=== PATIENT | female | born 1950 | race Caucasian/White ===

== ENCOUNTER → 2016-11-18 | Outpatient (CLI) | payer OTHER, MEDICARE ==
[~2016-11-18] MED LIST: ALBU1AER9 INH; AMLO5TAB2 PO; BISA-16 PO; CETI10TA84 PO; CHOL1000 PO; CITA10TA8 PO; CLB100 PO; CYNI1000 IM; ERYT250T; FURO-85 PO; GLIP-197 PO; HYDR-5688 PO; MONT1TAB3 PO; MULTCAP7 PO; NEOM500T; PRT/20 PO; SENN-61 PO; UMEC1AER INH; [UNRECOGNIZED DRUG - CODE] PO
[2016-11-18 12:07] LABS: BASO % 0.2 %; BASO ABS # 0.01 K/uL (0-0.2); COMPLETE YES; EOS % 2.9 %; HEMATOCRIT 40.2 % (37-47); IG% 0.2 %; LYMPH ABS # 1.87 K/uL (1.2-3.4); MEAN CELL VOLUME 83.8 fL (80-100); MEAN CORPUSCULAR HEMOGLOBIN 29.2 pg (25-34); MEAN CORPUSCULAR HGB CONC 34.8 g/dl (32-36); MEAN PLATELET VOLUME 11.5 fL (7.4-10.4); MONO % 4.9 %; NEUT % 57.8 %; PLATELET COUNT 219 K/uL (130-400)
[2016-11-18 12:21] LABS: ALT/SGPT 21 U/L (12-78); AST/SGOT 15 U/L (15-37); BLOOD UREA NITROGEN 13 mg/dl (7-18); CARBON DIOXIDE 30 mmol/L (21-32); CHLORIDE 104 mmol/L (98-107); CREATININE 0.71 mg/dl (0.60-1.20); GLUCOSE 87 mg/dl (70-99); POTASSIUM 3.8 mmol/L (3.5-5.1); SODIUM 142 mmol/L (136-145)
[2016-11-18 12:42] LABS: ESTIMATED AVERAGE GLUCOSE 114 mg/dl; HA1C FLAG Normal (Normal)
[2016-11-18 12:43] LABS: ALB/GLOB RATIO 1.1 (0.9-2); ALKALINE PHOSPHATASE 77 U/L (45-117); IMMUNOGLOBULN M 86.9 mg/dL (40-230)
== END | disposition home or self-care (01) ==
LOC: C.LAB1850 10:32
PROVIDERS: ATTEND Internal Medicine
DX: E11.9 Type 2 diabetes mellitus without complications (principal); Z98.890 Other specified postprocedural states; K57.20 Diverticulitis of large intestine with perforation and abscess without bleeding; D84.9 Immunodeficiency, unspecified; K22.70 Barrett's esophagus without dysplasia

== ENCOUNTER → 2016-11-25 | Outpatient (CLI) | payer OTHER, MEDICARE ==
[~2016-11-25] MED LIST changes: +OPTIRAY 320 IV PRN
--- NOTE | 2016-11-25 14:21 | DIAGNOSTIC IMAGING REPORT ---
CT SCAN OF THE ABDOMEN AND PELVIS WITH IV CONTRAST CLINICAL HISTORY: Perforated diverticulitis and colostomy. COMPARISON STUDY: Abdominal CT scans dated 09/23/2016 and 08/22/2016. TECHNIQUE: Following the IV administration of 119 cc of Optiray 320, CT scan of the abdomen and pelvis is performed from the lung bases to the proximal femora. Images are reviewed in the axial, sagittal, and coronal planes. IV contrast was administered without complication. Automated dose control exposure was utilized. The examination is degraded by streak artifact from the patient's arms which could not be elevated above the abdomen. CT DOSE: 506.46 mGy.cm FINDINGS: Lung bases: The heart is normal in size and without pericardial effusion. The lung bases are clear noting dependent subsegmental atelectasis. There is a small hiatal hernia. Liver: The contrast-enhanced liver is normal in size and contour. The liver demonstrates diffusely diminished attenuation consistent with hepatic steatosis. More focal fat is seen adjacent to the falciform ligament. There is minimal central intrahepatic biliary ductal dilatation. The hepatic veins and portal veins are patent. Gallbladder: Surgically absent noting clips in the gallbladder fossa. Spleen: Normal in size and attenuation. Pancreas: Atrophic. Adrenal glands: Unremarkable. Kidneys: The contrast enhanced kidneys demonstrate cortical atrophy and are without hydronephrosis. The kidneys enhance symmetrically. Abdominal vasculature: The abdominal aorta is normal in course and caliber noting moderate atherosclerotic calcification. Bowel: There are postoperative changes from sigmoid colon resection with left lower quadrant colostomy. Inflammatory change at the rectal stump has resolved from previous. There is diverticulosis of the remaining sigmoid colon. A parastomal hernia contains nonobstructed loops of small bowel. No bowel obstruction is identified. The appendix is not identified and reported surgically absent. Peritoneum: No intraperitoneal free air or abdominal ascites is seen. A midline surgical scar is noted. No fluid collection is seen. Lymphadenopathy: None. Pelvic viscera: The bladder is decompressed and grossly unremarkable.. The uterus is surgically absent. No adnexal lesion is seen. Skeletal structures: The skeletal structures are osteopenic. There is mild lumbosacral spondylosis. No lytic or blastic lesions are seen. A hemangioma is noted in the body of L2. IMPRESSION: 1. Again seen are postoperative changes from sigmoid colon resection with left lower quadrant colostomy. No residual inflammatory change is identified. No fluid collection is seen. 2. A parastomal hernia contains nonobstructed loops of small bowel. No bowel obstruction is identified. 3. There is diverticulosis of the remaining sigmoid colon. 4. Hepatic steatosis. 5. Additional findings as above. Electronically signed by: Main Segura M.D. 11/25/2016 2:20 PM Dictated Date/Time: 11/25/2016 2:13 PM
== END | disposition home or self-care (01) ==
LOC: C.CTS 13:24
PROVIDERS: ATTEND Surgery
DX: K57.32 Diverticulitis of large intestine without perforation or abscess without bleeding (principal); K43.5 Parastomal hernia without obstruction or gangrene; Z93.3 Colostomy status; K76.0 Fatty (change of) liver, not elsewhere classified

== ENCOUNTER → 2016-11-26 | Day surgery (SDC) | payer OTHER, MEDICARE ==
[2016-11-19 07:34] VITALS: Ht 142.2 cm; Wt 54.5 kg
[~2016-11-26] VITALS: Ht 142.2 cm; Wt 54.5 kg
[~2016-11-26] MED LIST changes: +LIDOCAINE HCL 2% 2 ML VIAL (20MG/ML) ONE; -OPTIRAY 320 IV PRN; +PROPOFOL IV EMULSION 10 MG/ML 20 ML VIAL IV ONE; +SODIUM CHLORIDE 0.9% 500ML 500 ML IV ONE
[2016-11-26 13:15] VITALS: TEMP 36.6
--- NOTE | 2016-11-26 13:29 | Endo History and Physical ---
History & Physical Date of Service: Nov 26, 2016. Chief Complaint: colostomy,diverticulitis of colon Referring Physician: Dr. Abbe Lee History of Present Illness 66 yo CF who presents for colonoscopy via ostomy secondary to history of diverticulitis and possible ostomy reversal. Past Medical History Diabetes, Endocrine Disorder, Arthritis, Asthma, Gastrointestinal Disorder, Anxiety, Reflux, Blood Dyscrasias, High Cholesterol, Hypertension, COPD, Depression Past Surgical History Hx Cardiac Surgery: No Hx Internal Defibrillator: No Hx Pacemaker: No Hx Abdominal Surgery: Yes (CLARE BSO, APPY, LYNDSEY, COLON RESECTION WITH COLOSTOMY ) Hx of Implantable Prosthesis: No Hx Post-Op Nausea and Vomiting: No Hx Cancer Surgery: No Hx Thoracic Surgery: No Hx Orthopedic: Yes (RT BUNIONECTOMY) Hx Urinary Tract Surgery: No Family History Esophogeal CA Social History Smoking Status: Former Smoker Hx Substance Use: No Hx Alcohol Use: No Allergies Coded Allergies: Sumatriptan (Verified Allergy, Severe, ANAPHYLAXIS - "HEART TROUBLES", ) PT TOOK IT AND HER THROAT BEGAN TO CLOSE Lisinopril (Verified Allergy, Mild, RASH, 11/12/16) Levofloxacin (Verified Allergy, Unknown, SICK, 11/12/16) NSAIDs (Verified Allergy, Unknown, UNKNOWN, 11/12/16) Fluticasone (Verified Adverse Reaction, Mild, DE LEON NOSE, 11/12/16) Hydrochlorothiazide (Verified Adverse Reaction, Mild, RASH, 11/12/16) Metformin (Verified Adverse Reaction, Mild, NAUSEA, 11/12/16) Current Medications Reported Home Medications Medications Dose Route/Sig Max Daily Dose Days Date Category Celebrex (Celecoxib) 100 Mg Cap 1 Cap PO BID 30 11/12/16 Reported Anoro Ellipta 62.5-25 Mcg/INH (Umeclidinium-Vilanterol) 1 Aer Aer 1 Puff INH QAM 11/12/16 Reported Senokot (Senna) 8.6 Mg Tab 1 Tab PO DAILY AT NOON 09/14/16 Reported Celexa (Citalopram Hydrobromide) 10 Mg Tab 10 Mg PO QAM 08/07/16 Reported Glipizide Er (Glipizide) 5 Mg Tab 1 Tab PO BID 08/07/16 Reported Zyrtec (Cetirizine HCl) 10 Mg Tab 10 Mg PO QAM 06/22/14 Reported Singulair (Montelukast Sodium) 10 Mg Tab 10 Mg PO HS 06/22/14 Reported Proair Hfa (Albuterol) Aers 2 Puff INH Q4 PRN 06/22/14 Reported Protonix (Pantoprazole Sodium) 20 Mg Tab 20 Mg PO QAM 06/22/14 Reported Norvasc (Amlodipine Besylate) 5 Mg Tab 5 Mg PO QPM 06/22/14 Reported Lasix (Furosemide) 20 Mg Tab 20 Mg PO QPM 06/22/14 Reported Capoten (Captopril) 12.5 Mg Tab 12.5 Mg PO NOON 06/22/14 Reported Vital Signs Weight (Kilograms): 54.55 Height (Feet): 4 Height (Inches): 8 Date Time Temp Pulse Resp B/P Pulse Ox O2 Delivery O2 Flow Rate FiO2 11/26/16 13:15 36.6 60 20 192/87 97 Room Air Physical Exam General Appearance: WD/WN, no apparent distress Respiratory/Chest: Auscultation: breath sounds normal Cardiovascular: Heart Auscultation: RRR Abdomen: Bowel Sounds: normal Inspection & Palpation: soft, non-distended, no tenderness, guarding & rebound Assessment and Plan Assessment: 66 yo CF who presents for colonoscopy via ostomy secondary to history of diverticulitis and possible ostomy reversal. Plan: Proceed with colonoscopy via ostomy.
--- NOTE | 2016-11-26 13:54 | Discharge Instructions ---
Endoscopy Patient Instructions Date / Procedure(s) Performed Nov 26, 2016. Colonoscopy Allergy Information Coded Allergies: Sumatriptan (Verified Allergy, Severe, ANAPHYLAXIS - "HEART TROUBLES", ) PT TOOK IT AND HER THROAT BEGAN TO CLOSE Lisinopril (Verified Allergy, Mild, RASH, 11/12/16) Levofloxacin (Verified Allergy, Unknown, SICK, 11/12/16) NSAIDs (Verified Allergy, Unknown, UNKNOWN, 11/12/16) Fluticasone (Verified Adverse Reaction, Mild, DE LEON NOSE, 11/12/16) Hydrochlorothiazide (Verified Adverse Reaction, Mild, RASH, 11/12/16) Metformin (Verified Adverse Reaction, Mild, NAUSEA, 11/12/16) Discharge Date / Findings Nov 26, 2016. Normal colonoscopy via ostomy and anus. Medication Instructions Stopped Medication(s): stopped all meds on Wednesday except Glipizide OK to resume all medications today as prescribed. Reported Home Medications Medications Dose Route/Sig Max Daily Dose Days Date Category Celebrex (Celecoxib) 100 Mg Cap 1 Cap PO BID 30 11/12/16 Reported Anoro Ellipta 62.5-25 Mcg/INH (Umeclidinium-Vilanterol) 1 Aer Aer 1 Puff INH QAM 11/12/16 Reported Senokot (Senna) 8.6 Mg Tab 1 Tab PO DAILY AT NOON 09/14/16 Reported Celexa (Citalopram Hydrobromide) 10 Mg Tab 10 Mg PO QAM 08/07/16 Reported Glipizide Er (Glipizide) 5 Mg Tab 1 Tab PO BID 08/07/16 Reported Zyrtec (Cetirizine HCl) 10 Mg Tab 10 Mg PO QAM 06/22/14 Reported Singulair (Montelukast Sodium) 10 Mg Tab 10 Mg PO HS 06/22/14 Reported Proair Hfa (Albuterol) Aers 2 Puff INH Q4 PRN 06/22/14 Reported Protonix (Pantoprazole Sodium) 20 Mg Tab 20 Mg PO QAM 06/22/14 Reported Norvasc (Amlodipine Besylate) 5 Mg Tab 5 Mg PO QPM 06/22/14 Reported Lasix (Furosemide) 20 Mg Tab 20 Mg PO QPM 06/22/14 Reported Capoten (Captopril) 12.5 Mg Tab 12.5 Mg PO NOON 06/22/14 Reported Provider Instructions Activity Restrictions - No exercising or heavy lifting for 24 hours. - Do not drink alcohol the day of the procedure. - Do not drive a car or operate machinery until the day after the procedure. - Do not make any important decisions or sign important papers in 24 hours after the procedure. Following Day: - Return to full activity which may include returning to work/school. Diet Start your diet with liquids and light foods (jello, soup, juice, toast). Then eat your usual diet if not nauseated. Treatment For Common After Affects For mild abdominal pain, bloating, or excessive gas: - Rest - Eat lightly - Lie on right side Follow-Up Information Follow-up with Dr. Abbe Lee as scheduled Anesthesia Information What You Should Know You have had a procedure that required some medicine to reduce anxiety and discomfort. This treatment is called moderate sedation. After receiving the treatment, you may be sleepy, but you will be able to breathe on your own. The effects of the treatment may last for several hours. Follow these instructions along with Activity/Diet recommendations noted above: * Do NOT do anything where dizziness or clumsiness would be dangerous. * Rest quietly at home today, then you can be up and about tomorrow. * Have a responsible person stay with you the rest of today. * You may have had an I.V. today. If so, you may take the dressing off later today. Recommendations Call your doctor if: * Trouble breathing * Continuous vomiting for more than 24 hours * Temperature above 101 degrees * Severe abdominal pain or bloating * Pain not relieved by pain medicine ordered * There is increased drainage or redness from any incision * A large amount of rectal bleeding greater than 2-3 tablespoons. (If you had a polyp/s removed or have hemorrhoids, a small amount of blood - from the rectum is to be expected.) * You have any unanswered questions or concerns. IN THE EVENT OF A SERIOUS EMERGENCY, GO TO THE NEAREST EMERGENCY ROOM Your discharge instructions were prepared by provider Luis Alberto Solitario. Patient Instructions Signature Page Jasmyn Tucker Patient (or Guardian) Signature/Date: I have read and understand the instructions given to me by my caregivers. Caregiver/RN/Doctor Signature/Date: The above-named patient and/or guardian has received patient instructions on this date. + Original Patient Signature Page (only) stays with chart. Please make copy for patient.
[2016-11-26 14:15] VITALS: PULSE 61
[2016-11-26 14:30] VITALS: BP 137/61; O2SAT 96
--- NOTE | 2016-11-26 14:51 | Anesthesiology Progress Note ---
Anesthesia Post Op Note Date & Time Nov 26, 2016 at 14:51 Vital Signs Pain Intensity: 0 Vital Signs Past 12 Hours Date Time Temp Pulse Resp B/P Pulse Ox O2 Delivery O2 Flow Rate FiO2 11/26/16 14:30 18 137/61 96 Room Air 11/26/16 14:15 61 18 142/62 96 Room Air 11/26/16 14:06 60 18 127/65 97 Room Air 11/26/16 13:52 56 18 111/51 98 Room Air 11/26/16 13:15 36.6 60 20 192/87 97 Room Air Notes Mental Status: alert / awake / arousable Nausea / Vomiting: adequately controlled Pain: adequately controlled Airway Patency, RR, SpO2: stable & adequate BP & HR: stable & adequate Hydration State: stable & adequate Anesthetic Complications: no major complications apparent
--- NOTE | 2016-11-27 00:46 | GI REPORT ---
Procedure Date: 11/26/2016 1:28 PM Procedure: Colonoscopy Indications: Follow-up of diverticulitis Medicines: Monitored Anesthesia Care Complications: No immediate complications. Estimated Blood Loss: Estimated blood loss: none. Procedure: Pre-Anesthesia Assessment: - Prior to the procedure, a History and Physical was performed, and patient medications and allergies were reviewed. The patient's tolerance of previous anesthesia was also reviewed. The risks and benefits of the procedure and the sedation options and risks were discussed with the patient. All questions were answered, and informed consent was obtained. Prior Anticoagulants: The patient has taken no previous anticoagulant or antiplatelet agents. ASA Grade Assessment: II - A patient with mild systemic disease. After reviewing the risks and benefits, the patient was deemed in satisfactory condition to undergo the procedure. After I obtained informed consent, the scope was passed under direct vision. Throughout the procedure, the patient's blood pressure, pulse, and oxygen saturations were monitored continuously. The scope was introduced through the sigmoid colostomy and advanced to the cecum, identified by appendiceal orifice and ileocecal valve. The scope was withdrawn and then introduced through the anus to the sigmoid colon. The colonoscopy was performed without difficulty. The patient tolerated the procedure well. The quality of the bowel preparation was good. The ileocecal valve and the appendiceal orifice were photographed. Findings: The entire examined colon appeared normal. Impression: - The entire examined colon is normal. - No specimens collected. Recommendation: - Resume previous diet. - Continue present medications. - Repeat colonoscopy in 10 years for surveillance. - OK to proceed with Ostomy reversal. - Return to referring physician as previously scheduled. Luis Alberto Solitario, DO 11/26/2016 1:53:05 PM This report has been signed electronically. Note Initiated On: 11/26/2016 1:28 PM I attest to the content of the Intraoperative Record and orders documented therein, exceptions below
== END | disposition home or self-care (01) ==
LOC: C.GI 12:33
PROVIDERS: ATTEND Internal Medicine
DX: Z09 Encounter for follow-up examination after completed treatment for conditions other than malignant neoplasm (principal); K57.32 Diverticulitis of large intestine without perforation or abscess without bleeding; Z93.3 Colostomy status; Z80.0 Family history of malignant neoplasm of digestive organs; K21.9 Gastro-esophageal reflux disease without esophagitis; E11.9 Type 2 diabetes mellitus without complications; M19.90 Unspecified osteoarthritis, unspecified site; J45.909 Unspecified asthma, uncomplicated; F41.9 Anxiety disorder, unspecified; E78.5 Hyperlipidemia, unspecified; I10 Essential (primary) hypertension; J44.9 Chronic obstructive pulmonary disease, unspecified; F32.9 Major depressive disorder, single episode, unspecified; Z98.890 Other specified postprocedural states; Z87.891 Personal history of nicotine dependence; Z88.5 Allergy status to narcotic agent; Z88.8 Allergy status to other drugs, medicaments and biological substances

== ENCOUNTER 2017-01-06 04:56 | Inpatient (IN) | payer OTHER, MEDICARE ==
[2016-12-28 15:52] VITALS: BMI 29.0
[~2017-01-06] VITALS: Ht 142.2 cm; Wt 59.1 kg
[2017-01-06] VITALS (9 sets, daily range): BP systolic 107–149; BP diastolic 61–77; PULSE 55–91; TEMP 36.3–37.2; O2SAT 91–98; Ht 142.2 cm; Wt 59.1 kg
[~2017-01-06 04:56] MED LIST changes: -BISA-16 PO; -CHOL1000 PO; -CYNI1000 IM; -ERYT250T; -HYDR-5688 PO; -LIDOCAINE HCL 2% 2 ML VIAL (20MG/ML) ONE; -MULTCAP7 PO; -NEOM500T; -PROPOFOL IV EMULSION 10 MG/ML 20 ML VIAL IV ONE; -SODIUM CHLORIDE 0.9% 500ML 500 ML IV ONE
[2017-01-06] MEDS ORDERED: NEOM500T (05:48)
[2017-01-06] MEDS ORDERED: ERYT250T (05:48)
[2017-01-06] MEDS ORDERED: MULTCAP7 PO (05:51)
[2017-01-06] MEDS ORDERED: BISA-16 PO (05:51)
[2017-01-06] MEDS ORDERED: CHOL1000 PO (05:51)
[2017-01-06] MEDS ORDERED: LACTATED RINGER'S 1000ML 1,000 ML IV SCH (06:00)
[2017-01-06] MEDS ORDERED: PROPOFOL IV EMULSION 10 MG/ML 20 ML VIAL IV ONE (06:34)
[2017-01-06] MEDS ORDERED: LIDOCAINE HCL 2% 2 ML VIAL (20MG/ML) ONE (06:34)
[2017-01-06] MEDS ORDERED: NEOSTIGMINE METHYLSULFATE 5 MG/5 ML SYR ONE (06:34)
[2017-01-06] MEDS ORDERED: DEXAMETHASONE SOD INJ 4 MG/ML VIAL ONE (06:34)
[2017-01-06] MEDS ORDERED: MIDAZOLAM HCL 1 MG/ML 2ML VIAL ONE (06:34)
[2017-01-06] MEDS ORDERED: GLYCOPYRROLATE INJ 0.2 MG/ML VIAL ONE ×2 (06:34→09:03)
[2017-01-06] MEDS ORDERED: ONDANSETRON INJ 2 MG/ML 2 ML VIAL ONE ×2 (06:34→07:52)
[2017-01-06] MEDS ORDERED: ROCURONIUM BROMIDE 10 MG/ML 5 ML VIAL ONE ×2 (06:34→07:52)
[2017-01-06] MEDS ORDERED: FENTANYL CITRATE INJ 50 MCG/1 ML 2 ML VIAL ONE ×3 (06:35→11:04)
[2017-01-06] MEDS ORDERED: CEFOXITIN IV 2,000 MG in DEXTROSE 5% 50ML 50 ML IV SCH (06:45)
[2017-01-06] MEDS ORDERED: HYDROmorphone INJ 2 MG/ML SYR/VIAL ONE (06:45)
[2017-01-06] MEDS ORDERED: BUPIVACAINE 0.5 % 5 MG/1 ML MPF 30ML VIAL ONE (06:47)
[2017-01-06] MEDS ORDERED: CEFOXITIN SOD 2 GM VIAL ONE ×2 (06:47→09:17)
--- NOTE | 2017-01-06 07:01 | History & Physical Bridge Note ---
H&P Re-Evaluation Bridge Note: I have examined the patient, reviewed the History & Physical and in the interval since the performance of the History & Physical I have noted the following changes of clinical significance: No changes noted
[2017-01-06] MEDS ORDERED: EpHEDrine SULFATE 50MG/5ML SYR ONE (08:51)
[2017-01-06] MEDS ORDERED: FENTANYL CITRATE INJ 50 MCG/1 ML 2 ML VIAL IV PRN (10:00)
[2017-01-06] MEDS ORDERED: ONDANSETRON INJ 2 MG/ML 2 ML VIAL IV PRN (10:00)
[2017-01-06] MEDS ORDERED: EpHEDrine SULFATE INJ 50 MG/ML AMP IV PRN (10:00)
[2017-01-06] MEDS ORDERED: HYDROmorphone INJ 1 MG/ML SYR IV PRN (10:00)
[2017-01-06] MEDS ORDERED: ATROPINE SULFATE 0.1 MG/ML 5ML SYR IV PRN (10:00)
[2017-01-06] MEDS ORDERED: PROMETHAZINE HCL INJ 6.25 MG in SODIUM CHLORIDE 0.9% 50ML 50 ML IV PRN (10:00)
--- NOTE | 2017-01-06 10:14 | [facility] Post Operative Brief Note ---
Immediate Operative Summary Operative Date Jan 06, 2017. Pre-Operative Diagnosis colostomy, h/o perforated diverticulitis Post-Operative Diagnosis same Procedure(s) Performed Colostomy Closure with Colorectal Anastamosis Surgeon Dr. Case Burnham [employer] Surgeon(s) Ugo Montoya PA-C Estimated Blood Loss 50 cc Findings adhesions, diverticulosis Specimens a.) Sigmoid Colon, Suture Proximal b.) Additional Proximal Colon, Staple Line Proximal Drains #[address] LORENZO to pelvis, 1/4 in vidya to subcu Anesthesia gen Complication(s) None Disposition Recovery Room / PACU
[2017-01-06] MEDS ORDERED: PROMETHAZINE HCL INJ 25 MG in SODIUM CHLORIDE 0.9% 50ML 50 ML IV PRN (10:15)
[2017-01-06] MEDS ORDERED: HYDROmorphone INJ 0.5 MG/0.5 ML SYR IV PRN (10:15)
--- NOTE | 2017-01-06 10:56 | OPERATIVE REPORT ---
DATE OF OPERATION: 01/06/2017 NAME OF OPERATION: Taken of colostomy with colorectal anastomosis. PREOPERATIVE DIAGNOSES: Colostomy with a history of perforated diverticulitis. The patient also had a parastomal hernia. STAFF SURGEON: Dr. Case Burnham. IMAGING ASSISTANT: Ugo Montoya PA-C ANESTHESIA: General. DESCRIPTION OF PROCEDURE: The patient was brought into the operating room and placed on the operating table in the supine position. Pneumatic stockings, Min catheter and orogastric tube were placed. Her abdomen was prepped and draped in the usual fashion. Incision was made in the midline from just above the umbilicus down to the symphysis pubis through the previous scar tissue, carrying dissection down through the fascia, identifying the omentum, which was mobilized. I was able to enter the abdominal cavity superiorly and then mobilized the omentum away from the abdominal wall. She did have significant adhesions. The small bowel was adherent to the pelvis and to the left side of the abdomen. The small bowel was mobilized and then the distal sigmoid colon identified. It was relatively adherent within the pelvis, but I was able to mobilize this area and identified the rectum. She did have some diverticulosis in the distal sigmoid colon. A portion was removed with the suture in the proximal portion. At this point, the stoma was mobilized by incising around the stoma at the skin level and then dissecting away from the subcutaneous tissue, she did have a parastomal hernia, which the sac was opened and then the colon reduced. We did mobilize the left colon somewhat and then transected the distal portion of it with the staple line proximal. At this point, the staple line was oversewn using 3-0 silk suture and then I felt that side-to-end colorectal anastomosis would be best because the rectum was very small less than 2 cm in diameter. I was able to gently stretch the rectum with a Thalia clamp. At this point, a posterior seromuscular layer of 3-0 silk was performed from the colon to the rectum. The colon was then opened and then the silk sutures tied. The mucosal layer was then performed using running suture of 2-0 chromic catgut with a relatively good size matching. The anterior layer of seromuscular silk was then placed and then the pericolonic adipose tissue was brought down over the anastomosis and tacked using 2-0 chromic catgut suture. The abdomen was irrigated with antibiotic solution. A 15 round Parmjit-Martinez drain placed into the pelvis, secured to the skin using 3-0 nylon suture and then, the fascia reapproximated using both running and interrupted #1 PDS suture. Quarter inch [place] drain placed in the subcutaneous space, secured to the skin using 3-0 nylon suture and then the skin loosely reapproximated using subha. The stoma site was then approached. The fascia was mobilized away from the subcutaneous tissue partially excising the hernia sac. Then, it was closed using interrupted #1 PDS suture with 1 central #1 Prolene suture. A small piece of quarter inch [place] drain placed into the subcutaneous space at the stoma site, secured to the skin using 3-0 nylon suture and then the skin loosely reapproximated using 3-0 nylon suture. The patient was transferred to the recovery room in stable condition. I attest to the content of the Intraoperative Record and any orders documented therein. Any exceptio ns are noted below.
--- NOTE | 2017-01-06 11:34 | Anesthesiology Progress Note ---
Anesthesia Post Op Note Date & Time Jan 06, 2017 at 11:34 Vital Signs Pain Intensity: 3 Vital Signs Past 12 Hours Date Time Temp Pulse Resp B/P Pulse Ox O2 Delivery O2 Flow Rate FiO2 01/06/17 11:25 36.8 79 17 156/76 93 Nasal Cannula 2 01/06/17 11:15 81 10 144/73 94 Nasal Cannula 2 01/06/17 11:00 62 15 147/73 92 Nasal Cannula 2 01/06/17 10:50 74 15 169/82 97 Mask 10 01/06/17 10:40 62 11 158/78 98 Mask 10 01/06/17 10:31 36.3 71 10 178/85 99 Mask 10 01/06/17 05:50 36.3 55 18 135/73 98 Room Air Notes Mental Status: alert / awake / arousable, participated in evaluation Pt Amnestic to Procedure: Yes Nausea / Vomiting: adequately controlled Pain: adequately controlled Airway Patency, RR, SpO2: stable & adequate BP & HR: stable & adequate Hydration State: stable & adequate Anesthetic Complications: no major complications apparent
[2017-01-06] MEDS: D5W AND 1/2NSS + 20MEQ KCL 1,000 ML IV SCH ×2 (13:27→21:03)
[2017-01-06] MEDS: HYDROmorphone INJ 1 MG/ML SYR IV PRN ×3 (14:20→23:32)
[2017-01-06] MEDS: CEFOXITIN IV 1,000 MG in DEXTROSE 5% 50ML 50 ML IV SCH (18:13)
[2017-01-07] MEDS: CEFOXITIN IV 1,000 MG in DEXTROSE 5% 50ML 50 ML IV SCH ×3 (01:44→18:44)
[2017-01-07 03:06] VITALS: BP 119/70; PULSE 51; TEMP 36.9; O2SAT 95
[2017-01-07 05:15] LABS: HEMATOCRIT 33.7 % (37-47); MEAN CELL VOLUME 84.7 fL (80-100); MEAN CORPUSCULAR HEMOGLOBIN 29.4 pg (25-34); MEAN CORPUSCULAR HGB CONC 34.7 g/dl (32-36); MEAN PLATELET VOLUME 10.6 fL (7.4-10.4); PLATELET COUNT 222 K/uL (130-400); RED BLOOD COUNT 3.98 M/uL (4.2-5.4); WHITE BLOOD COUNT 13.67 K/uL (4.8-10.8)
[2017-01-07] MEDS: D5W AND 1/2NSS + 20MEQ KCL 1,000 ML IV SCH ×2 (05:41→14:45)
[2017-01-07] MEDS: HYDROmorphone INJ 1 MG/ML SYR IV PRN ×5 (05:47→23:22)
[2017-01-07 05:58] LABS: CALCIUM 8.3 mg/dl (8.5-10.1); CREATININE 0.86 mg/dl (0.60-1.20); POTASSIUM 4.9 mmol/L (3.5-5.1)
--- NOTE | 2017-01-07 06:10 | Surgery Progress Note ---
Surgery Progress Note Date of Service Jan 07, 2017. Subjective No bowel movement, No flatus, No nausea, No vomiting awake, alert, pain controlled fink removed, monitor urine output Objective Vital Signs: Date Time Temp Pulse Resp B/P Pulse Ox O2 Delivery O2 Flow Rate FiO2 01/07/17 03:06 36.9 51 15 119/70 95 Nasal Cannula 2.0 01/06/17 23:45 Room Air 01/06/17 23:20 36.6 63 18 149/75 96 Nasal Cannula 2.0 01/06/17 20:22 37.2 55 16 132/72 92 Nasal Cannula 2.0 01/06/17 19:55 92 Room Air 01/06/17 16:00 Nasal Cannula 2.0 01/06/17 14:56 36.8 65 16 107/61 95 2.0 01/06/17 13:45 36.8 59 16 123/70 93 2.0 01/06/17 12:45 37.0 61 16 132/70 93 2.0 01/06/17 12:16 91 17 128/77 91 Nasal Cannula 2.0 01/06/17 11:45 93 Nasal Cannula 2.0 01/06/17 11:45 Nasal Cannula 2.0 01/06/17 11:25 36.8 79 17 156/76 93 Nasal Cannula 2 01/06/17 11:15 81 10 144/73 94 Nasal Cannula 2 01/06/17 11:00 62 15 147/73 92 Nasal Cannula 2 01/06/17 10:50 74 15 169/82 97 Mask 10 01/06/17 10:40 62 11 158/78 98 Mask 10 01/06/17 10:31 36.3 71 10 178/85 99 Mask 10 General Appearance: no apparent distress Respiratory/Chest: no respiratory distress Cardiovascular: regular rate, rhythm Abdomen: non distended, soft Incision(s): intact, drainage (expected) Laboratory Results: Results Past 24 Hours Test 01/06/17 06:14 01/06/17 10:31 01/07/17 04:45 Range/Units Bedside Glucose 108 155 70-90 mg/dl White Blood Count 13.67 4.8-10.8 K/uL Red Blood Count 3.98 4.2-5.4 M/uL Hemoglobin 11.7 12.0-16.0 g/dL Hematocrit 33.7 37-47 % Mean Corpuscular Volume 84.7 80-100 fL Mean Corpuscular Hemoglobin 29.4 25-34 pg Mean Corpuscular Hemoglobin Concent 34.7 32-36 g/dl RDW Standard Deviation 42.1 36.4-46.3 fL RDW Coefficient of Variation 13.7 11.5-14.5 % Platelet Count 222 130-400 K/uL Mean Platelet Volume 10.6 7.4-10.4 fL Sodium Level 143 136-145 mmol/L Potassium Level 4.9 3.5-5.1 mmol/L Chloride Level 107 98-107 mmol/L Carbon Dioxide Level 34 21-32 mmol/L Anion Gap 2.0 3-11 mmol/L Blood Urea Nitrogen 8 7-18 mg/dl Creatinine 0.86 0.60-1.20 mg/dl Est Creatinine Clear Calc Drug Dose 45.5 ml/min Estimated GFR () 81.0 Estimated GFR (Non- 69.9 BUN/Creatinine Ratio 9.0 10-20 Random Glucose 162 70-99 mg/dl Calcium Level 8.3 8.5-10.1 mg/dl Phosphorus Level 3.0 2.5-4.9 mg/dl Magnesium Level 2.0 1.8-2.4 mg/dl Assessment & Plan 01/07/17- s/p takedown of colostomy and colorectal anastomosis- significant adhesions will advance slowly- ice only, IV fluid/ atbx to cont, ambulate, check labs monitor ur outpt- may need some lasix- hold for now
[2017-01-07 07:13] VITALS: BP 98/58; PULSE 52; TEMP 37.2; O2SAT 90
[2017-01-07] MEDS ORDERED: DiphenhydrAMINE HCL 50 MG/ML VIAL IV PRN (07:45)
[2017-01-07] MEDS ORDERED: NURSING VERBAL MED ORDER ONE ×2 (07:45→21:45)
[2017-01-07] MEDS ORDERED: GLUCOSE 10 TABS/TUBE PO PRN (08:00)
[2017-01-07] MEDS ORDERED: GLUCOSE 40% GEL 15 GM TUBE PO PRN (08:00)
[2017-01-07] MEDS ORDERED: GLUCAGON FOR INJ 1 MG VIAL SQ PRN (08:00)
[2017-01-07] MEDS ORDERED: DEXTROSE 50% 50 ML SYR IV PRN (08:00)
[2017-01-07] MEDS: INSULIN ASPART 100 UNITS/ML 3 ML PEN SC SCH ×3 (08:00→17:15)
--- NOTE | 2017-01-07 08:03 | Medical Consult ---
Consultation Date of Consultation: Jan 07, 2017. Attending Physician: Case Burnham M.D. Reason for Consultation: Medical management History of Present Illness Patient is a 66 y/o female, with PMHx COPD, HTN, T2DM, chronic headaches, immune deficiency, and GERD w/ Gutierrez's esophagus, s/p colostomy closure with colorectal anastomosis by Dr. Burnham on 01/06. Past Medical/Surgical History PAST MEDICAL HISTORY: 1. COPD 2. Hypertension 3. Type 2 diabetes 4. Gutierrez's esophagus 5. Immune deficiency, she takes subQ gamma globulin weekly 6. Chronic cervical headaches- she is narcotic dependent 7. GERD PAST SURGICAL HISTORY: 1. Cholecystectomy Social History Smoking Status: Former Smoker Drug Use: none Allergies Coded Allergies: Sumatriptan (Verified Allergy, Severe, ANAPHYLAXIS - "HEART TROUBLES", 09/12) PT TOOK IT AND HER THROAT BEGAN TO CLOSE Lisinopril (Verified Allergy, Mild, RASH, 01/06/17) Levofloxacin (Verified Allergy, Unknown, SICK, 01/06/17) NSAIDs (Verified Allergy, Unknown, RASH, 01/06/17) Fluticasone (Verified Adverse Reaction, Mild, DE LEON NOSE, 01/06/17) Hydrochlorothiazide (Verified Adverse Reaction, Mild, RASH, 01/06/17) Metformin (Verified Adverse Reaction, Mild, NAUSEA, 01/06/17) Current Inpatient Medications Current Inpatient Medications Medications (Trade) Dose Ordered Sig/Danish Route Start Time Stop Time Status Last Admin Dose Admin Potassium Chloride/Dextrose/ Sod Cl 1,000 ml @ 100 mls/hr Q10H IV 01/06/17 13:00 02/05/17 12:59 01/07/17 05:41 125 MLS/HR Cefoxitin Sodium/ Dextrose (Mefoxin IV/D5 50ml) 60 ml @ 100 mls/hr Q8H IV 01/06/17 18:00 01/16/17 17:59 01/07/17 01:44 100 MLS/HR Hydromorphone HCl (Dilaudid Inj) 0.5 mg Q3H PRN IV 01/06/17 10:15 01/20/17 10:14 Hydromorphone HCl (Dilaudid Inj) 1 mg Q3H PRN IV 01/06/17 10:15 01/20/17 10:14 01/07/17 05:47 1 MG Heparin Sodium (Porcine) 5000 unit 5,000 unit Q12H SQ 01/07/17 08:00 02/06/17 07:59 Promethazine HCl/ Sodium Chloride (Phenergan Inj/ Nss 50ml) 51 ml @ 204 mls/hr Q6H PRN IV 01/06/17 10:15 02/05/17 10:14 Ondansetron HCl (Zofran Inj) 4 mg Q6H PRN IV 01/06/17 10:15 02/05/17 10:14 Physical Exam Date Time Temp Pulse Resp B/P Pulse Ox O2 Delivery O2 Flow Rate FiO2 01/07/17 07:13 37.2 52 16 98/58 90 Room Air 01/07/17 03:06 36.9 51 15 119/70 95 Nasal Cannula 2.0 01/06/17 23:45 Room Air 01/06/17 23:20 36.6 63 18 149/75 96 Nasal Cannula 2.0 01/06/17 20:22 37.2 55 16 132/72 92 Nasal Cannula 2.0 01/06/17 19:55 92 Room Air 01/06/17 16:00 Nasal Cannula 2.0 01/06/17 14:56 36.8 65 16 107/61 95 2.0 01/06/17 13:45 36.8 59 16 123/70 93 2.0 01/06/17 12:45 37.0 61 16 132/70 93 2.0 01/06/17 12:16 91 17 128/77 91 Nasal Cannula 2.0 01/06/17 11:45 93 Nasal Cannula 2.0 01/06/17 11:45 Nasal Cannula 2.0 01/06/17 11:25 36.8 79 17 156/76 93 Nasal Cannula 2 01/06/17 11:15 81 10 144/73 94 Nasal Cannula 2 01/06/17 11:00 62 15 147/73 92 Nasal Cannula 2 01/06/17 10:50 74 15 169/82 97 Mask 10 01/06/17 10:40 62 11 158/78 98 Mask 10 01/06/17 10:31 36.3 71 10 178/85 99 Mask 10 Laboratory Results Last 24 Hours Test 01/06/17 10:31 01/07/17 04:45 Bedside Glucose 155 mg/dl White Blood Count 13.67 K/uL Red Blood Count 3.98 M/uL Hemoglobin 11.7 g/dL Hematocrit 33.7 % Mean Corpuscular Volume 84.7 fL Mean Corpuscular Hemoglobin 29.4 pg Mean Corpuscular Hemoglobin Concent 34.7 g/dl RDW Standard Deviation 42.1 fL RDW Coefficient of Variation 13.7 % Platelet Count 222 K/uL Mean Platelet Volume 10.6 fL Sodium Level 143 mmol/L Potassium Level 4.9 mmol/L Chloride Level 107 mmol/L Carbon Dioxide Level 34 mmol/L Anion Gap 2.0 mmol/L Blood Urea Nitrogen 8 mg/dl Creatinine 0.86 mg/dl Est Creatinine Clear Calc Drug Dose 45.5 ml/min Estimated GFR () 81.0 Estimated GFR (Non- 69.9 BUN/Creatinine Ratio 9.0 Random Glucose 162 mg/dl Calcium Level 8.3 mg/dl Phosphorus Level 3.0 mg/dl Magnesium Level 2.0 mg/dl Assessment & Plan Patient is a 66 y/o female, with PMHx COPD, HTN, T2DM, chronic headaches, immune deficiency, and GERD w/ Gutierrez's esophagus, s/p colostomy closure with colorectal anastomosis by Dr. Burnham on 01/06. - Pain management, DVT prophylaxis, and PT/OT as per primary team - Diet as per primary team- currently NPO - Follow CBC and BMP COPD: - Continue home inhalers - O2 protocol, wean as tolerated- does ... wear O2 supplement at home HTN: - Continue Norvasc 5 mg daily once NPO status removed - Hydralazine 10 mg PRN T2DM: - ha1c on 11/18/16- 5/9 % - Hold Glipizide 5 mg BID - BSG ACHS w/ sliding insulin scale Arthritis: Celebrex 100 mg BID held due to NPO status Anxiety: Celexa 10 mg daily held due to NPO status Immune deficiency: Gammagard injections GERD: Continue Protonix once NPO status removed DVT prophylaxis: As per primary team Code Status: LEVEL I, FULL Dispo: As per primary team Thank you for this consultation. We will continue to follow throughout hospital stay.
[2017-01-07] MEDS: DiphenhydrAMINE HCL 50 MG/ML VIAL IV PRN ×2 (08:10→14:47)
[2017-01-07] MEDS: HEPARIN SOD 5000 UNIT/0.5 ML CARP SQ SCH ×2 (08:14→21:25)
--- NOTE | 2017-01-07 10:46 | Anesthesiology Progress Note ---
Anesthesia Post Op Note Date & Time Jan 07, 2017 at 10:45 Vital Signs Vital Signs Past 12 Hours Date Time Temp Pulse Resp B/P Pulse Ox O2 Delivery O2 Flow Rate FiO2 01/07/17 07:25 Room Air 01/07/17 07:13 37.2 52 16 98/58 90 Room Air 01/07/17 03:06 36.9 51 15 119/70 95 Nasal Cannula 2.0 01/06/17 23:45 Room Air 01/06/17 23:20 36.6 63 18 149/75 96 Nasal Cannula 2.0 Notes Mental Status: alert / awake / arousable, participated in evaluation Pt Amnestic to Procedure: Yes Nausea / Vomiting: adequately controlled Pain: adequately controlled Airway Patency, RR, SpO2: stable & adequate BP & HR: stable & adequate Hydration State: stable & adequate Anesthetic Complications: no major complications apparent
[2017-01-07 11:09] VITALS: BP 119/71; PULSE 55; TEMP 37; O2SAT 91
[2017-01-07 15:19] VITALS: BP 124/72; PULSE 72; TEMP 37.1; O2SAT 91
--- NOTE | 2017-01-07 19:22 | Medical Consult ---
Consultation Date of Consultation: Jan 07, 2017. Attending Physician: Case Burnham M.D. Reason for Consultation: Medical follow up History of Present Illness The patient is a 66 y.o who presented for reversal of a colostomy by Dr. Burnham. The patient has no complaints today. She denies chest pain, shortness of breath or any difficulties. Her post operative pain is well controlled and she denies nausea, or emesis. Past Medical/Surgical History Past Medical History: 1. Diabetes 2. Immune Deficiency 3. COPD 4. Gerd 5. Narcotic dependent Past Surgical History Cholecystectomy Social History Smoking Status: Former Smoker Drug Use: none Allergies Coded Allergies: Sumatriptan (Verified Allergy, Severe, ANAPHYLAXIS - "HEART TROUBLES", 09/12) PT TOOK IT AND HER THROAT BEGAN TO CLOSE Lisinopril (Verified Allergy, Mild, RASH, 01/06/17) Levofloxacin (Verified Allergy, Unknown, SICK, 01/06/17) NSAIDs (Verified Allergy, Unknown, RASH, 01/06/17) Fluticasone (Verified Adverse Reaction, Mild, DE LEON NOSE, 01/06/17) Hydrochlorothiazide (Verified Adverse Reaction, Mild, RASH, 01/06/17) Metformin (Verified Adverse Reaction, Mild, NAUSEA, 01/06/17) Current Inpatient Medications Current Inpatient Medications Medications (Trade) Dose Ordered Sig/Danish Route Start Time Stop Time Status Last Admin Dose Admin Potassium Chloride/Dextrose/ Sod Cl 1,000 ml @ 100 mls/hr Q10H IV 01/06/17 13:00 02/05/17 12:59 01/07/17 14:45 100 MLS/HR Cefoxitin Sodium/ Dextrose (Mefoxin IV/D5 50ml) 60 ml @ 100 mls/hr Q8H IV 01/06/17 18:00 01/16/17 17:59 01/07/17 18:44 100 MLS/HR Hydromorphone HCl (Dilaudid Inj) 0.5 mg Q3H PRN IV 01/06/17 10:15 01/20/17 10:14 Hydromorphone HCl (Dilaudid Inj) 1 mg Q3H PRN IV 01/06/17 10:15 01/20/17 10:14 01/07/17 18:45 1 MG Heparin Sodium (Porcine) 5000 unit 5,000 unit Q12H SQ 01/07/17 08:00 5/13/17 07:59 01/07/17 08:14 5,000 UNIT Promethazine HCl/ Sodium Chloride (Phenergan Inj/ Nss 50ml) 51 ml @ 204 mls/hr Q6H PRN IV 01/06/17 10:15 02/05/17 10:14 Ondansetron HCl (Zofran Inj) 4 mg Q6H PRN IV 01/06/17 10:15 02/05/17 10:14 Insulin Aspart (novoLOG ASPART) SLIDING SCALE G... ACHS SC 01/07/17 08:00 02/06/17 07:59 Hydralazine HCl (HydrALAZINE INJ) 10 mg Q6H PRN IV. 01/07/17 07:45 02/06/17 07:44 Diphenhydramine HCl (Benadryl Inj) 25 mg Q6H PRN IV 01/07/17 08:00 02/06/17 07:59 01/07/17 14:47 25 MG Glucose (Glucose 40% Gel) 15-30 GRAMS 15 GRAMS... UD PRN PO 01/07/17 08:00 02/06/17 07:59 Glucose (Glucose Chew Tab) 4-8 Tablets 4 Tabl... UD PRN PO 01/07/17 08:00 02/06/17 07:59 Dextrose (Dextrose 50% 50ML Syringe) 25-50ML OF 50% DW IV FOR... UD PRN IV 01/07/17 08:00 02/06/17 07:59 Glucagon (Glucagon Inj) 1 mg UD PRN SQ 01/07/17 08:00 02/06/17 07:59 Physical Exam Date Time Temp Pulse Resp B/P Pulse Ox O2 Delivery O2 Flow Rate FiO2 01/07/17 15:19 37.1 72 16 124/72 91 Nasal Cannula 2.0 01/07/17 11:09 37.0 55 14 119/71 91 Room Air 01/07/17 07:25 Room Air 01/07/17 07:13 37.2 52 16 98/58 90 Room Air 01/07/17 03:06 36.9 51 15 119/70 95 Nasal Cannula 2.0 01/06/17 23:45 Room Air 01/06/17 23:20 36.6 63 18 149/75 96 Nasal Cannula 2.0 01/06/17 20:22 37.2 55 16 132/72 92 Nasal Cannula 2.0 01/06/17 19:55 92 Room Air General Appearance: WD/WN, no apparent distress Head: normocephalic Eyes: normal inspection ENT: hearing grossly normal Neck: supple, trachea midline Respiratory/Chest: lungs clear, normal breath sounds Cardiovascular: regular rate, rhythm, no edema Abdomen/GI: + abnormal bowel sounds Extremities/Musculoskelatal: normal inspection Neurologic/Psych: alert Laboratory Results Last 24 Hours Test 01/07/17 04:45 01/07/17 08:02 01/07/17 11:54 01/07/17 18:03 White Blood Count 13.67 K/uL Red Blood Count 3.98 M/uL Hemoglobin 11.7 g/dL Hematocrit 33.7 % Mean Corpuscular Volume 84.7 fL Mean Corpuscular Hemoglobin 29.4 pg Mean Corpuscular Hemoglobin Concent 34.7 g/dl RDW Standard Deviation 42.1 fL RDW Coefficient of Variation 13.7 % Platelet Count 222 K/uL Mean Platelet Volume 10.6 fL Sodium Level 143 mmol/L Potassium Level 4.9 mmol/L Chloride Level 107 mmol/L Carbon Dioxide Level 34 mmol/L Anion Gap 2.0 mmol/L Blood Urea Nitrogen 8 mg/dl Creatinine 0.86 mg/dl Est Creatinine Clear Calc Drug Dose 45.5 ml/min Estimated GFR () 81.0 Estimated GFR (Non- 69.9 BUN/Creatinine Ratio 9.0 Random Glucose 162 mg/dl Calcium Level 8.3 mg/dl Phosphorus Level 3.0 mg/dl Magnesium Level 2.0 mg/dl Bedside Glucose 139 mg/dl 115 mg/dl 103 mg/dl Assessment & Plan (1) Colostomy in place Assessment & Plan: s/p reversal of colostomy by Dr. Burnham will follow Post op care and Dvt prophaxis by Dr. Burnham (2) Diabetes Assessment & Plan: agree with sliding scale coverage (3) Immune deficiency disorder (4) COPD (chronic obstructive pulmonary disease) Assessment & Plan: no present symptoms
[2017-01-07 22:53] VITALS: BP 172/83; PULSE 88; TEMP 37.3; O2SAT 96
[2017-01-08 00:05] VITALS: BP 158/82
[2017-01-08] MEDS: D5W AND 1/2NSS + 20MEQ KCL 1,000 ML IV SCH ×3 (01:53→21:48)
[2017-01-08] MEDS: CEFOXITIN IV 1,000 MG in DEXTROSE 5% 50ML 50 ML IV SCH ×3 (01:53→21:48)
[2017-01-08] MEDS: HYDROmorphone INJ 1 MG/ML SYR IV PRN ×2 (04:11→08:12)
[2017-01-08 05:32] LABS: HEMATOCRIT 35.2 % (37-47); MEAN CELL VOLUME 86.7 fL (80-100); MEAN CORPUSCULAR HEMOGLOBIN 29.1 pg (25-34); MEAN CORPUSCULAR HGB CONC 33.5 g/dl (32-36); MEAN PLATELET VOLUME 10.6 fL (7.4-10.4); PLATELET COUNT 201 K/uL (130-400); RED BLOOD COUNT 4.06 M/uL (4.2-5.4); WHITE BLOOD COUNT 10.77 K/uL (4.8-10.8)
[2017-01-08] MEDS: INSULIN ASPART 100 UNITS/ML 3 ML PEN SC SCH ×4 (06:00→18:00)
--- NOTE | 2017-01-08 06:11 | Surgery Progress Note ---
Surgery Progress Note Date of Service Jan 08, 2017. Subjective + pain controlled, No bowel movement, No flatus, No nausea, No vomiting says she is voiding Objective Vital Signs: Date Time Temp Pulse Resp B/P Pulse Ox O2 Delivery O2 Flow Rate FiO2 01/08/17 00:05 158/82 01/07/17 23:40 Nasal Cannula 2.0 01/07/17 22:53 37.3 88 18 172/83 96 Nasal Cannula 2.0 01/07/17 16:30 Nasal Cannula 2.0 01/07/17 15:19 37.1 72 16 124/72 91 Nasal Cannula 2.0 01/07/17 11:09 37.0 55 14 119/71 91 Room Air 01/07/17 07:25 Room Air 01/07/17 07:13 37.2 52 16 98/58 90 Room Air General Appearance: no apparent distress Respiratory/Chest: normal breath sounds, no respiratory distress Abdomen: + distended (mild distention, decreased bs) Incision(s): intact, drainage (serous) Laboratory Results: Results Past 24 Hours Test 01/07/17 08:02 01/07/17 11:54 01/07/17 18:03 01/08/17 00:02 Range/Units Bedside Glucose 139 115 103 112 70-90 mg/dl Test 01/08/17 04:58 Range/Units White Blood Count 10.77 4.8-10.8 K/uL Red Blood Count 4.06 4.2-5.4 M/uL Hemoglobin 11.8 12.0-16.0 g/dL Hematocrit 35.2 37-47 % Mean Corpuscular Volume 86.7 80-100 fL Mean Corpuscular Hemoglobin 29.1 25-34 pg Mean Corpuscular Hemoglobin Concent 33.5 32-36 g/dl RDW Standard Deviation 43.8 36.4-46.3 fL RDW Coefficient of Variation 13.9 11.5-14.5 % Platelet Count 201 130-400 K/uL Mean Platelet Volume 10.6 7.4-10.4 fL Assessment & Plan 01/08/17- minimal bowel function yet- cont npo, ice, IV fluids/ atbx, doing well ambulating- possible sips tomorrow 01/07/17- s/p takedown of colostomy and colorectal anastomosis- significant adhesions will advance slowly- ice only, IV fluid/ atbx to cont, ambulate, check labs monitor ur outpt- may need some lasix- hold for now 01/07/17- s/p takedown of colostomy and colorectal anastomosis- significant adhesions will advance slowly- ice only, IV fluid/ atbx to cont, ambulate, check labs monitor ur outpt- may need some lasix- hold for now
[2017-01-08 06:21] LABS: BUN/CREATININE RATIO 12.3 (10-20); CALCIUM 7.9 mg/dl (8.5-10.1); CREATININE 0.75 mg/dl (0.60-1.20); POTASSIUM 3.9 mmol/L (3.5-5.1)
[2017-01-08 06:58] VITALS: BP 133/71; PULSE 68; TEMP 37; O2SAT 94
[2017-01-08] MEDS: HEPARIN SOD 5000 UNIT/0.5 ML CARP SQ SCH ×2 (07:53→21:52)
[2017-01-08] MEDS ORDERED: HYDROmorphone INJ 1 MG/ML SYR IV ONE (12:30)
[2017-01-08] MEDS: HYDROmorphone INJ 1 MG/ML SYR IV SCH ×4 (14:00→20:37)
[2017-01-08] MEDS: DiphenhydrAMINE HCL 50 MG/ML VIAL IV PRN (14:27)
[2017-01-08] MEDS ORDERED: POTASSIUM PHOSPHATE INJ 15 MMOL in SODIUM CHLORIDE 0.9% 250ML 250 ML IV SCH (15:00)
[2017-01-08 15:14] VITALS: BP 118/69; PULSE 69; TEMP 37.1; O2SAT 91
--- NOTE | 2017-01-08 17:37 | Hospitalist Progress Note ---
Hospitalist Progress Note Date of Service Jan 08, 2017. Subjective patient complaining of post operative pain medications were reviewed and the need to take medications to alleviate her pain was discussed Medications Medications (Trade) Dose Ordered Sig/Danish Route Start Time Stop Time Status Last Admin Dose Admin Hydromorphone HCl (Dilaudid Inj) 1 mg Q2HWA IV 01/08/17 14:00 01/22/17 13:59 01/08/17 17:29 1 MG Hydromorphone HCl 1 mg 1 mg 1230 ONCE IV 01/08/17 12:30 01/08/17 12:31 DC 01/08/17 13:17 1 MG Potassium Phosphate/Sodium Chloride (Potassium Phosphate Inj/Nss 250ml) 255 ml @ 88 mls/hr 1500 IV 01/08/17 15:00 01/08/17 17:54 01/08/17 16:05 88 MLS/HR Objective Vital Signs Date Time Temp Pulse Resp B/P Pulse Ox O2 Delivery O2 Flow Rate FiO2 01/08/17 15:14 37.1 69 16 118/69 91 Nasal Cannula 2.0 01/08/17 07:45 Room Air 01/08/17 06:58 37.0 68 16 133/71 94 Nasal Cannula 2.0 01/08/17 00:05 158/82 01/07/17 23:40 Nasal Cannula 2.0 01/07/17 22:53 37.3 88 18 172/83 96 Nasal Cannula 2.0 Physical Exam General Appearance: WD/WN, no apparent distress Eyes: normal inspection Neck: supple Respiratory/Chest: chest non-tender Cardiovascular: regular rate, rhythm Laboratory Results Last 24 Hours Test 01/07/17 18:03 01/08/17 00:02 01/08/17 04:58 01/08/17 06:15 Bedside Glucose 103 mg/dl 112 mg/dl 116 mg/dl White Blood Count 10.77 K/uL Red Blood Count 4.06 M/uL Hemoglobin 11.8 g/dL Hematocrit 35.2 % Mean Corpuscular Volume 86.7 fL Mean Corpuscular Hemoglobin 29.1 pg Mean Corpuscular Hemoglobin Concent 33.5 g/dl RDW Standard Deviation 43.8 fL RDW Coefficient of Variation 13.9 % Platelet Count 201 K/uL Mean Platelet Volume 10.6 fL Sodium Level 141 mmol/L Potassium Level 3.9 mmol/L Chloride Level 104 mmol/L Carbon Dioxide Level 33 mmol/L Anion Gap 4.0 mmol/L Blood Urea Nitrogen 9 mg/dl Creatinine 0.75 mg/dl Est Creatinine Clear Calc Drug Dose 52.2 ml/min Estimated GFR () 95.6 Estimated GFR (Non- 82.5 BUN/Creatinine Ratio 12.3 Random Glucose 123 mg/dl Calcium Level 7.9 mg/dl Phosphorus Level 2.0 mg/dl Magnesium Level 2.0 mg/dl Iron Level 27 mcg/dl Total Iron Binding Capacity 270 mcg/dl Test 01/08/17 08:15 01/08/17 12:23 Bedside Glucose 112 mg/dl 118 mg/dl Assessment and Plan (1) Colostomy in place Assessment & Plan: S/p reversal of colostomy with a lot of adhesive disease diet will be advanced slowly by surgery Pain controll discussed and the interval for pain meds were enhanced. (2) Diabetes (3) Immune deficiency disorder (4) COPD (chronic obstructive pulmonary disease) Assessment & Plan: no respiratory complaints
[2017-01-08 22:50] VITALS: BP 151/79; PULSE 71; TEMP 36.4; O2SAT 98
[2017-01-09] MEDS: CEFOXITIN IV 1,000 MG in DEXTROSE 5% 50ML 50 ML IV SCH ×3 (01:56→18:07)
[2017-01-09] MEDS: HYDROmorphone INJ 1 MG/ML SYR IV SCH ×11 (05:10→21:54)
[2017-01-09 05:45] LABS: HEMATOCRIT 32.5 % (37-47); MEAN CORPUSCULAR HEMOGLOBIN 29.6 pg (25-34); MEAN CORPUSCULAR HGB CONC 34.5 g/dl (32-36); MEAN PLATELET VOLUME 10.3 fL (7.4-10.4); PLATELET COUNT 175 K/uL (130-400); RED BLOOD COUNT 3.78 M/uL (4.2-5.4); WHITE BLOOD COUNT 7.35 K/uL (4.8-10.8)
[2017-01-09] MEDS: INSULIN ASPART 100 UNITS/ML 3 ML PEN SC SCH ×4 (06:00→18:00)
--- NOTE | 2017-01-09 06:07 | Surgery Progress Note ---
Surgery Progress Note Date of Service Jan 09, 2017. Subjective + ambulating, No bowel movement, No flatus, No nausea, No vomiting Objective Vital Signs: Date Time Temp Pulse Resp B/P Pulse Ox O2 Delivery O2 Flow Rate FiO2 01/08/17 23:50 Nasal Cannula 2.0 01/08/17 22:50 36.4 71 16 151/79 98 Nasal Cannula 2.0 01/08/17 15:50 Nasal Cannula 2.0 01/08/17 15:14 37.1 69 16 118/69 91 Nasal Cannula 2.0 01/08/17 07:45 Room Air 01/08/17 06:58 37.0 68 16 133/71 94 Nasal Cannula 2.0 Physical Exam: LORENZO drainage (serous) General Appearance: no apparent distress Respiratory/Chest: no respiratory distress Cardiovascular: regular rate, rhythm Abdomen: non distended, soft (some bs) Incision(s): intact Laboratory Results: Results Past 24 Hours Test 01/08/17 06:15 01/08/17 08:15 01/08/17 12:23 01/08/17 18:04 Range/Units Bedside Glucose 116 112 118 98 70-90 mg/dl Test 01/08/17 23:58 01/09/17 05:10 Range/Units Bedside Glucose 124 70-90 mg/dl White Blood Count 7.35 4.8-10.8 K/uL Red Blood Count 3.78 4.2-5.4 M/uL Hemoglobin 11.2 12.0-16.0 g/dL Hematocrit 32.5 37-47 % Mean Corpuscular Volume 86.0 80-100 fL Mean Corpuscular Hemoglobin 29.6 25-34 pg Mean Corpuscular Hemoglobin Concent 34.5 32-36 g/dl RDW Standard Deviation 42.7 36.4-46.3 fL RDW Coefficient of Variation 13.5 11.5-14.5 % Platelet Count 175 130-400 K/uL Mean Platelet Volume 10.3 7.4-10.4 fL Assessment & Plan 01/09/17- slow progress- cont same for now , will likely begin liquids tomorrow cont atbx. 01/08/17- minimal bowel function yet- cont npo, ice, IV fluids/ atbx, doing well ambulating- possible sips tomorrow 01/07/17- s/p takedown of colostomy and colorectal anastomosis- significant adhesions will advance slowly- ice only, IV fluid/ atbx to cont, ambulate, check labs monitor ur outpt- may need some lasix- hold for now 01/08/17- minimal bowel function yet- cont npo, ice, IV fluids/ atbx, doing well ambulating- possible sips tomorrow 01/07/17- s/p takedown of colostomy and colorectal anastomosis- significant adhesions will advance slowly- ice only, IV fluid/ atbx to cont, ambulate, check labs monitor ur outpt- may need some lasix- hold for now
[2017-01-09 06:12] LABS: BUN/CREATININE RATIO 7.5 (10-20); CALCIUM 8.1 mg/dl (8.5-10.1); CREATININE 0.67 mg/dl (0.60-1.20); POTASSIUM 3.7 mmol/L (3.5-5.1)
[2017-01-09 06:13] LABS: PHOSPHORUS 2.4 mg/dl (2.5-4.9)
[2017-01-09] MEDS: D5W AND 1/2NSS + 20MEQ KCL 1,000 ML IV SCH ×2 (06:24→16:22)
[2017-01-09 07:18] VITALS: BP 150/74; PULSE 71; TEMP 36.8; O2SAT 94
[2017-01-09] MEDS: HEPARIN SOD 5000 UNIT/0.5 ML CARP SQ SCH ×2 (08:24→21:58)
--- NOTE | 2017-01-09 08:42 | Hospitalist Progress Note ---
Hospitalist Progress Note Date of Service Jan 09, 2017. Subjective Pt evaluation today including: conversation w/ patient Pain: good control presently PO Intake: npo Voiding: no voiding problems Patient is feeling better no flatus she will get up and walk the halls today All Other Systems: Reviewed and Negative Medications Last Resulted CBC 01/09/17 05:10 Last Resulted BMP 01/09/17 05:10 Objective Vital Signs Date Time Temp Pulse Resp B/P Pulse Ox O2 Delivery O2 Flow Rate FiO2 01/09/17 07:18 36.8 71 18 150/74 94 01/08/17 23:50 Nasal Cannula 2.0 01/08/17 22:50 36.4 71 16 151/79 98 Nasal Cannula 2.0 01/08/17 15:50 Nasal Cannula 2.0 01/08/17 15:14 37.1 69 16 118/69 91 Nasal Cannula 2.0 Physical Exam General Appearance: WD/WN, no apparent distress ENT: normal ENT inspection Respiratory/Chest: lungs clear Cardiovascular: regular rate, rhythm Abdomen: normal bowel sounds Neurologic/Psychiatric: alert Skin: normal color Laboratory Results Last 24 Hours Test 01/08/17 12:23 01/08/17 18:04 01/08/17 23:58 01/09/17 05:10 Bedside Glucose 118 mg/dl 98 mg/dl 124 mg/dl White Blood Count 7.35 K/uL Red Blood Count 3.78 M/uL Hemoglobin 11.2 g/dL Hematocrit 32.5 % Mean Corpuscular Volume 86.0 fL Mean Corpuscular Hemoglobin 29.6 pg Mean Corpuscular Hemoglobin Concent 34.5 g/dl RDW Standard Deviation 42.7 fL RDW Coefficient of Variation 13.5 % Platelet Count 175 K/uL Mean Platelet Volume 10.3 fL Sodium Level 142 mmol/L Potassium Level 3.7 mmol/L Chloride Level 103 mmol/L Carbon Dioxide Level 35 mmol/L Anion Gap 4.0 mmol/L Blood Urea Nitrogen 5 mg/dl Creatinine 0.67 mg/dl Est Creatinine Clear Calc Drug Dose 58.4 ml/min Estimated GFR () 105.4 Estimated GFR (Non- 91.0 BUN/Creatinine Ratio 7.5 Random Glucose 130 mg/dl Calcium Level 8.1 mg/dl Phosphorus Level 2.4 mg/dl Magnesium Level 2.0 mg/dl Test 01/09/17 06:11 Bedside Glucose 125 mg/dl Assessment and Plan (1) Colostomy in place Assessment & Plan: POD #2 s/p colostomy reversal and colorectal anastomosis there was significant adhesive disease present Patient encouraged to walk the halls today. Pain is well controlled. No flatus (2) Diabetes Assessment & Plan: sliding scale coverage while npo (3) Immune deficiency disorder Assessment & Plan: she remains on cefoxitin no signs of infection (4) COPD (chronic obstructive pulmonary disease) Assessment & Plan: no present symptoms
[2017-01-09 15:03] VITALS: BP 155/90; PULSE 76; TEMP 36.7; O2SAT 92
[2017-01-09 23:20] VITALS: BP 174/93; PULSE 75; TEMP 37; O2SAT 92
[2017-01-10] MEDS: HydrALAZINE HCL 20 MG/ML VIAL IV. PRN (00:02)
[2017-01-10] MEDS: HYDROmorphone INJ 1 MG/ML SYR IV SCH ×10 (00:10→21:10)
[2017-01-10 00:40] VITALS: BP 143/81; PULSE 90; O2SAT 93
[2017-01-10 01:15] VITALS: BP 138/64; PULSE 81; TEMP 37; O2SAT 94
[2017-01-10] MEDS: D5W AND 1/2NSS + 20MEQ KCL 1,000 ML IV SCH ×3 (01:54→12:26)
[2017-01-10] MEDS: CEFOXITIN IV 1,000 MG in DEXTROSE 5% 50ML 50 ML IV SCH ×3 (01:54→18:17)
--- NOTE | 2017-01-10 05:49 | Surgery Progress Note ---
Surgery Progress Note Date of Service Jan 10, 2017. Subjective + flatus, No nausea, No vomiting no acute events Objective Vital Signs: Date Time Temp Pulse Resp B/P Pulse Ox O2 Delivery O2 Flow Rate FiO2 01/10/17 01:15 37.0 81 20 138/64 94 Room Air 01/10/17 00:40 90 20 143/81 93 Room Air 01/09/17 23:20 37.0 75 18 174/93 92 Room Air 01/09/17 23:20 Room Air 01/09/17 16:00 Room Air 01/09/17 15:03 36.7 76 18 155/90 92 Room Air 01/09/17 08:00 Room Air 01/09/17 07:18 36.8 71 18 150/74 94 General Appearance: no apparent distress Respiratory/Chest: no respiratory distress Abdomen: soft Laboratory Results: Results Past 24 Hours Test 01/09/17 06:11 01/09/17 11:56 01/09/17 18:01 01/10/17 00:02 Range/Units Bedside Glucose 125 112 127 138 70-90 mg/dl Test 01/10/17 05:19 Range/Units Assessment & Plan 01/10/17- will begin clear liquids, small dose of lasix, cont IV/atbx for now cont to encourage ambulation, check labs 01/09/17- slow progress- cont same for now , will likely begin liquids tomorrow cont atbx. 01/08/17- minimal bowel function yet- cont npo, ice, IV fluids/ atbx, doing well ambulating- possible sips tomorrow 01/07/17- s/p takedown of colostomy and colorectal anastomosis- significant adhesions will advance slowly- ice only, IV fluid/ atbx to cont, ambulate, check labs monitor ur outpt- may need some lasix- hold for now 01/09/17- slow progress- cont same for now , will likely begin liquids tomorrow cont atbx. 01/08/17- minimal bowel function yet- cont npo, ice, IV fluids/ atbx, doing well ambulating- possible sips tomorrow 01/07/17- s/p takedown of colostomy and colorectal anastomosis- significant adhesions will advance slowly- ice only, IV fluid/ atbx to cont, ambulate, check labs monitor ur outpt- may need some lasix- hold for now
[2017-01-10] MEDS: INSULIN ASPART 100 UNITS/ML 3 ML PEN SC SCH ×4 (06:00→18:00)
[2017-01-10] MEDS ORDERED: HYDROCODONE/ACETAMOPHEN 5/325MG TAB PO PRN (06:00)
[2017-01-10] MEDS ORDERED: FUROSEMIDE INJ 10 MG in SYRINGE 0 ML IV SCH (06:15)
[2017-01-10 06:18] LABS: MEAN CELL VOLUME 84.4 fL (80-100); MEAN CORPUSCULAR HEMOGLOBIN 29.7 pg (25-34); MEAN CORPUSCULAR HGB CONC 35.2 g/dl (32-36); PLATELET COUNT 196 K/uL (130-400); RED BLOOD COUNT 3.91 M/uL (4.2-5.4); WHITE BLOOD COUNT 6.41 K/uL (4.8-10.8)
[2017-01-10 06:48] LABS: BUN/CREATININE RATIO 6.4 (10-20); CALCIUM 8.4 mg/dl (8.5-10.1); CREATININE 0.55 mg/dl (0.60-1.20); MAGNESIUM 2.1 mg/dl (1.8-2.4); PHOSPHORUS 2.5 mg/dl (2.5-4.9); POTASSIUM 3.6 mmol/L (3.5-5.1)
[2017-01-10] MEDS: ONDANSETRON INJ 2 MG/ML 2 ML VIAL IV PRN ×2 (07:40→15:38)
[2017-01-10] MEDS: HEPARIN SOD 5000 UNIT/0.5 ML CARP SQ SCH ×2 (07:43→21:10)
[2017-01-10 07:44] VITALS: BP 129/81; PULSE 88; TEMP 36.8; O2SAT 94
[2017-01-10 14:53] VITALS: BP 158/88; PULSE 88; TEMP 36.9; O2SAT 94
--- NOTE | 2017-01-10 16:11 | Progress Note ---
Subjective Date of Service: Jan 10, 2017. Subjective Pt evaluation today including: conversation w/ patient, conversation w/ family , physical exam, chart review, lab review, review of studies, review of inpatient medication list Reportedly was feeling lumpy in the middle of the night, is feeling hopefully was numbed, Blood pressure and blood glucose was good in the episodes, the episodes lasting about couple minutes and then was totally, Now has no complaint Has passing gas, tolerate clear liquid diet, no bowel movement yet Review of Systems Constitutional: + problem reported (smiling conversational), No chills, No fatigue, No fever, No sweats, No weakness, No weight loss Eyes: No diplopia, No discharge, No eye pain, No redness, No worsening of vision ENT: No dental problems, No hearing loss, No nasal symptoms, No sore throat, No tinnitus, No trouble swallowing, No unusual epistaxis Respiratory: No cough, No dyspnea at rest, No dyspnea on exertion, No hemoptysis, No shortness of breath, No sputum, No wheezing Cardiac: No PND, No chest pain, No claudication, No edema, No orthopnea, No palpitations Abdomen: No constipation, No diarrhea, No nausea, No pain, No vomiting Musculoskeletal: No calf pain, No joint pain, No muscle pain, No swelling Female : No abnormal vaginal bleeding, No dysuria, No hematuria, No incontinence, No urinary frequency, No vaginal discharge Neurologic: No balance problems, No memory loss, No numbness/tingling, No paralysis, No vertigo, No weakness Psychiatric: No anhedonism, No anxiety, No depression symptoms, No insomnia, No substance abuse Heme: No abnormal bleeding/bruising, No clotting problems, No night sweats, No swollen lymph nodes Endo: No excessive thirst, No excessive urination, No fatigue Skin: No bleeding, No color change, No itch, No new/changing skin lesions, No rash Objective Vital Signs Date Time Temp Pulse Resp B/P Pulse Ox O2 Delivery O2 Flow Rate FiO2 01/10/17 14:53 36.9 88 16 158/88 94 Room Air 01/10/17 10:02 Room Air 01/10/17 07:44 36.8 88 16 129/81 94 Room Air 01/10/17 01:15 37.0 81 20 138/64 94 Room Air 01/10/17 00:40 90 20 143/81 93 Room Air 01/09/17 23:20 37.0 75 18 174/93 92 Room Air 01/09/17 23:20 Room Air Physical Exam General Appearance: WD/WN, no apparent distress Eyes: normal inspection, PERRL, EOMI, sclerae normal ENT: normal ENT inspection, hearing grossly normal, pharynx normal Neck: supple, no adenopathy, thyroid normal, no JVD, no carotid bruits, trachea midline Respiratory/Chest: chest non-tender, lungs clear, normal breath sounds, no respiratory distress, no accessory muscle use Cardiovascular: regular rate, rhythm, no edema, no gallop, no JVD, no murmur Abdomen: non tender, soft, no organomegaly, no pulsatile mass, + abnormal bowel sounds ( decreased bowel sound) Extremities: normal range of motion, non-tender, normal inspection, no pedal edema, no calf tenderness, normal capillary refill, pelvis stable Neurologic/Psychiatric: warp drawer II-XII nml as tested, no motor/sensory deficits, alert, normal mood/affect, oriented x 3 Skin: normal color, warm/dry, no rash Lymphatic: no adenopathy Laboratory Results Last 24 Hours Test 01/09/17 18:01 01/10/17 00:02 01/10/17 06:01 01/10/17 06:10 Bedside Glucose 127 mg/dl 138 mg/dl 137 mg/dl White Blood Count 6.41 K/uL Red Blood Count 3.91 M/uL Hemoglobin 11.6 g/dL Hematocrit 33.0 % Mean Corpuscular Volume 84.4 fL Mean Corpuscular Hemoglobin 29.7 pg Mean Corpuscular Hemoglobin Concent 35.2 g/dl RDW Standard Deviation 40.1 fL RDW Coefficient of Variation 13.3 % Platelet Count 196 K/uL Mean Platelet Volume 10.0 fL Sodium Level 141 mmol/L Potassium Level 3.6 mmol/L Chloride Level 103 mmol/L Carbon Dioxide Level 32 mmol/L Anion Gap 6.0 mmol/L Blood Urea Nitrogen 4 mg/dl Creatinine 0.55 mg/dl Est Creatinine Clear Calc Drug Dose 71.2 ml/min Estimated GFR () 112.5 Estimated GFR (Non- 97.1 BUN/Creatinine Ratio 6.4 Random Glucose 141 mg/dl Calcium Level 8.4 mg/dl Phosphorus Level 2.5 mg/dl Magnesium Level 2.1 mg/dl Test 01/10/17 12:18 Bedside Glucose 123 mg/dl Assessment and Plan (1) Colostomy in place (2) Diabetes (3) Immune deficiency disorder (4) COPD (chronic obstructive pulmonary disease) 66 y.o admitted for reversal of a colostomy by Dr. Burnham. Hospitalist consulted for medical management Colostomy in place POD #3 s/p colostomy reversal and colorectal anastomosis there was significant adhesive disease present Patient encouraged to walk the halls today. Continue clear liquid diet, Pain is well controlled. No flatus Diabetes: sliding scale coverage while npo Immune deficiency disorder: he remains on cefoxitin no signs of infection COPD: Stable Continue current care follow-up with you
[2017-01-10] MEDS: DiphenhydrAMINE HCL 50 MG/ML VIAL IV PRN (21:08)
[2017-01-10 22:50] VITALS: BP 146/78; PULSE 68; TEMP 36.8; O2SAT 93
[2017-01-10] MEDS ORDERED: NURSING VERBAL MED ORDER ONE (23:15)
[2017-01-11] MEDS: HYDROCODONE/ACETAMOPHEN 5/325MG TAB PO PRN (00:59)
[2017-01-11] MEDS: D5W AND 1/2NSS + 20MEQ KCL 1,000 ML IV SCH ×4 (00:59→21:43)
[2017-01-11] MEDS: CEFOXITIN IV 1,000 MG in DEXTROSE 5% 50ML 50 ML IV SCH ×3 (01:01→18:56)
[2017-01-11] MEDS: HYDROmorphone INJ 1 MG/ML SYR IV SCH ×9 (05:32→21:26)
--- NOTE | 2017-01-11 06:25 | Surgery Progress Note ---
Surgery Progress Note Date of Service Jan 11, 2017. Subjective + flatus, No nausea, No vomiting afeb, no acute chgs, tolerating some clear liquids Objective Vital Signs: Date Time Temp Pulse Resp B/P Pulse Ox O2 Delivery O2 Flow Rate FiO2 01/10/17 23:30 Room Air 01/10/17 22:50 36.8 68 14 146/78 93 Room Air 01/10/17 15:20 Room Air 01/10/17 14:53 36.9 88 16 158/88 94 Room Air 01/10/17 10:02 Room Air 01/10/17 07:44 36.8 88 16 129/81 94 Room Air General Appearance: no apparent distress Respiratory/Chest: no respiratory distress Abdomen: soft Incision(s): intact Laboratory Results: Results Past 24 Hours Test 01/10/17 12:18 01/10/17 17:02 01/10/17 20:32 Range/Units Bedside Glucose 123 117 122 70-90 mg/dl Assessment & Plan 01/11/17- will try full liquids, decrease IV fluids, cont atbx no bm yet- possible d/c 1-2 days if progresses 01/10/17- will begin clear liquids, small dose of lasix, cont IV/atbx for now cont to encourage ambulation, check labs 01/09/17- slow progress- cont same for now , will likely begin liquids tomorrow cont atbx. 01/08/17- minimal bowel function yet- cont npo, ice, IV fluids/ atbx, doing well ambulating- possible sips tomorrow 01/07/17- s/p takedown of colostomy and colorectal anastomosis- significant adhesions will advance slowly- ice only, IV fluid/ atbx to cont, ambulate, check labs monitor ur outpt- may need some lasix- hold for now 01/10/17- will begin clear liquids, small dose of lasix, cont IV/atbx for now cont to encourage ambulation, check labs 01/09/17- slow progress- cont same for now , will likely begin liquids tomorrow cont atbx. 01/08/17- minimal bowel function yet- cont npo, ice, IV fluids/ atbx, doing well ambulating- possible sips tomorrow 01/07/17- s/p takedown of colostomy and colorectal anastomosis- significant adhesions will advance slowly- ice only, IV fluid/ atbx to cont, ambulate, check labs monitor ur outpt- may need some lasix- hold for now
[2017-01-11 07:57] VITALS: BP 165/77; PULSE 63; TEMP 36.7; O2SAT 96
[2017-01-11] MEDS: INSULIN ASPART 100 UNITS/ML 3 ML PEN SC SCH ×4 (08:44→21:00)
[2017-01-11] MEDS: HEPARIN SOD 5000 UNIT/0.5 ML CARP SQ SCH ×2 (08:45→21:21)
[2017-01-11] MEDS: DiphenhydrAMINE HCL 50 MG/ML VIAL IV PRN (11:46)
--- NOTE | 2017-01-11 12:00 | Clinical Documentation Query ---
CLINICAL DOCUMENTATION QUERY 66 y/o female that is s/p colostomy closure with colorectal anastomosis by Dr. Burnham on 01/06. Patient is on PO Lasix at home and was given IV Lasix 01/10. In your clinical opinion is this patient being managed for: ( ) Chronic diastolic (Preserved EF) heart failure ( ) Chronic systolic (Reduced EF) heart failure ( ) Other explanation of clinical findings (Please Explain) ( ) Unable to determine (Please Define) ( ) Need to Discuss ( ) Not Agree please ask medical team Dr Burnham The medical record reflects the following clinical findings, treatment, and risk factors. Clinical Indicators: As above. Treatment: I/O's, Lasix Risk Factors: Age, HTN, post-surgical status. Please clarify and document your clinical opinion in the progress notes and discharge summary. Terms such as "probable", "suspected", "likely", "questionable", "possible", or "still to be ruled out" are acceptable. IF IN AGREEMENT, YOU MUST DOCUMENT ABOVE DIAGNOSTIC STATEMENT IN DAILY PROGRESS NOTES AND DISCHARGE SUMMARY. This document is not part of the patient's record. Thank You, Adam Lane, RN [phone]
--- NOTE | 2017-01-11 12:01 | Clinical Documentation Query ---
CLINICAL DOCUMENTATION QUERY 66 y/o female who is s/p colostomy closure with colorectal anastomosis by Dr. Burnham on 01/06. Patient is on PO Lasix at home and was given IV Lasix 01/10. In your clinical opinion is this patient being managed for: ( x ) Chronic diastolic (Preserved EF) heart failure ( ) Chronic systolic (Reduced EF) heart failure ( ) Other explanation of clinical findings (Please Explain) ( ) Unable to determine (Please Define) ( ) Need to Discuss ( ) Not Agree The medical record reflects the following clinical findings, treatment, and risk factors. Clinical Indicators: As above. Treatment: I/O's, Lasix Risk Factors: Age, HTN, post surgical status. Please clarify and document your clinical opinion in the progress notes and discharge summary. Terms such as "probable", "suspected", "likely", "questionable", "possible", or "still to be ruled out" are acceptable. IF IN AGREEMENT, YOU MUST DOCUMENT ABOVE DIAGNOSTIC STATEMENT IN DAILY PROGRESS NOTES AND DISCHARGE SUMMARY. This document is not part of the patient's record. Thank You, Adam Lane, RN [phone]
--- NOTE | 2017-01-11 13:26 | Progress Note ---
Subjective Date of Service: Jan 11, 2017. Subjective Pt evaluation today including: conversation w/ patient Pt is feeling overall improved. Passing gas but no stool yet. She was advanced to full liquids today and tolerated oatmeal for breakfast. Abd is tender related to incisions, but no chito abd pain. Pt denies fever, SOB, chest pain, n/v/c/d, LE pain or swelling. ROS as noted above, otherwise neg. Pt informs me this AM that she has been losing her hair over the last month. She is very strict with her diet due to GI issues and has had no change in diet. Hx of iron deficiency in the past. Objective Vital Signs Date Time Temp Pulse Resp B/P Pulse Ox O2 Delivery O2 Flow Rate FiO2 01/11/17 07:57 36.7 63 20 165/77 96 Room Air 01/11/17 07:30 Room Air 01/10/17 23:30 Room Air 01/10/17 22:50 36.8 68 14 146/78 93 Room Air 01/10/17 15:20 Room Air 01/10/17 14:53 36.9 88 16 158/88 94 Room Air Physical Exam General Appearance: WD/WN, no apparent distress Respiratory/Chest: normal breath sounds, no respiratory distress Cardiovascular: regular rate, rhythm, no edema Abdomen: soft, + pertinent finding (nondistended) Extremities: non-tender, no pedal edema Neurologic/Psychiatric: alert, normal mood/affect, oriented x 3 Skin: normal color, warm/dry Laboratory Results Last 24 Hours Test 01/10/17 17:02 01/10/17 20:32 01/11/17 07:58 01/11/17 11:56 Bedside Glucose 117 mg/dl 122 mg/dl 113 mg/dl 130 mg/dl Assessment and Plan (1) Colostomy in place (2) Diabetes (3) Immune deficiency disorder (4) COPD (chronic obstructive pulmonary disease) 66 y/o admitted for reversal of a colostomy by Dr. Burnham. Hospitalist consulted for medical management s/p colostomy reversal and colorectal anastomosis 01/06, apparently significant adhesive disease present Patient encouraged to walk the halls, diet as per gen surg. Pain is well controlled. Passing gas, awaiting bowel movement Diabetes: sliding scale coverage while npo Immune deficiency disorder: he remains on cefoxitin no signs of infection COPD: Stable Hair loss: iron is low with TIBC WNL, ferritin and transferrin pending TSH, B12, folate pending Question of possible chronic CHF dx, ECHO from 2002 without mention, takes low dose lasix daily
[2017-01-11 15:09] VITALS: BP 118/69; PULSE 62; TEMP 36.9; O2SAT 94
[2017-01-11 15:20] LABS: FERRITIN 117.6 ng/ml (8.0-388.0)
[2017-01-11 22:50] VITALS: BP 144/73; PULSE 71; TEMP 37; O2SAT 94
[2017-01-12] MEDS: CEFOXITIN IV 1,000 MG in DEXTROSE 5% 50ML 50 ML IV SCH ×2 (01:46→09:52)
[2017-01-12] MEDS: HYDROmorphone INJ 1 MG/ML SYR IV SCH ×9 (05:52→21:32)
--- NOTE | 2017-01-12 06:24 | Surgery Progress Note ---
Surgery Progress Note Date of Service Jan 12, 2017. Subjective + flatus, No bowel movement, No nausea, No vomiting doing well, alert, afeb Objective Vital Signs: Date Time Temp Pulse Resp B/P Pulse Ox O2 Delivery O2 Flow Rate FiO2 01/11/17 23:41 Room Air 01/11/17 22:50 37.0 71 16 144/73 94 Room Air 01/11/17 16:30 Room Air 01/11/17 15:09 36.9 62 18 118/69 94 Room Air 01/11/17 07:57 36.7 63 20 165/77 96 Room Air 01/11/17 07:30 Room Air Physical Exam: LORENZO drainage (serous) General Appearance: no apparent distress Respiratory/Chest: no respiratory distress Abdomen: soft Incision(s): intact Laboratory Results: Results Past 24 Hours Test 01/11/17 07:58 01/11/17 11:56 01/11/17 13:24 01/11/17 14:28 Range/Units Bedside Glucose 113 130 70-90 mg/dl Transferrin % Saturation 15-50 % Transferrin 183 200-360 mg/dl Ferritin 117.6 8.0-388.0 ng/ml Vitamin B12 Level 374 211-911 pg/mL Folate > 24.00 >5.38 ng/mL Thyroid Stimulating Hormone (TSH) 3.050 0.300-4.500 uIu/ml Test 01/11/17 17:00 01/11/17 21:40 Range/Units Bedside Glucose 117 113 70-90 mg/dl Assessment & Plan 01/12/17- stop IV fluids, atbx and adv diet to low residue no bm but positive flatus- d/c drains plan d/c tomorrow- 01/13 if progresses 01/11/17- will try full liquids, decrease IV fluids, cont atbx no bm yet- possible d/c 1-2 days if progresses 01/10/17- will begin clear liquids, small dose of lasix, cont IV/atbx for now cont to encourage ambulation, check labs 01/09/17- slow progress- cont same for now , will likely begin liquids tomorrow cont atbx. 01/08/17- minimal bowel function yet- cont npo, ice, IV fluids/ atbx, doing well ambulating- possible sips tomorrow 01/07/17- s/p takedown of colostomy and colorectal anastomosis- significant adhesions will advance slowly- ice only, IV fluid/ atbx to cont, ambulate, check labs monitor ur outpt- may need some lasix- hold for now 01/11/17- will try full liquids, decrease IV fluids, cont atbx no bm yet- possible d/c 1-2 days if progresses 01/10/17- will begin clear liquids, small dose of lasix, cont IV/atbx for now cont to encourage ambulation, check labs 01/09/17- slow progress- cont same for now , will likely begin liquids tomorrow cont atbx. 01/08/17- minimal bowel function yet- cont npo, ice, IV fluids/ atbx, doing well ambulating- possible sips tomorrow 01/07/17- s/p takedown of colostomy and colorectal anastomosis- significant adhesions will advance slowly- ice only, IV fluid/ atbx to cont, ambulate, check labs monitor ur outpt- may need some lasix- hold for now
[2017-01-12] MEDS: HYDROCODONE/ACETAMOPHEN 5/325MG TAB PO PRN (06:49)
[2017-01-12 07:26] VITALS: BP 156/84; PULSE 69; TEMP 37.2; O2SAT 94
[2017-01-12] MEDS: INSULIN ASPART 100 UNITS/ML 3 ML PEN SC SCH ×4 (08:00→21:00)
[2017-01-12] MEDS: HEPARIN SOD 5000 UNIT/0.5 ML CARP SQ SCH ×2 (08:44→21:26)
[2017-01-12] MEDS ORDERED: CYANOCOBALAMIN 1000 MCG/ML VIAL IM ONE (11:37)
--- NOTE | 2017-01-12 11:46 | Progress Note ---
Subjective Date of Service: Jan 12, 2017. Subjective Pt evaluation today including: conversation w/ patient Pt is still tolerating PO. She has been advanced to low residue, but is awaiting lunch to start this. Still passing gas. Still with abd pain/soreness related to her incisions. Pt denies fever, SOB, chest pain, n/v/c/d, LE pain or swelling. ROS as noted above, otherwise neg. Pt states she keeps a very strict diet due to her gastroparesis. She does not eat any green, leafy vegetables. Objective Vital Signs Date Time Temp Pulse Resp B/P Pulse Ox O2 Delivery O2 Flow Rate FiO2 01/12/17 07:40 Room Air 01/12/17 07:26 37.2 69 16 156/84 94 Room Air 01/11/17 23:41 Room Air 01/11/17 22:50 37.0 71 16 144/73 94 Room Air 01/11/17 16:30 Room Air 01/11/17 15:09 36.9 62 18 118/69 94 Room Air Physical Exam Comments: General Appearance: WD/WN, no apparent distress Respiratory/Chest: normal breath sounds, no respiratory distress Cardiovascular: regular rate, rhythm, no edema Abdomen: soft, + pertinent finding (nondistended) Extremities: non-tender, no pedal edema Neurologic/Psychiatric: alert, normal mood/affect, oriented x 3 Skin: normal color, warm/dry Laboratory Results Last 24 Hours Test 01/11/17 11:56 01/11/17 13:24 01/11/17 14:28 01/11/17 17:00 Bedside Glucose 130 mg/dl 117 mg/dl Transferrin % Saturation % Transferrin 183 mg/dl Ferritin 117.6 ng/ml Vitamin B12 Level 374 pg/mL Folate > 24.00 ng/mL Thyroid Stimulating Hormone (TSH) 3.050 uIu/ml Test 01/11/17 21:40 01/12/17 08:23 Bedside Glucose 113 mg/dl 112 mg/dl Assessment and Plan (1) Colostomy in place (2) Diabetes (3) Immune deficiency disorder (4) COPD (chronic obstructive pulmonary disease) 66 y/o admitted for reversal of a colostomy by Dr. Burnham. Hospitalist consulted for medical management s/p colostomy reversal and colorectal anastomosis 01/06, apparently significant adhesive disease present Patient encouraged to walk the halls, diet as per gen surg. Pain is well controlled. Passing gas, awaiting bowel movement Diabetes: sliding scale coverage while advancing diet Immune deficiency disorder: he remains on cefoxitin no signs of infection COPD: Stable Hair loss: iron is low with TIBC WNL, ferritin is WNL with transferrin low also Given pt's gastroparesis and now recent bowel surgery, she will not be able to take PO iron for some time It would be advised that if she does start taking iron, that she start with a QD dosing, with vit C to help absorption and senna/MOM to help prevent constipation Pt may also be a candidate for IV iron therapy TSH, folate WNL B12 is very low normal at 374. Will start QD B12 injections during admission for a total of 5, then Q weekly x4, then to monthly. Also advised B complex sublingual dosing once she completes Q weekly injections. Pt's overall nutritional status is difficult to manage due to her GI issues and she will benefit greatly from having supplementation. The fact that her hair is falling out suggests she is in early stage nutritional deficits and this needs managed carefully. Question of possible chronic CHF dx, ECHO from 2002 without mention, takes low dose lasix daily
[2017-01-12] MEDS: ONDANSETRON INJ 2 MG/ML 2 ML VIAL IV PRN (14:27)
[2017-01-12 14:49] VITALS: BP 170/75; PULSE 62; TEMP 36.8; O2SAT 91
[2017-01-12 16:26] VITALS: BP 175/79; PULSE 62
[2017-01-12] MEDS: HydrALAZINE HCL 20 MG/ML VIAL IV. PRN (16:26)
[2017-01-12 17:13] VITALS: BP 133/72; PULSE 62
[2017-01-12 22:55] VITALS: BP 123/68; PULSE 68; TEMP 37; O2SAT 95
[2017-01-13] MEDS: HYDROmorphone INJ 1 MG/ML SYR IV SCH (05:51)
--- NOTE | 2017-01-13 06:39 | Surgery Progress Note ---
Surgery Progress Note Date of Service Jan 13, 2017. Subjective + pain controlled, No nausea, No vomiting positive flatus, no bm- had sweats last pm- no fever Objective Vital Signs: Date Time Temp Pulse Resp B/P Pulse Ox O2 Delivery O2 Flow Rate FiO2 01/12/17 23:20 Room Air 01/12/17 22:55 37.0 68 16 123/68 95 Room Air 01/12/17 17:13 62 133/72 01/12/17 16:26 62 175/79 01/12/17 15:30 Room Air 01/12/17 14:49 36.8 62 16 170/75 91 Room Air 01/12/17 07:40 Room Air 01/12/17 07:26 37.2 69 16 156/84 94 Room Air General Appearance: no apparent distress Respiratory/Chest: no respiratory distress Abdomen: + distended (mild distention, some bowel sounds) Incision(s): intact Laboratory Results: Results Past 24 Hours Test 01/12/17 08:23 01/12/17 11:56 01/12/17 17:13 01/12/17 20:51 Range/Units Bedside Glucose 112 114 97 119 70-90 mg/dl Assessment & Plan 01/13/17- will try low dose of miralax- check labs- monitor temp some concern re - bowel function- I don't want to d/c her yet 01/12/17- stop IV fluids, atbx and adv diet to low residue no bm but positive flatus- d/c drains plan d/c tomorrow- 01/13 if progresses 01/11/17- will try full liquids, decrease IV fluids, cont atbx no bm yet- possible d/c 1-2 days if progresses 01/10/17- will begin clear liquids, small dose of lasix, cont IV/atbx for now cont to encourage ambulation, check labs 01/09/17- slow progress- cont same for now , will likely begin liquids tomorrow cont atbx. 01/08/17- minimal bowel function yet- cont npo, ice, IV fluids/ atbx, doing well ambulating- possible sips tomorrow 01/07/17- s/p takedown of colostomy and colorectal anastomosis- significant adhesions will advance slowly- ice only, IV fluid/ atbx to cont, ambulate, check labs monitor ur outpt- may need some lasix- hold for now 01/12/17- stop IV fluids, atbx and adv diet to low residue no bm but positive flatus- d/c drains plan d/c tomorrow- 01/13 if progresses 01/11/17- will try full liquids, decrease IV fluids, cont atbx no bm yet- possible d/c 1-2 days if progresses 01/10/17- will begin clear liquids, small dose of lasix, cont IV/atbx for now cont to encourage ambulation, check labs 01/09/17- slow progress- cont same for now , will likely begin liquids tomorrow cont atbx. 01/08/17- minimal bowel function yet- cont npo, ice, IV fluids/ atbx, doing well ambulating- possible sips tomorrow 01/07/17- s/p takedown of colostomy and colorectal anastomosis- significant adhesions will advance slowly- ice only, IV fluid/ atbx to cont, ambulate, check labs monitor ur outpt- may need some lasix- hold for now
[2017-01-13 07:10] VITALS: BP 152/71; PULSE 63; TEMP 37; O2SAT 92
[2017-01-13 07:13] LABS: HEMATOCRIT 34.2 % (37-47); MEAN CELL VOLUME 88.1 fL (80-100); MEAN CORPUSCULAR HEMOGLOBIN 29.1 pg (25-34); MEAN PLATELET VOLUME 9.5 fL (7.4-10.4); PLATELET COUNT 244 K/uL (130-400); RED BLOOD COUNT 3.88 M/uL (4.2-5.4); WHITE BLOOD COUNT 5.77 K/uL (4.8-10.8)
[2017-01-13 07:48] LABS: CALCIUM 8.6 mg/dl (8.5-10.1); CREATININE 0.63 mg/dl (0.60-1.20); MAGNESIUM 2.3 mg/dl (1.8-2.4); PHOSPHORUS 3.7 mg/dl (2.5-4.9); POTASSIUM 3.7 mmol/L (3.5-5.1)
[2017-01-13] MEDS: INSULIN ASPART 100 UNITS/ML 3 ML PEN SC SCH ×4 (08:53→21:00)
[2017-01-13] MEDS: CYANOCOBALAMIN 1000 MCG/ML VIAL IM SCH (08:56)
[2017-01-13] MEDS: HEPARIN SOD 5000 UNIT/0.5 ML CARP SQ SCH ×2 (08:57→20:20)
[2017-01-13] MEDS ORDERED: POLYETHYLENE (MIRALAX) 17 GM PACK PO SCH (09:00)
[2017-01-13] MEDS: ONDANSETRON INJ 2 MG/ML 2 ML VIAL IV PRN (11:58)
--- NOTE | 2017-01-13 13:42 | Progress Note ---
Subjective Date of Service: Jan 13, 2017. Subjective Pt evaluation today including: conversation w/ patient Pt has not had a bowel movement yet. She was to get miralax this AM, however it was given to her in a paper coffee cup and was taken away while she was napping. She is now with some mild nausea, no emesis. Still with abd pain related to her surgery, but no new pain. Is awaiting lunch, but no issues with breakfast. Pt denies fever, SOB, chest pain, LE pain or swelling. ROS as noted above, otherwise neg. Objective Vital Signs Date Time Temp Pulse Resp B/P Pulse Ox O2 Delivery O2 Flow Rate FiO2 01/13/17 07:25 Room Air 01/13/17 07:10 37.0 63 16 152/71 92 Room Air 01/12/17 23:20 Room Air 01/12/17 22:55 37.0 68 16 123/68 95 Room Air 01/12/17 17:13 62 133/72 01/12/17 16:26 62 175/79 01/12/17 15:30 Room Air 01/12/17 14:49 36.8 62 16 170/75 91 Room Air Physical Exam Comments: General Appearance: WD/WN, no apparent distress Respiratory/Chest: normal breath sounds, no respiratory distress Cardiovascular: regular rate, rhythm, no edema Abdomen: soft, + pertinent finding (nondistended) Extremities: non-tender, no pedal edema Neurologic/Psychiatric: alert, normal mood/affect, oriented x 3 Skin: normal color, warm/dry Laboratory Results Last 24 Hours Test 01/12/17 17:13 01/12/17 20:51 01/13/17 06:56 01/13/17 08:05 Bedside Glucose 97 mg/dl 119 mg/dl 100 mg/dl White Blood Count 5.77 K/uL Red Blood Count 3.88 M/uL Hemoglobin 11.3 g/dL Hematocrit 34.2 % Mean Corpuscular Volume 88.1 fL Mean Corpuscular Hemoglobin 29.1 pg Mean Corpuscular Hemoglobin Concent 33.0 g/dl RDW Standard Deviation 42.8 fL RDW Coefficient of Variation 13.4 % Platelet Count 244 K/uL Mean Platelet Volume 9.5 fL Sodium Level 141 mmol/L Potassium Level 3.7 mmol/L Chloride Level 101 mmol/L Carbon Dioxide Level 34 mmol/L Anion Gap 6.0 mmol/L Blood Urea Nitrogen 6 mg/dl Creatinine 0.63 mg/dl Est Creatinine Clear Calc Drug Dose 62.1 ml/min Estimated GFR () 107.6 Estimated GFR (Non- 92.8 BUN/Creatinine Ratio 10.0 Random Glucose 109 mg/dl Calcium Level 8.6 mg/dl Phosphorus Level 3.7 mg/dl Magnesium Level 2.3 mg/dl Test 01/13/17 11:53 Bedside Glucose 101 mg/dl Assessment and Plan (1) Colostomy in place (2) Diabetes (3) Immune deficiency disorder (4) COPD (chronic obstructive pulmonary disease) 66 y/o admitted for reversal of a colostomy by Dr. Burnham. Hospitalist consulted for medical management s/p colostomy reversal and colorectal anastomosis 01/06, apparently significant adhesive disease present Patient encouraged to walk the halls, diet as per gen surg. Pain is well controlled. Passing gas, awaiting bowel movement, miralax trial Diabetes: sliding scale coverage while advancing diet Immune deficiency disorder: he remains on cefoxitin no signs of infection COPD: Stable Hair loss: iron is low with TIBC WNL, ferritin is WNL with transferrin low also Given pt's gastroparesis and now recent bowel surgery, she will not be able to take PO iron for some time It would be advised that if she does start taking iron, that she start with a QD dosing, with vit C to help absorption and senna/MOM to help prevent constipation Pt may also be a candidate for IV iron therapy TSH, folate WNL B12 is very low normal at 374. QD B12 injections started 01/12 and will need a total of 5 daily, then Q weekly x4, then to monthly. Also advised B complex sublingual dosing once she completes Q weekly injections. Pt's overall nutritional status is difficult to manage due to her GI issues and she will benefit greatly from having supplementation. The fact that her hair is falling out suggests she is in early stage nutritional deficits and this needs managed carefully. Question of possible chronic CHF dx, ECHO from 2002 without mention, takes low dose lasix daily
[2017-01-13 20:00] VITALS: TEMP 36.5
[2017-01-13] MEDS: HYDROCODONE/ACETAMOPHEN 5/325MG TAB PO PRN (21:39)
[2017-01-14 00:04] VITALS: BP 149/74; PULSE 66; TEMP 36.5; O2SAT 97
[2017-01-14] MEDS ORDERED: HYDR-5688 PO (05:56)
--- NOTE | 2017-01-14 05:59 | Discharge Instructions ---
Discharge Instructions Date of Service Jan 14, 2017. Admission Reason for Admission: Colostomy, Diverticulitis Of Colon Discharge Discharge Diagnosis / Problem: diverticulitis, colostomy Discharge Goals Goal(s): Decrease discomfort, Improve function, Improve disease control Activity Recommendations Activity Limitations: as noted below Lifting Limitations: no more than 10 pounds Exercise/Sports Limitations: until after follow-up appointment May Resume Sexual Activity: when tolerated Shower/Bathe: no limitations (may shower, no bath until subha removed) Driving or Machine Use: wait 1 week SPECIAL CARE INSTRUCTIONS: * Cover incisions and change daily for comfort/drainage. * replace gauze wick daily- wet with saline may take Senokot S 1-2 times per day and stop for loose bowel movements * May use ibuprofen for pain as tolerated. * Expect some swelling and bruising. Call your doctor if: * Temperature above 101 degrees * Pain not relieved by pain medicine ordered * There is increased drainage or redness from any incision * You have any unanswered questions or concerns [phone]. FOLLOW UP VISIT: If not already scheduled, please call the office for a follow-up visit. for next week- wound check and staple removal OFFICE PHONE NUMBER: Dr. Burnham Office . Current Hospital Diet Patient's current hospital diet: Low Fiber Diet Discharge Diet Recommended Diet: Diabetes Type 2 Diet Procedures Procedures Performed: Colostomy Closure with Colorectal Anastamosis Pending Studies Studies pending at discharge: no Laboratory Results Hemoglobin A1c Test 11/18/16 10:37 Range/Units Estimated Average Glucose 114 mg/dl Hemoglobin A1c 5.6 4.5-5.6 % Medical Emergencies . Who to Call and When: Medical Emergencies: If at any time you feel your situation is an emergency, please call 911 immediately. . Non-Emergent Contact Non-Emergency issues call your: Primary Care Provider, Surgeon . "Provider Documentation" section prepared by Case Burnham. . VTE Core Measure Inpt VTE Proph given/why not?: Unfractionated heparin SQ, SCD's
[2017-01-14 07:06] VITALS: BP 145/77; PULSE 55; TEMP 36.6; O2SAT 96
--- NOTE | 2017-01-14 07:15 | DISCHARGE SUMMARY ---
PRINCIPAL DIAGNOSIS: Diverticulitis with colostomy. PROCEDURES: The patient underwent a colostomy closure with colorectal anastomosis. HISTORY OF PRESENT ILLNESS: The patient is a 66-year-old female who had undergone colostomy with partial sigmoid colectomy for perforated diverticulitis. She is now brought into the hospital for elective closure of her colostomy. HOSPITAL COURSE: The patient was brought into the hospital on 01/06/2017 where she underwent colostomy closure with colorectal anastomosis. We did go very slowly postoperatively, but she did gradually progress in her diet and activity and was felt stable for discharge on 01/14/2017. She did not have any significant complications in her postoperative period. She will be followed closely in the surgical clinic. She did initially have drains placed and these have been removed prior to discharge.
[2017-01-14 07:45] VITALS: BP 145/77; PULSE 55; TEMP 36.6; O2SAT 96
[2017-01-14] MEDS ORDERED: DOCUSATE SODIUM/SENNA 50/8.6MG TAB PO SCH (08:00)
[2017-01-14] MEDS: CYANOCOBALAMIN 1000 MCG/ML VIAL IM SCH (09:29)
[2017-01-14] MEDS ORDERED: CYNI1000 IM (09:42)
--- NOTE | 2017-01-14 09:45 | Discharge Instructions ---
Discharge Instructions Date of Service Jan 14, 2017. Admission Reason for Admission: Colostomy, Diverticulitis Of Colon Discharge Discharge Diagnosis / Problem: Colostomy Discharge Goals Goal(s): Decrease discomfort, Improve function, Increase independence Activity Recommendations Activity Limitations: per Instructions/Follow-up section (as per surgery instructions) . Instructions / Follow-Up Instructions / Follow-Up You will take 1 B12 injection tomorrow and 1 on Wednesday. After that, you will take 1 injection every week starting 01/23/17 for a total of 4 weeks. At that time you should follow up with Dr. Lee to determine if you need monthly injections or if you can continue with the sublingual B complex only. You should start the sublingual B complex by next week. You can purchase this at [facility] over the counter. Current Hospital Diet Patient's current hospital diet: Low Fiber Diet Discharge Diet Recommended Diet: N/A (as per surgery instructions) Procedures Procedures Performed: Colostomy Closure with Colorectal Anastamosis Pending Studies Studies pending at discharge: no Laboratory Results Hemoglobin A1c Test 11/18/16 10:37 Range/Units Estimated Average Glucose 114 mg/dl Hemoglobin A1c 5.6 4.5-5.6 % Medical Emergencies . Who to Call and When: Medical Emergencies: If at any time you feel your situation is an emergency, please call 911 immediately. . Non-Emergent Contact Non-Emergency issues call your: Primary Care Provider, Surgeon . . "Provider Documentation" section prepared by Jory Larry. . VTE Core Measure Inpt VTE Proph given/why not?: Unfractionated heparin SQ, SCD's
--- NOTE | 2017-01-14 09:47 | Discharge Summary ---
Discharge Summary Date of Service Jan 14, 2017. Discharge Summary Admission Date: Jan 06, 2017 at 07:00 Discharge Date: Jan 14, 2017 Discharge Disposition: Home Principal Diagnosis: Colectomy reversal Procedures: colectomy reversal with Dr. Burnham Medication Reconciliation New Medications: Hydrocodone/Acetaminophen 5MG/325MG ([place] 5MG/325MG) Tab 1-2 TABLET PO q 6 hrs PRN for Pain, #40 TAB PRN PAIN Cyanocobalamin (Cyanocobalamin) 1,000 Mcg/Ml Inj 1000 MCG IM DAILY for 30 Days, #6 SYR Take 1 injection on Wednesday & Wednesday, then take 1 injection weekly for 4 weeks starting 01/23/17 Continued Medications: Albuterol (Proair Hfa) Aers 2 PUFF INH Q4 PRN for SOB/Wheezing Amlodipine Besylate (Norvasc) 5 Mg Tab 5 MG PO QPM Bisacodyl (Dulcolax) 5 Mg Tab 2 TAB PO UD for 1 Day, #2 TAB took bowel prep pre surgery Captopril (Capoten) 12.5 Mg Tab 12.5 MG PO NOON Celecoxib (Celebrex) 100 Mg Cap 1 CAP PO BID for 30 Days, #60 CAP Cetirizine (Zyrtec) 10 Mg Tab 10 MG PO QAM Cholecalciferol (Vitamin D3) 1,000 Unit Tab 1 TAB PO DAILY for 30 Days, #30 TAB 5 Refills Citalopram Hydrobromide (Celexa) 10 Mg Tab 10 MG PO QAM Erythromycin (Erythromycin) 250 Mg Tab DIRECTED, #6 took bowel prep pre surgery Furosemide (Lasix) 20 Mg Tab 20 MG PO QPM Glipizide (Glipizide Er) 5 Mg Tab 1 TAB PO BID Montelukast Sodium (Singulair) 10 Mg Tab 10 MG PO HS Multiple Vitamins W/ Minerals (Eye Vitamins) 1 Cap Cap 1 CAP PO DAILY Neomycin Sulfate (Neomycin Sulfate) 500 Mg Tab DIRECTED, #3 took bowel prep pre surgery Pantoprazole (Protonix) 20 Mg Tab 20 MG PO QAM Senna (Senokot) 8.6 Mg Tab 1 TAB PO DAILY AT NOON, TAB Umeclidinium-Vilanterol (Anoro Ellipta 62.5-25 Mcg/INH) 1 Aer Aer 1 PUFF INH QAM Discharge Exam Pt is doing well today. She had a bowel movement yesterday and feels much improved. She has been tolerating PO well. Pt denies fever, SOB, chest pain, abd pain, n/v/c/d, LE pain or swelling. ROS as noted above, otherwise neg. Physical Exam: General Appearance: WD/WN, no apparent distress Respiratory/Chest: normal breath sounds, no respiratory distress Cardiovascular: regular rate, rhythm, no edema Abdomen / GI: soft, + pertinent finding (diffuse TTP related to surgical incisions) Extremities: no calf tenderness, no pedal edema Neurologic/Psychiatric: alert, normal mood/affect Skin: normal color, warm/dry Hospital Course (1) Colostomy in place (2) Diabetes (3) Immune deficiency disorder (4) COPD (chronic obstructive pulmonary disease) 66 y/o admitted for reversal of a colostomy by Dr. Burnham. Hospitalist consulted for medical management s/p colostomy reversal and colorectal anastomosis 01/06, apparently significant adhesive disease present Managed by Dr. Burnham Diabetes: sliding scale coverage while advancing diet but can return to home medications on d/c COPD: Stable Hair loss: iron is low with TIBC WNL, ferritin is WNL with transferrin low also Given pt's gastroparesis and now recent bowel surgery, she will not be able to take PO iron for some time It would be advised that if she does start taking iron, that she start with a QD dosing, with vit C to help absorption and senna/MOM to help prevent constipation Pt may also be a candidate for IV iron therapy TSH, folate WNL B12 is very low normal at 374. QD B12 injections started 01/12 and will need a total of 5 daily, then Q weekly x4, then to monthly. Also advised B complex sublingual dosing once she completes QD injections. Pt's overall nutritional status is difficult to manage due to her GI issues and she will benefit greatly from having supplementation. The fact that her hair is falling out suggests she is in early stage nutritional deficits and this needs managed carefully. Pt states she has had this in the past and did her own B12 injections at home. She would like to manage this in that manner again. Question of possible chronic CHF dx, ECHO from 2002 without mention, takes low dose lasix daily Total Time Spent: Greater than 30 minutes This includes examination of the patient, discharge planning, medication reconciliation, and communication with other providers. Discharge Instructions Please refer to the electronic Patient Visit Report (Discharge Instructions) for additional information. Follow-Up Dr. Burnham as per his instructions Dr. Lee in 3-4 weeks Additional Copies To ,Abbe Booth M.D.
== END 2017-01-14 10:10 | disposition home or self-care (01) | DRG 330 ==
LOC: ENRESERVDT → ENRESERVTM → C.ACU 04:56 → C.MSW 07:00
PROVIDERS: ADMIT Surgery; ATTEND Surgery
PROC: 0DBN0ZZ Excision of Sigmoid Colon, Open Approach (ICD-10-PCS; principal; 2017-01-06 07:00)
DX: Z43.3 Encounter for attention to colostomy (principal); D84.9 Immunodeficiency, unspecified; K66.0 Peritoneal adhesions (postprocedural) (postinfection); J44.9 Chronic obstructive pulmonary disease, unspecified; I10 Essential (primary) hypertension; K21.9 Gastro-esophageal reflux disease without esophagitis; K22.70 Barrett's esophagus without dysplasia; Z90.49 Acquired absence of other specified parts of digestive tract; Z87.891 Personal history of nicotine dependence; Z88.6 Allergy status to analgesic agent; Z88.8 Allergy status to other drugs, medicaments and biological substances; M19.90 Unspecified osteoarthritis, unspecified site; F41.9 Anxiety disorder, unspecified; K43.5 Parastomal hernia without obstruction or gangrene; E11.43 Type 2 diabetes mellitus with diabetic autonomic (poly)neuropathy

== ENCOUNTER → 2017-03-05 | Day surgery (SDC) | payer OTHER, MEDICARE ==
[~2017-03-05] MED LIST changes: +BISA-16 PO; +CEFAZOLIN 2000 MG/60 ML D5W IV SCH; +CHOL1000 PO; +CYNI1000 IM; +ERYT250T; +HYDR-5688 PO; +LACTATED RINGER'S 1000ML 1,000 ML IV SCH; +MULTCAP7 PO; +NEOM500T; +PATIENT'S HEIGHT AND/OR WEIGHT NEEDED SCH
== END | disposition home or self-care (01) ==
LOC: EDSTATUS 09:45 → C.PAT 13:19
PROVIDERS: ATTEND Surgery
DX: M79.9 Soft tissue disorder, unspecified (principal)

== ENCOUNTER → 2017-07-14 | Outpatient (CLI) | payer OTHER, MEDICARE ==
[~2017-07-14] MED LIST changes: -CEFAZOLIN 2000 MG/60 ML D5W IV SCH; -LACTATED RINGER'S 1000ML 1,000 ML IV SCH; -PATIENT'S HEIGHT AND/OR WEIGHT NEEDED SCH
== END | disposition home or self-care (01) ==
LOC: C.RDSM 10:08
PROVIDERS: ATTEND Physical Medicine & Rehabilitation Sports Medicine
DX: M25.561 Pain in right knee (principal)

== ENCOUNTER → 2018-02-09 | Outpatient (CLI) | payer OTHER, MEDICARE ==
[~2018-02-09] MED LIST changes: -HYDR-5688 PO
[2018-02-09 13:25] LABS: BASO % 0.3 %; BASO ABS # 0.02 K/uL (0-0.2); EOS % 6.2 %; EOS ABS # 0.36 K/uL (0-0.5); HEMATOCRIT 41.4 % (37-47); HEMOGLOBIN 14.5 g/dL (12.0-16.0); IG# 0.01 K/uL (0.00-0.02); LYMPH % 39.7 %; MEAN CELL VOLUME 85.7 fL (80-100); MEAN PLATELET VOLUME 11.1 fL (7.4-10.4); MONO % 4.8 %; MONO ABS # 0.28 K/uL (0.11-0.59); NEUT % 48.8 %; NEUT ABS # 2.83 K/uL (1.4-6.5); PLATELET COUNT 200 K/uL (130-400); RED CELL DISTRIBUTION WIDTH CV 13.2 % (11.5-14.5); RED CELL DISTRIBUTION WIDTH SD 41.4 fL (36.4-46.3)
[2018-02-09 13:40] LABS: HEMOGLOBIN A1C 6.1 % (4.5-5.6)
[2018-02-09 13:59] LABS: ALBUMIN 3.6 gm/dl (3.4-5.0); ALT/SGPT 26 U/L (12-78); AST/SGOT 24 U/L (15-37); BLOOD UREA NITROGEN 10 mg/dl (7-18); CALCIUM 8.8 mg/dl (8.5-10.1); CARBON DIOXIDE 31 mmol/L (21-32); CHOLESTEROL 185 mg/dl (0-200); CREATININE 0.79 mg/dl (0.60-1.20); GLUCOSE 125 mg/dl (70-99); SODIUM 140 mmol/L (136-145)
[2018-02-09 14:02] LABS: ALKALINE PHOSPHATASE 86 U/L (45-117); LDL CHOLESTEROL CALCULATED 100 mg/dl; TOTAL PROTEIN 7.2 gm/dl (6.4-8.2)
== END | disposition home or self-care (01) ==
LOC: C.LABPBG 09:31
PROVIDERS: ATTEND Physician Assistant
DX: E78.5 Hyperlipidemia, unspecified (principal); E11.9 Type 2 diabetes mellitus without complications; E55.9 Vitamin D deficiency, unspecified

== ENCOUNTER → 2018-05-18 | Outpatient (CLI) | payer OTHER, MEDICARE ==
--- NOTE | 2018-05-18 10:26 | DIAGNOSTIC IMAGING REPORT ---
R HAND MIN 3 VIEWS ROUTINE CLINICAL HISTORY: M47.816 Spondylosis without myelopathy or radiculopathy, right hand pain COMPARISON: None. DISCUSSION: The bony mineralization appears normal. There are mild to moderate osteoarthritic changes involving the first carpometacarpal joint and interphalangeal joints. There is no erosive disease. No fractures are visualized. There is a 3 mm lytic focus within the base of the proximal phalanx of the fifth digit. This has nonaggressive features. IMPRESSION: 1. No acute fractures 2. Osteoarthritic changes 3. No evidence of erosive disease Electronically signed by: Jerod Hidalgo M.D. 05/18/2018 10:25 AM Dictated Date/Time: 05/18/2018 10:24 AM
--- NOTE | 2018-05-18 10:28 | DIAGNOSTIC IMAGING REPORT ---
L HAND MIN 3 VIEWS ROUTINE HISTORY: 67 years-old Female SPONDYLOSIS WITHOUT MYELOPATHY OR RADICULOPATHY COMPARISON: Right hand radiographs of same day TECHNIQUE: 3 views of the left hand FINDINGS: Bones appear mildly demineralized. There are at least mild degenerative changes noted throughout the interphalangeal and metacarpophalangeal joints. Moderate to severe first carpometacarpal osteoarthritis with multiple adjacent corticated bone fragments measuring up to 6 mm suggesting fragmented osteophytes. Mild triscaphe and radiocarpal osteoarthritis. No erosive changes, acute fracture or dislocation. Soft tissues are unremarkable. No opaque foreign body. IMPRESSION: 1. No acute fracture or dislocation. 2. Osteoarthritis as detailed above. The above report was generated using voice recognition software. It may contain grammatical, syntax or spelling errors. Electronically signed by: Ryland Weaver M.D. 05/18/2018 10:27 AM Dictated Date/Time: 05/18/2018 10:25 AM
== END | disposition home or self-care (01) ==
LOC: C.RAD 09:43
PROVIDERS: ATTEND Internal Medicine Rheumatology
DX: G56.01 Carpal tunnel syndrome, right upper limb (principal); M47.816 Spondylosis without myelopathy or radiculopathy, lumbar region; M65.30 Trigger finger, unspecified finger; M79.641 Pain in right hand

== ENCOUNTER 2022-10-16 08:45 | Observation (INO) ==
--- NOTE | 2022-09-14 10:27 | PAT Medication Instructions ---
Medication Instructions Date of Service September 14, 2022 Home Medications Medication Instructions Recorded lancets 33 gauge (OneTouch Delica #100 ea 01/16/21 Plus Lancet) blood-glucose meter (OneTouch #1 ea 07/30/21 Verio Meter) albuterol sulfate 90 mcg/actuation 2 puff inhalation Q4H PRN 08/29/21 aerosol inhaler (ProAir HFA) shortness of breath or wheezing #18 grams empagliflozin 25 mg tablet 25 mg PO DAILY #90 tabs 09/09/21 (Jardiance) blood sugar diagnostic (Oneuch #200 ea 10/13/21 Verio test strips) pantoprazole 20 mg tablet,delayed 20 mg PO BID #180 tabs 11/26/21 release enalapril maleate 10 mg tablet 10 mg PO DAILY #90 tabs 12/16/21 budesonide-formoterol HFA 160 2 puff inhalation BID #6 grams 02/25/22 mcg-4.5 mcg/actuation aerosol inhaler (Symbicort) amlodipine 5 mg tablet 5 mg PO DAILY #30 tabs 05/12/22 rosuvastatin 5 mg tablet 5 mg PO DAILY #90 tabs 05/19/22 citalopram 10 mg tablet 10 mg PO DAILY #30 tabs 08/11/22 citalopram 20 mg tablet 20 mg PO DAILY #30 tabs 08/11/22 ipratropium 0.5 mg-albuterol 3 mg 3 ml inhalation Q6H PRN wheezing 08/27/22 (2.5 mg base)/3 mL nebulization #180 mL soln furosemide 20 mg tablet See Rx Instructions .Route 09/08/22 .COMPLEX #90 tabs montelukast 10 mg tablet 10 mg PO QPM #90 tabs 09/08/22 sennosides 8.6 mg-docusate sodium 50 mg tablet 1 tabcap PO BID PRN constipation triamcinolone acetonide 0.1 % topical cream 1 appln topical BID PRN Rash albuterol sulfate 90 mcg/actuation aerosol inhaler (ProAir HFA) 2 puff inhalation Q4H PRN shortness of breath or wheezing empagliflozin 25 mg tablet (Jardiance) 25 mg PO DAILY pantoprazole 20 mg tablet,delayed release 20 mg PO BID enalapril maleate 10 mg tablet 10 mg PO DAILY budesonide-formoterol HFA 160 mcg-4.5 mcg/actuation aerosol inhaler (Symbicort) 2 puff inhalation BID amlodipine 5 mg tablet 5 mg PO DAILY rosuvastatin 5 mg tablet 5 mg PO DAILY citalopram 10 mg tablet 10 mg PO DAILY citalopram 20 mg tablet 20 mg PO DAILY ipratropium 0.5 mg-albuterol 3 mg (2.5 mg base)/3 mL nebulization soln 3 ml inhalation Q6H PRN wheezing furosemide 20 mg tablet See Rx Instructions .Route .COMPLEX montelukast 10 mg tablet 10 mg PO QPM STOP taking 24 hours before surgery triamcinolone acetonide 0.1 % topical cream 1 appln topical BID PRN Rash STOP taking 3 days before surgery empagliflozin 25 mg tablet (Jardiance) 25 mg PO DAILY DO NOT take the morning of surgery sennosides 8.6 mg-docusate sodium 50 mg tablet 1 tabcap PO BID PRN constipation enalapril maleate 10 mg tablet 10 mg PO DAILY furosemide 20 mg tablet See Rx Instructions .Route .COMPLEX Take morning of surgery With a small sip of water, OTHERWISE NOTHING TO EAT OR DRINK AFTER MIDNIGHT: albuterol sulfate 90 mcg/actuation aerosol inhaler (ProAir HFA) 2 puff inhalation Q4H PRN shortness of breath or wheezing (use if needed; please bring rescue inhaler with you to hospital day of surgery if possible) pantoprazole 20 mg tablet,delayed release 20 mg PO BID budesonide-formoterol HFA 160 mcg-4.5 mcg/actuation aerosol inhaler (Symbicort) 2 puff inhalation BID amlodipine 5 mg tablet 5 mg PO DAILY rosuvastatin 5 mg tablet 5 mg PO DAILY citalopram 10 mg tablet 10 mg PO DAILY citalopram 20 mg tablet 20 mg PO DAILY ipratropium 0.5 mg-albuterol 3 mg (2.5 mg base)/3 mL nebulization soln 3 ml inhalation Q6H PRN wheezing (if needed) Take evening before surgery sennosides 8.6 mg-docusate sodium 50 mg tablet 1 tabcap PO BID PRN constipation (if needed) albuterol sulfate 90 mcg/actuation aerosol inhaler (ProAir HFA) 2 puff inhalation Q4H PRN shortness of breath or wheezing (if needed) pantoprazole 20 mg tablet,delayed release 20 mg PO BID budesonide-formoterol HFA 160 mcg-4.5 mcg/actuation aerosol inhaler (Symbicort) 2 puff inhalation BID ipratropium 0.5 mg-albuterol 3 mg (2.5 mg base)/3 mL nebulization soln 3 ml inhalation Q6H PRN wheezing (if needed) montelukast 10 mg tablet 10 mg PO QPM Other Notes If you have any questions please call us at [phone] or [phone] or [phone] or [phone]
--- NOTE | 2022-09-16 14:10 | Anesthesiology Consultation ---
Date of Service September 16, 2022 Assessment & Plan (1) Encounter for pre-operative examination: - COVID screening: Per assessment on 09/16: No known COVID-19 positive contacts or current COVID-19 related symptoms. Travel screen negative. Patient vaccinated. At surgeon discretion if preop Covid testing being done. - Outpatient joint assessment: Pt currently scheduled for inpatient pathway. If surgeon requests review for outpatient joint pathway, patient is not recommended candidate for outpatient joint program from anesthesia standpoint. - Check [facility] AM DOS Chart Review Chart Review: Acceptable Risk for Surgery and Patient seen in Pre Admission Testing Teaching & Discussion Pre-Anesthesia Teaching/Discussion Notes: Instructed NPO after midnight before surgery,except medications with 15 cc of water. Medication instructions provided according to the PAT guidelines. History Surgery Operation Date: 10/16/22 10:30 Proposed Procedures p Right Total Knee Arthroplasty - Delfin Bryson, Height/Weight Height: 4 ft 8 in Weight: 59.3 kg Allergies Allergy/AdvReac Type Severity Reaction Status Date / Time sumatriptan Allergy Severe Anaphylaxis, Verified 09/14/22 10:28 "heart troubles" fluticasone Allergy Mild "[place] Verified 09/14/22 10:28 nose" hydrochlorothiazide Allergy Mild Rash Verified 09/14/22 10:28 levofloxacin Allergy Mild Gastrointestinal Verified 09/14/22 09:19 Upset lisinopril Allergy Mild Rash Verified 09/14/22 10:28 NSAIDS (Non-Steroidal Allergy Mild Rash Verified 09/14/22 10:28 Anti-Inflamma metformin AdvReac Mild Nausea Verified 09/14/22 10:28 Medications Home Medications Medication Instructions Recorded Confirmed Last Taken sennosides 8.6 mg-docusate sodium 1 tabcap PO BID PRN constipation 08/01/19 09/14/22 03/20/20 08:00 50 mg tablet #30 tabs triamcinolone acetonide 0.1 % 1 appln topical BID PRN Rash #1 g 08/01/19 09/14/22 03/20/20 08:00 topical cream lancets 33 gauge (NetzVacationTouch Delica #100 ea 01/16/21 07/01/22 Unknown Plus Lancet) blood-glucose meter (NetzVacationTouch #1 ea 07/30/21 07/01/22 Unknown Verio Meter) albuterol sulfate 90 mcg/actuation 2 puff inhalation Q4H PRN 08/29/21 09/14/22 Unknown aerosol inhaler (ProAir HFA) shortness of breath or wheezing #18 grams blood sugar diagnostic (OneTouch #200 ea 10/13/21 07/01/22 Unknown Verio test strips) pantoprazole 20 mg tablet,delayed 20 mg PO BID #180 tabs 11/26/21 09/14/22 Unknown release enalapril maleate 10 mg tablet 10 mg PO DAILY #90 tabs 12/16/21 09/14/22 Unknown budesonide-formoterol HFA 160 2 puff inhalation BID #6 grams 02/25/22 09/14/22 Unknown mcg-4.5 mcg/actuation aerosol inhaler (Symbicort) amlodipine 5 mg tablet 5 mg PO DAILY #30 tabs 05/12/22 09/14/22 Unknown rosuvastatin 5 mg tablet 5 mg PO DAILY #90 tabs 05/19/22 09/14/22 Unknown citalopram 10 mg tablet 10 mg PO DAILY #30 tabs 08/11/22 09/14/22 Unknown ipratropium 0.5 mg-albuterol 3 mg 3 ml inhalation Q6H PRN wheezing 08/27/22 09/14/22 Unknown (2.5 mg base)/3 mL nebulization #180 mL soln furosemide 20 mg tablet See Rx Instructions .Route 09/08/22 09/14/22 Unknown .COMPLEX #90 tabs montelukast 10 mg tablet 10 mg PO QPM #90 tabs 09/08/22 09/14/22 Unknown empagliflozin 25 mg tablet 25 mg PO DAILY #90 tabs 09/15/22 Unknown (Jardiance) citalopram 20 mg tablet 20 mg PO DAILY #30 tabs 09/16/22 Unknown Past Medical History Medical History Anxiety ASCVD (arteriosclerotic cardiovascular disease) Per records Asthma Stable Barretts esophagus Chronic back pain Chronic obstructive pulmonary disease Diabetes NIDDM Diverticular disease Diverticulitis of colon with perforation Hx (2015) Emphysema lung Stable History of gastric ulcer 1990s (duodenal) Hypertension Osteoarthritis of knees, bilateral Exercise / Class Metabolic Activity II 4-5 Yardwork/Stairs/Walk up hill Past Family History Family History Mother Diabetes Bone cancer Hepatic cirrhosis Uncle Prostate cancer Diabetes Colorectal cancer Grandmother (Maternal) Esophageal cancer Diabetes Father Diabetes Aunt Diabetes Grandfather (Paternal) Diabetes Other No family history of adverse response to anesthesia Denies family history of Ovarian cancer Myocardial infarction Breast cancer Past Surgical History Surgical History History of appendectomy History of arthroscopy of right knee History of cardiac cath 2004 (S) > no stents History of carpal tunnel surgery of right wrist History of colon surgery 07/2016 @ [facility] partial colectomy with colostomy--d/t colon perforation History of colonoscopy with polypectomy History of esophagogastroduodenoscopy (EGD) History of tooth extraction all upper/partial lower History of total hysterectomy with bilateral salpingo-oophorectomy (BSO) S/P cholecystectomy S/P colostomy takedown 12/2016 @ [facility] S/P tubal ligation Past Anesthesia History No Hx of Anesthesia Complications and No Family Hx of Anesthesia Complications History of PONV No Hx of PONV and No Hx of Motion Sickness Social History Smoking Status: Former smoker tobacco type: cigarettes Do You Dip or Chew Tobacco: No Smoking End Date: Quit "a long time ago" Hx Alcohol Use: No Hx Substance Use: No substance use type: does not use Review of Systems Patient denies chest pain, shortness of breath, dyspnea on exertion, fever, chills, cough, wheezing, palpitations. Physical Exam Vital Signs VITALS BP 127/76 P 55 TEMP 98.2 SP02 95%RA RESP 18 PHYSICAL Full cervical extension range of motion. Full TMJ range of motion. TMD 3.5 finger breaths Mallampati Score 3 Dentition: upper full, lower partial Lungs: clear throughout to auscultation Cardiac: regular rate and rhythm, no murmurs noted Spine: normal Carotid arteries: negative bruit Extremities: no edema Lab Results Anesthesia Preop Results Results Anesthesia Widget: WBC 7.99 K/ul (4.8-10.8) 09/16/22 Hgb 14.4 g/dl (12.0-16.0) 09/16/22 Hct 42.8 % (34.1-44.9) 09/16/22 Plt 226 K/uL (130-400) 09/16/22 Na 141 mmol/L (136-145) 09/16/22 K 3.2 mmol/L (3.5-5.1) L 09/16/22 Cl 103 mmol/L (98-107) 09/16/22 CO2 31 mmol/L (21-32) 09/16/22 BUN 15 mg/dl (6-23) 09/16/22 Creat 0.79 mg/dl (0.6-1.2) 09/16/22 Glucose Level 129 mg/dl (70-99(Fasting)) H 09/16/22 PT 10.5 Seconds (9.0-12.0) 09/16/22 PTT 27.3 Seconds (21.0-31.0) 09/16/22 INR 1.0 (0.9-1.1) 09/16/22 HA1c 7.2 % (4.5-5.6) H 09/16/22 Blood Type B Negative 09/16/22 Antibody Screen NEGATIVE 09/16/22 Testing Electrocardiogram Date: 09/16/22 SB at 55bpm. unconfirmed report. Chest X-Ray Date: 09/16/22 FINDINGS: No lines and tubes are seen. The cardiomediastinal silhouette is normal. The lungs are clear. No evidence of pleural effusion or pneumothorax. IMPRESSION: No acute chest disease. COVID-19 Risk Screen Screening Information COVID-19 Screen Date: 09/16/22 Exposure 21 Days Family/Household +COVID Last 21 Days: No Exposure 10 Days Any COVID Exposure Last 10 Days: No Symptoms Last 10 Days Experienced COVID Sx Last 10 Days: No + COVID 0-90 Days COVID + in Last 0-90 Days: No
[~2022-10-16 08:45] MED LIST changes: +ACETAMINOPHEN 500 MG TAB PO SCH; -ALBU1AER9 INH; -AMLO5TAB2 PO; -BISA-16 PO; +BUPIVACAINE 0.5 % 5 MG/1 ML PF 10ML VIAL ONE; -CETI10TA84 PO; -CHOL1000 PO; -CITA10TA8 PO; -CLB100 PO; -CYNI1000 IM; -ERYT250T; -FURO-85 PO; +GABAPENTIN 300 MG CAP PO SCH; -GLIP-197 PO; +LR 500ML BOLUS, THEN 15ML/HR IV SCH; +LR 60ML/HR IV SCH; -MONT1TAB3 PO; -MULTCAP7 PO; -NEOM500T; +ORTHO JOINT MIX INFIL SCH; -PRT/20 PO; +ROPIVACAINE 0.5% 5 MG/ML 30 ML VIAL ONE; -SENN-61 PO; +TRANEXAMIC ACID 1,000 MG **IV Intra-op IV SCH; +TRANEXAMIC ACID 1,000 MG **IV Pre-op IV SCH; -UMEC1AER INH; -[UNRECOGNIZED DRUG - CODE] PO; +ceFAZolin 2000MG 2,000 MG/15 ML SYR IV SCH; +dexAMETHasone 4 MG TAB PO SCH
--- NOTE | 2022-10-16 10:01 | History & Physical Bridge Note ---
Date of Service October 16, 2022 History & Physical Bridge Note I have examined the patient, reviewed the History & Physical and in the interval since the performance of the History & Physical I have noted the following changes of clinical significance: no changes noted
[2022-10-16] MEDS: FAMOTIDINE 20 MG TAB PO SCH ×2 (10:10→10:21)
[2022-10-16] MEDS ORDERED: ORTHO JOINT ANESTHETIC ONE (10:28)
[2022-10-16] MEDS ORDERED: ONDANSETRON INJ 2 MG/ML 2 ML VIAL ONE (10:31)
[2022-10-16] MEDS ORDERED: PROPOFOL IV EMULSION 10 MG/ML 20 ML VIAL IV ONE (10:31)
[2022-10-16] MEDS ORDERED: fentaNYL citrate 100 MCG/2 ML VIAL ONE (10:31)
[2022-10-16] MEDS ORDERED: LIDOCAINE 2% MPF LOCAL 5 ML VIAL INFIL ONE (10:31)
[2022-10-16] MEDS ORDERED: ePHEDrine sulfate 50 MG/ML SYR ONE (11:29)
--- NOTE | 2022-10-16 12:07 | Operative Report ---
PG Post Operative Report Pre & Post Diagnosis Operation Date: 10/16/22 11:40 Pre-Op Diagnosis: Degenerative joint disease right knee. Post-Op Diagnosis: Degenerative joint disease right knee. I identified the patient and participated in the time-out.: Yes Procedure Operation Date: 10/16/22 11:40 Actual Procedures p Right Total Knee Arthroplasty, Cemented(Right) - Delfin Bryson DO Surgeon Delfin Bryson DO Screw Machine Operator Delfin Echeverria PA-C Estimated Blood Loss 30 Findings Consistent with Post-Op Diagnosis Specimens Right femoral and tibial bone Description of Procedure Implants used: I used a Kierra Persona total knee arthroplasty system with a size 6 narrow femur, C tibia, 31 oval 11 medial congruent patella, and a size 11 medial congruent polyethylene bearing. All components were cemented in place with Biomet cement. Jasmyn arrived [facility] for the above procedure. She was seen in the preoperative holding area and the operative extremity was identified and signed. She was given a preoperative antibiotic, TXA, a spinal anesthetic and an adductor nerve block. She was taken back to the operating room and laid on the table in supine position. She was given basic sedation. The operative knee was then prepped and draped in sterile fashion. A timeout was done, and the patient and the operative extremity was properly identified. A midline incision was made directly over the patella. Dissection was taken down to the extensor mechanism. A midvastus arthrotomy was used. The medial retinaculum was released and the fat pad was mostly excised. The knee was flexed and the ACL, PCL, and meniscus were removed. A drill was sent down the center of the femoral canal followed by an intramedullary aime. Off that aime a distal femoral cutting block was placed. 9 mm was resected off the distal femur at 5 of valgus. A posterior referencing AP sizing guide was then placed on the distal femur. The femur measured to be a size 6 narrow. 2 drill holes were placed in 3 of external rotation. A 4-in-1 cutting block was then impacted into place. Anterior, posterior, and chamfer c uts were then made. The proximal tibia was then exposed. An external tibial alignment guide was placed. A tibial cut guide was then anchored in place and the proximal tibia was then resected. The posterior aspect of the knee was then opened up and any additional meniscus fragments and osteophytes were removed. The tibia measured to be a size C. The tibial plate was then placed in the appropriate rotation and the tibia was drilled and punched. Trial components were then placed. I used a size 11 medial congruent polyethylene insert. The knee was brought through a full range of motion and felt to be stable. The peg holes for the femoral component were then drilled. The patella was then everted and 9 mm was resected off the posterior aspect of the patella. The patella measured to be a size 31 oval. 3 peg holes were then drilled. A trial patella was placed. The knee was once again brought through a full range of motion and felt to be stable. Trial components were then removed. The surrounding soft tissues were injected with 100 cc of an orthopedic pain control cocktail. All components were then cemented into place with Biomet cement. The final polyethylene insert was then snapped into place. Once cement was dry the tourniquet was deflated. Hemostasis was obtained. A dilute betadyne lavage was then done for 3 minutes. The joint was then irrigated with normal saline solution. The subvastus arthrotomy was then closed with #1 Vicryl suture. The skin was closed with 2-0 Vicryl, 3-0V lock suture, and subha. A soft compressive dressing was placed. She was then transferred to a hospital bed and taken to the postanesthesia care unit in stable condition. She tolerated the procedure well. Delfin Echeverria PA-C, was present for the entire procedure. He was critical for patient positioning, prepping, draping, retraction exposure, wound closure and application of sterile dressing. I attest to the content of the Intraoperative Record and any orders documented therein. Any exceptions are noted below.
--- NOTE | 2022-10-16 13:09 | XRay Report ---
RIGHT KNEE 2 VIEWS History: Right total knee arthroplasty. Degenerative arthritis. Postop. FINDINGS: The patient is status post a right total knee arthroplasty. The hardware is intact. No frac ture or dislocation. Skin subha are in place. IMPRESSION: Right total knee arthroplasty. No evidence for hardware complication. ACT 112: Negative or not required by law. Electronically signed by: Barry Jones M.D. 10/16/2022 1:08 PM
[2022-10-16] MEDS ORDERED: MAGNESIUM HYDROXIDE SUSP 30 ML UDC PO PRN (14:03)
[2022-10-16] MEDS ORDERED: ONDANSETRON INJ 2 MG/ML 2 ML VIAL IV PRN (14:03)
[2022-10-16] MEDS ORDERED: bisacodyL 10 MG SUPP PR PRN (14:03)
[2022-10-16] MEDS ORDERED: METOCLOPRAMIDE HCL INJ 5 MG/ML 2 ML VIAL IV PRN (14:03)
[2022-10-16] MEDS ORDERED: HYDROmorphone INJ 0.5 MG/0.5 ML SYR IV PRN (14:03)
[2022-10-16] MEDS ORDERED: ALBUT/IPRATROP 3MG/0.5MG NEB 3 ML VIAL INH PRN (14:03)
[2022-10-16] MEDS ORDERED: ALBUTEROL HFA 8 GM INHALER INH PRN (14:03)
[2022-10-16] MEDS ORDERED: TRIAMCINOLONE ACET 0.1% CR 15 GM TUBE TOP PRN (14:03)
[2022-10-16] MEDS ORDERED: NALOXONE HCL 0.4 MG/1 ML VIAL/CARP IV PRN (14:03)
[2022-10-16] MEDS ORDERED: DOCUSATE SODIUM/SENNA 50/8.6MG TAB PO PRN (14:03)
--- NOTE | 2022-10-16 14:41 | Anesthesiology Progress Note ---
Date of Service October 16, 2022 Anesthesia Post Procedure Vital Signs Vital Signs: Temp Pulse Pulse Resp BP Pulse Ox O2 Del Method 10/16/22 14:15 97.5 F L 59 L 16 125/63 96 Nasal Cannula 10/16/22 14:09 Nasal Cannula 10/16/22 13:45 97.9 F 62 16 125/58 L 98 Nasal Cannula 10/16/22 13:35 63 20 138/64 94 Nasal Cannula 10/16/22 13:25 97.3 F L 64 16 122/69 97 Nasal Cannula 10/16/22 13:15 57 L 22 143/64 H 95 Room Air 10/16/22 13:05 65 15 145/65 H 95 Room Air 10/16/22 12:55 64 16 133/87 94 Room Air 10/16/22 12:45 60 16 142/61 H 95 Room Air 10/16/22 12:35 69 17 130/64 94 Oxymask 10/16/22 12:26 97.2 F L 77 13 137/62 93 Oxymask 10/16/22 09:38 98.2 F 53 L 20 132/71 95 Room Air 10/16/22 09:38 Room Air O2 Flow Rate 10/16/22 14:15 10/16/22 14:09 2 10/16/22 13:45 2 10/16/22 13:35 2 10/16/22 13:25 2 10/16/22 13:15 10/16/22 13:05 10/16/22 12:55 10/16/22 12:45 10/16/22 12:35 4 10/16/22 12:26 4 10/16/22 09:38 10/16/22 09:38 Transfer of Care Handoff Completed per policy Notes Mental Status: alert / awake / arousable and participated in evaluation Patient Amnestic to Procedure: Yes Nausea / Vomiting: adequately controlled Pain: adequately controlled Airway Patency, RR, SpO2: stable & adequate BP & HR: stable & adequate Hydration State: stable & adequate Neuraxial Anesthesia: was administered and sensory block is resolving Anesthetic Complications: no major complications apparent and Pt Satisfied with anesthetic care
[2022-10-16] MEDS: SODIUM CHLORIDE 0.9% 1000ML 1,000 ML IV SCH (14:44)
[2022-10-16] MEDS: KETOROLAC TROMETHAMINE 15 MG/ML VIAL IV SCH ×3 (14:45→18:39)
[2022-10-16] MEDS: ACETAMINOPHEN 500 MG TAB PO SCH ×2 (14:45→22:01)
[2022-10-16] MEDS ORDERED: PHARMACY GLYCEMIC MGMT CONSULT PRN (14:58)
[2022-10-16] MEDS ORDERED: GLUCOSE 10 TAB/TUBE PO PRN (15:00)
[2022-10-16] MEDS ORDERED: CARBOHYDRATES FOR HYPOGLYCEMIA PO PRN (15:00)
[2022-10-16] MEDS ORDERED: DEXTROSE 50% 50 ML SYRINGE IV PRN (15:00)
[2022-10-16] MEDS ORDERED: GLUCOSE 40% GEL 15 GM TUBE PO PRN (15:00)
[2022-10-16] MEDS ORDERED: GLUCAGON FOR INJ 1 MG VIAL IM PRN (15:00)
--- NOTE | 2022-10-16 15:03 | Pharmacy Report ---
Pharmacy Glycemic Short Note 2 - Date of Service October 16, 2022 - Glycemic Short BSG Results (Last 24 hours): 10/16/22 10/16/22 10/16/22 09:32 12:30 14:39 POC Glucose 137 H 137 H 179 H OUTPATIENT ANTIDIABETIC REGIMEN: * jardiance * A1c 7.2 ASSESSMENT: * 72 year old female now s/p R TKA, POD 0 - pharmacy consulted for glycemic management. Patient received PO dexamethasone prior to procedure therefore ant icipate BSGs to increase * Plan to start novolog now stress 2/3 with overnight check PLAN FOR INPATIENT GLYCEMIC CONTROL: * Hold outpatient oral diabetes medications * Basal insulin * Lantus -hold * Bolus insulin * NovoLog per scale ACHS or Q6hrs while NPO * Goal Range: Low 110 mg/dL - High 140 mg/dL * Correction Factor: 25 mg/dL/unit * Nutritional / Prandial insulin per carb ratio of 1 unit per 11 grams CHO consumed
[2022-10-16] MEDS: INSULIN ASPART PER UNIT SC SCH ×3 (15:30→21:11)
[2022-10-16] MEDS: ceFAZolin 2000MG 2,000 MG/15 ML SYR IV SCH (19:39)
[2022-10-16] MEDS: PANTOprazole 40 MG TAB PO SCH (19:44)
[2022-10-16] MEDS: DOCUSATE SODIUM 100 MG CAP PO SCH (20:33)
[2022-10-16] MEDS: APIXABAN 2.5 MG TAB PO SCH (20:33)
[2022-10-16] MEDS ORDERED: MONTELUKAST SODIUM 10 MG TABLET PO SCH (21:00)
[2022-10-16] MEDS ORDERED: SENNA 8.6 MG TAB PO SCH (21:00)
[2022-10-16] MEDS: oxyCODONE HCL IR 5 MG TAB (IMMEDIATE RELEASE) PO PRN (22:02)
[2022-10-17] MEDS ORDERED: INSULIN ASPART PER UNIT SC SCH
[2022-10-17] MEDS: SODIUM CHLORIDE 0.9% 1000ML 1,000 ML IV SCH (00:33)
[2022-10-17] MEDS: KETOROLAC TROMETHAMINE 15 MG/ML VIAL IV SCH ×3 (00:33→12:38)
[2022-10-17] MEDS: ceFAZolin 2000MG 2,000 MG/15 ML SYR IV SCH (02:28)
[2022-10-17] MEDS: oxyCODONE HCL IR 5 MG TAB (IMMEDIATE RELEASE) PO PRN ×2 (02:34→12:50)
[2022-10-17] MEDS: ACETAMINOPHEN 500 MG TAB PO SCH (05:21)
--- NOTE | 2022-10-17 06:55 | Orthopedic Progress Note ---
Date of Service October 17, 2022 Assessment & Plan (1) Status post right knee replacement: Overall she is doing very well. She is not having much pain in the right knee. She will be seen by physical therapy today for ambulation and range of motion exercises. The nursing staff can change her dressing after physical therapy. She is on Eliquis for DVT prophylaxis. She can be discharged home later today. She will follow-up with orthopedics in 2 weeks. Sean Vines was seen and examined at bedside this morning. Overall she is doing very well. She is not having much pain in the right knee. She has been up and ambulating to the bathroom. She has no complaints.. Review of Systems All systems reviewed & are unremarkable except as noted in HPI & below. Physical Exam On physical examination the right knee, the dressing is clean and dry. Her leg is out full extension. She has active dorsiflexion plantarflexion of her right ankle. Sensation is intact throughout.. Results & Data Results & Data Laboratory Results . Diagnostic Findings Postoperative x-rays show the prosthesis to be in anatomic alignment without any evidence of fracture, cage, or loosening. PG Care Time/CCT Total # of Minutes Spent Total Time Spent with Patient: Total time spent is greater than 50% in coordination of care (as documented) at patient's floor/unit and/or counseling patient: Coding Level of Care Code 59071 Post Operative Follow-Up Diagnoses Status post right knee replacement Z96.651
--- NOTE | 2022-10-17 06:56 | Discharge Summary ---
Date of Service October 17, 2022 Principal Diagnosis Same as "Discharge Diagnosis" noted below under Discharge Instructions. Discharge Exam On physical examination the right knee, the dressing is clean and dry. Her leg is out full extension. She has active dorsiflexion plantarflexion of her right ankle. Sensation is intact throughout.. Discharge Data Procedures Performed Operation Date: 10/16/22 11:40 Actual Procedures p Right Total Knee Arthroplasty, Cemented(Right) - Delfin Bryson DO Ordered Studies 10/16/22 05:00 US - OR guided needle placemen Routine Hospital Course (1) Status post right knee replacement: On October 16, [address] [facility] and underwent a right knee replaced without complication. She had a spinal anesthetic. Postoperatively she was started on Eliquis for DVT prophylaxis and transferred to the general orthopedic floors. Her hospital course was uneventful. On postop day #1, her vital signs were stable and her pain was well controlled. She was able to participate well with physical therapy doing ambulation and range of motion exercises. She was then discharged home. She will follow-up with orthopedics in 2 weeks. PG Care Time/CCT Total # of Minutes Spent Total Time Spent with Patient: Total time spent is greater than 50% in coordination of care (as documented) at patient's floor/unit and/or counseling patient: Discharge Plan Discharge Items Patient Disposition: Home - Home Health Services Reason For Visit: DJD Right Knee Discharge Diagnosis: Right knee replacement Activity: Per Instructions section Non-emergency contact: Surgeon Call non-emergency contact if: your wound has increased redness and your wound has increased drainage Follow-up/Referrals: Pro,Abbe Booth MD [Primary Care Provider] - Diet: Regular Addtl Attending Provider Instructions: Activity and Therapy Recommendations: * If you are using [facility] then therapy will be provided at your home until they feel you have accomplished all of your goals. * If you are using [facility] then Physical Therapy will be provided until they feel you are ready to start Outpatient Physical Therapy. * If you are not using home therapy then Outpatient Physical Therapy should start about 3-5 days from your day of surgery. Therapy will last about 6-10 weeks * It is important not to put a pillow under your knee when you are relaxing or sleeping. It is just as important to make sure you are getting your knee perfectly straight as it is to regain your knee bend. * You were shown a series of exercises in the hospital. Do these exercises three times each day including the exercises you were shown in physical therapy. * Get up and walk several times each day. For the first four weeks, try not to stand or walk for more than one hour at a time. If you do stand or walk for more than one hour, you will not hurt anything, but your leg will likely swell. * As you feel comfortable, you may change from the walker or crutches to a cane and then to independent walking. Medications: * Narcotic You will likely be sent home from the hospital with a prescription for the narcotic pain medication that worked best throughout your stay. * Eliquis - Take Eliquis 2.5 mg twice a day for 4 weeks to prevent blood clots. * Other medications may be prescribed for specific circumstances. If you have any questions, please call the office at . * Resume previous home medications unless otherwise instructed TEDs/Elastic Stockings: The white elastic stockings help limit swelling and prevent blood clots from forming in your legs.~ The more you wear them, the more they work. Wear them for six weeks. Dressing Care: The dressing can be changed after physical therapy on postop day #1. Daily dry dressing changes for a few days, especially if the incision is still draining some. If the incision is not draining then you may leave the subha open to air. If there is a little bit of drainage or if the subha are getting stuck on your clothing then cover the incision with a dry dressing. The subha will be removed at your 2 week follow-up appointment. Showering: You may shower 5 days from the day of surgery as long as the incision is no longer draining. You may shower with the subha exposed. Let soapy water run over the subha and pat them dry. Do not scrub or soak the incision. Things To Watch For: * Drainage from the incision site that occurs more than one week after your surgery. * Increased redness at the incision site. * Fever above 102 degrees Fahrenheit. * Unusual chest pain or shortness of breath. * Call [facility] at with any of the above problems Follow-Up Visit: Follow-up with Dr. Bryson's PA (Delfin Echeverria) 2-3 weeks after your day of surgery. He will remove your subha and answer any questions. If you have any additional questions or concerns, Dr Bryson is usually in the office at the same time and will be available An appointment was probably scheduled when you signed-up for surgery in the office. If you have any questions call Office Instructions: More detailed instructions as well as Frequently Asked Questions were provided in a folder by our office when you signed-up for surgery. Please review these instructions when you get home. If you have any further questions or concerns, please feel free to call the office at [phone] Pending Studies at Discharge: No Stand-Alone Forms: My [facility] Medications and DC Order Prescriptions: New Eliquis 2.5 mg Tablet 2.5 mg PO BID 28 Days Qty: 56 0RF oxycodone-acetaminophen 5-325 mg tablet 1 tab PO Q6H PRN (Reason: pain) Qty: 30 0RF Continued (DME) lancets [OneTouch Delica Plus Lancet] 33 gauge misc See Dose Instructions .ROUTE .MEDSUPPLY Qty: 100 2RF Dose Instruction: As directed Rx Instructions: TEST TWICE DAILY (DME) blood-glucose meter [OneTouch Verio Meter] Misc See Rx Instructions .Route Qty: 1 0RF Rx Instructions: As directed to test blood sugar once daily albuterol sulfate [ProAir HFA] 90 mcg/actuation HFA aerosol inhaler 2 puff inhalation Q4H PRN (Reason: shortness of breath or wheezing) Qty: 18 3RF (DME) OneTouch Verio test strips Strip See Rx Instructions .ROUTE .MEDSUPPLY Qty: 200 5RF Rx Instructions: As directed to test blood sugar twice daily pantoprazole 20 mg tablet,delayed release (DR/EC) 20 mg PO BID Qty: 180 3RF enalapril maleate 10 mg tablet 10 mg PO DAILY Qty: 90 3RF Label Comments: pt takes at hs budesonide-formoterol [Symbicort] 160-4.5 mcg/actuation HFA aerosol inhaler 2 puff INH BID Qty: 6 2RF amlodipine 5 mg tablet 5 mg PO DAILY Qty: 30 5RF Label Comments: pt takes in the am rosuvastatin 5 mg tablet 5 mg PO DAILY Qty: 90 3RF Rx Instructions: or as directed (start by taking once weekly, then increase slowly as tolerated) citalopram 10 mg tablet 10 mg PO DAILY Qty: 30 0RF ipratropium-albuterol 0.5 mg-3 mg(2.5 mg base)/3 mL solution for nebulization 3 ml INH Q6H PRN (Reason: wheezing) Qty: 180 3RF montelukast 10 mg tablet 10 mg PO QPM Qty: 90 1RF furosemide 20 mg tablet See Rx Instructions .ROUTE .COMPLEX Qty: 90 1RF Dose Instruction: TAKE ONE TABLET BY MOUTH EVERY DAY Rx Instructions: TAKE ONE TABLET BY MOUTH EVERY DAY Jardiance 25 mg tablet 25 mg PO DAILY Qty: 90 3RF citalopram 20 mg tablet 20 mg PO DAILY Qty: 30 0RF Label Comments: pt takes in the am triamcinolone acetonide 0.1 % cream 1 appln topical BID PRN (Reason: Rash) Qty: 1 sennosides-docusate sodium 8.6-50 mg tablet 1 tabcap PO BID PRN (Reason: constipation) Qty: 30 Admission Data Admit Date/Time: 10/16/22 12:30 Attending Provider: Delfin Bryson Admit Provider: Delfin Bryson Primary Care Provider: Abbe Lee
[2022-10-17] MEDS: DOCUSATE SODIUM 100 MG CAP PO SCH ×2 (08:12→08:16)
[2022-10-17] MEDS: PANTOprazole 40 MG TAB PO SCH (08:12)
[2022-10-17] MEDS: APIXABAN 2.5 MG TAB PO SCH (08:12)
[2022-10-17] MEDS: FLUTICASONE/VILANTEROL 200/25MCG 14 PUFFS/INHALER INH SCH ×2 (08:14→08:20)
[2022-10-17] MEDS ORDERED: LANTUS PER UNIT CHARGE SQ ONE (08:30)
[2022-10-17] MEDS ORDERED: ENALAPRIL MALEATE 10 MG TAB PO SCH (09:00)
[2022-10-17] MEDS ORDERED: ROSUVASTATIN CALCIUM 5 MG TAB PO SCH (09:00)
[2022-10-17] MEDS ORDERED: MULTIVITAMIN TAB PO SCH (09:00)
[2022-10-17] MEDS ORDERED: FUROSEMIDE 20 MG TAB PO SCH (09:00)
[2022-10-17] MEDS ORDERED: CITALOPRAM 20 MG TAB PO SCH ×2 (09:00)
[2022-10-17] MEDS ORDERED: amLODIPine BESYLATE 5 MG TAB PO SCH (09:00)
[2022-10-17] MEDS ORDERED: EMPAGLIFLOZIN 25 MG TAB PO SCH (09:00)
[2022-10-17] MEDS: INSULIN ASPART PER UNIT SC SCH ×2 (09:28→13:16)
== END 2022-10-17 13:46 | disposition home health service (06) ==
LOC: ASU 08:45 → 3W 08:45

== ENCOUNTER 2022-12-19 17:47 | Inpatient (IN) ==
--- NOTE | 2022-12-19 18:11 | ED Triage Note ---
Date of Service December 19, 2022 History of Present Illness This patient was briefly evaluated while in triage. An abbreviated physical exam was performed. This patient is a 72-year-old Female who presents to the ED for evaluation of abdominal pain, nausea, and vomiting that started this morning. Has a history of gastroparesis and states that every once in a while "the bacteria builds up in my system" and she gets pain. She usually sticks to a clear liquid diet to resolve the symptoms, but not resolving this time. Having pain and bloating over most of the middle of the stomach. Vomited "a lot" of times today and has had 1 episode of diarrhea. No fevers. No chest pain or SOB. Unable to take Reglan due to concerns for "Parkinson's." Physical Exam GENERAL: Non-toxic and in no acute distress. HEENT: Pupils equal. No obvious scleral icterus. HEART: Regular rate and rhythm. LUNGS: Clear to auscultation. No accessory muscle use. ABDOMEN: Diffusely tender to palpation over the abdomen, but worse in the mid abdomen. The patient states her abdomen is more bloated than normal. Initial orders for labs and / or imaging were placed and patient was placed in the waiting area until a bed is available. Please see further documentation for the full ED course. MDM / Impression Impression Impression: Incarcerated hernia, SBO (small bowel obstruction)
[2022-12-19] MEDS ORDERED: ONDANSETRON INJ 2 MG/ML 2 ML VIAL IV STA (18:12)
[2022-12-19] MEDS ORDERED: SODIUM CHLORIDE 0.9% 500 ML IV STA (18:12)
[2022-12-19 18:41] LABS: Basophils # (auto) 0.02 K/uL (0-0.2); Basophils % (auto) 0.2 %; Eosinophils # (auto) 0.13 K/uL (0-0.50); Eosinophils % (auto) 1.1 %; Hematocrit (blood only) 47.8 % (37.0-47.0); Hemoglobin 16.3 g/dl (12.0-16.0); Immature Granulocytes # (auto) 0.05 K/uL (0.01-0.20); Immature Granulocytes % (auto) 0.4 %; Mean Corpuscular Hemoglobin 28.5 pg (25.0-34.0); Mean Corpuscular Hgb Conc 34.1 g/dL (32.0-36.0); Mean Corpuscular Volume 83.7 fL (80.0-100.0); Mean Platelet Volume 11.4 fL (9.4-12.4); Monocytes # (auto) 0.57 K/uL (0.11-0.59); Monocytes % (auto) 4.7 %; Neutrophils # (auto) 9.26 K/uL (1.40-6.50); Neutrophils % (auto) 75.6 %; Platelet Count 274 K/uL (130-400); RDW Coefficient of Variation 13.3 % (11.5-14.5); RDW Standard Deviation 40.4 fL (36.4-46.3); Red Blood Count 5.71 M/uL (4.20-5.40); White Blood Count 12.23 K/ul (4.8-10.8)
[2022-12-19 19:03] LABS: Albumin Globulin Ratio 1.2 (0.9-2); Albumin Level 4.8 gm/dl (3.4-5.0); BUN Creatinine Ratio 15.7 (10-20); Bilirubin,Total 0.8 mg/dl (0.2-1.0); Calcium 10.5 mg/dl (8.6-10.3); Creatinine Clr Calc Pharmacy 39.7 ml/min; Est GFR (African American) 74.5 ml/min; Est GFR (Non-African American) 64.3 ml/min; Globulin 3.9 gm/dl (2.5-4.0); Potassium 3.8 mmol/L (3.5-5.1); Total Protein 8.7 gm/dl (6.0-8.3)
--- NOTE | 2022-12-19 19:20 | XRay Report ---
SINGLE VIEW CHEST CLINICAL HISTORY: Generalized abdominal pain. FINDINGS: An AP, portable, upright chest radiograph is compared to study dated 09/16/2022. The heart is top normal for projection noting atherosclerotic calcification of the thoracic aorta. Chronic inte rstitial thickening is similar to previous. The lungs and pleural spaces are clear noting mild bibasi lar scarring/atelectasis. No pneumothorax is seen. The skeletal structures are osteopenic. The bony t horax is grossly intact. Cholecystectomy clips are noted in the right upper quadrant. IMPRESSION: No active disease in the chest. ACT 112: Negative or not required by law. Electronically signed by: Main Segura M.D. 12/19/2022 7:19 PM
[2022-12-19] MEDS ORDERED: OPTIRAY 350 100ml IV ONE (20:19)
[2022-12-19] MEDS ORDERED: HYDROmorphone INJ 0.5 MG/0.5 ML SYR IV PRN (20:52)
--- NOTE | 2022-12-19 20:58 | CT Scan Report ---
Exam(s): CT ABDOMEN + PELVIS With Contrast IV Amt: OPTIRAY 350 91ML EXAM: CT Abdomen and Pelvis With Intravenous Contrast CLINICAL HISTORY: Reason for exam: Abdominal pain, N/V/D. TECHNIQUE: Axial computed tomography images of the abdomen and pelvis with intravenous contrast. CTDI is 6.18 mGy and DLP is 327.18 mGy-cm. Automated exposure control was utilized for the study. A dose lowering technique was utilized adhering to the principles of ALARA. CONTRAST: Patient received OPTIRAY 350 91ML of IV contrast COMPARISON: 09/23/16 FINDINGS: Lung bases are clear. Gallbladder surgically absent. Common bile duct prominence is likely due to reservoir effect. Liver, spleen, pancreas, and adrenal glands are unremarkable. Kidneys enhance symmetrically. There is no hydronephrosis. Subcentimeter cortical hypodensities in the left kidney statistically represent cysts but are too small to definitely characterize. There is atherosclerosis without aortic aneurysm. There is no adenopathy. There is no free air or significant free fluid. There is a lower abdominal left-sided spigelian hernia containing incarcerated loop of small bowel and producing high-grade upstream small bowel obstruction with small bowel loops dilated to 3.5 cm. Appendix is not visualized. There are postoperative changes of the sigmoid colon. Uterus is surgically absent. Urinary bladder is unremarkable. There are no acute osseous findings. 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 This technically represents a closed loop. No pneumatosis or free air. Electronically signed by: Ezequiel Trinh M.D. 12/19/22 20:58 PM
--- NOTE | 2022-12-19 21:30 | Emergency Department Note ---
Impression & Plan Incarcerated hernia, SBO (small bowel obstruction) ED Provider Note INFORMANT: Patient ED PROVIDER(S): Kp Fountain MD CHIEF COMPLAINT: Abdominal pain PLAN: Disposition: Emergently taken to the OR Condition: Guarded Outpatient prescription management: none Referral: None MEDICAL DECISION MAKING: patient presented because of abdominal pain. A work-up was initiated. Her CBC showed a leukocytosis. Chemistry panel and LFTs were unremarkable. Chest x-ray was negative. ECG showed a sinus rhythm. Patient underwent CT imaging and this was concerning for incarcerated hernia with developing small bowel obstruction. Patient had an NG tube placed. Consultation was made with general surgery. Case was discussed and diagnostics were reviewed. Patient was evaluated in the ER by Rudolph Boykin PA-C. He discussed case with Dr. Chao. In light of the findings patient will be taken emergently to the operating room for intervention and admitted. Discussed with plant engineering manager. After review of the information above and other included data, I feel the patient requires admission.. Triage Nursing notes reviewed and agree them. Vital Signs: reviewed and remarkable for no significant abnormalities Prior /Outside records reviewed: none Differential diagnosis: Obstruction, hernia, appendicitis, infections, diverticulitis, UTI, mesenteric ischemia, aortic pathology, inflammatory bowel disease, renal colic, PUD, pancreatitis, biliary pathology, hernia, volvulus, constipation, as well as other pathologies. Diagnostics, as interpreted by me: ECG: Twelve-lead ECG reveals a normal sinus rhythm at [address] elevation or depression. No PACs or PVCs. Cardiac Monitoring: Cardiac monitoring ordered by me: The patient was placed on continuous cardiac monitoring and observed. It revealed a normal sinus rhythm at 60 beats per minute without ectopy or evidence of dysrhythmia. Medical decision rules: none Imaging studies: Chest x-ray. Findings: A chest x-ray was performed and revealed no pneumothorax, effusion, infiltrate, pulmonary edema, free air under the diaphragm, or wide mediastinum. Impression: No acute disease. CT imaging of the abdomen pelvis as noted above. Incarcerated hernia and bowel obstruction. KUB performed and reveals satisfactory placement of NG tube. HPI: The patient is a 72year old female who presents to the Emergency Room with complaints of abdominal pain. This started over the last day or so and is worsening today. Patient notes a history of irritable bowel issues but this feels different. She has a hernia in the left lower quadrant as well.. The patient also notes the following associated symptoms, nausea vomiting. The patient has found no relieving factors. Current pain is rated as 6/10. Pt denies LOC, headache, fevers, chills, diaphoresis, visual changes, neck pain, chest pain, breathing difficulties, back pain, melena, hematochezia, urinary symptoms, numbness, weakness, lymphadenopathy, rash, or other complaints. PAST MEDICAL HISTORY: See Below, gastroparesis PAST SURGICAL HISTORY: See Below, bowel obstruction SOCIAL HISTORY: See Below, retired HOME MEDICATIONS: See Below ALLERGIES: See Below VITALS: See Below PHYSICAL EXAMINATION: GENERAL: Awake, alert, well-appearing, in no distress HENT: Normocephalic, atraumatic. Oropharynx unremarkable. EYES: Normal conjunctiva. Sclera non-icteric. NECK: Inspection normal. Non-tender. Supple. No nuchal rigidity. FROM. No masses. RESPIRATORY: Clear to auscultation. No wheezes. No rales. Normal respiratory effort. CARDIAC: Normal rate. Normal rhythm. No murmurs. No rubs. Extremities warm and well perfused. Pulses equal. No JVD. GI: Soft, mildly-distended. Left lower quadrant tenderness to palpation. No rebound or guarding. Nonreducible left lower quadrant hernia masses. RECTAL: Deferred. MUSCULOSKELETAL: Atraumatic. Chest examination reveals no tenderness. The back is symmetrical on inspection without obvious abnormality. There is no CVA tenderness to palpation. No joint edema. LOWER EXTREMITIES: Calves are equal size bilaterally and non-tender. No edema. N o discoloration. NEURO: Normal sensorium. No sensory or motor deficits noted. SKIN: No rash or jaundice noted. CRITICAL CARE: I have personally spent greater than 30 minutes of critical care time in the direct management of this patient. This includes bedside care, interpretation of diagnostic studies, and testing, discussion with consultants, patient, and family members, and other required patient management activities. These minutes are in excess of all separately billable procedures. Past Med/Surg History Medical History Anxiety ASCVD (arteriosclerotic cardiovascular disease) Per records Asthma Stable Barretts esophagus Chronic back pain Chronic obstructive pulmonary disease Diabetes NIDDM Diverticular disease Diverticulitis of colon with perforation Hx (2016) Emphysema lung Stable History of gastric ulcer (duodenal) Hypertension Osteoarthritis of knees, bilateral Osteoarthritis of right knee Surgical History History of appendectomy History of arthroscopy of right knee History of cardiac cath 2004 ([facility]) > no stents History of carpal tunnel surgery of right wrist History of colon surgery 07/2016 @ [facility] partial colectomy with colostomy--d/t colon perforation History of colonoscopy with polypectomy History of esophagogastroduodenoscopy (EGD) History of tooth extraction all upper/partial lower History of total hysterectomy with bilateral salpingo-oophorectomy (BSO) S/P cholecystectomy S/P colostomy takedown 12/2016 @ [facility] S/P tubal ligation Family History Mother Diabetes Bone cancer Hepatic cirrhosis Uncle Prostate cancer Diabetes Colorectal cancer Grandmother (Maternal) Esophageal cancer Diabetes Father Diabetes Aunt Diabetes Grandfather (Paternal) Diabetes Other No family history of adverse response to anesthesia Denies family history of Ovarian cancer Myocardial infarction Breast cancer Social History Smoking Status: Former smoker Age Started Using Tobacco: 17; Age Quit Using Tobacco: 35; packs per day: 1; Second Hand Exposure: No; Do You Dip or Chew Tobacco: No; Tobacco Cessation Education Requested by Patient: No Hx Alcohol Use: No Hx Substance Use: No Preferred Language: Jamaican Communication Ability: Effective Visual Impairment: No Limitations Hearing Ability: Normal Pulpwood Cutter Required: No Beliefs That Will Affect Care: None marital status: Current Living Situation: Alone current occupational status: retired Other Information That Helps Us Care for You: No Feels Safe at Home: Yes Safety Concerns: Feels Safe At This Time Childhood Exposure to Second-Hand Smoke: No Seatbelt Use: always Sunscreen Use: Yes Assistive Devices: Cane Allergies Allergies Allergy/AdvReac Type Severity Reaction Status Date / Time sumatriptan Allergy Severe Anaphylaxis, Verified 12/02/22 14:32 "heart troubles" fluticasone Allergy Mild "Gonzales Verified 12/02/22 14:32 nose" hydrochlorothiazide Allergy Mild Rash Verified 12/02/22 14:32 levofloxacin Allergy Mild Gastrointestinal Verified 12/02/22 14:32 Upset lisinopril Allergy Mild Rash Verified 12/02/22 14:32 NSAIDS (Non-Steroidal Allergy Mild Rash Verified 12/02/22 14:32 Anti-Inflamma famotidine [From Pepcid] AdvReac Intermediate Nausea Verified 12/02/22 14:32 metformin AdvReac Mild Nausea Verified 12/02/22 14:32 Home Meds Home Medications Medication Instructions Recorded Confirmed sennosides 8.6 mg-docusate sodium 1 tabcap PO BID PRN constipation 08/01/19 12/02/22 50 mg tablet #30 tabs triamcinolone acetonide 0.1 % 1 appln topical BID PRN Rash #1 g 08/01/19 12/02/22 topical cream Previous Rx's Medication Instructions Recorded lancets 33 gauge (OneTouch Delica #100 ea 01/16/21 Plus Lancet) blood-glucose meter (Zahroof ValvesTouch #1 ea 07/30/21 Verio Meter) albuterol sulfate 90 mcg/actuation 2 puff inhalation Q4H PRN 08/29/21 aerosol inhaler (ProAir HFA) shortness of breath or wheezing #18 grams pantoprazole 20 mg tablet,delayed 20 mg PO BID #180 tabs 11/26/21 release budesonide-formoterol HFA 160 2 puff inhalation BID #6 grams 02/25/22 mcg-4.5 mcg/actuation aerosol inhaler (Symbicort) amlodipine 5 mg tablet 5 mg PO DAILY #30 tabs 05/12/22 rosuvastatin 5 mg tablet 5 mg PO DAILY #90 tabs 05/19/22 citalopram 10 mg tablet 10 mg PO DAILY #30 tabs 08/11/22 ipratropium 0.5 mg-albuterol 3 mg 3 ml inhalation Q6H PRN wheezing 08/27/22 (2.5 mg base)/3 mL nebulization #180 mL soln furosemide 20 mg tablet See Rx Instructions .Route 09/08/22 .COMPLEX #90 tabs montelukast 10 mg tablet 10 mg PO QPM #90 tabs 09/08/22 empagliflozin 25 mg tablet 25 mg PO DAILY #90 tabs 09/15/22 (Jardiance) oxycodone-acetaminophen 5 mg-325 1 tab PO Q6H PRN pain #30 tabs 10/17/22 mg tablet amoxicillin 500 mg tablet 2,000 mg PO ONCE PRN prophylaxis 10/26/22 #4 tabs oxycodone-acetaminophen 5 mg-325 1 tab PO Q6H PRN pain #30 tabs 10/27/22 mg tablet (Percocet) oxycodone-acetaminophen 5 mg-325 1 tab PO Q6H PRN pain #30 tabs 11/04/22 mg tablet (Percocet) blood sugar diagnostic (OneTouch #200 ea 11/11/22 Verio test strips) citalopram 20 mg tablet 20 mg PO DAILY #30 tabs 11/11/22 methylprednisolone 4 mg tablets in 4 mg PO UD #1 packet 11/24/22 a dose pack oxycodone-acetaminophen 5 mg-325 1 tab PO Q6H PRN pain #30 tabs 11/25/22 mg tablet (Percocet) celecoxib 200 mg capsule (Celebrex) 200 mg PO BID #60 caps 12/02/22 enalapril maleate 10 mg tablet 10 mg PO DAILY #90 tabs 12/10/22 oxycodone-acetaminophen 5 mg-325 1 tab PO Q6H PRN pain #30 tabs 12/11/22 mg tablet (Percocet) Results & Data (ED) Vital Signs Vital Signs - 24 hr 12/19/22 18:07 12/19/22 20:18 12/19/22 20:42 Temperature 36.1 C L Temperature Source Temporal Artery Scan Pulse Rate 93 H Pulse Rate [Finger] 86 Pulse Rhythm Regular Pulse Strength Normal Respiratory Rate 20 18 Respiratory Effort / Characteristics Non-Labored Spontaneous Respiratory Depth Normal Respiratory Pattern Regular Blood Pressure 126/76 Blood Pressure [Left Arm] 158/108 H Blood Pressure Mean 92 Blood Pressure Mean [Left Arm] 124 Blood Pressure Position Sitting Pulse Oximetry 97 97 96 Oxygen Delivery Method Room Air Room Air Room Air Sepsis Recent Fever Within 48 Hours No Sepsis New/Unexplained Change in Mental Status No Sepsis Action Taken by Nursing No Action Required Laboratory Data 12/19/22 18:19 12/19/22 18:19 Lab Results 12/19/22 12/19/22 12/19/22 Range/Units 18:19 18:19 20:31 WBC 12.23 H (4.8-10.8) K/ul RBC 5.71 H (4.20-5.40) M/uL Hgb 16.3 H (12.0-16.0) g/dl Hct 47.8 H (37.0-47.0) % MCV 83.7 (80.0-100.0) fL MCH 28.5 (25.0-34.0) pg MCHC 34.1 (32.0-36.0) g/dL RDW Std Deviation 40.4 (36.4-46.3) fL RDW Coeff of Daria 13.3 (11.5-14.5) % Plt Count 274 (130-400) K/uL MPV 11.4 (9.4-12.4) fL Immature Gran % (Auto) 0.4 % Neut % (Auto) 75.6 % Lymph % (Auto) 18.0 % Meeker % (Auto) 4.7 % Eos % (Auto) 1.1 % Baso % (Auto) 0.2 % Neut # (Auto) 9.26 H (1.40-6.50) K/uL Lymph # (Auto) 2.20 (1.2-3.4) K/uL Meeker # (Auto) 0.57 (0.11-0.59) K/uL Eos # (Auto) 0.13 (0-0.50) K/uL Baso # (Auto) 0.02 (0-0.2) K/uL Immature Gran # (Auto) 0.05 (0.01-0.20) K/uL Sodium 141 (136-145) mmol/L Potassium 3.8 (3.5-5.1) mmol/L Chloride 100 (98-107) mmol/L Carbon Dioxide 30 (21-32) mmol/L Anion Gap 11 (3-11) BUN 14 (6-23) mg/dl Creatinine 0.89 (0.6-1.2) mg/dl Est Cr Clr Drug Dosing 39.7 ml/min Est GFR ( Amer) 74.5 ml/min Est GFR (Non-Af Amer) 64.3 ml/min BUN/Creatinine Ratio 15.7 (10-20) Glucose 148 H (70-99(Fasting)) mg/dl Lactate 1.4 (0.4-2.0) mmol/L Calcium 10.5 H (8.6-10.3) mg/dl Total Bilirubin 0.8 (0.2-1.0) mg/dl AST 26 (13-39) U/L ALT 15 (7-52) U/L Alkaline Phosphatase 97 (34-104) U/L Troponin I High Sens 10.0 (0-14) pg/ml Total Protein 8.7 H (6.0-8.3) gm/dl Albumin 4.8 (3.4-5.0) gm/dl Globulin 3.9 (2.5-4.0) gm/dl Albumin/Globulin Ratio 1.2 (0.9-2) Lipase 21 (11-82) U/L SARS-CoV-2, RNA, NAAT (NEGATIVE) 12/19/22 Range/Units 20:31 WBC (4.8-10.8) K/ul RBC (4.20-5.40) M/uL Hgb (12.0-16.0) g/dl Hct (37.0-47.0) % MCV (80.0-100.0) fL MCH (25.0-34.0) pg MCHC (32.0-36.0) g/dL RDW Std Deviation (36.4-46.3) fL RDW Coeff of Daria (11.5-14.5) % Plt Count (130-400) K/uL MPV (9.4-12.4) fL Immature Gran % (Auto) % Neut % (Auto) % Lymph % (Auto) % Meeker % (Auto) % Eos % (Auto) % Baso % (Auto) % Neut # (Auto) (1.40-6.50) K/uL Lymph # (Auto) (1.2-3.4) K/uL Meeker # (Auto) (0.11-0.59) K/uL Eos # (Auto) (0-0.50) K/uL Baso # (Auto) (0-0.2) K/uL Immature Gran # (Auto) (0.01-0.20) K/uL Sodium (136-145) mmol/L Potassium (3.5-5.1) mmol/L Chloride (98-107) mmol/L Carbon Dioxide (21-32) mmol/L Anion Gap (3-11) BUN (6-23) mg/dl Creatinine (0.6-1.2) mg/dl Est Cr Clr Drug Dosing ml/min Est GFR ( Amer) ml/min Est GFR (Non-Af Amer) ml/min BUN/Creatinine Ratio (10-20) Glucose (70-99(Fasting)) mg/dl Lactate (0.4-2.0) mmol/L Calcium (8.6-10.3) mg/dl Total Bilirubin (0.2-1.0) mg/dl AST (13-39) U/L ALT (7-52) U/L Alkaline Phosphatase (34-104) U/L Troponin I High Sens (0-14) pg/ml Total Protein (6.0-8.3) gm/dl Albumin (3.4-5.0) gm/dl Globulin (2.5-4.0) gm/dl Albumin/Globulin Ratio (0.9-2) Lipase (11-82) U/L SARS-CoV-2, RNA, NAAT NEGATIVE (NEGATIVE) Administered Medications Amlodipine Besylate (Amlodipine Besylate 5 Mg Tab) 5 mg PO [facility] Stop: 01/19/23 14:29 Last Admin: 12/20/22 15:01 Dose: 5 mg Documented By: KEYLA Citalopram Hydrobromide (Citalopram 20 Mg Tab) 20 mg PO [facility] Stop: 01/19/23 14:29 Last Admin: 12/20/22 15:01 Dose: 20 mg Documented By: KEYLA Enalapril Maleate (Enalapril Maleate 10 Mg Tab) 10 mg PO [facility] Stop: 01/19/23 14:29 Last Admin: 12/20/22 15:02 Dose: 10 mg Documented By: KEYLA Lactated Ringer's (Lr) 1,000 mls @ 80 mls/hr IV .[id number] [facility] Stop: 01/18/23 21:44 Last Admin: 12/20/22 13:43 Dose: 80 mls/hr Documented By: Infusion: 12/20/22 10:54 Dose: 80 mls/hr Documented By: Admin: 12/19/22 22:24 Dose: 80 mls/hr Documented By: JOSE E Cefoxitin Sodium 2,000 mg/ (Dextrose) 60 mls @ 100 mls/hr IV Q8H [facility]; Protocol Stop: 12/30/22 03:59 Last Infusion: 12/20/22 19:28 Dose: 0 mls/hr Documented By: Admin: 12/20/22 17:53 Dose: 100 mls/hr Documented By: KEYLA Insulin Human Regular (Insulin Human Regular) 0 units SC ACHS [facility] Stop: 01/19/23 05:59 Last Admin: 12/20/22 21:06 Dose: Not Given Documented By: Admin: 12/20/22 17:34 Dose: Not Given Documented By: Admin: 12/20/22 13:44 Dose: Not Given Documented By: KEYLA Miscellaneous (Order Awaiting Action: Symbicort 160/4.5mcg Inh) 1 each N/A QS [facility] Stop: 01/19/23 07:59 Last Admin: 12/20/22 15:48 Dose: Not Given Documented By: Admin: 12/20/22 07:04 Dose: Not Given Documented By: KEYLA Morphine Sulfate (Morphine Sulfate 4 Mg/Ml 1 Ml Carp\\Vial) 3 mg IV Q3H PRN PRN Reason: Pain Stop: 01/02/23 23:02 Last Admin: 12/20/22 06:45 Dose: 3 mg Documented By: Admin: 12/20/22 03:39 Dose: 3 mg Documented By: SONIA Oxycodone HCl (Oxycodone Hcl Ir 5 Mg Tab (Immediate Release)) 10 mg PO Q4H PRN PRN Reason: SEVERE Pain (7,8,9,10) Stop: 01/03/23 16:38 Last Admin: 12/20/22 16:58 Dose: 10 mg Documented By: KEYLA Pantoprazole Sodium (Pantoprazole 40 Mg Tab) 40 mg PO BID [facility] Stop: 01/19/23 14:19 Last Admin: 12/20/22 15:01 Dose: 40 mg Documented By: KEYLA Phenol (Chloraseptic 1.4% Soln 180 Ml Btl) 2 sprays MT Q4H PRN PRN Reason: Sore Throat Stop: 01/19/23 03:45 Last Admin: 12/20/22 03:54 Dose: 2 sprays Documented By: SONIA Rosuvastatin Calcium (Rosuvastatin Calcium 5 Mg Tab) 5 mg PO QAM [facility] Stop: 01/19/23 14:29 Last Admin: 12/20/22 15:01 Dose: 5 mg Documented By: KEYLA Discontinued Medications Bupivacaine HCl (Bupivacaine 0.5 % 5 Mg/1 Ml Mpf 30ml Vial) Confirm Administered Dose 30 ml .ROUTE .STK-MED ONE Stop: 12/19/22 22:45 Last Admin: 12/20/22 00:16 Dose: 30 ml Documented By: EDNA Bupivacaine Liposome (Bupivacaine Liposome 1.3% 266 Mg/20 Ml Vial) Confirm Administered Dose 266 mg .ROUTE .STK-MED ONE Stop: 12/19/22 22:45 Last Admin: 12/20/22 00:17 Dose: 266 mg Documented By: EDNA Fentanyl Citrate (Fentanyl Citrate Pf 100 Mcg/2 Ml Vial) 25 mcg IV Q5M PRN PRN Reason: PACU Use Only-Pain Stop: 12/20/22 06:50 Last Admin: 12/20/22 01:20 Dose: 25 mcg Documented By: Admin: 12/20/22 01:15 Dose: 25 mcg Documented By: Admin: 12/20/22 01:10 Dose: 25 mcg Documented By: Admin: 12/20/22 01:05 Dose: 25 mcg Documented By: ANDREEA Fentanyl Citrate (Fentanyl Citrate Pf 100 Mcg/2 Ml Vial) Confirm Administered Dose 100 mcg .ROUTE .STK-MED ONE Stop: 12/20/22 01:13 Last Admin: 12/20/22 01:26 Dose: Not Given Documented By: ANDREEA Hydromorphone HCl (Hydromorphone Inj 0.5 Mg/0.5 Ml Syr) 0.5 mg IV Q15M PRN PRN Reason: Pain Stop: 01/02/23 20:51 Last Admin: 12/19/22 21:57 Dose: 0.5 mg Documented By: JOSE E Sodium Chloride (Nss) 500 mls @ 999 mls/hr IV .Q31M [facility] Stop: 12/19/22 18:42 Last Infusion: 12/19/22 20:00 Dose: 0 mls/hr Documented By: JOSE E Admin: 12/19/22 18:28 Dose: 999 mls/hr Documented By: XAVIER Cefoxitin Sodium (Mefoxin) 2,000 mg in 60 mls @ 100 mls/hr IV NOW STA Stop: 12/19/22 22:38 Last Infusion: 12/20/22 03:02 Dose: 0 mls/hr Documented By: Admin: 12/19/22 22:33 Dose: 100 mls/hr Documented By: JOSE E Cefoxitin Sodium 2,000 mg/ (Dextrose) 60 mls @ 100 mls/hr IV Q6H [facility] Stop: 12/30/22 03:59 Last Infusion: 12/20/22 11:29 Dose: 0 mls/hr Documented By: Admin: 12/20/22 10:36 Dose: 100 mls/hr Documented By: Infusion: 12/20/22 04:41 Dose: 0 mls/hr Documented By: Admin: 12/20/22 03:36 Dose: 100 mls/hr Documented By: SONIA Insulin Human Regular (Insulin Human Regular) 0 units SC Q6 [facility] Stop: 01/19/23 05:59 Last Admin: 12/20/22 06:01 Dose: Not Given Documented By: SONIA Co-signed By: SENG Ioversol (Optiray 350 100ml) 91 ml IV ONCE ONE Stop: 12/19/22 20:20 Last Admin: 12/19/22 20:22 Dose: 91 ml Documented By: MARIANA Ondansetron HCl (Ondansetron Inj 2 Mg/Ml 2 Ml Vial) 4 mg IV NOW STA Stop: 12/19/22 18:13 Last Admin: 12/19/22 18:27 Dose: 4 mg Documented By: PASCALEE Oxycodone HCl (Oxycodone Hcl Ir 5 Mg Tab (Immediate Release)) Confirm Adm inistered Dose 5 mg .ROUTE .STK-MED ONE Stop: 12/20/22 16:53 Last Admin: 12/20/22 16:55 Dose: Not Given Documented By: KEYLA Imaging Data Radiologist's Impression: KUB X-Ray 12/19/22 21:58 XR KUB/Abdomen 1 view CLINICAL HISTORY: ng placement TECHNIQUE: 1 view of the abdomen was obtained. Comparison: Comparison is made to chest radiograph 12/18/2020 FINDINGS: Enteric tube tip and side-port lie below the diaphragm. Cholecystomy clips are seen. Degenerative changes are seen in the visualized skeleton. The bowel gas pattern is nonobstructive. Small stool burden is seen. IMPRESSION: Satisfactory position of enteric tube. ACT 112: Negative or not required by law. Electronically signed by: James Conrad M.D. 12/20/2022 10:20 AM Discharge Plan Visit Data Chief Complaint: Abdominal Pain Stated Complaint: ABDOMINAL PAIN, NAUSEA ED Provider: Kp Fountain Discharge Problem: Incarcerated hernia, SBO (small bowel obstruction) Patient Disposition: Admitted As Inpatient Discharge Instructions Interventions: ED Discharge Assessment Last Done: 12/19/22 22:41
[2022-12-19] MEDS ORDERED: cefOXitin 2,000 MG/60 ML BAG IV STA (22:03)
--- NOTE | 2022-12-19 22:07 | History & Physical Report ---
Date of Service December 19, 2022 Assessment & Plan (1) SBO (small bowel obstruction): Plan: Due to the patient's clinical presentation, and imaging we will proceed as follows: We are planning on taking the patient to the operating room for repair of her ventral hernia this evening. The surgery with Dr. Chao. I have outlined the risks, benefits, alternatives, expected postoperative course with the patient N.p.o. status will be implemented Analgesia be provided Antiemetics we provided IV fluids be provided for hydration An NG tube has just been inserted by the nursing staff with immediate retrieval of approximately 500-7 or cc of bilious material; this will be continued for the present time SCDs to be used for DVT prevention, no chemical means due to planned surgery Additional recommendations be forthcoming based on her operative findings and her postoperative recovery She will be a level 1 full code History of Present Illness Chief Complaint: Abdominal pain Primary Care Provider: Abbe Lee MD This is a 72-year-old female with an underlying history of gastroparesis. The patient says that she has had constant nausea and vomiting secondary to this problem for several months. Patient notes that she was feeling well earlier today in her usual state of health however she developed some severe abdominal pain in the left lower quadrant at approximately 2:00 PM. She has had multiple bouts of emesis which are out of the ordinary for her since her pain began. Her most recent oral intake was at approximately 10:00 AM. She notes that she did have a bowel movement earlier today which was mostly loose and liquid like. She notes she has had multiple abdominal surgeries including an open cholecystectomy, hysterectomy, and appendectomy. She has also had a partial bowel resection approximately 3 to 4 years ago along with a colostomy reversal approximately 6 months following that surgery. With her current presentation she denies any fevers, shakes, or chills. She denies any hematochezia or melena. She denies any hematemesis. She presented to the emergency department where she did undergo a CT scan of the chest. This showed the patient had a large left-sided spaghetti and hernia which contained an incarcerated loop of small bowel resulting in a high-grade small bowel obstruction which was felt to represent a closed-loop. There is no pneumatosis or free air. The patient also underwent a chest x-ray that showed no evidence of pneumonia. Labs include a CBC her white blood cell count was 12.2. Hemoglobin and hematocrit were 16.3 and 47.8. Platelet count was normal. Chemistry profile showed sodium, potassium, BUN, and creatinine were all normal. There is no elevation of patient's LFTs or lipase. Her lactic acid level was nonelevated and a COVID test was negative. At the time of my interview the patient was resting comfortably in bed and she was in no distress Allergies Allergy/AdvReac Type Severity Reaction Status Date / Time sumatriptan Allergy Severe Anaphylaxis, Verified 12/02/22 14:32 "heart troubles" fluticasone Allergy Mild "Gonzales Verified 12/02/22 14:32 nose" hydrochlorothiazide Allergy Mild Rash Verified 12/02/22 14:32 levofloxacin Allergy Mild Gastrointestinal Verified 12/02/22 14:32 Upset lisinopril Allergy Mild Rash Verified 12/02/22 14:32 NSAIDS (Non-Steroidal Allergy Mild Rash Verified 12/02/22 14:32 Anti-Inflamma famotidine [From Pepcid] AdvReac Intermediate Nausea Verified 12/02/22 14:32 metformin AdvReac Mild Nausea Verified 12/02/22 14:32 Home Medications Medication Instructions Recorded Confirmed Type sennosides 8.6 mg-docusate sodium 1 tabcap PO BID PRN constipation 08/01/19 12/02/22 History 50 mg tablet #30 tabs triamcinolone acetonide 0.1 % 1 appln topical BID PRN Rash #1 g 08/01/19 12/02/22 History topical cream lancets 33 gauge ([employer] Delica #100 ea 01/16/21 12/02/22 Rx Plus Lancet) blood-glucose meter ([employer] #1 ea 07/30/21 12/02/22 Rx Verio Meter) albuterol sulfate 90 mcg/actuation 2 puff inhalation Q4H PRN 08/29/21 12/02/22 Rx aerosol inhaler (ProAir HFA) shortness of breath or wheezing #18 grams pantoprazole 20 mg tablet,delayed 20 mg PO BID #180 tabs 11/26/21 12/02/22 Rx release budesonide-formoterol HFA 160 2 puff inhalation BID #6 grams 02/25/22 12/02/22 Rx mcg-4.5 mcg/actuation aerosol inhaler (Symbicort) amlodipine 5 mg tablet 5 mg PO DAILY #30 tabs 05/12/22 12/02/22 Rx rosuvastatin 5 mg tablet 5 mg PO DAILY #90 tabs 05/19/22 12/02/22 Rx citalopram 10 mg tablet 10 mg PO DAILY #30 tabs 08/11/22 12/02/22 Rx ipratropium 0.5 mg-albuterol 3 mg 3 ml inhalation Q6H PRN wheezing 08/27/22 12/02/22 Rx (2.5 mg base)/3 mL nebulization #180 mL soln furosemide 20 mg tablet See Rx Instructions .Route 09/08/22 12/02/22 Rx .COMPLEX #90 tabs montelukast 10 mg tablet 10 mg PO QPM #90 tabs 09/08/22 12/02/22 Rx empagliflozin 25 mg tablet 25 mg PO DAILY #90 tabs 09/15/22 12/02/22 Rx (Jardiance) oxycodone-acetaminophen 5 mg-325 1 tab PO Q6H PRN pain #30 tabs 10/17/22 12/02/22 Rx mg tablet amoxicillin 500 mg tablet 2,000 mg PO ONCE PRN prophylaxis 10/26/22 12/02/22 Rx #4 tabs oxycodone-acetaminophen 5 mg-325 1 tab PO Q6H PRN pain #30 tabs 10/27/22 12/02/22 Rx mg tablet (Percocet) oxycodone-acetaminophen 5 mg-325 1 tab PO Q6H PRN pain #30 tabs 11/04/22 12/02/22 Rx mg tablet (Percocet) blood sugar diagnostic (OneTouch #200 ea 11/11/22 12/02/22 Rx Verio test strips) citalopram 20 mg tablet 20 mg PO DAILY #30 tabs 11/11/22 12/02/22 Rx methylprednisolone 4 mg tablets in 4 mg PO UD #1 packet 11/24/22 12/02/22 Rx a dose pack oxycodone-acetaminophen 5 mg-325 1 tab PO Q6H PRN pain #30 tabs 11/25/22 12/02/22 Rx mg tablet (Percocet) celecoxib 200 mg capsule (Celebrex) 200 mg PO BID #60 caps 12/02/22 12/02/22 Rx enalapril maleate 10 mg tablet 10 mg PO DAILY #90 tabs 12/10/22 Rx oxycodone-acetaminophen 5 mg-325 1 tab PO Q6H PRN pain #30 tabs 12/11/22 Rx mg tablet (Percocet) Past Med/Surg History Medical History Anxiety ASCVD (arteriosclerotic cardiovascular disease) Per records Asthma Stable Barretts esophagus Chronic back pain Chronic obstructive pulmonary disease Diabetes NIDDM Diverticular disease Diverticulitis of colon with perforation Hx (2015) Emphysema lung Stable History of gastric ulcer (duodenal) Hypertension Osteoarthritis of knees, bilateral Osteoarthritis of right knee Surgical History History of appendectomy History of arthroscopy of right knee History of cardiac cath 2004 (S) > no stents History of carpal tunnel surgery of right wrist History of colon surgery 07/2016 @ [facility] partial colectomy with colostomy--d/t colon perforation History of colonoscopy with polypectomy History of esophagogastroduodenoscopy (EGD) History of tooth extraction all upper/partial lower History of total hysterectomy with bilateral salpingo-oophorectomy (BSO) S/P cholecystectomy S/P colostomy takedown 12/2016 @ [facility] S/P tubal ligation Family History Mother Diabetes Bone cancer Hepatic cirrhosis Uncle Prostate cancer Diabetes Colorectal cancer Grandmother (Maternal) Esophageal cancer Diabetes Father Diabetes Aunt Diabetes Grandfather (Paternal) Diabetes Other No family history of adverse response to anesthesia Denies family history of Ovarian cancer Myocardial infarction Breast cancer Social History Smoking Status: Former smoker Age Started Using Tobacco: 17; Age Quit Using Tobacco: 35; packs per day: 1; Second Hand Exposure: Yes (parents smoked); Hx Alcohol Use: No Hx Substance Use: No Preferred Language: Albanian Communication Ability: Effective Visual Impairment: No Limitations Hearing Ability: Normal Public Finance Specialist Required: No Beliefs That Will Affect Care: None marital status: Current Living Situation: Alone current occupational status: retired Feels Safe at Home: Yes Childhood Exposure to Second-Hand Smoke: No Seatbelt Use: always Sunscreen Use: Yes Assistive Devices: Cane Review of Systems Constitutional: no fever and no chills Eyes: no eye pain Ear, Nose, Mouth, Throat: no ear pain Respiratory: no cough and no dyspnea Cardiovascular: no chest pain Gastrointestinal: as per Subjective / HPI Genitourinary: no dysuria Musculoskeletal: no back pain Integumentary: no rash Neurologic: no generalized weakness Physical Exam Constitutional: WD/WN, vitals as above Eyes: no conjunctival abnormality ENMT: Ears: no hearing impairment and no external ear abnormality Mouth: no oropharynx abnormality Neck: trachea midline Respiratory: normal respiratory effort; no respiratory distress and no labored breathing Cardiovascular: Rate/Rhythm: regular rate and regular rhythm Vessels: posterior tibial pulses present Gastrointestinal (Abdomen): Abdomen is soft and nondistended. It is nonrigid. Patient had a palpable mass suspicious for hernia in the left lower quadrant which was nonreducible. There were no overlying skin changes but this area was tender to palpation. There is no rebound tenderness or guarding Musculoskeletal: No calf tenderness Skin: no rashes Neurologic: moves all extremities Psychiatric: A+Ox3, euthymic affect Results & Data Results & Data Vital Signs (Past 12 Hours) Vital Signs Temp Pulse Pulse Resp BP BP Pulse Ox 12/19/22 20:42 86 18 158/108 H 96 12/19/22 20:18 97 12/19/22 18:07 36.1 C L 93 H 20 126/76 97 O2 Del Method 12/19/22 20:42 Room Air 12/19/22 20:18 Room Air 12/19/22 18:07 Room Air Supervising Physician Co-Signing Physician Notes Patient seen and examined, labs and imaging reviewed, agree with above. 72-year-old female with multiple abdominal surgeries presents with nausea and vomiting. CT scan revealed incarcerated spigelian hernia with resultant small bowel obstruction. On exam she is afebrile with stable vitals. Her abdomen is soft, nontender. The hernia partially reduces but immediately pops out again. CT scan personally reviewed and agree with the interpretation of loop of bowel in a left lateral abdominal wall hernia consistent with a spigelian hernia resulting in a small bowel obstruction, no evidence of ischemia or perforation. Plan for open ventral hernia repair, possible bowel resection, possible laparotomy Risks of the procedure were discussed to include but not limited to bleeding, infection, recurrence, damage surrounding structures, need for future more extensive surgery, pain, the risk of anesthesia Admit to MedSurg postop PG Care Time/CCT Total # of Minutes Spent Total Time Spent with Patient: Total time spent is greater than 50% in coordination of care (as documented) at patient's floor/unit and/or counseling patient: Coding Level of Care Code 05804 INT INP/OBS CARE 3/75MIN Diagnoses SBO (small bowel obstruction) K56.609
[2022-12-19] MEDS: LACTATED RINGER'S 1,000 ML IV SCH (22:24)
[2022-12-19] MEDS ORDERED: SUCCINYLCHOLINE CHLORIDE 20 MG/ML 10 ML VIAL IV ONE (22:35)
[2022-12-19] MEDS ORDERED: PROPOFOL IV EMULSION 10 MG/ML 20 ML VIAL IV ONE (22:35)
[2022-12-19] MEDS ORDERED: ROCURONIUM BROMIDE 10 MG/ML 5 ML VIAL IV ONE (22:35)
[2022-12-19] MEDS ORDERED: DEXAMETHASONE SOD INJ 4 MG/ML VIAL ONE (22:35)
[2022-12-19] MEDS ORDERED: ONDANSETRON INJ 2 MG/ML 2 ML VIAL ONE (22:35)
[2022-12-19] MEDS ORDERED: fentaNYL citrate PF 100 MCG/2 ML VIAL ONE (22:35)
[2022-12-19] MEDS ORDERED: LIDOCAINE 2%/EPINEPHRINE 1:200,000 20 ML PF ONE (22:35)
[2022-12-19] MEDS ORDERED: BUPIVACAINE LIPOSOME 1.3% 266 MG/20 ML VIAL ONE (22:44)
[2022-12-19] MEDS ORDERED: BUPIVACAINE 0.5 % 5 MG/1 ML MPF 30ML VIAL ONE (22:44)
--- NOTE | 2022-12-19 22:49 | Anesthesiology Consultation ---
Date of Service December 19, 2022 Assessment & Plan (1) Encounter for pre-operative examination: Chart Review Chart Review: Acceptable Risk for Surgery and Patient NOT seen in Pre Admission Testing Consults Requested none History Surgery Operation Date: 12/19/22 22:25 Proposed Procedures p Robotic Laparoscopic Hernia Repair - Sukhwinder Chao, , FACS Height/Weight Height: 4 ft 8 in Weight: 57.2 kg Allergies Allergy/AdvReac Type Severity Reaction Status Date / Time sumatriptan Allergy Severe Anaphylaxis, Verified 12/02/22 14:32 "heart troubles" fluticasone Allergy Mild "Gonzales Verified 12/02/22 14:32 nose" hydrochlorothiazide Allergy Mild Rash Verified 12/02/22 14:32 levofloxacin Allergy Mild Gastrointestinal Verified 12/02/22 14:32 Upset lisinopril Allergy Mild Rash Verified 12/02/22 14:32 NSAIDS (Non-Steroidal Allergy Mild Rash Verified 12/02/22 14:32 Anti-Inflamma famotidine [From Pepcid] AdvReac Intermediate Nausea Verified 12/02/22 14:32 metformin AdvReac Mild Nausea Verified 12/02/22 14:32 Medications Home Medications Medication Instructions Recorded Confirmed Last Taken sennosides 8.6 mg-docusate sodium 1 tabcap PO BID PRN constipation 08/01/19 12/02/22 10/15/22 10:00 50 mg tablet #30 tabs triamcinolone acetonide 0.1 % 1 appln topical BID PRN Rash #1 g 08/01/1903/20/20 08:00 topical cream lancets 33 gauge (OneTouch Delica #100 ea 01/16/21 12/02/22 Unknown Plus Lancet) blood-glucose meter ([employer] #1 ea 07/30/21 12/02/22 Unknown Verio Meter) albuterol sulfate 90 mcg/actuation 2 puff inhalation Q4H PRN 08/29/21 12/02/22 10/16/22 06:00 aerosol inhaler (ProAir HFA) shortness of breath or wheezing #18 grams pantoprazole 20 mg tablet,delayed 20 mg PO BID #180 tabs 11/26/21 12/02/22 10/15/22 22:00 release budesonide-formoterol HFA 160 2 puff inhalation BID #6 grams 02/25/22 12/02/22 10/15/22 21:00 mcg-4.5 mcg/actuation aerosol inhaler (Symbicort) amlodipine 5 mg tablet 5 mg PO DAILY #30 tabs 05/12/22 12/02/22 10/15/22 10:00 rosuvastatin 5 mg tablet 5 mg PO DAILY #90 tabs 05/19/22 12/02/22 10/15/22 10:00 citalopram 10 mg tablet 10 mg PO DAILY #30 tabs 08/11/22 12/02/22 10/15/22 10:00 ipratropium 0.5 mg-albuterol 3 mg 3 ml inhalation Q6H PRN wheezing 08/27/22 12/02/22 10/14/22 (2.5 mg base)/3 mL nebulization #180 mL soln furosemide 20 mg tablet See Rx Instructions .Route 09/08/22 12/02/22 10/15/22 21:00 .COMPLEX #90 tabs montelukast 10 mg tablet 10 mg PO QPM #90 tabs 09/08/22 12/02/22 10/15/22 22:00 empagliflozin 25 mg tablet 25 mg PO DAILY #90 tabs 09/15/22 12/02/22 10/15/22 10:00 (Jardiance) oxycodone-acetaminophen 5 mg-325 1 tab PO Q6H PRN pain #30 tabs 10/17/22 12/02/22 Unknown mg tablet amoxicillin 500 mg tablet 2,000 mg PO ONCE PRN prophylaxis 10/26/22 12/02/22 Unknown #4 tabs oxycodone-acetaminophen 5 mg-325 1 tab PO Q6H PRN pain #30 tabs 10/27/22 12/02/22 Unknown mg tablet (Percocet) oxycodone-acetaminophen 5 mg-325 1 tab PO Q6H PRN pain #30 tabs 11/04/22 12/02/22 Unknown mg tablet (Percocet) blood sugar diagnostic (OneTouch #200 ea 11/11/22 12/02/22 Unknown Verio test strips) citalopram 20 mg tablet 20 mg PO DAILY #30 tabs 11/11/22 12/02/22 Unknown methylprednisolone 4 mg tablets in 4 mg PO UD #1 packet 11/24/22 12/02/22 Unknown a dose pack oxycodone-acetaminophen 5 mg-325 1 tab PO Q6H PRN pain #30 tabs 11/25/22 12/02/22 Unknown mg tablet (Percocet) celecoxib 200 mg capsule (Celebrex) 200 mg PO BID #60 caps 12/02/22 12/02/22 Unknown enalapril maleate 10 mg tablet 10 mg PO DAILY #90 tabs 12/10/22 Unknown oxycodone-acetaminophen 5 mg-325 1 tab PO Q6H PRN pain #30 tabs 12/11/22 Unknown mg tablet (Percocet) Active Medications Generic Name Dose Route Start Last Admin Trade Name Freq PRN Reason Stop Dose Admin Hydromorphone HCl 0.5 mg 12/19/22 20:52 12/19/22 21:57 Hydromorphone Inj 0.5 Mg/0.5 Ml Syr IV 01/02/23 20:51 0.5 mg Q15M PRN Administration Pain Lactated Ringer's 1,000 mls @ 80 mls/hr 12/19/22 21:45 12/19/22 22:24 Lr IV 01/18/23 21:44 80 mls/hr .[id number] BONNIE Administration Past Medical History Medical History Anxiety ASCVD (arteriosclerotic cardiovascular disease) Per records Asthma Stable Barretts esophagus Chronic back pain Chronic obstructive pulmonary disease Diabetes NIDDM Diverticular disease Diverticulitis of colon with perforation Hx (2015) Emphysema lung Stable History of gastric ulcer (duodenal) Hypertension Osteoarthritis of knees, bilateral Osteoarthritis of right knee Past Family History Family History Mother Diabetes Bone cancer Hepatic cirrhosis Uncle Prostate cancer Diabetes Colorectal cancer Grandmother (Maternal) Esophageal cancer Diabetes Father Diabetes Aunt Diabetes Grandfather (Paternal) Diabetes Other No family history of adverse response to anesthesia Denies family history of Ovarian cancer Myocardial infarction Breast cancer Past Surgical History Surgical History History of appendectomy History of arthroscopy of right knee History of cardiac cath 2004 (S) > no stents History of carpal tunnel surgery of right wrist History of colon surgery 07/2016 @ [facility] partial colectomy with colostomy--d/t colon perforation History of colonoscopy with polypectomy History of esophagogastroduodenoscopy (EGD) History of tooth extraction all upper/partial lower History of total hysterectomy with bilateral salpingo-oophorectomy (BSO) S/P cholecystectomy S/P colostomy takedown 12/2016 @ [facility] S/P tubal ligation Social History Smoking Status: Former smoker tobacco type: cigarettes Hx Alcohol Use: No Hx Substance Use: No substance use type: does not use Physical Exam Vital Signs Last Vital Signs Temp 97.0 F L 12/19/22 18:07 Pulse 86 12/19/22 20:42 Resp 18 12/19/22 20:42 BP 158/108 H 12/19/22 20:42 Pulse Ox 96 12/19/22 20:42 O2 Del Method Room Air 12/19/22 20:42 Testing Laboratory Results 12/19/22 18:19 12/19/22 18:19 Electrocardiogram Date: 12/19/22 Findings: + NSR @
[2022-12-19] MEDS ORDERED: ONDANSETRON INJ 2 MG/ML 2 ML VIAL IV PRN (22:50)
[2022-12-19] MEDS ORDERED: ePHEDrine sulfate 50 MG/ML AMP IV PRN (22:50)
[2022-12-19] MEDS ORDERED: ATROPINE SULFATE 0.1 MG/ML 10ML SYR IV PRN (22:50)
[2022-12-19] MEDS ORDERED: ACETAMINOPHEN 1,000 MG/100 ML VIAL IV PRN (23:03)
[2022-12-19] MEDS ORDERED: PHENYLEPHRINE HCL 10 MG/ML VIAL ONE (23:36)
[2022-12-19] MEDS ORDERED: ePHEDrine sulfate 50 MG/ML AMP ONE (23:36)
[2022-12-20] MEDS ORDERED: NEOSTIGMINE METHYLSULFATE 1 MG/ML 10ML VIAL ONE (00:04)
[2022-12-20] MEDS ORDERED: GLYCOPYRROLATE 0.2 MG/ML VIAL ONE (00:04)
--- NOTE | 2022-12-20 00:28 | Operative Report ---
PG Post Operative Report Pre & Post Diagnosis Operation Date: 12/19/22 22:25 Pre-Op Diagnosis: Small bowel obstruction Post-Op Diagnosis: Incarcerated spigelian hernia I identified the patient and participated in the time-out.: Yes Procedure Operation Date: 12/19/22 22:25 Actual Procedures p Open Repair of spigelian hernia Repair with mesh, 2.5 cm defect (Not Applicable) - Sukhwinder Chao DO, SAGE Surgeon Sukhwinder Chao DO, SAGE Knuckle Strap Sewer Rudolph Ferreira Estimated Blood Loss 5 Findings Consistent with Post-Op Diagnosis Incarcerated spigelian hernia with loop of bowel. Hernia sac densely adhesed to surrounding tissue, careful dissection to reduce. Hernia sac open, bowel viable. Possible small serosal tear repaired with 3-0 silk Lembert sutures. Defect measured 2.5 cm. 4.3 cm Ventralex sewn into place with interrupted 0 Nurolon sutures. Exparel injected. Specimens None Anesthesia Type General Complications none Disposition Accompanied Patient To Recovery: No Disposition: Recovery Room Indications 72-year-old female with multiple abdominal surgeries presented with incarcerated left spigelian hernia containing bowel and with a resultant small bowel obst ruction. Plan for open ventral hernia repair, possible laparotomy, possible bowel resection. The risks of the procedure were discussed, all questions were answered, and the patient agreed to proceed with surgery as planned. Description of Procedure The patient was properly identified, consented, and taken to the operating room where she was placed in the supine position. General endotracheal anesthesia was induced. An NG tube, SCDs and a safety belt were placed. Preoperative antibiotics were administered. The patient's abdomen was prepped and draped in the standard sterile fashion. Surgical timeout was performed and all parties were in agreement that this was the correct patient and procedure to be performed and we continued as planned. A transverse incision was made overlying the hernia and deepened down to the fascia with blunt dissection. The spigelian hernia was identified. The bowel could easily reduce, however the hernia sac was densely adherent to the surrounding tissue and it quickly recurred. The hernia sac was then dissected away from the surrounding tissues and off of the fascia. The hernia sac was opened and the bowel appeared viable with no abnormalities. During the dissection a possible small serosal tear was repaired with 3-0 silk Lembert sutures. Once the hernia sac and hernia were completely reduced, the hernia defect was identified. A 2.5 cm fascial defect was encountered. The fascia anteriorly and posteriorly was cleared of investing tissue for several centimeters. Hemostasis was achieved within the wound. A 4.3 cm piece of Ventralex mesh was sown into place with interrupted 0 Nurolon sutures. The wound was irrigated and hemostasis confirmed. Exparel mixed with 0.5% Marcaine was injected in the fascia and along the skin incision. The wound was irrigated and hemostasis confirmed. The skin was closed with interrupted 3-0 Vicryl deep dermal sutures, followed by 4-0 Monocryl running subcuticular suture. Dermabond was placed over the wound. The patient was extubated in the operating room and taken to the PACU where she recovered without apparent incident. All sponge, instrument and needle counts were correct at the conclusion of the procedure. The patient tolerated the procedure well. The physician's captain's assistant was present and scrubbed for the entire the case. He was critical in positioning the patient, prepping and draping, retraction and exposure, repair of the hernia, closure the incisions, placement of the dressings. I attest to the content of the Intraoperative Record and any orders documented therein. Any exceptions are noted below.
[2022-12-20] MEDS: fentaNYL citrate PF 100 MCG/2 ML VIAL IV PRN ×4 (01:05→01:20)
[2022-12-20] MEDS ORDERED: fentaNYL citrate PF 100 MCG/2 ML VIAL ONE (01:12)
--- NOTE | 2022-12-20 01:26 | Anesthesiology Progress Note ---
Date of Service December 20, 2022 Anesthesia Post Procedure Vital Signs Vital Signs: Temp Pulse Pulse Resp BP BP Pulse Ox 12/20/22 01:15 68 20 162/83 H 94 12/20/22 01:05 65 16 168/81 H 93 12/20/22 00:55 71 16 159/83 H 92 12/20/22 00:45 72 16 174/83 H 93 12/20/22 00:35 98.1 F 78 22 175/76 H 96 12/19/22 20:42 86 18 158/108 H 96 12/19/22 20:18 97 12/19/22 18:07 97.0 F L 93 H 20 126/76 97 O2 Del Method O2 Flow Rate 12/20/22 01:15 Oxymask 4 12/20/22 01:05 Oxymask 4 12/20/22 00:55 Oxymask 4 12/20/22 00:45 Oxymask 7 12/20/22 00:35 Oxymask 7 12/19/22 20:42 Room Air 12/19/22 20:18 Room Air 12/19/22 18:07 Room Air Pain Intensity Abdomen: Pain Intensity: 5 Transfer of Care Handoff Completed per policy Notes Mental Status: alert / awake / arousable and participated in evaluation Patient Amnestic to Procedure: Yes Nausea / Vomiting: adequately controlled Pain: adequately controlled Airway Patency, RR, SpO2: stable & adequate BP & HR: stable & adequate Hydration State: stable & adequate Anesthetic Complications: no major complications apparent and Pt Satisfied with anesthetic care
[2022-12-20] MEDS ORDERED: ALBUTEROL HFA 8 GM INHALER INH PRN (02:17)
[2022-12-20] MEDS ORDERED: ALBUT/IPRATROP 3MG/0.5MG NEB 3 ML VIAL INH PRN (02:17)
[2022-12-20] MEDS ORDERED: Nursing to Pharmacy Communication SCH ×2 (03:15→10:00)
[2022-12-20] MEDS: cefOXitin 2,000 MG in DEXTROSE 5% 50 ML IV SCH ×3 (03:36→17:53)
[2022-12-20] MEDS: MoRPHine SULFATE 4 MG/ML 1 ML CARP\\VIAL IV PRN ×2 (03:39→06:45)
[2022-12-20] MEDS ORDERED: CHLORASEPTIC 1.4% SOLN 180 ML BTL MT PRN (03:46)
--- NOTE | 2022-12-20 04:53 | Surgery Progress Note ---
Date of Service December 20, 2022 Assessment & Plan (1) SBO (small bowel obstruction): Plan: Status post repair of ventral hernia on 12/19/2022 (postop day #1) Provide analgesics Provide antiemetics Continue n.p.o. status and NG tube until improvement of bowel function noted Increase mobilization as able Continue antibiotics in the form of cefoxitin We will consider adding Lovenox for DVT prevention if labs are stable this morning Check a.m. labs when available Admission and Anticipated Discharge Date Admission Date: December 20, 2022 Supervising Physician Co-Signing Physician Notes Patient seen and examined, agree with above. POD #1 left spigelian hernia repair for incarcerated hernia with bowel obstruction. Passing flatus, feels much better, NG tube with minimal output. Incision without infection or recurrence. We will remove NG tube and start on clear liquids. Subjective Patient is resting comfortably in bed. She notes pain at her surgical incision. She reports less discomfort with NG tube since it has been placed. No nausea or vomiting reported. No flatus or BM since surgery Physical Exam Gastrointestinal (Abdomen): Abdomen is soft and nonrigid. Her surgical incision is clean, dry, and intact. She does have pain with palpation near her surgical incision which is appropriate. NG tube is in place with minimal bilious output. Results & Data Vital Signs (Past 12 Hours) Vital Signs Temp Pulse Pulse Resp BP BP Pulse Ox 12/20/22 03:57 36.7 C 66 18 137/81 94 12/20/22 02:55 36.7 C 70 18 137/76 93 12/20/22 02:26 36.7 C 63 18 150/80 H 93 12/20/22 02:00 12/20/22 01:55 36.6 C 64 18 151/79 H 92 12/20/22 01:35 70 18 159/79 H 94 12/20/22 01:25 69 17 166/84 H 92 12/20/22 01:15 68 20 162/83 H 94 12/20/22 01:05 65 16 168/81 H 93 12/20/22 00:55 71 16 159/83 H 92 12/20/22 00:45 72 16 174/83 H 93 12/20/22 00:35 36.7 C 78 22 175/76 H 96 12/19/22 20:42 86 18 158/108 H 96 12/19/22 20:18 97 12/19/22 18:07 36.1 C L 93 H 20 126/76 97 O2 Del Method O2 Flow Rate 12/20/22 03:57 Nasal Cannula 3 12/20/22 02:55 Nasal Cannula 3 12/20/22 02:26 Nasal Cannula 2 12/20/22 02:00 Nasal Cannula 3 12/20/22 01:55 Nasal Cannula 2 12/20/22 01:35 Oxymask 4 12/20/22 01:25 Oxymask 4 12/20/22 01:15 Oxymask 4 12/20/22 01:05 Oxymask 4 12/20/22 00:55 Oxymask 4 12/20/22 00:45 Oxymask 7 12/20/22 00:35 Oxymask 7 12/19/22 20:42 Room Air 12/19/22 20:18 Room Air 12/19/22 18:07 Room Air PG Care Time/CCT Total # of Minutes Spent Total Time Spent with Patient: Total time spent is greater than 50% in coordination of care (as documented) at patient's floor/unit and/or counseling patient: Coding Level of Care Code 80412 Post Operative Follow-Up Diagnoses SBO (small bowel obstruction) K56.609
[2022-12-20] MEDS ORDERED: INSULIN HUMAN REGULAR SC SCH ×2 (06:00→07:30)
[2022-12-20 06:11] LABS: Basophils # (auto) 0.01 K/uL (0-0.2); Basophils % (auto) 0.1 %; Hematocrit (blood only) 41.5 % (37.0-47.0); Hemoglobin 14.1 g/dl (12.0-16.0); Immature Granulocytes # (auto) 0.02 K/uL (0.01-0.20); Immature Granulocytes % (auto) 0.2 %; Lymphocytes # (auto) 0.93 K/uL (1.2-3.4); Lymphocytes % (auto) 11.2 %; Mean Corpuscular Hemoglobin 28.2 pg (25.0-34.0); Mean Platelet Volume 11.1 fL (9.4-12.4); Monocytes # (auto) 0.07 K/uL (0.11-0.59); Monocytes % (auto) 0.8 %; Neutrophils # (auto) 7.31 K/uL (1.40-6.50); Neutrophils % (auto) 87.7 %; Platelet Count 220 K/uL (130-400); RDW Coefficient of Variation 13.6 % (11.5-14.5); RDW Standard Deviation 40.4 fL (36.4-46.3); White Blood Count 8.34 K/ul (4.8-10.8)
[2022-12-20 06:31] LABS: BUN Creatinine Ratio 17.9 (10-20); Calcium 9.1 mg/dl (8.6-10.3); Est GFR (African American) 79.9 ml/min
--- NOTE | 2022-12-20 10:22 | XRay Report ---
XR KUB/Abdomen 1 view CLINICAL HISTORY: ng placement TECHNIQUE: 1 view of the abdomen was obtained. Comparison: Comparison is made to chest radiograph 12/18/2020 FINDINGS: Enteric tube tip and side-port lie below the diaphragm. Cholecystomy clips are seen. Degenerative joseph nges are seen in the visualized skeleton. The bowel gas pattern is nonobstructive. Small stool burden is seen. IMPRESSION: Satisfactory position of enteric tube. ACT 112: Negative or not required by law. Electronically signed by: James Conrad M.D. 12/20/2022 10:20 AM
--- NOTE | 2022-12-20 13:37 | Electrocardiogram Report ---
Test Reason : Blood Pressure : / mmHG Vent. Rate : 066 BPM Atrial Rate : 066 BPM P-R Int : 136 ms QRS Dur : 082 ms QT Int : 446 ms P-R-T Axes : 070 026 065 degrees QTc Int : 467 ms Normal sinus rhythm Normal ECG When compared with ECG of 16-SEP-2022 15:03, No significant change was found Confirmed by Abbe Cifuentes ([id number]) on 12/20/2022 1:36:24 PM Referred By: Abbe Pro Confirmed By:Abbe Cifuentes
[2022-12-20] MEDS: LACTATED RINGER'S 1,000 ML IV SCH (13:43)
[2022-12-20] MEDS: INSULIN HUMAN REGULAR SC SCH ×3 (13:44→21:06)
[2022-12-20] MEDS: PANTOprazole 40 MG TAB PO SCH ×2 (15:01→21:14)
[2022-12-20] MEDS: ROSUVASTATIN CALCIUM 5 MG TAB PO SCH (15:01)
[2022-12-20] MEDS: CITALOPRAM 20 MG TAB PO SCH (15:01)
[2022-12-20] MEDS: amLODIPine BESYLATE 5 MG TAB PO SCH (15:01)
[2022-12-20] MEDS: ENALAPRIL MALEATE 10 MG TAB PO SCH (15:02)
[2022-12-20] MEDS ORDERED: oxyCODONE HCL IR 5 MG TAB (IMMEDIATE RELEASE) PO PRN (16:39)
[2022-12-20] MEDS ORDERED: oxyCODONE HCL IR 5 MG TAB (IMMEDIATE RELEASE) ONE (16:52)
[2022-12-20] MEDS: oxyCODONE HCL IR 5 MG TAB (IMMEDIATE RELEASE) PO PRN ×2 (16:58→23:26)
[2022-12-20 23:57] LABS: Appearance Urine Clear (Clear); Bilirubin Urine Negative (Negative); Blood Urine Negative (Negative); Color Urine Yellow; Glucose Urine UA 3+ (Negative); Ketones Urine Negative (Negative); Leukocyte Esterase Urine Negative (Negative); Nitrite Urine Negative (Negative); Protein Urine Negative (Negative); Specific Gravity Urine 1.013 (1.000-1.030); Urobilinogen Urine Negative (Negative); pH Urine 6.5 (4.5-7.5)
[2022-12-21] MEDS: cefOXitin 2,000 MG in DEXTROSE 5% 50 ML IV SCH ×3 (03:02→17:40)
[2022-12-21] MEDS: LACTATED RINGER'S 1,000 ML IV SCH ×2 (03:26→13:13)
[2022-12-21] MEDS: oxyCODONE HCL IR 5 MG TAB (IMMEDIATE RELEASE) PO PRN (05:28)
[2022-12-21] MEDS: MoRPHine SULFATE 4 MG/ML 1 ML CARP\\VIAL IV PRN ×3 (08:14→21:53)
[2022-12-21] MEDS: PANTOprazole 40 MG TAB PO SCH ×2 (08:15→21:53)
[2022-12-21] MEDS: ROSUVASTATIN CALCIUM 5 MG TAB PO SCH (08:15)
[2022-12-21] MEDS: amLODIPine BESYLATE 5 MG TAB PO SCH (08:15)
[2022-12-21] MEDS: ENALAPRIL MALEATE 10 MG TAB PO SCH (08:15)
[2022-12-21] MEDS: CITALOPRAM 20 MG TAB PO SCH (08:15)
[2022-12-21] MEDS: INSULIN HUMAN REGULAR SC SCH ×4 (08:16→21:27)
[2022-12-21] MEDS: ACETAMINOPHEN 1,000 MG/100 ML VIAL IV SCH ×3 (08:22→23:40)
[2022-12-21 09:22] LABS: Basophils # (auto) 0.02 K/uL (0-0.2); Basophils % (auto) 0.3 %; Eosinophils # (auto) 0.06 K/uL (0-0.50); Eosinophils % (auto) 0.8 %; Hematocrit (blood only) 38.5 % (37.0-47.0); Hemoglobin 12.6 g/dl (12.0-16.0); Immature Granulocytes # (auto) 0.02 K/uL (0.01-0.20); Immature Granulocytes % (auto) 0.3 %; Lymphocytes # (auto) 2.31 K/uL (1.2-3.4); Lymphocytes % (auto) 28.9 %; Mean Corpuscular Hemoglobin 28.3 pg (25.0-34.0); Mean Corpuscular Hgb Conc 32.7 g/dL (32.0-36.0); Mean Corpuscular Volume 86.3 fL (80.0-100.0); Mean Platelet Volume 11.3 fL (9.4-12.4); Monocytes # (auto) 0.48 K/uL (0.11-0.59); Neutrophils # (auto) 5.11 K/uL (1.40-6.50); Neutrophils % (auto) 63.7 %; Platelet Count 196 K/uL (130-400); RDW Coefficient of Variation 13.6 % (11.5-14.5); RDW Standard Deviation 42.6 fL (36.4-46.3); Red Blood Count 4.46 M/uL (4.20-5.40)
--- NOTE | 2022-12-21 09:22 | Surgery Progress Note ---
Date of Service December 21, 2022 Assessment & Plan (1) Incarcerated hernia: Plan: POD#2 open repair of spigelian hernia with mesh Labs are pending. Vitals are currently stable Patient having more pain than yesterday. On exam abdomen soft, with ttp of LLQ incision. it's c/d/i with no infection, some ecchymosis noted Will trial giving patient some IV APAP and a dose of IV morphine for relief She denies any nausea/vomiting. She is passing flatus. No BM yet Continue clears for now, as pain improves may advance further later May benefit from abdominal binder for comfort Admission and Anticipated Discharge Date Admission Date: December 20, 2022 Supervising Physician Co-Signing Physician Notes Patient seen and examined, agree with above. POD #2 left spigelian hernia repair for incarcerated hernia with bowel obstruction. Passing flatus, feels much better, tolerating clears. Incision without infection or recurrence. advance to low fiber, potential discharge tomorrow. Subjective Patient reports worsening abdominal pain this AM, mostly surrounding LLQ incisio n. Says she thinks she may have overdone it yesterday when she was feeling well. Denies nausea/vomiting. Tolerating clears. Having + flatus, no BM yet. Physical Exam Physical Exam: awake/alert, holding incision in pain Gastrointestinal (Abdomen): Inspection/Auscultation: + abdominal surgical incision (c/d/i with skin glue, no signs of infection. some surrounding ecchymosis); abdomen not distended Percussion/Palpation: + abdomen tender (ttp mostly LLQ incision) and abdomen soft Results & Data Vital Signs (Past 12 Hours) Vital Signs Temp Pulse Resp BP Pulse Ox O2 Del Method 12/21/22 07:46 37.2 C 60 18 118/63 94 Room Air PG Care Time/CCT Total # of Minutes Spent Total Time Spent with Patient: Total time spent is greater than 50% in coordination of care (as documented) at patient's floor/unit and/or counseling patient: Coding Level of Care Code 02993 Post Operative Follow-Up Diagnoses Incarcerated hernia K46.0
[2022-12-21 09:39] LABS: Calcium 8.7 mg/dl (8.6-10.3); Creatinine Clr Calc Pharmacy 46.5 ml/min; Est GFR (African American) 90.2 ml/min; Est GFR (Non-African American) 77.8 ml/min; Potassium 3.7 mmol/L (3.5-5.1)
[2022-12-22] MEDS: cefOXitin 2,000 MG in DEXTROSE 5% 50 ML IV SCH ×2 (02:02→10:21)
[2022-12-22] MEDS: MoRPHine SULFATE 4 MG/ML 1 ML CARP\\VIAL IV PRN ×3 (04:48→19:49)
[2022-12-22] MEDS: INSULIN HUMAN REGULAR SC SCH ×4 (09:00→20:07)
[2022-12-22] MEDS: ACETAMINOPHEN 1,000 MG/100 ML VIAL IV SCH (10:04)
[2022-12-22] MEDS: PANTOprazole 40 MG TAB PO SCH ×2 (10:06→20:13)
[2022-12-22] MEDS: amLODIPine BESYLATE 5 MG TAB PO SCH (10:06)
[2022-12-22] MEDS: CITALOPRAM 20 MG TAB PO SCH (10:06)
[2022-12-22] MEDS: ROSUVASTATIN CALCIUM 5 MG TAB PO SCH (10:06)
[2022-12-22] MEDS: ENALAPRIL MALEATE 10 MG TAB PO SCH (10:07)
--- NOTE | 2022-12-22 12:11 | Surgery Progress Note ---
Date of Service December 22, 2022 Assessment & Plan (1) SBO (small bowel obstruction): Plan: POD#3 open repair of spigelian hernia with mesh Vitals stable Patient having some nausea this AM. continues to pass flatus. No emesis Pain in LLQ incision, but manageable with meds when she receives them Continue OOB as tolerates + Pulm toilet May need one more day in house for pain control and ensure diet tolerated (2) Incarcerated hernia: Admission and Anticipated Discharge Date Admission Date: December 20, 2022 Supervising Physician Co-Signing Physician Notes Patient seen and examined, agree with above. POD #3 left spigelian hernia repair for incarcerated hernia with bowel obstruction. Passing flatus. some nausea this am. still with pain at repair site. Incision without infection or recurrence. continue low fiber, start bowel regimen. potential d/c tomorrow. Subjective Patient dealing with some mild nausea this AM. No emesis. Tolerated small amount of eggs/toast. Having some pain return, feeling like pain meds are wearing off. Continues to pass flatus. Physical Exam Physical Exam: awake/alert Respiratory: normal respiratory effort Gastrointestinal (Abdomen): Inspection/Auscultation: + abdominal surgical incision (c/d/i with no signs of infection) Percussion/Palpation: + abdomen tender (ttp to LLQ incision) and abdomen soft Results & Data Vital Signs (Past 12 Hours) Vital Signs Temp Pulse Resp BP BP Pulse Ox O2 Del Method 12/22/22 10:08 56 L 12/22/22 08:40 50 L 145/74 H 12/22/22 07:39 36.7 C 50 L 16 108/58 L 96 Room Air PG Care Time/CCT Total # of Minutes Spent Total Time Spent with Patient: Total time spent is greater than 50% in coordination of care (as documented) at patient's floor/unit and/or counseling patient: Coding Level of Care Code 60538 Post Operative Follow-Up Diagnoses SBO (small bowel obstruction) K56.609 Incarcerated hernia K46.0
[2022-12-22] MEDS: oxyCODONE HCL IR 5 MG TAB (IMMEDIATE RELEASE) PO PRN ×2 (12:50→21:16)
[2022-12-22] MEDS ORDERED: ACETAMINOPHEN 325 MG TAB PO PRN (13:01)
[2022-12-22] MEDS: POLYETHYLENE (MIRALAX) 17 GM PACK PO SCH (13:40)
[2022-12-22] MEDS: ONDANSETRON INJ 2 MG/ML 2 ML VIAL IV PRN (16:36)
[2022-12-22] MEDS ORDERED: ACETAMINOPHEN 1,000 MG/100 ML VIAL IV STA (21:06)
--- NOTE | 2022-12-22 21:14 | Communication Note ---
Date of Service: December 22, 2022 This is a 72-year-old female who was admitted to [facility] on 12/19/2022 secondary to a small bowel obstruction due to a ventral hernia. The patient underwent emergent surgical intervention on the date of admissionpatient had an open repair of a ventral hernia by Dr. Chao. He did utilize mesh as part of his surgical repair but he did not have to resect any bowel or small bowel. Patient has been placed on a low fiber diet which she is tolerating. I was called by the nurse attending to the patient at approximately 8:54 PM the patient was having pain in her right knee which she recently had a knee replacement on 10/16/2022. I arrived at the bedside to evaluate the patient within 5 minutes. Since her surgery the patient has followed up with orthopedics and her most recent visit with her orthopedist, Dr. Delfin Bryson, was on 12/02/2022. During this visit Dr. Bryson noted that patient was having trouble regaining her range of motion and her operative knee was somewhat inflamed and sore. He provided her with Percocet and also initiated Celebrex. He was planning on seeing her back in approximately 6 weeks. On exam the patient has a palpable dorsalis pedis pulse in her right lower extremity.. She does not have any pain with passive range of motion with dorsiflexion or plantarflexion of her ankle. The muscle compartments of her right lower leg are not tense. Sensation is intact in her feet. Her foot is warm and well-perfused. On exam her operative knee has a well-healed incision. This knee is slightly warm when compared to the contralateral knee. There is no erythema or skin changes. The patient describes the pain in the anterior portion of her knee just below the patella. She does have some slight tenderness with squeezing of her calf muscle. Due to the level of the patient's pain I will administer a dose of intravenous acetaminophen and provide her with an oral oxycodone that is ordered to see if this helps alleviate her pain. In addition we will check a 2 view x-ray of the patient's knee to see if there is any obvious orthopedic abnormalities. I will also check a lower extremity venous ultrasound to ensure that there is no DVT present. Following my initial visit with the patient I did obtain an x-ray of her right knee as noted above. I did not see any gross abnormalities on this imaging and I also did not notice any evidence of joint effusion. The patient was revisited and I informed of her x-ray findings. She has since received the oral oxycodone and has noted that her pain has markedly improved. I did discuss with the patient about her taking Celebrex that was ordered by Dr. Bryson and she notes that when he initiated this medication it did improve pain that she was having and we will therefore resume this medication. In addition I recommended to the patient that she utilize ice packs to her knee as needed. I do suspect that the patient's pain may have been due to overuse as she was ambulating independently to the bathroom. I discussed with the patient that the next time she needs to use the restroom that she is to ring her call caal to ask for help as did not want to have any mishaps if she is having continued pain in her right knee. I also informed the nurse of this. I still plan on obtaining a lower extremity venous ultrasound to assess for DVT. This study is pending. The patient continues to have pain that is worse than what is to be expected tomorrow morning consideration will be given to asking orthopedics to evaluate the patient. Lower extremity venous ultrasound of the right leg was negative for DVT.
[2022-12-22] MEDS ORDERED: PANTOprazole 40 MG TAB PO SCH (22:15)
[2022-12-22] MEDS: CeleBREX 200 MG CAP PO SCH (22:25)
--- NOTE | 2022-12-23 00:40 | Ultrasound Report ---
Exam(s): US VENOUS RIGHT LOWER EXTREMITY EXAM: US Duplex Right Lower Extremity Veins CLINICAL HISTORY: Reason for exam: leg pain; s/p knee replacement. TECHNIQUE: Real-time duplex ultrasound scan of the right lower extremity veins integrating B-mode two-dimensional vascular structure, Doppler spectral analysis, color flow Doppler imaging and compression. COMPARISON: No relevant prior studies available. FINDINGS: Deep veins: Unremarkable. No DVT in the visualized common femoral, femoral, proximal deep femoral or popliteal veins. The veins demonstrate normal color flow, are normally compressible, with normal phasic flow and/or augmentation response. Superficial veins: No thrombus seen. Soft tissues: No acute findings. No popliteal cyst. IMPRESSION: No evidence of DVT in the right lower extremity. Electronically signed by: Case Figueroa MD 12/23/22 00:39 AM
[2022-12-23] MEDS: MoRPHine SULFATE 4 MG/ML 1 ML CARP\\VIAL IV PRN (01:47)
--- NOTE | 2022-12-23 07:09 | XRay Report ---
XR knee RT 1 or 2V routine CLINICAL HISTORY: knee pain; /s/p replacement. Right knee pain. COMPARISON STUDY: Right knee 10/16/2022. FINDINGS: There is a right total knee arthroplasty. The hardware is intact. No fracture or dislocatio n. No significantly effusion. Mild soft tissue swelling within the distal thigh. IMPRESSION: No fracture or dislocation within the right knee. ACT 112: Negative or not required by law. Electronically signed by: Barry Jones M.D. 12/23/2022 7:07 AM
[2022-12-23] MEDS: ONDANSETRON INJ 2 MG/ML 2 ML VIAL IV PRN (07:15)
[2022-12-23] MEDS: ENALAPRIL MALEATE 10 MG TAB PO SCH (08:13)
[2022-12-23] MEDS: ROSUVASTATIN CALCIUM 5 MG TAB PO SCH (08:13)
[2022-12-23] MEDS: CITALOPRAM 20 MG TAB PO SCH (08:13)
[2022-12-23] MEDS: amLODIPine BESYLATE 5 MG TAB PO SCH (08:13)
[2022-12-23] MEDS: PANTOprazole 40 MG TAB PO SCH (08:14)
[2022-12-23] MEDS: POLYETHYLENE (MIRALAX) 17 GM PACK PO SCH (08:14)
[2022-12-23] MEDS: CeleBREX 200 MG CAP PO SCH (08:15)
[2022-12-23] MEDS: INSULIN HUMAN REGULAR SC SCH ×2 (09:17→13:05)
--- NOTE | 2022-12-23 10:08 | Surgery Progress Note ---
Date of Service December 23, 2022 Assessment & Plan (1) SBO (small bowel obstruction): Plan: POD#4 open repair of spigelian hernia with mesh kub to rule out obstruction/ileus if doing well this afternoon, d/c to home wound care instructions, activity restrictions, and return precautions given f/u in 2 weeks (2) Incarcerated hernia: Admission and Anticipated Discharge Date Admission Date: December 20, 2022 Subjective POD#4 open repair incarcerated left spigelian hernia repair for obstruction. Vomited yesterday? tolerated breakfast. Knee pain overnight. +flatus. Physical Exam Constitutional: WD/WN, vitals as above Gastrointestinal (Abdomen): Inspection/Auscultation: + abdominal surgical incision (healing well) Percussion/Palpation: + abdomen tender (ttp at incision, normal); no hernia (no recurrence) Results & Data Vital Signs (Past 12 Hours) Vital Signs Temp Pulse Pulse Resp BP Pulse Ox O2 Del Method 12/23/22 07:30 56 L 12/23/22 07:14 36.4 C L 53 L 19 129/69 93 Room Air 12/22/22 22:31 36.7 C 53 L 18 158/69 H 93 Room Air PG Care Time/CCT Total # of Minutes Spent Total Time Spent with Patient: Total time spent is greater than 50% in coordination of care (as documented) at patient's floor/unit and/or counseling patient: Coding Level of Care Code 94115 SUB INP/OBS CARE 10/21MIN Diagnoses SBO (small bowel obstruction) K56.609 Incarcerated hernia K46.0
[2022-12-23] MEDS ORDERED: FLUTICASONE/VILANTEROL 100/25MCG 14 PUFFS/INHALER INH SCH (12:00)
--- NOTE | 2022-12-23 13:07 | XRay Report ---
KUB HISTORY: Acute abdominal pain with nausea nausea after hernia repair COMPARISON: KUB 12/19/2022 FINDINGS: Nonobstructive bowel gas pattern. Mild to moderate colonic fecal retention. Cholecystectomy . No renal calculi. No ureteral calculi. No pneumoperitoneum or pneumatosis. No fracture. IMPRESSION: Nonobstructive bowel gas pattern. ACT 112: Negative or not required by law. The above report was generated using voice recognition software. It may contain grammatical, syntax o r spelling errors. Electronically signed by: Asher Weaver M.D. 12/23/2022 1:06 PM
[2022-12-23] MEDS: oxyCODONE HCL IR 5 MG TAB (IMMEDIATE RELEASE) PO PRN (13:45)
--- NOTE | 2022-12-24 22:30 | Discharge Summary ---
Date of Service December 24, 2022 Admission HPI Per Admitting Provider This is a 72-year-old female with an underlying history of gastroparesis. The patient says that she has had constant nausea and vomiting secondary to this problem for several months. Patient notes that she was feeling well earlier today in her usual state of health however she developed some severe abdominal pain in the left lower quadrant at approximately 2:00 PM. She has had multiple bouts of emesis which are out of the ordinary for her since her pain began. Her most recent oral intake was at approximately 10:00 AM. She notes that she did have a bowel movement earlier today which was mostly loose and liquid like. She notes she has had multiple abdominal surgeries including an open cholecystectomy, hysterectomy, and appendectomy. She has also had a partial bowel resection approximately 3 to 4 years ago along with a colostomy reversal approximately 6 months following that surgery. With her current presentation she denies any fevers, shakes, or chills. She denies any hematochezia or melena. She denies any hematemesis. She presented to the emergency department where she did undergo a CT scan of the chest. This showed the patient had a large left-sided spaghetti and hernia which contained an incarcerated loop of small bowel resulting in a high-grade small bowel obstruction which was felt to represent a closed-loop. There is no pneumatosis or free air. The patient also underwent a chest x-ray that showed no evidence of pneumonia. Labs include a CBC her white blood cell count was 12.2. Hemoglobin and hematocrit were 16.3 and 47.8. Platelet count was normal. Chemistry profile showed sodium, potassium, BUN, and creatinine were all normal. There is no elevation of patient's LFTs or lipase. Her lactic acid level was nonelevated and a COVID test was negative. At the time of my interview the patient was resting comfortably in bed and she was in no distress Discharge Data Consultations 12/19/22 21:58 ED Decision to Admit Stat Procedures Performed Operation Date: 12/19/22 22:25 Actual Procedures p Open Repair of Ventral Hernia Repair with mesh(Not Applicable) - Sukhwinder Chao DO, FACS Hospital Course (1) Incarcerated hernia: Date of admission: 12/19/2022 Date of discharge: 12/23/2022 This is a 72-year-old female who was admitted to [facility] on 12/19/2022. Patient presented with abdominal pain was found to have a small bowel obstruction due to a ventral hernia. Because these findings the patient was taken to the operating room on the date of admission where Dr. Chao performed an open repair of a ventral hernia utilizing mesh. During patient's postoperative course she had slow advancement of her diet as tolerated. Once patient was tolerating solid foods she was felt to be stable for discharge home. She was instructed on appropriate wound care, diet, and activity. She was instructed to follow-up Dr. Chao in the clinic in approximately 1 to 2 weeks Coding Level of Care Code 15956 INP/OBS DISCH >30 MIN Diagnoses Incarcerated hernia K46.0
== END 2022-12-23 14:46 | disposition home or self-care (01) | DRG 329 ==
LOC: ED 17:47 → OR 22:39 → 3N 12-20 00:30
DX: K63.1 Perforation of intestine (nontraumatic); Z88.6 Allergy status to analgesic agent; Z79.84 Long term (current) use of oral hypoglycemic drugs; I10 Essential (primary) hypertension; Z87.19 Personal history of other diseases of the digestive system; Z87.891 Personal history of nicotine dependence; T84.84XA Pain due to internal orthopedic prosthetic devices, implants and grafts, initial encounter; Z96.651 Presence of right artificial knee joint; Z79.899 Other long term (current) drug therapy; Z88.8 Allergy status to other drugs, medicaments and biological substances; Z90.49 Acquired absence of other specified parts of digestive tract; Z80.0 Family history of malignant neoplasm of digestive organs; F41.9 Anxiety disorder, unspecified; K43.6 Other and unspecified ventral hernia with obstruction, without gangrene; Z88.1 Allergy status to other antibiotic agents

== ENCOUNTER 2023-08-13 06:05 | Observation (INO) ==
--- NOTE | 2023-07-20 11:16 | PAT Medication Instructions ---
Medication Instructions Date of Service July 20, 2023 Home Medications Medication Instructions Recorded lancets 33 gauge (OneTouch Delica #100 ea 01/16/21 Plus Lancet) blood-glucose meter (OneTouch #1 ea 07/30/21 Verio Meter) ipratropium 0.5 mg-albuterol 3 mg 3 ml inhalation Q6H PRN wheezing 08/27/22 (2.5 mg base)/3 mL nebulization #180 mL soln montelukast 10 mg tablet 10 mg PO QPM #90 tabs 09/08/22 blood sugar diagnostic (OneTouch #200 ea 11/11/22 Verio test strips) albuterol sulfate 90 mcg/actuation 2 puff inhalation Q4H PRN 02/26/23 aerosol inhaler (ProAir HFA) shortness of breath or wheezing #18 grams budesonide-formoterol HFA 160 2 puff inhalation BID #6 grams 02/26/23 mcg-4.5 mcg/actuation aerosol inhaler (Symbicort) amlodipine 5 mg tablet 5 mg PO QPM #30 tabs 05/12/23 pantoprazole 40 mg tablet,delayed 40 mg PO BID #60 tabs 05/24/23 release rosuvastatin 5 mg tablet 5 mg PO QAM #90 tabs 06/04/23 MEDICATION LIST: sennosides 8.6 mg-docusate sodium 50 mg tablet 1 tab PO BID PRN constipation ipratropium 0.5 mg-albuterol 3 mg (2.5 mg base)/3 mL nebulization soln 3 ml inhalation Q6H PRN wheezing montelukast 10 mg tablet 10 mg PO QPM [place] 1 dose PO QAM albuterol sulfate 90 mcg/actuation aerosol inhaler (ProAir HFA) 2 puff inhalation Q4H PRN shortness of breath or wheezing budesonide-formoterol HFA 160 mcg-4.5 mcg/actuation aerosol inhaler (Symbicort) 2 puff inhalation BID cetirizine 10 mg tablet 10 mg PO QAM empagliflozin 25 mg tablet (Jardiance) 25 mg PO QAM enalapril maleate 10 mg tablet 10 mg PO QAM escitalopram oxalate 10 mg tablet (Lexapro) 10 mg PO QAM furosemide 20 mg tablet 20 mg PO QAM vitamin K2 40 mcg tablet 40 mcg PO QPM 0 amlodipine 5 mg tablet 5 mg PO QPM pantoprazole 40 mg tablet,delayed release 40 mg PO BID rosuvastatin 5 mg tablet 5 mg PO QAM ascorbic acid (vitamin C) 1,000 mg tablet (Vitamin C) 1 g PO QPM cholecalciferol (vitamin D3) 50 mcg (2,000 unit) capsule (Vitamin D3) 50 mcg PO QPM cyanocobalamin (vitamin B-12) 1,000 mcg tablet (Vitamin B-12) 1,000 mcg PO QPM gabapentin 100 mg capsule 200 mg PO QPM MEDICATION INSTRUCTIONS: Continue as directed ipratropium 0.5 mg-albuterol 3 mg (2.5 mg base)/3 mL nebulization soln 3 ml inhalation Q6H PRN wheezing albuterol sulfate 90 mcg/actuation aerosol inhaler (ProAir HFA) 2 puff inhalation Q4H PRN shortness of breath or wheezing (use if needed; BRING TO HOSPITAL) budesonide-formoterol HFA 160 mcg-4.5 mcg/actuation aerosol inhaler (Symbicort) 2 puff inhalation BID DO NOT take the morning of surgery sennosides 8.6 mg-docusate sodium 50 mg tablet 1 tab PO BID PRN constipation furosemide 20 mg tablet 20 mg PO QAM enalapril maleate 10 mg tablet 10 mg PO QAM cetirizine 10 mg tablet 10 mg PO QAM [place] 1 dose PO QAM Take morning of surgery With a small sip of water, OTHERWISE NOTHING TO EAT OR DRINK AFTER MIDNIGHT: rosuvastatin 5 mg tablet 5 mg PO QAM escitalopram oxalate 10 mg tablet (Lexapro) 10 mg PO QAM pantoprazole 40 mg tablet,delayed release 40 mg PO BID Take evening before surgery sennosides 8.6 mg-docusate sodium 50 mg tablet 1 tab PO BID PRN constipation montelukast 10 mg tablet 10 mg PO QPM ascorbic acid (vitamin C) 1,000 mg tablet (Vitamin C) 1 g PO QPM cholecalciferol (vitamin D3) 50 mcg (2,000 unit) capsule (Vitamin D3) 50 mcg PO QPM cyanocobalamin (vitamin B-12) 1,000 mcg tablet (Vitamin B-12) 1,000 mcg PO QPM gabapentin 100 mg capsule 200 mg PO QPM vitamin K2 40 mcg tablet 40 mcg PO QPM amlodipine 5 mg tablet 5 mg PO QPM pantoprazole 40 mg tablet,delayed release 40 mg PO BID Other Notes STOP 3 DAYS PRIOR TO SURGERY: empagliflozin 25 mg tablet (Jardiance) 25 mg PO QAM If you have any questions please call us at [phone] or [phone] or [phone] or [phone]
--- NOTE | 2023-07-27 13:14 | Anesthesiology Consultation ---
Date of Service July 27, 2023 Assessment & Plan (1) Encounter for pre-operative examination: Chart Review Chart Review: Acceptable Risk for Surgery (pending gastric emptying study ) and Patient seen in Pre Admission Testing - Awaiting routine PCP appt scheduled 07/29/23 - Check BSG AM DOS - Pt is NOT an OPJ candidate Per PAT appt on 07/27/23, no recent illness/disease exposures, illness related symptoms, or recent illness/disease positive tests. Will leave to surgeon's discretion if preop Covid testing needed Patient seen by PCP 06/29/23= Patient seen for osteoarthritis of knees bilaterally- chronic. Pt following with ortho. Scheduled for knee replacement in July. "Patient previously had reaction to taking pain medication status post hernia surgery therefore is leery to try any oral medications. Prescription is faxed to [facility] for topical compounded cream" Ventral hernia repair 12/19/22= Done under [facility] with MAC #3. ETT #6.5. Right TKA 10/16/22= Done under [facility] at L3-4 with 1 attempt Teaching & Discussion Pre-Anesthesia Teaching/Discussion Notes: Instructed NPO after midnight before surgery,except medications with 15 cc of water. Medication instructions provided according to the PAT guidelines. History Surgery Operation Date: 08/13/23 07:00 Proposed Procedures p Left Total Knee Arthroplasty - Delfin Bryson, Height/Weight Height: 4 ft 8 in Weight: 59.9 kg Allergies Allergy/AdvReac Type Severity Reaction Status Date / Time sumatriptan Allergy Severe Anaphylaxis, Verified 07/19/23 08:00 "heart troubles" fluticasone Allergy Mild "[place] Verified 07/19/23 08:00 nose" hydrochlorothiazide Allergy Mild Rash Verified 07/19/23 08:00 levofloxacin Allergy Mild Gastrointestinal Verified 07/19/23 08:00 Upset lisinopril Allergy Mild Rash Verified 07/19/23 08:00 NSAIDS (Non-Steroidal Allergy Mild Rash Verified 07/19/23 08:00 Anti-Inflamma famotidine [From Pepcid] AdvReac Intermediate Nausea Verified 07/19/23 08:00 metformin AdvReac Mild Nausea Verified 07/19/23 08:00 Medications Home Medications Medication Instructions Recorded Confirmed Last Taken sennosides 8.6 mg-docusate sodium 1 tab PO BID PRN constipation #30 11/02/1207/19/23 10/15/22 10:00 50 mg tablet tabs lancets 33 gauge (OneTouch Delica #100 ea 01/16/21 06/29/23 Unknown Plus Lancet) blood-glucose meter (OneTouch #1 ea 07/30/21 06/29/23 Unknown Verio Meter) ipratropium 0.5 mg-albuterol 3 mg 3 ml inhalation Q6H PRN wheezing 08/27/22 07/19/23 05/13/23 (2.5 mg base)/3 mL nebulization #180 mL soln montelukast 10 mg tablet 10 mg PO QPM #90 tabs 09/08/22 07/19/23 05/13/23 blood sugar diagnostic (OneTouch #200 ea 11/11/22 06/29/23 Unknown Verio test strips) macushield 1 dose PO QAM 01/19/23 07/19/23 05/13/23 albuterol sulfate 90 mcg/actuation 2 puff inhalation Q4H PRN 02/26/23 07/19/23 05/12/23 aerosol inhaler (ProAir HFA) shortness of breath or wheezing #18 grams budesonide-formoterol HFA 160 2 puff inhalation BID #6 grams 02/26/23 07/19/23 05/13/23 mcg-4.5 mcg/actuation aerosol inhaler (Symbicort) cetirizine 10 mg tablet 10 mg PO QAM 05/10/23 07/19/23 05/14/23 empagliflozin 25 mg tablet 25 mg PO QAM 05/10/23 07/19/23 05/13/23 (Jardiance) enalapril maleate 10 mg tablet 10 mg PO QAM 05/10/23 07/19/23 05/13/23 escitalopram oxalate 10 mg tablet 10 mg PO QAM 05/10/23 07/19/23 05/14/23 (Lexapro) furosemide 20 mg tablet 20 mg PO QAM 05/10/23 07/19/23 05/13/23 vitamin K2 40 mcg tablet 40 mcg PO QPM 05/10/23 07/19/23 05/13/23 amlodipine 5 mg tablet 5 mg PO QPM #30 tabs 05/12/23 07/19/23 05/13/23 pantoprazole 40 mg tablet,delayed 40 mg PO BID #60 tabs 05/24/23 07/19/23 Unknown release rosuvastatin 5 mg tablet 5 mg PO QAM #90 tabs 06/04/23 07/19/23 Unknown ascorbic acid (vitamin C) 1,000 mg 1 g PO QPM 07/19/23 07/19/23 Unknown tablet (Vitamin C) cholecalciferol (vitamin D3) 50 50 mcg PO QPM 07/19/23 07/19/23 Unknown mcg (2,000 unit) capsule (Vitamin D3) cyanocobalamin (vitamin B-12) 1,000 mcg PO QPM 07/19/23 07/19/23 Unknown 1,000 mcg tablet (Vitamin B-12) gabapentin 100 mg capsule 200 mg PO QPM 07/19/23 07/19/23 Unknown Past Medical History Medical History (Updated 07/28/23 @ 13:05 by Padma Smith PA-C) Anxiety Asthma Stable Barretts esophagus Follows with GI routinely Chronic back pain Chronic obstructive pulmonary disease Breathing as stable Diabetes NIDDM Glucose stable Diverticulitis of colon with perforation Hx (2015)- hx of colostomy- later reversal Emphysema lung Stable Gastroparesis Getting gastric emptying study next month History of anesthesia reaction - Pt stated that since having her her[facility] sx [facility] 11/2022, her nervous system has "felt like its always jumpy on the inside of her body" - PCP did start patient on Gabapentin that has keep symptoms controlled History of gastric ulcer (duodenal)- no recent issues Hypertension Exercise / Class Metabolic Activity II 4-5 Yardwork/Stairs/Walk up hill (one flight of stairs - no chest pain or SOB ) Past Family History Family History Mother Diabetes Bone cancer Hepatic cirrhosis Uncle Prostate cancer Diabetes Colorectal cancer Grandmother (Maternal) Esophageal cancer Diabetes Father Diabetes Aunt Diabetes Grandfather (Paternal) Diabetes Other No family history of adverse response to anesthesia Denies family history of Ovarian cancer Myocardial infarction Breast cancer Past Surgical History Surgical History History of appendectomy History of arthroscopy of right knee History of cardiac cath 2004 ([facility]) > no stents; no cardio. History of carpal tunnel surgery of right wrist History of colon surgery 07/2016 @ [facility] partial colectomy with colostomy--d/t colon perforation History of colonoscopy with polypectomy History of esophagogastroduodenoscopy (EGD) History of right knee joint replacement History of tooth extraction all upper/partial lower History of total hysterectomy with bilateral salpingo-oophorectomy (BSO) S/P cholecystectomy S/P colostomy takedown 12/2016 @ [facility] S/P tubal ligation Spigelian hernia (12/19/22) Open Repair of spigelian hernia Repair with mesh, 2.5 cm defect (Not Applicable) - Sukhwinder Chao, DO, FACS Past Anesthesia History No Hx of Anesthesia Complications (no previous issues with anesthesia - possible nervous system issues s/p hernia surgery November 2022) and No Family Hx of Anesthesia Complications History of PONV No Hx of PONV and No Hx of Motion Sickness Social History Smoking Status: Former smoker tobacco type: cigarettes Do You Dip or Chew Tobacco: No Smoking End Date: Hx Alcohol Use: No (none for many years) Hx Substance Use: No substance use type: does not use Review of Systems Hx of reflux- well controlled Protonix Patient denies chest pain, shortness of breath, dyspnea on exertion, cough, wheezing, palpitations. No hx of seizures, stroke, [place], apnea/snoring. No hx of blood clots or blood transfusions Physical Exam Vital Signs VITALS BP 124/60 (manually) P 58 TEMP 97.8 SP02 96% RESP 16 Constitutional no acute distress ENMT Mouth: no TMJ clicking Thyromental Distance: < 3.5 Finger Breadths (3.0) Mallampati Class: I Upper full denture Bottom partial denture Neck + limited neck extension (significant ) Respiratory normal respiratory effort; no respiratory distress Auscultation: lungs clear to auscultation bilaterally; no wheezes Cardiovascular Rate/Rhythm: regular rate and regular rhythm Heart Sounds: no murmur Vessels: no carotid bruit Musculoskeletal Spine: no pain with cervical ROM Extremities: extremities normal to inspection Psychiatric Orientation: alert Lab Results Anesthesia Preop Results Results Anesthesia Widget: WBC 6.17 K/ul (4.8-10.8) 07/27/23 Hgb 14.3 g/dl (12.0-16.0) 07/27/23 Hct 42.8 % (37.0-47.0) 07/27/23 Plt 194 K/uL (130-400) 07/27/23 Na 141 mmol/L (136-145) 07/27/23 K 3.4 mmol/L (3.5-5.1) L 07/27/23 Cl 101 mmol/L (98-107) 07/27/23 CO2 31 mmol/L (21-32) 07/27/23 BUN 13 mg/dl (6-23) 07/27/23 Creat 0.78 mg/dl (0.6-1.2) 07/27/23 Glucose Level 220 mg/dl (70-99(Fasting)) H 07/27/23 PT 10.3 Seconds (9.0-12.0) 07/27/23 PTT 28.3 Seconds (21.0-31.0) 07/27/23 INR 0.9 (0.9-1.1) 07/27/23 HA1c 7.7 % (4.5-5.6) H 07/27/23 Blood Type B Negative 07/27/23 Antibody Screen NEGATIVE 07/27/23 Testing Electrocardiogram Date: 07/27/23 Findings: + SB @ (53bpm ) Nonspecific T wave abnormality When compared EKG from December 19, 2022nonspecific T wave abnormality now evident in inferior and lateral leads per cardio Chest X-Ray Date: 12/19/22 FINDINGS: An AP, portable, upright chest radiograph is compared to study dated 09/16/2022. The heart is top normal for projection noting atherosclerotic calcification of the thoracic aorta. Chronic interstitial thickening is similar to previous. The lungs and pleural spaces are clear noting mild bibasilar scarring/atelectasis. No pneumothorax is seen. The skeletal structures are osteopenic. The bony thorax is grossly intact. Cholecystectomy clips are noted in the right upper quadrant. IMPRESSION: No active disease in the chest.
[~2023-08-13 06:05] MED LIST changes: -BUPIVACAINE 0.5 % 5 MG/1 ML PF 10ML VIAL ONE; +FAMOTIDINE 20 MG TAB PO SCH; -ROPIVACAINE 0.5% 5 MG/ML 30 ML VIAL ONE
--- NOTE | 2023-08-13 06:20 | History & Physical Bridge Note ---
Date of Service August 13, 2023 History & Physical Bridge Note I have examined the patient, reviewed the History & Physical and in the interval since the performance of the History & Physical I have noted the following changes of clinical significance: no changes noted
[2023-08-13] MEDS ORDERED: BUPIVACAINE 0.5 % 5 MG/1 ML PF 10ML VIAL ONE (06:28)
[2023-08-13] MEDS ORDERED: ROPIVACAINE 0.5% 5 MG/ML 30 ML VIAL ONE (06:28)
[2023-08-13] MEDS ORDERED: MIDAZOLAM HCL 1 MG/ML 2ML VIAL ONE (06:34)
[2023-08-13] MEDS ORDERED: ONDANSETRON INJ 2 MG/ML 2 ML VIAL IV PRN ×2 (07:12→13:33)
[2023-08-13] MEDS ORDERED: fentaNYL citrate PF 100 MCG/2 ML VIAL IV PRN (07:12)
[2023-08-13] MEDS ORDERED: ATROPINE SULFATE 0.1 MG/ML 10ML SYR IV PRN (07:12)
[2023-08-13] MEDS ORDERED: ePHEDrine sulfate 50 MG/ML AMP IV PRN (07:12)
[2023-08-13] MEDS ORDERED: ORTHO JOINT ANESTHETIC ONE (07:42)
[2023-08-13] MEDS ORDERED: PROPOFOL IV EMULSION 10 MG/ML 20 ML VIAL IV ONE (08:12)
[2023-08-13] MEDS ORDERED: LIDOCAINE 2% 2 ML VIAL/AMP(20MG/ML) INFIL ONE (08:12)
[2023-08-13] MEDS ORDERED: GLYCOPYRROLATE 0.2 MG/ML VIAL ONE (08:12)
[2023-08-13] MEDS ORDERED: ONDANSETRON INJ 2 MG/ML 2 ML VIAL ONE (08:12)
--- NOTE | 2023-08-13 09:11 | Operative Report ---
PG Post Operative Report Pre & Post Diagnosis Operation Date: 08/13/23 08:00 Pre-Op Diagnosis: Degenerative Joint Disease Left Knee Post-Op Diagnosis: Degenerative Joint Disease Left Knee I identified the patient and participated in the time-out.: Yes Procedure Operation Date: 08/13/23 08:00 Actual Procedures p Left Total Knee Arthroplasty(Left) - Delfin Bryson DO Surgeon Delfin Bryson DO Account Liaison Delfin Echeverria PA-C Estimated Blood Loss 30 Findings Consistent with Post-Op Diagnosis Specimens Left femoral tibial bone Description of Procedure Implants used: I used a Kierra Persona total knee arthroplasty system with a size 5 narrow femur, C tibia, 28 oval patella, and a size 16 medial congruent polyethylene be aring. All components were cemented in place with Biomet cement. Jasmyn arrived [facility] for the above procedure. She was seen in the preoperative holding area and the operative extremity was identified and signed. She was given a preoperative antibiotic, TXA, a spinal anesthetic and an adductor nerve block. She was taken back to the operating room and laid on the table in supine position. She was given basic sedation. The operative knee was then prepped and draped in sterile fashion. A timeout was done, and the patient and the operative extremity was properly identified. A midline incision was made directly over the patella. Dissection was taken down to the extensor mechanism. A midvastus arthrotomy was used. The medial retinaculum was released and the fat pad was mostly excised. The knee was flexed and the ACL, PCL, and meniscus were removed. A drill was sent down the center of the femoral canal followed by an intramedullary aime. Off that aime a distal femoral cutting block was placed. 9 mm was resected off the distal femur at 5 of valgus. A posterior referencing AP sizing guide was then placed on the distal femur. The femur measured to be a size 5. 2 drill holes were placed in 3 of external rotation. A 4-in-1 cutting block was then impacted into place. Anterior, posterior, and chamfer cuts were then made. The proximal tibia was then exposed. An external tibial alignment guide was placed. A tibial cut guide was then anchored in place and the proximal tibia was then resected. The posterior aspect of the knee was then opened up and any additional meniscus fragments and osteophytes were removed. The tibia measured to be a size C. The tibial plate was then placed in the appropriate rotation and the tibia was drilled and punched. Trial components were then placed. I used a size 16 medial congruent polyethylene insert. The knee was brought through a full range of motion and felt to be stable. The peg holes for the femoral component were then drilled. The patella was then everted and 9 mm was resected off the posterior aspect of the patella. The patella measured to be a size 28 oval. 3 peg holes were then drilled. A trial patella was placed. The knee was once again brought through a full range of motion and felt to be stable. Trial components were then removed. The surrounding soft tissues were injected with 100 cc of an orthopedic pain control cocktail. All components were then cemented into place with Biomet cement. The final polyethylene insert was then snapped into place. Once cement was dry the tourniquet was deflated. Hemostasis was obtained. A dilute betadyne lavage was then done for 3 minutes. The joint was then irrigated with normal saline solution. The midvastus arthrotomy was then closed with #1 Vicryl suture. The skin was closed with 2-0 Vicryl, 3-0V lock suture, and subha. A soft compressive dressing was placed. She was then transferred to a hospital bed and taken to the postanesthesia care unit in stable condition. She tolerated the procedure well. Delfin Echeverria PA-C, was present for the entire procedure. He was critical for patient positioning, prepping, draping, retraction exposure, wound closure and application of sterile dressing. I attest to the content of the Intraoperative Record and any orders documented therein. Any exceptions are noted below.
--- NOTE | 2023-08-13 10:04 | XRay Report ---
XR knee LT 1 or 2V routine CLINICAL HISTORY: Surgical Post Op TECHNIQUE: 2 views of the left knee were obtained. Comparison: Comparison is made to knee radiographs 07/27/2023 FINDINGS: Patient is status post total knee arthroplasty with expected postsurgical changes including soft tiss ue swelling and subcutaneous emphysema. No periarticular lucency or hardware fracture is seen. IMPRESSION: Expected postoperative appearance status post placement of total knee arthroplasty. ACT 112: Negative or not required by law. Electronically signed by: James Conrad M.D. 08/13/2023 10:03 AM
--- NOTE | 2023-08-13 13:21 | Anesthesiology Progress Note ---
Date of Service August 13, 2023 Anesthesia Post Procedure Vital Signs Vital Signs: Temp Pulse Pulse Resp BP Pulse Ox O2 Del Method 08/13/23 13:10 45 L 15 120/57 L 96 Nasal Cannula 08/13/23 13:00 98.1 F 47 L 15 128/63 97 Nasal Cannula 08/13/23 12:50 44 L 14 115/58 L 96 Nasal Cannula 08/13/23 12:40 44 L 15 114/54 L 97 Nasal Cannula 08/13/23 12:30 43 L 17 119/56 L 97 Nasal Cannula 08/13/23 12:20 44 L 14 113/56 L 97 Nasal Cannula 08/13/23 12:10 47 L 14 123/58 L 98 Nasal Cannula 08/13/23 12:00 46 L 13 134/57 L 97 Nasal Cannula 08/13/23 11:50 48 L 12 125/54 L 97 Nasal Cannula 08/13/23 11:40 47 L 13 123/63 96 Nasal Cannula 08/13/23 11:30 47 L 12 132/59 L 97 Nasal Cannula 08/13/23 11:20 46 L 12 133/59 L 97 Nasal Cannula 08/13/23 11:10 49 L 16 125/57 L 98 Nasal Cannula 08/13/23 11:00 49 L 20 137/57 L 96 Nasal Cannula 08/13/23 10:50 97.5 F L 48 L 16 128/59 L 96 Nasal Cannula 08/13/23 10:40 47 L 14 122/59 L 96 Nasal Cannula 08/13/23 10:30 49 L 14 135/64 98 Nasal Cannula 08/13/23 10:20 97.7 F 48 L 16 137/61 96 Nasal Cannula 08/13/23 10:10 48 L 16 127/66 98 Oxymask 08/13/23 10:00 47 L 12 139/64 98 Oxymask 08/13/23 09:50 49 L 16 121/60 97 Oxymask 08/13/23 09:40 49 L 14 129/61 98 Oxymask 08/13/23 09:30 99.0 F 54 L 18 113/61 96 Oxymask 08/13/23 07:03 Room Air 08/13/23 06:25 97.5 F L 50 L 18 179/71 H 94 Room Air O2 Flow Rate 08/13/23 13:10 2 08/13/23 13:00 2 08/13/23 12:50 2 08/13/23 12:40 2 08/13/23 12:30 2 08/13/23 12:20 2 08/13/23 12:10 2 08/13/23 12:00 2 08/13/23 11:50 2 08/13/23 11:40 2 08/13/23 11:30 2 08/13/23 11:20 2 08/13/23 11:10 2 08/13/23 11:00 2 08/13/23 10:50 2 08/13/23 10:40 2 08/13/23 10:30 2 08/13/23 10:20 2 08/13/23 10:10 4 08/13/23 10:00 4 08/13/23 09:50 4 08/13/23 09:40 4 08/13/23 09:30 6 08/13/23 07:03 08/13/23 06:25 Transfer of Care Handoff Completed per policy Notes Mental Status: alert / awake / arousable and participated in evaluation Patient Amnestic to Procedure: Yes Nausea / Vomiting: adequately controlled Pain: adequately controlled Airway Patency, RR, SpO2: stable & adequate BP & HR: stable & adequate Hydration State: stable & adequate Neuraxial Anesthesia: was administered and sensory block is resolving Anesthetic Complications: no major complications apparent and Pt Satisfied with anesthetic care
[2023-08-13] MEDS ORDERED: HYDROmorphone INJ 0.5 MG/0.5 ML SYR IV PRN (13:33)
[2023-08-13] MEDS ORDERED: ALBUTEROL HFA 8 GM INHALER INH PRN (13:33)
[2023-08-13] MEDS ORDERED: MAGNESIUM HYDROXIDE SUSP 30 ML UDC PO PRN (13:33)
[2023-08-13] MEDS ORDERED: ALBUT/IPRATROP 3MG/0.5MG NEB 3 ML VIAL INH PRN (13:33)
[2023-08-13] MEDS ORDERED: METOCLOPRAMIDE HCL INJ 5 MG/ML 2 ML VIAL IV PRN (13:33)
[2023-08-13] MEDS ORDERED: bisacodyL 10 MG SUPP PR PRN (13:33)
[2023-08-13] MEDS ORDERED: NALOXONE HCL 0.4 MG/1 ML VIAL/CARP IV PRN (13:33)
[2023-08-13] MEDS ORDERED: PHARMACY GLYCEMIC MGMT CONSULT PRN (13:33)
[2023-08-13] MEDS: ACETAMINOPHEN 500 MG TAB PO SCH ×2 (13:56→21:53)
[2023-08-13] MEDS: SODIUM CHLORIDE 0.9% 1,000 ML IV SCH (13:57)
[2023-08-13] MEDS ORDERED: GLUCOSE 40% GEL 15 GM TUBE PO PRN (14:00)
[2023-08-13] MEDS ORDERED: GLUCOSE 10 TAB/TUBE PO PRN (14:00)
[2023-08-13] MEDS ORDERED: CARBOHYDRATES FOR HYPOGLYCEMIA PO PRN (14:00)
[2023-08-13] MEDS ORDERED: DEXTROSE 50% 50 ML SYRINGE IV PRN (14:00)
[2023-08-13] MEDS ORDERED: GLUCAGON FOR INJ 1 MG VIAL IM PRN (14:00)
--- NOTE | 2023-08-13 14:38 | Pharmacy Report ---
Pharmacy Glycemic Short Note 2 - Date of Service August 13, 2023 - Glycemic Short BSG Results (Last 24 hours): 08/13/23 08/13/23 08/13/23 06:46 09:33 14:21 POC Glucose 156 H 160 H 209 H OUTPATIENT ANTIDIABETIC REGIMEN: * Empagliflozin 25mg PO qAM * HbA1c: 7.7% (07/27/23) ASSESSMENT: * Ms Tucker is a 73yo diabetic F, POD 0 s/p L TKA with Dr Bryson this morning. * Pt received 8mg PO dexamethasone pre-op and also rec'd an ortho mixture containing DXM. This is expected to contribute to steroid-induced hyperglycemia. * On admission, pt's Jardiance was held and pt was initiated on a SQ basal/bolus insulin regimen, based on a moderate/high stress level. * Pharmacy will continue to monitor and adjust regimen as indicated. PLAN FOR INPATIENT GLYCEMIC CONTROL: * Hold outpatient oral diabetes medications * Basal insulin * Lantus 15 units SQ x1 dose on admission * Bolus insulin * NovoLog per scale ACHS or Q6hrs while NPO * Goal Range: Low 110 mg/dL - High 140 mg/dL * Correction Factor: 30 mg/dL/unit * Nutritional / Prandial insulin per carb ratio of 1 unit per 10 grams CHO consumed
[2023-08-13] MEDS ORDERED: LANTUS PER UNIT CHARGE SC ONE (16:30)
[2023-08-13] MEDS: INSULIN ASPART PER UNIT CHARGE SC SCH ×2 (16:47→21:51)
[2023-08-13] MEDS: ceFAZolin 2000MG 2,000 MG/15 ML SYR IV SCH (16:50)
[2023-08-13] MEDS: KETOROLAC TROMETHAMINE 15 MG/ML VIAL IV SCH (18:21)
[2023-08-13] MEDS: PANTOprazole 40 MG TAB PO SCH (19:34)
[2023-08-13] MEDS: APIXABAN 2.5 MG TAB PO SCH (19:35)
[2023-08-13] MEDS: DOCUSATE SODIUM 100 MG CAP PO SCH (19:35)
[2023-08-13] MEDS ORDERED: SENNA 8.6 MG TAB PO SCH (21:00)
[2023-08-13] MEDS ORDERED: MONTELUKAST SODIUM 10 MG TABLET PO SCH (21:00)
[2023-08-13] MEDS ORDERED: NON-FORMULARY MEDICATION (Vitamin K2 40 mcg Tablet) PO SCH (21:00)
[2023-08-13] MEDS ORDERED: amLODIPine BESYLATE 5 MG TAB PO SCH (21:00)
[2023-08-13] MEDS ORDERED: GABAPENTIN 100 MG CAP PO SCH (21:00)
[2023-08-14] MEDS: KETOROLAC TROMETHAMINE 15 MG/ML VIAL IV SCH ×2 (00:42→04:55)
[2023-08-14] MEDS: ceFAZolin 2000MG 2,000 MG/15 ML SYR IV SCH (00:47)
[2023-08-14] MEDS: oxyCODONE HCL IR 5 MG TAB (IMMEDIATE RELEASE) PO PRN ×2 (01:23→10:43)
[2023-08-14] MEDS: SODIUM CHLORIDE 0.9% 1,000 ML IV SCH (05:35)
[2023-08-14] MEDS: ACETAMINOPHEN 500 MG TAB PO SCH (05:58)
[2023-08-14] MEDS: INSULIN ASPART PER UNIT CHARGE SC SCH (08:06)
[2023-08-14] MEDS: PANTOprazole 40 MG TAB PO SCH (08:13)
[2023-08-14] MEDS: APIXABAN 2.5 MG TAB PO SCH (08:13)
[2023-08-14] MEDS: DOCUSATE SODIUM 100 MG CAP PO SCH (08:13)
--- NOTE | 2023-08-14 08:36 | Discharge Summary ---
Date of Service August 14, 2023 Principal Diagnosis Same as "Discharge Diagnosis" noted below under Discharge Instructions. Discharge Data Procedures Performed Operation Date: 08/13/23 08:00 Actual Procedures p Left Total Knee Arthroplasty(Left) - Delfin Bryson DO Ordered Studies 08/13/23 05:00 US - OR guided needle placemen Routine Hospital Course (1) Status post left knee replacement: On August 13, 2023 Jasmyn arrived at [facility] and underwent a lef t knee replacement without complication. She had a spinal anesthetic. Postoperatively she was started on Eliquis for DVT prophylaxis and transferred to the general orthopedic floors. Her hospital course was uneventful. On postop day #1, her vital signs were stable and her pain was well controlled. She was able to participate well with physical therapy doing ambulation and range of motion exercises. She was then discharged home. She will follow-up with orthopedics in 2 weeks.. PG Care Time/CCT Total # of Minutes Spent Total Time Spent with Patient: Total time spent is greater than 50% in coordination of care (as documented) at patient's floor/unit and/or counseling patient: Discharge Plan Discharge Items Patient Disposition: Home - Home Health Services Reason For Visit: DJD Left Knee Discharge Diagnosis: Left knee replacement Activity: As commented below Non-emergency contact: Surgeon Call non-emergency contact if: your wound has increased redness and your wound has increased drainage Follow-up/Referrals: ProAbbe MD [Primary Care Provider] - Diet: Regular Addtl Attending Provider Instructions: Activity and Therapy Recommendations: * If you are using [facility] then therapy will be provided at your home until they feel you have accomplished all of your goals. * If you are using [facility] then Physical Therapy will be provided until they feel you are ready to start Outpatient Physical Therapy. * If you are not using home therapy then Outpatient Physical Therapy should start about 3-5 days from your day of surgery. Therapy will last about 6-10 weeks * It is important not to put a pillow under your knee when you are relaxing or sleeping. It is just as important to make sure you are getting your knee perfectly straight as it is to regain your knee bend. * You were shown a series of exercises in the hospital. Do these exercises three times each day including the exercises you were shown in physical therapy. * Get up and walk several times each day. For the first four weeks, try not to stand or walk for more than one hour at a time. If you do stand or walk for more than one hour, you will not hurt anything, but your leg will likely swell. * As you feel comfortable, you may change from the walker or crutches to a cane and then to independent walking. Medications: * Narcotic You will likely be sent home from the hospital with a prescription for the narcotic pain medication that worked best throughout your stay. * Eliquis -take Eliquis 2.5 mg twice a day for 10 days after surgery. * Cefadroxil -take the antibiotic twice a day for 10 days to help prevent infection. * Other medications may be prescribed for specific circumstances. If you have any questions, please call the office at . * Resume previous home medications unless otherwise instructed TEDs/Elastic Stockings: The white elastic stockings help limit swelling and prevent blood clots from forming in your legs.~ The more you wear them, the more they work. Wear them for six weeks. Dressing Care: The dressing can be changed after physical therapy on postop day #1. Daily dry dressing changes for a few days, especially if the incision is still draining some. If the incision is not draining then you may leave the subha open to air. If there is a little bit of drainage or if the subha are getting stuck on your clothing then cover the incision with a dry dressing. The subha will be removed at your 2 week follow-up appointment. Showering: You may shower 5 days from the day of surgery as long as the incision is no longer draining. You may shower with the usbha exposed. Let soapy water run over the subha and pat them dry. Do not scrub or soak the incision. Things To Watch For: * Drainage from the incision site that occurs more than one week after your surgery. * Increased redness at the incision site. * Fever above 102 degrees Fahrenheit. * Unusual chest pain or shortness of breath. * Call [facility] at with any of the above problems Follow-Up Visit: Follow-up with Dr. Bryson's PA (Delfin Echeverria) 2-3 weeks after your day of surgery. He will remove your subha and answer any questions. If you have any additional questions or concerns, Dr Bryson is usually in the office at the same time and will be available An appointment was probably scheduled when you signed-up for surgery in the office. If you have any questions call Office Instructions: More detailed instructions as well as Frequently Asked Questions were provided in a folder by our office when you signed-up for surgery. Please review these instructions when you get home. If you have any further questions or concerns, please feel free to call the office at [phone] Pending Studies at Discharge: No Stand-Alone Forms: My [facility] virocyt, Smoking Cessation Medications and DC Order Prescriptions: New oxycodone 5 mg Tablet 5 mg PO Q4H PRN (Reason: pain) Qty: 30 0RF Eliquis 2.5 mg Tablet 2.5 mg PO BID Qty: 20 0RF cefadroxil 500 mg capsule 500 mg PO BID 10 Days Qty: 20 0RF Continued (DME) lancets [OneTouch Delica Plus Lancet] 33 gauge misc See Dose Instructions .ROUTE .MEDSUPPLY Qty: 100 2RF Dose Instruction: As directed Rx Instructions: TEST TWICE DAILY (DME) blood-glucose meter [OneTouch Verio Meter] Misc See Rx Instructions .Route Qty: 1 0RF Rx Instructions: As directed to test blood sugar once daily ipratropium-albuterol 0.5 mg-3 mg(2.5 mg base)/3 mL solution for nebulization 3 ml INH Q6H PRN (Reason: wheezing) Qty: 180 3RF montelukast 10 mg tablet 10 mg PO QPM Qty: 90 1RF (DME) OneTouch Verio test strips Strip See Rx Instructions .ROUTE .MEDSUPPLY Qty: 200 5RF Rx Instructions: As directed to test blood sugar twice daily amlodipine 5 mg tablet 5 mg PO QPM Qty: 30 5RF rosuvastatin 5 mg tablet 5 mg PO QAM Qty: 90 3RF Rx Instructions: or as directed (start by taking once weekly, then increase slowly as tolerated) sennosides-docusate sodium 8.6-50 mg tablet 1 tab PO BID PRN (Reason: constipation) Qty: 30 albuterol sulfate [ProAir HFA] 90 mcg/actuation HFA aerosol inhaler 2 puff inhalation Q4H PRN (Reason: shortness of breath or wheezing) Qty: 18 3RF budesonide-formoterol [Symbicort] 160-4.5 mcg/actuation HFA aerosol inhaler 2 puff INH BID Qty: 6 2RF pantoprazole 40 mg tablet,delayed release (DR/EC) 40 mg PO BID Qty: 60 2RF macushield 1 dose PO QAM enalapril maleate 10 mg tablet 10 mg PO QAM Patient Comments: pt takes at hs furosemide 20 mg tablet 20 mg PO QAM Rx Instructions: TAKE ONE TABLET BY MOUTH EVERY DAY escitalopram oxalate [Lexapro] 10 mg tablet 10 mg PO QAM Jardiance 25 mg tablet 25 mg PO QAM cetirizine 10 mg Tablet 10 mg PO QAM vitamin K2 40 mcg Tablet 40 mcg PO QPM ascorbic acid (vitamin C) [Vitamin C] 1,000 mg Tablet 1 g PO QPM cyanocobalamin (vitamin B-12) [Vitamin B-12] 1,000 mcg Tablet 1,000 mcg PO QPM cholecalciferol (vitamin D3) [Vitamin D3] 50 mcg (2,000 unit) Capsule 50 mcg PO QPM gabapentin 100 mg capsule 200 mg PO QPM Admission Data Admit Date/Time: 08/13/23 09:32 Attending Provider: Delfin Bryson Admit Provider: Delfin Bryson Primary Care Provider: Abbe Lee
--- NOTE | 2023-08-14 08:37 | Orthopedic Progress Note ---
Date of Service August 14, 2023 Assessment & Plan (1) Status post left knee replacement: Overall she is doing very well. She is not having much pain in the left knee. She will be seen by physical therapy today for ambulation and range of motion exercises. She is on Eliquis for DVT prophylaxis. She can be discharged home later today. She will follow-up with orthopedics in 2 weeks. Sean Vines was seen and examined at bedside this morning. Overall she is doing very well. She is not having much pain in the left knee. She has been up and ambulating to the bathroom. She has no complaints.. Review of Systems All systems reviewed & are unremarkable except as noted in HPI & below. Physical Exam On physical examination left knee, the dressing is clean and dry. Her leg is out full extension. She has active dorsiflexion plantarflexion of her left ankle.. Results & Data Results & Data Laboratory Results . Diagnostic Findings Postoperative x-rays of the left knee show the prosthesis to be in anatomic alignment without any evidence of fracture complication, or loosening.. PG Care Time/CCT Total # of Minutes Spent Total Time Spent with Patient: Total time spent is greater than 50% in coordination of care (as documented) at patient's floor/unit and/or counseling patient: Coding Level of Care Code 65842 Post Operative Follow-Up Diagnoses Status post left knee replacement Z96.652
[2023-08-14] MEDS ORDERED: ROSUVASTATIN CALCIUM 5 MG TAB PO SCH (09:00)
[2023-08-14] MEDS ORDERED: ESCITALOPRAM OXALATE 10 MG TAB PO SCH (09:00)
[2023-08-14] MEDS ORDERED: MULTIVITAMIN TAB PO SCH (09:00)
[2023-08-14] MEDS ORDERED: CETIRIZINE HCL 10 MG TABLET PO SCH (09:00)
[2023-08-14] MEDS ORDERED: FLUTICASONE/VILANTEROL 200/25MCG 14 PUFFS/INHALER INH SCH (09:00)
[2023-08-14] MEDS ORDERED: FUROSEMIDE 20 MG TAB PO SCH (09:00)
[2023-08-14] MEDS ORDERED: ENALAPRIL MALEATE 10 MG TAB PO SCH (09:00)
--- NOTE | 2023-08-14 10:45 | Pharmacy Report ---
Pharmacy Glycemic Short Note 2 - Date of Service August 14, 2023 - Glycemic Short BSG Results (Last 24 hours): 08/13/23 08/13/23 08/13/23 14:21 16:31 20:26 POC Glucose 209 H 186 H 284 H 08/14/23 08:04 POC Glucose 258 H OUTPATIENT ANTIDIABETIC REGIMEN: * Empagliflozin 25mg PO qAM * HbA1c: 7.7% (07/27/23) ASSESSMENT: 08/14: * Per RN patient very adamant that she will not take any insulin. Has refused all doses so far. Pharmacy will sign off at this time. Patient to be discharged today. Resume home Jardiance upon discharge. 08/13: * Ms Tucker is a 73yo diabetic F, POD 0 s/p L TKA with Dr Bryson this morning. * Pt received 8mg PO dexamethasone pre-op and also rec'd an ortho mixture containing DXM. This is expected to contribute to steroid-induced hyperglycemia. * On admission, pt's Jardiance was held and pt was initiated on a SQ basal/bolus insulin regimen, based on a moderate/high stress level. * Pharmacy will continue to monitor and adjust regimen as indicated. PLAN FOR INPATIENT GLYCEMIC CONTROL: * Hold outpatient oral diabetes medications * Basal insulin * Refusing * Bolus insulin * Refusing
== END 2023-08-14 11:14 | disposition home health service (06) ==
LOC: ASU 06:05 → 3E 06:05

== ENCOUNTER 2024-06-13 09:41 | Inpatient (IN) ==
--- NOTE | 2024-06-13 10:03 | Emergency Department Note ---
Impression & Plan COPD (chronic obstructive pulmonary disease), Near syncope ED Provider Note Diagnosis: COPD exacerbation, near syncope Disposition: Admit CHIEF COMPLAINT: Shortness of breath or cough HPI: Patient is a 73-year-old female presenting with history of COPD with shortness of breath. Patient states symptoms started over the past 2 to 3 days time. Patient states cough with productive sputum. Patient states head pressure chest pressure. Patient denies fevers or chills. Patient states she has been having increased wheezing and had to use her inhaler. Patient Nuys any sick contacts. PAST MEDICAL HISTORY: See Below PAST SURGICAL HISTORY: See Below SOCIAL HISTORY: See Below HOME MEDICATIONS: See Below ALLERGIES: See Below VITALS: See Below PHYSICAL EXAMINATION: GENERAL: Well appearing, well nourished, NAD, non-toxic. EYE EXAM: Normal conjunctiva. OROPHARYNX: Moist mucus membranes. Grossly normal dentition. NECK: Supple, LUNGS: Clear to auscultation. Normal chest wall mechanics. HEART: NSR ABDOMEN: Abdomen soft, non-tender, normo-active bowel sounds, no masses, no rebound or guarding BACK: No CVA TTP. SKIN: No rashes and no bruising. UPPER EXTREMITIES: Upper extremities are grossly normal LOWER EXTREMITIES: Grossly normal, no edema. NEURO EXAM: A&O x3,, normal speech, moves all 4 extremities PSYCH: Cooperative MEDICAL DECISION MAKING: History obtained from: Patient ER Course: Patient is a 73-year-old female presenting with coughing and shortness of breath. Patient room air oxygen saturation above 92%. Patient given DuoNeb treatment and steroids. Patient's bio fire shows enterovirus. Patient's chest x-ray is clear. Patient's EKG without signs of ischemia. Patient's 2 troponins are the same and no elevation no post exchange manager 2-hour mat. Patient was ambulated by the nursing staff to see if her room air pulse ox would drop and see if she could be safe at home. Patient mated only 10 steps before she felt lightheaded and needed to hold onto the nurse and almost passed out. Patient admitted to hospital service for further treatment and evaluation Labs (independently interpreted) are significant for: Mild leukocytosis, enterovirus on bio fire Imaging results (independently interpreted): Chest x-ray clear EKG interpretation (independently interpreted): Normal sinus rhythm no ST segment elevation or depression Medications given: DuoNeb, steroids, normal saline Consultants: Hospitalist Chronic conditions affecting care: COPD Triage Nursing notes reviewed and agree them. Vital Signs: reviewed and remarkable for: no significant abnormalities Past Med/Surg History Problem List (Updated 06/13/24 @ 15:54 by Raphael Conteh DO) Near syncope (Acute) Acute exacerbation of chronic obstructive pulmonary disease (COPD) Near syncope Pulsatile tinnitus Other cervical disc degeneration, mid-cervical region, unspecified level Balance problem Carpal tunnel syndrome, bilateral Status post left knee replacement (~07/2023) Encounter for pre-operative examination Osteoarthritis of left knee H/O hernia repair Weakness Hospital discharge follow-up Fatigue Shortness of breath Spigelian hernia (12/19/22) Open Repair of spigelian hernia Repair with mesh, 2.5 cm defect (Not Applicable) - Sukhwinder Chao DO, FACS SBO (small bowel obstruction) (Acute) Incarcerated hernia (Acute) Status post right knee replacement (~09/2022) Osteoarthritis of right knee Cervical radiculopathy Carotid artery plaque Current use of proton pump inhibitor Non-allergic rhinitis Osteoarthritis of knees, bilateral Arthralgia Osteoarthritis Prediabetes Anxiety Gastroparesis Getting gastric emptying study next month Spondylosis Trigger finger Essential (primary) hypertension Carpal tunnel syndrome Barretts esophagus ASCVD (arteriosclerotic cardiovascular disease) Per records Allergic rhinitis Antibody deficiency syndrome Immune deficiency disorder Diabetes NIDDM Glucose stable Dermatochalasis of eyelids of both eyes Colostomy in place COPD (chronic obstructive pulmonary disease) (Acute) Medical History Neck pain ASCVD (arteriosclerotic cardiovascular disease) Osteoarthritis Anxiety Allergic rhinitis Weakness Trigger finger of right hand Dyspnea on exertion History of small bowel obstruction Neck pain Gastroparesis Fatigue Diabetes mellitus, type 2 Carotid artery plaque Immune deficiency disorder History of anesthesia reaction Chronic back pain History of gastric ulcer Barretts esophagus Hypertension Emphysema lung Chronic obstructive pulmonary disease Asthma Diverticulitis of colon with perforation Surgical History History of total left knee replacement (TKR) History of hernia repair History of right knee joint replacement History of carpal tunnel surgery of right wrist History of arthroscopy of right knee History of colonoscopy with polypectomy History of esophagogastroduodenoscopy (EGD) History of total hysterectomy with bilateral salpingo-oophorectomy (BSO) History of appendectomy History of tooth extraction History of cardiac cath S/P tubal ligation S/P colostomy takedown History of colon surgery S/P cholecystectomy Family History (Updated 06/06/24 @ 13:01 by Kamla Agrueta PA-C) Mother Diabetes Bone cancer Hepatic cirrhosis Uncle Prostate cancer Diabetes Colorectal cancer Grandmother (Maternal) Esophageal cancer Diabetes Father Diabetes Aunt Diabetes Grandfather (Paternal) Diabetes Brother , age 68 Myocardial infarction COPD (chronic obstructive pulmonary disease) Other No family history of adverse response to anesthesia Denies family history of Ovarian cancer Breast cancer Social History Smoking Status: Former smoker Tobacco Type: Cigarettes Age Started Using Tobacco: 17; Age Quit Using Tobacco: 35; packs per day: 1; Second Hand Exposure: No; Do You Dip or Chew Tobacco: No; Hx Alcohol Use: No Hx Substance Use: No Preferred Language: Grenadian Communication Ability: Effective Visual Impairment: No Limitations Hearing Ability: Normal Crematory Attendant Required: No Beliefs That Will Affect Care: None marital status: Current Living Situation: Alone Current Living Situation Comment: lives in "tiny house" right next to son's house current occupational status: retired Feels Safe at Home: Yes Childhood Exposure to Second-Hand Smoke: No Seatbelt Use: always Sunscreen Use: Yes Assistive Devices: Denture - Upper, Glasses and Nebulizer Allergies Allergies Allergy/AdvReac Type Severity Reaction Status Date / Time sumatriptan Allergy Severe Anaphylaxis, Verified 06/06/24 09:33 "heart troubles" fluticasone Allergy Mild "Gonzales Verified 06/06/24 09:33 nose" hydrochlorothiazide Allergy Mild Rash Verified 06/06/24 09:33 levofloxacin Allergy Mild Gastrointestinal Verified 06/06/24 09:33 Upset lisinopril Allergy Mild Rash Verified 06/06/24 09:33 NSAIDS (Non-Steroidal Allergy Mild Rash Verified 06/06/24 09:33 Anti-Inflamma oxycodone AdvReac Severe constipatio Verified 06/06/24 09:33 n famotidine [From Pepcid] AdvReac Intermediate Nausea Verified 06/06/24 09:33 metformin AdvReac Mild Nausea Verified 06/06/24 09:33 Home Meds Home Medications Medication Instructions Recorded Confirmed sennosides 8.6 mg-docusate sodium 1 tab PO BID PRN constipation #30 08/01/19 06/13/24 50 mg tablet tabs macushield 1 cap PO QAM 01/19/23 06/13/24 cetirizine 10 mg tablet 10 mg PO QAM 05/10/23 06/13/24 ascorbic acid (vitamin C) 1,000 mg 1 g PO QPM 07/19/23 06/13/24 tablet (Vitamin C) cholecalciferol (vitamin D3) 50 50 mcg PO QPM 07/19/23 06/13/24 mcg (2,000 unit) capsule (Vitamin D3) cyanocobalamin (vitamin B-12) 1,000 mcg PO QPM 07/19/23 06/13/24 1,000 mcg tablet (Vitamin B-12) venlafaxine 75 mg capsule,extended 75 mg PO QAM 04/04/24 06/13/24 release 24 hr pantoprazole 40 mg tablet,delayed 40 mg PO BID 06/13/24 06/13/24 release Previous Rx's Medication Instructions Recorded lancets 33 gauge (OneTouch Delica #100 ea 01/16/21 Plus Lancet) blood-glucose meter (Wasabi 3DTouch #1 ea 07/30/21 Verio Meter) ipratropium 0.5 mg-albuterol 3 mg 3 ml inhalation Q6H PRN wheezing 08/27/22 (2.5 mg base)/3 mL nebulization #180 mL soln montelukast 10 mg tablet 10 mg PO QPM #90 tabs 09/08/22 albuterol sulfate 90 mcg/actuation 2 puff inhalation Q4H PRN 02/26/23 aerosol inhaler (ProAir HFA) shortness of breath or wheezing #18 grams budesonide-formoterol HFA 160 2 puff inhalation BID #6 grams 02/26/23 mcg-4.5 mcg/actuation aerosol inhaler (Symbicort) amlodipine 5 mg tablet 5 mg PO QPM #30 tabs 05/12/23 rosuvastatin 5 mg tablet 5 mg PO QAM #90 tabs 06/04/23 blood sugar diagnostic (OneTouch #200 ea 12/06/23 Verio test strips) enalapril maleate 10 mg tablet 10 mg PO QAM #90 tabs 12/14/23 furosemide 20 mg tablet 20 mg PO QAM #90 tabs 03/20/24 meclizine 12.5 mg tablet 12.5 mg PO TID PRN dizziness #20 04/21/24 tabs empagliflozin 25 mg tablet 25 mg PO QAM #90 tabs 04/24/24 (Jardiance) sucralfate 1 gram tablet (Carafate) 1 g PO BID #30 tabs 04/24/24 venlafaxine 37.5 mg 37.5 mg PO DAILY #90 caps 06/06/24 capsule,extended release 24 hr Results & Data (ED) Vital Signs Vital Signs - 24 hr 06/13/24 09:44 06/13/24 10:18 06/13/24 10:21 Temperature 37.2 C 36.9 C Temperature Source Oral Oral Pulse Rate 106 H 82 Pulse Rate [Right Finger] 94 H Pulse Rhythm Pulse Rhythm [Right Finger] Regular Pulse Strength [Right Finger] Normal Respiratory Rate 18 22 Respiratory Effort / Characteristics Non-Labored Spontaneous Non-Labored Spontaneous Respiratory Depth Normal Normal Respiratory Pattern Regular Blood Pressure 136/71 Blood Pressure [Left Arm] 160/85 H Blood Pressure Mean 92 Blood Pressure Mean [Left Arm] 110 Blood Pressure Position Sitting Blood Pressure Position [Left Arm] Semi-fowlers Pulse Oximetry 94 98 Oxygen Delivery Method Room Air Room Air Sepsis Recent Fever Within 48 Hours No Sepsis New/Unexplained Change in Mental Status N/A Sepsis Action Taken by Nursing No Action Required 06/13/24 10:21 06/13/24 10:21 06/13/24 12:00 Temperature Temperature Source Pulse Rate 94 H Pulse Rate [Right Finger] 80 Pulse Rhythm Regular Pulse Rhythm [Right Finger] Pulse Strength [Right Finger] Respiratory Rate 22 17 Respiratory Effort / Characteristics Respiratory Depth Respiratory Pattern Blood Pressure Blood Pressure [Left Arm] 138/78 Blood Pressure Mean Blood Pressure Mean [Left Arm] 98 Blood Pressure Position Blood Pressure Position [Left Arm] Pulse Oximetry 98 98 91 Oxygen Delivery Method Room Air Room Air Room Air Sepsis Recent Fever Within 48 Hours Sepsis New/Unexplained Change in Mental Status Sepsis Action Taken by Nursing 06/13/24 14:00 06/13/24 14:16 Temperature Temperature Source Pulse Rate 91 H Pulse Rate [Right Finger] 103 H Pulse Rhythm Pulse Rhythm [Right Finger] Pulse Strength [Right Finger] Respiratory Rate 22 Respiratory Effort / Characteristics Respiratory Depth Respiratory Pattern Blood Pressure Blood Pressure [Left Arm] 135/76 Blood Pressure Mean Blood Pressure Mean [Left Arm] 95 Blood Pressure Position Blood Pressure Position [Left Arm] Pulse Oximetry 96 Oxygen Delivery Method Room Air Sepsis Recent Fever Within 48 Hours Sepsis New/Unexplained Change in Mental Status Sepsis Action Taken by Nursing Laboratory Data 06/13/24 10:10 06/13/24 10:10 Lab Results 06/13/24 06/13/24 06/13/24 Range/Units 10:00 10:10 12:56 WBC 13.98 H (4.8-10.8) K/ul RBC 4.97 (4.20-5.40) M/uL Hgb 14.5 (12.0-16.0) g/dl Hct 42.7 (37.0-47.0) % MCV 85.9 (80.0-100.0) fL MCH 29.2 (25.0-34.0) pg MCHC 34.0 (32.0-36.0) g/dL RDW Std Deviation 43.7 (36.4-46.3) fL RDW Coeff of Daria 14.3 (11.5-14.5) % Plt Count 180 (130-400) K/uL MPV 11.0 (9.4-12.4) fL Immature Gran % (Auto) 0.4 % Neut % (Auto) 83.6 % Lymph % (Auto) 10.3 % [place]monson % (Auto) 5.0 % Eos % (Auto) 0.6 % Baso % (Auto) 0.1 % Neut # (Auto) 11.70 H (1.40-6.50) K/uL Lymph # (Auto) 1.44 (1.20-3.40) K/uL [place] # (Auto) 0.70 H (0.11-0.59) K/uL Eos # (Auto) 0.08 (0.00-0.50) K/uL Baso # (Auto) 0.01 (0.00-0.20) K/uL Immature Gran # (Auto) 0.05 (0.01-0.20) K/uL Sodium 139 (136-145) mmol/L Potassium 3.2 L (3.5-5.1) mmol/L Chloride 101 (98-107) mmol/L Carbon Dioxide 28 (21-32) mmol/L Anion Gap 10 (3-11) BUN 11 (6-23) mg/dl Creatinine 0.75 (0.6-1.2) mg/dl Est Cr Clr Drug Dosing 52.0 ml/min Est GFR ( Amer) 91.0 ml/min Est GFR (Non-Af Amer) 78.5 ml/min BUN/Creatinine Ratio 14.7 (10-20) Glucose 219 H (70-99(Fasting)) mg/dl Calcium 9.5 (8.6-10.3) mg/dl Troponin I High Sens 16.6 H 15.0 H (0-14) pg/ml B-Natriuretic Peptide 66 (0-100) pg/ml Adenovirus (PCR) Not Detected (NotDetected) B. pertussis DNA (PCR) Not Detected (NotDetected) B.parapertussis DNA PCR Not Detected (NotDetected) C. pneumoniae DNA (PCR) Not Detected (NotDetected) Coronavirus OC43 (PCR) Not Detected (NotDetected) Coronavirus HKU1 (PCR) Not Detected (NotDetected) Coronavirus 229E (PCR) Not Detected (NotDetected) SARS-CoV-2 (PCR) Not Detected (NotDetected) Coronavirus NL63 (PCR) Not Detected (NotDetected) Human Metapneumovir PCR Not Detected (NotDetected) Influenza Type A (PCR) Not Detected (NotDetected) Influenza Type B (PCR) Not Detected (NotDetected) M. pneumoniae (PCR) Not Detected (NotDetected) Parainfluenza 1 (PCR) Not Detected (NotDetected) Parainfluenza 2 (PCR) Not Detected (NotDetected) Parainfluenza 3 (PCR) Not Detected (NotDetected) Parainfluenza 4 (PCR) Not Detected (NotDetected) RSV (PCR) Not Detected (NotDetected) Entero/Rhino (PCR) DETECTED A (NotDetected) Administered Medications Discontinued Medications Albuterol (Albut/Ipratrop 3mg/0.5mg Neb 3 Ml Vial) 3 ml INH NOW STA Stop: 06/13/24 10:00 Last Admin: 06/13/24 10:15 Dose: 3 ml Documented By: LANI Albuterol (Albut/Ipratrop 3mg/0.5mg Neb 3 Ml Vial) 3 ml NEB NOW STA; Protocol Stop: 06/13/24 12:40 Last Admin: 06/13/24 12:59 Dose: 3 ml Documented By: ANAI Acetaminophen (Ofirmev) 1,000 mg in 100 mls @ 400 mls/hr IV NOW STA Stop: 06/13/24 10:14 Last Infusion: 06/13/24 11:17 Dose: Infused Documented By: Admin: 06/13/24 10:15 Dose: 400 mls/hr Documented By: LANI Sodium Chloride (Nss) 500 mls @ 999 mls/hr IV .Q31M ONE Stop: 06/13/24 14:51 Last Infusion: 06/13/24 15:16 Dose: Infused Documented By: Admin: 06/13/24 14:43 Dose: 999 mls/hr Documented By: ANAI Methylprednisolone (Methylprednisolone 125 Mg/2 Ml Vial) 125 mg IV NOW STA Stop: 06/13/24 10:00 Last Admin: 06/13/24 10:15 Dose: 125 mg Documented By: LANI Potassium Chloride (Potassium Chloride Crtab 20 Meq Tabcr) 40 meq PO NOW STA Stop: 06/13/24 12:25 Last Admin: 06/13/24 12:59 Dose: 40 meq Documented By: ANAI Imaging Data Radiologist's Impression: Chest X-Ray 06/13/24 09:59 XR chest 1V portable HISTORY: 73 years-old Female dyspnea acute shortness of breath COMPARISON: 04/01/2024 TECHNIQUE: AP view of the chest FINDINGS: Cardiac silhouette is normal. Atherosclerosis of the aorta. No pneumothorax, pleural effusion or airspace consolidation. Spondylitic spurring of the spine. IMPRESSION: No acute process. ACT 112: Negative or not required by law. The above report was generated using voice recognition software. It may contain grammatical, syntax or spelling errors. Electronically signed by: Asher Weaver M.D. 06/13/2024 10:40 AM Discharge Plan Visit Data Chief Complaint: Flu Like Symptoms Stated Complaint: CAN'T BREATH, COUGH, CHEST AND HEAD HURT ED Provider: Raphael Conteh Discharge Problem: COPD (chronic obstructive pulmonary disease), Near syncope Patient Disposition: Admitted As Inpatient Discharge Instructions Interventions: ED Discharge Assessment Last Done: 06/13/24 15:17
[2024-06-13] MEDS: ALBUT/IPRATROP 3MG/0.5MG NEB 3 ML VIAL INH STA (10:15)
[2024-06-13] MEDS: methylPREDNISolone 125 MG/2 ML VIAL IV STA (10:15)
[2024-06-13] MEDS: ACETAMINOPHEN 1,000 MG/100 ML VIAL IV STA (10:15)
[2024-06-13 10:37] LABS: Basophils # (auto) 0.01 K/uL (0.00-0.20); Basophils % (auto) 0.1 %; Eosinophils # (auto) 0.08 K/uL (0.00-0.50); Eosinophils % (auto) 0.6 %; Hematocrit (blood only) 42.7 % (37.0-47.0); Hemoglobin 14.5 g/dl (12.0-16.0); Immature Granulocytes # (auto) 0.05 K/uL (0.01-0.20); Immature Granulocytes % (auto) 0.4 %; Lymphocytes # (auto) 1.44 K/uL (1.20-3.40); Lymphocytes % (auto) 10.3 %; Mean Corpuscular Hemoglobin 29.2 pg (25.0-34.0); Mean Corpuscular Volume 85.9 fL (80.0-100.0); Neutrophils % (auto) 83.6 %; Platelet Count 180 K/uL (130-400); RDW Coefficient of Variation 14.3 % (11.5-14.5); RDW Standard Deviation 43.7 fL (36.4-46.3); Red Blood Count 4.97 M/uL (4.20-5.40); White Blood Count 13.98 K/ul (4.8-10.8)
--- NOTE | 2024-06-13 10:41 | XRay Report ---
XR chest 1V portable HISTORY: 73 years-old Female dyspnea acute shortness of breath COMPARISON: 04/01/2024 TECHNIQUE: AP view of the chest FINDINGS: Cardiac silhouette is normal. Atherosclerosis of the aorta. No pneumothorax, pleural effusion or airs pace consolidation. Spondylitic spurring of the spine. IMPRESSION: No acute process. ACT 112: Negative or not required by law. The above report was generated using voice recognition software. It may contain grammatical, syntax o r spelling errors. Electronically signed by: Asher Weaver M.D. 06/13/2024 10:40 AM
[2024-06-13 10:58] LABS: BUN Creatinine Ratio 14.7 (10-20); Calcium 9.5 mg/dl (8.6-10.3); Est GFR (Non-African American) 78.5 ml/min; Potassium 3.2 mmol/L (3.5-5.1)
[2024-06-13 11:06] LABS: Troponin I High Sensitivity 16.6 pg/ml (0-14)
[2024-06-13 11:19] LABS: Adenovirus PCR Not Detected (NotDetected); Bordetella parapertussis PCR Not Detected (NotDetected); Bordetella pertussis PCR Not Detected (NotDetected); Chlamydia pneumoniae PCR Not Detected (NotDetected); Coronavirus 229E PCR Not Detected (NotDetected); Coronavirus CoV-2 (COVID19)PCR Not Detected (NotDetected); Coronavirus HKU1 PCR Not Detected (NotDetected); Coronavirus NL63 PCR Not Detected (NotDetected); Coronavirus OC43PCR Not Detected (NotDetected); Human Metapneumovirus PCR Not Detected (NotDetected); Influenza A PCR Not Detected (NotDetected); Influenza B PCR Not Detected (NotDetected); Mycoplasma pneumoniae PCR Not Detected (NotDetected); Parainfluenza Virus 1 PCR Not Detected (NotDetected); Parainfluenza Virus 2 PCR Not Detected (NotDetected); Parainfluenza Virus 3 PCR Not Detected (NotDetected); Parainfluenza Virus 4 PCR Not Detected (NotDetected); Respiratory Syncytial VirusPCR Not Detected (NotDetected); Rhinovirus/Enterovirus PCR DETECTED (NotDetected)
[2024-06-13] MEDS: ALBUT/IPRATROP 3MG/0.5MG NEB 3 ML VIAL NEB STA (12:59)
[2024-06-13] MEDS: POTASSIUM CHLORIDE CRTAB 20 MEQ TABCR PO STA (12:59)
--- NOTE | 2024-06-13 13:28 | Electrocardiogram Report ---
Test Reason : Blood Pressure : */* mmHG Vent. Rate : 97 BPM Atrial Rate : 97 BPM P-R Int : 132 ms QRS Dur : 84 ms QT Int : 360 ms P-R-T Axes : 69 21 68 degrees QTcB Int : 457 ms Normal sinus rhythm Normal ECG When compared with ECG of 21-Apr-2024 15:07, No significant change was found Confirmed by Meet Mendoza ([id number]) on 06/13/2024 1:28:22 PM Referred By: Confirmed By: Meet Mendoza
--- NOTE | 2024-06-13 14:39 | History & Physical Report ---
Date of Service June 13, 2024 Assessment & Plan (1) Acute exacerbation of chronic obstructive pulmonary disease (COPD): Plan: Acute COPD exacerbation due to entero-/rhinovirus borderline hypoxic with SpO2 in 90s in the ER, due to SpO2 greater than 90% while in ER patient was attempted for ambulatory trial and became near syncopal and extremely dyspneic. Recommended for observation due to poor clinical appearance Diffuse wheezing on exam consistent with COPD exacerbation QTcis not prolonged. Azithromycin 5-day course, methylprednisolone x 1 given and continued as 40 mg twice daily wean as clinically indicated. Flutter valve, incentive spirometry, nebs as needed Titrate oxygen to greater than 90%. Do not hyper oxygenate due to COPD physiology No signs of superimposed bacterial pneumonia at this time, antibiotics are not indicated Trend (2) Near syncope: Plan: Near syncope First episode on attempted ambulatory trial while in ER. Lightheaded, suspected due to dyspnea and flulike illness. No chest pain or chest pressure at any point Troponin minimally elevated at 15, repeat pending. Chest pain-free EKG normal sinus rhythm, no territorial ST/T wave changes Supportive care and observation on medical telemetry. Telemetry ordered due to near syncope (3) Diabetes mellitus, type 2: Plan: Type II DM DM 2 diet Goal BSG [id number] Empagliflozin continued Conservative SSI ordered, Lantus deferred Plan Chronic stable issues Hypertension: Continue enalapril Anxiety/depression: Continue home medications DVT prophylaxis: Lovenox Disposition: Medical telemetry CODE STATUS: Full code Disposition: Med/telemetry History of Present Illness Primary Care Provider: Abbe Lee MD 73-year-old female with a past medical history of COPD, carotid artery disease, CAD, COPD, colostomy who presents with 2 to 3 days of worsening upper respiratory symptoms including shortness of breath, productive cough and wheezing. No fevers or chills. She is recommended for admission for COPD exacerbation due to rhino/enterovirus. There is no signs of superimposed bacterial pneumonia on chest x-ray, she has mild leukocytosis without left shift. Jasmyn is seen at the bedside she reports she has had about 2 days of cold-like symptoms, wheezing, shortness of breath, and extreme shortness of breath on exertion. She has not had chest pain at any point. No nausea or vomiting. No diarrhea. No abdominal pain. She has been eating and drinking normally and is hungry at bedside. 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 She does not drink alcohol and does not use recreational drugs. She reports that she prefers to restart her on Symbicort inhaler as the powder substitutes burned her throat and can cause swelling. She will use her own inhaler while admitted, we will use our albuterol/DuoNebs as needed. No other questions or concerns at bedside. Confirms DNR/DNI. iewed extensively with patient, she reports in the event that she underwent a cardiopulmonary arrest she would not want resuscitation events as the quality of life even if successful he is not which she would want. CODE STATUS updated to DNR/DNI Allergies Allergy/AdvReac Type Severity Reaction Status Date / Time sumatriptan Allergy Severe Anaphylaxis, Verified 06/06/24 09:33 "heart troubles" fluticasone Allergy Mild "Gonzales Verified 06/06/24 09:33 nose" hydrochlorothiazide Allergy Mild Rash Verified 06/06/24 09:33 levofloxacin Allergy Mild Gastrointestinal Verified 06/06/24 09:33 Upset lisinopril Allergy Mild Rash Verified 06/06/24 09:33 NSAIDS (Non-Steroidal Allergy Mild Rash Verified 06/06/24 09:33 Anti-Inflamma oxycodone AdvReac Severe constipatio Verified 06/06/24 09:33 n famotidine [From Pepcid] AdvReac Intermediate Nausea Verified 06/06/24 09:33 metformin AdvReac Mild Nausea Verified 06/06/24 09:33 Home Medications Medication Instructions Recorded Confirmed Type sennosides 8.6 mg-docusate sodium 1 tab PO BID PRN constipation #30 08/01/19 06/13/24 History 50 mg tablet tabs lancets 33 gauge (OneTouch Delica #100 ea 01/16/21 06/06/24 Rx Plus Lancet) blood-glucose meter (OneTouch #1 ea 07/30/21 06/06/24 Rx Verio Meter) ipratropium 0.5 mg-albuterol 3 mg 3 ml inhalation Q6H PRN wheezing 08/27/22 06/13/24 Rx (2.5 mg base)/3 mL nebulization #180 mL soln montelukast 10 mg tablet 10 mg PO QPM #90 tabs 09/08/22 06/13/24 Rx macushield 1 cap PO QAM 01/19/23 06/13/24 History albuterol sulfate 90 mcg/actuation 2 puff inhalation Q4H PRN 02/26/23 06/13/24 Rx aerosol inhaler (ProAir HFA) shortness of breath or wheezing #18 grams budesonide-formoterol HFA 160 2 puff inhalation BID #6 grams 02/26/23 06/13/24 Rx mcg-4.5 mcg/actuation aerosol inhaler (Symbicort) cetirizine 10 mg tablet 10 mg PO QAM 05/10/23 06/13/24 History amlodipine 5 mg tablet 5 mg PO QPM #30 tabs 05/12/23 06/13/24 Rx rosuvastatin 5 mg tablet 5 mg PO QAM #90 tabs 06/04/23 06/13/24 Rx ascorbic acid (vitamin C) 1,000 mg 1 g PO QPM 07/19/23 06/13/24 History tablet (Vitamin C) cholecalciferol (vitamin D3) 50 50 mcg PO QPM 07/19/23 06/13/24 History mcg (2,000 unit) capsule (Vitamin D3) cyanocobalamin (vitamin B-12) 1,000 mcg PO QPM 07/19/23 06/13/24 History 1,000 mcg tablet (Vitamin B-12) blood sugar diagnostic (OneTouch #200 ea 12/06/23 06/06/24 Rx Verio test strips) enalapril maleate 10 mg tablet 10 mg PO QAM #90 tabs 12/14/23 06/13/24 Rx furosemide 20 mg tablet 20 mg PO QAM #90 tabs 03/20/24 06/13/24 Rx venlafaxine 75 mg capsule,extended 75 mg PO QAM 04/04/24 06/13/24 History release 24 hr meclizine 12.5 mg tablet 12.5 mg PO TID PRN dizziness #20 04/21/24 06/13/24 Rx tabs empagliflozin 25 mg tablet 25 mg PO QAM #90 tabs 04/24/24 06/13/24 Rx (Jardiance) sucralfate 1 gram tablet (Carafate) 1 g PO BID #30 tabs 04/24/24 06/13/24 Rx venlafaxine 37.5 mg 37.5 mg PO DAILY #90 caps 06/06/24 06/13/24 Rx capsule,extended release 24 hr pantoprazole 40 mg tablet,delayed 40 mg PO BID 06/13/24 06/13/24 History release Past Med/Surg History Problem List (Updated 06/13/24 @ 14:35 by Ivan Forrest MD) Acute exacerbation of chronic obstructive pulmonary disease (COPD) Near syncope Pulsatile tinnitus Other cervical disc degeneration, mid-cervical region, unspecified level Balance problem Carpal tunnel syndrome, bilateral Status post left knee replacement (~07/2023) Encounter for pre-operative examination Osteoarthritis of left knee H/O hernia repair Weakness Hospital discharge follow-up Fatigue Shortness of breath Spigelian hernia (12/19/22) Open Repair of spigelian hernia Repair with mesh, 2.5 cm defect (Not Applicable) - Sukhwinder Chao, DO, FACS SBO (small bowel obstruction) (Acute) Incarcerated hernia (Acute) Status post right knee replacement (~09/2022) Osteoarthritis of right knee Cervical radiculopathy Carotid artery plaque Current use of proton pump inhibitor Non-allergic rhinitis Osteoarthritis of knees, bilateral Arthralgia Osteoarthritis Prediabetes Anxiety Gastroparesis Getting gastric emptying study next month Spondylosis Trigger finger Essential (primary) hypertension Carpal tunnel syndrome Barretts esophagus ASCVD (arteriosclerotic cardiovascular disease) Per records Allergic rhinitis Antibody deficiency syndrome Immune deficiency disorder Diabetes NIDDM Glucose stable Dermatochalasis of eyelids of both eyes Colostomy in place COPD (chronic obstructive pulmonary disease) Medical History Neck pain ASCVD (arteriosclerotic cardiovascular disease) Osteoarthritis Anxiety Allergic rhinitis Weakness Trigger finger of right hand Dyspnea on exertion History of small bowel obstruction Neck pain Gastroparesis Fatigue Diabetes mellitus, type 2 Carotid artery plaque Immune deficiency disorder History of anesthesia reaction Chronic back pain History of gastric ulcer Barretts esophagus Hypertension Emphysema lung Chronic obstructive pulmonary disease Asthma Diverticulitis of colon with perforation Surgical History History of total left knee replacement (TKR) History of hernia repair History of right knee joint replacement History of carpal tunnel surgery of right wrist History of arthroscopy of right knee History of colonoscopy with polypectomy History of esophagogastroduodenoscopy (EGD) History of total hysterectomy with bilateral salpingo-oophorectomy (BSO) History of appendectomy History of tooth extraction History of cardiac cath S/P tubal ligation S/P colostomy takedown History of colon surgery S/P cholecystectomy Family History (Updated 06/06/24 @ 13:01 by Kamla Argueta PA-C) Mother Diabetes Bone cancer Hepatic cirrhosis Uncle Prostate cancer Diabetes Colorectal cancer Grandmother (Maternal) Esophageal cancer Diabetes Father Diabetes Aunt Diabetes Grandfather (Paternal) Diabetes Brother , age 68 Myocardial infarction COPD (chronic obstructive pulmonary disease) Other No family history of adverse response to anesthesia Denies family history of Ovarian cancer Breast cancer Social History Smoking Status: Former smoker Tobacco Type: Cigarettes Age Started Using Tobacco: 17; Age Quit Using Tobacco: 35; packs per day: 1; Second Hand Exposure: No; Do You Dip or Chew Tobacco: No; Hx Alcohol Use: No Hx Substance Use: No Preferred Language: Faroese Communication Ability: Effective Visual Impairment: No Limitations Hearing Ability: Normal Inside Sales Assistant Required: No Beliefs That Will Affect Care: None marital status: Current Living Situation: Alone Current Living Situation Comment: lives in "tiny house" right next to son's house current occupational status: retired Feels Safe at Home: Yes Childhood Exposure to Second-Hand Smoke: No Seatbelt Use: always Sunscreen Use: Yes Assistive Devices: Denture - Upper, Glasses and Nebulizer Physical Exam Physical Exam: General: A&Ox3. NAD. Cooperative. Appears fatigued but nontoxic HEENT: Atraumatic, normocephalic. Vision/hearing intact Pulm: Scattered end expiratory wheezing. Symmetrical chest rise. No increased work of breathing. No respiratory distress. Cardiac: slightly tachycardic, regular, -mrg. Radial pulses intact and symmetrical. Abdominal: Nontender, nondistended, soft. BS present. Results & Data Results & Data Vital Signs (Past 12 Hours) Vital Signs Temp Pulse Pulse Resp BP BP Pulse Ox 06/13/24 14:16 91 H 06/13/24 14:00 103 H 22 135/76 96 06/13/24 12:00 80 17 138/78 91 06/13/24 10:21 94 H 22 98 06/13/24 10:21 98 06/13/24 10:21 36.9 C 94 H 22 160/85 H 98 06/13/24 10:18 82 06/13/24 09:44 37.2 C 106 H 18 136/71 94 O2 Del Method 06/13/24 14:16 06/13/24 14:00 Room Air 06/13/24 12:00 Room Air 06/13/24 10:21 Room Air 06/13/24 10:21 Room Air 06/13/24 10:21 Room Air 06/13/24 10:18 06/13/24 09:44 Room Air PG Care Time/CCT Total # of Minutes Spent Total Time Spent with Patient: Total time spent is greater than 50% in coordination of care (as documented) at patient's floor/unit and/or counseling patient: Coding Level of Care Code 08654 INT INP/OBS CARE 3/75MIN Diagnoses Acute exacerbation of chronic obstructive pulmonary disease (COPD) J44.1 Near syncope R55 Diabetes mellitus, type 2 E11.9
[2024-06-13] MEDS: SODIUM CHLORIDE 0.9% 500 ML IV ONE (14:43)
[2024-06-13] MEDS ORDERED: GLUCOSE 10 TAB/TUBE PO PRN (15:43)
[2024-06-13] MEDS ORDERED: CARBOHYDRATES FOR HYPOGLYCEMIA PO PRN (15:43)
[2024-06-13] MEDS ORDERED: GLUCAGON FOR INJ 1 MG VIAL SQ PRN (15:43)
[2024-06-13] MEDS ORDERED: GLUCOSE 40% GEL 15 GM TUBE PO PRN (15:43)
[2024-06-13] MEDS ORDERED: ALBUTEROL HFA 8 GM INHALER INH PRN (15:43)
[2024-06-13] MEDS ORDERED: PHARMACY GLYCEMIC MGMT CONSULT PRN (15:43)
[2024-06-13] MEDS ORDERED: DEXTROSE 50% 50 ML SYRINGE IV PRN (15:43)
[2024-06-13] MEDS: AZITHROMYCIN 250 MG TAB PO ONE (16:05)
[2024-06-13] MEDS: EMPAGLIFLOZIN 25 MG TAB PO SCH (17:01)
[2024-06-13] MEDS: INSULIN ASPART PER UNIT CHARGE SC SCH (17:01)
[2024-06-13] MEDS: amLODIPine BESYLATE 5 MG TAB PO SCH (20:16)
[2024-06-13] MEDS: SUCRALFATE 1 GM TAB PO SCH (20:16)
[2024-06-13] MEDS: guaiFENesin 600 MG TABCR PO SCH (20:17)
[2024-06-13] MEDS: PANTOprazole 40 MG TAB PO SCH (21:49)
[2024-06-13] MEDS: BENZONATATE 100 MG CAPSULE PO ONE (23:40)
[2024-06-14] MEDS: INSULIN ASPART PER UNIT CHARGE SC SCH (00:16)
[2024-06-14] MEDS: COUGH DROP (SUGAR FREE) LOZ 24 LOZ/1 BOX BUCCAL PRN (06:32)
[2024-06-14 06:37] LABS: Basophils # (auto) 0.02 K/uL (0.00-0.20); Basophils % (auto) 0.1 %; Hematocrit (blood only) 38.4 % (37.0-47.0); Hemoglobin 12.9 g/dl (12.0-16.0); Immature Granulocytes # (auto) 0.04 K/uL (0.01-0.20); Immature Granulocytes % (auto) 0.3 %; Lymphocytes # (auto) 1.15 K/uL (1.20-3.40); Lymphocytes % (auto) 8.3 %; Mean Corpuscular Hemoglobin 29.1 pg (25.0-34.0); Mean Corpuscular Hgb Conc 33.6 g/dL (32.0-36.0); Mean Corpuscular Volume 86.5 fL (80.0-100.0); Mean Platelet Volume 11.4 fL (9.4-12.4); Monocytes # (auto) 0.53 K/uL (0.11-0.59); Monocytes % (auto) 3.8 %; Neutrophils # (auto) 12.15 K/uL (1.40-6.50); Neutrophils % (auto) 87.5 %; Platelet Count 184 K/uL (130-400); RDW Coefficient of Variation 14.4 % (11.5-14.5); RDW Standard Deviation 44.2 fL (36.4-46.3); Red Blood Count 4.44 M/uL (4.20-5.40); White Blood Count 13.89 K/ul (4.8-10.8)
[2024-06-14] MEDS: BENZONATATE 100 MG CAPSULE PO PRN (06:40)
[2024-06-14 07:00] LABS: BUN Creatinine Ratio 31.6 (10-20); Calcium 9.4 mg/dl (8.6-10.3); Creatinine Clr Calc Pharmacy 68.5 ml/min; Est GFR (African American) 105.8 ml/min; Est GFR (Non-African American) 91.3 ml/min
[2024-06-14 07:34] LABS: Estimated Average Glucose 197 mg/dl; Hemoglobin A1C 8.5 % (4.5-5.6)
[2024-06-14] MEDS: VENLAFAXINE HCL XR 75 MG CAPXR PO SCH (07:49)
[2024-06-14] MEDS: AZITHROMYCIN 250 MG TAB PO SCH (07:50)
[2024-06-14] MEDS: ENALAPRIL MALEATE 10 MG TAB PO SCH (07:50)
[2024-06-14] MEDS: VENLAFAXINE HCL XR 37.5 MG CAPXR PO SCH (07:50)
[2024-06-14] MEDS: ROSUVASTATIN CALCIUM 5 MG TAB PO SCH (07:50)
[2024-06-14] MEDS: methylPREDNISolone 40 MG in SYRINGE 0 ML IV SCH (07:51)
[2024-06-14] MEDS: FORMOTEROL 20 MCG/2 ML VIAL NEB SCH (08:08)
--- NOTE | 2024-06-14 11:00 | Hospitalist Progress Note ---
Date of Service June 14, 2024 Assessment & Plan (1) Acute exacerbation of chronic obstructive pulmonary disease (COPD): (2) Near syncope: (3) Essential (primary) hypertension: (4) Diabetes mellitus, type 2: Plan 73-year-old female with past medical history of COPD, essential hypertension, hyperlipidemia who presented to the ED with 2-day history of worsening upper respiratory symptoms including shortness of breath, productive cough with green sputum and wheezing. She was found to be positive for rhino/enterovirus and was admitted for COPD exacerbation #Acute exacerbation of COPD #Leukocytosis #Rhino/enterovirus positive Patient was recently treated with steroids for skin rash and I suspect leukocytosis may be related to recent steroid use Continue Solu-Medrol 40 mg IV twice daily Add formoterol plus budesonide Patient uses Symbicort at home Continue nebulizers as needed Continue Singulair Chest x-ray did not show any evidence of infiltrates Continue azithromycin 250 mg p.o. daily (day 11/01) #Near syncope #Essential hypertension #Hyperlipidemia Check orthostatic vital signs Check 2D echo PT evaluation Symptoms have improved, likely related to congestion from viral illness Continue amlodipine and enalapril with hold parameters for orthostatic vital signs Continue rosuvastatin Monitor orthostatic vital signs #Type 2 diabetes mellitus Patient has a history of gastroparesis A1c is 8.5 Patient was initially reluctant to use insulin but now is agreeable to using insulin Pharmacy managing insulin Continue Empagliflozin Accu-Cheks before every meal and nightly with sliding scale insulin coverage Monitor glycemic control health promotion educator consult #Mood disorder Continue venlafaxine CODE STATUS: DNR/DNI DVT prophylaxis: Start Lovenox 40 mg subcutaneous daily Discharge planning likely tomorrow if medically stable based on echo report and clinical improvement Care plan discussed with patient, nursing staff Patient's son Chuy Tucker ([phone]) updated on the phone Admission and Anticipated Discharge Date Admission Date: June 13, 2024 Subjective Patient seen and examined H&P reviewed Patient states she feels much better than admission although still feels weak, dizzy and tired She still has a cough, green sputum production Reports improvement in her breathing and shortness of breath Denies any chest pain Denies any nausea, vomiting, diarrhea, abdominal pain Patient has been refusing insulin Social history: Patient quit tobacco smoking in 1981. She lives by herself in an in-law apartment next to her son. She is independent of ADLs and denies alcohol use Review of Systems Review of Systems: As per HPI Physical Exam Physical Exam: General: No acute distress, speaking in full sentences Psych: Awake and alert HEENT: Anicteric sclera, moist oral mucosa CVS: Regular rate and rhythm Lungs: Bilateral air entry, no wheezing noted Abdomen: Soft, nontender, no rebound, no guarding Ext: No lower extremity edema, no calf tenderness Neuro: No focal motor deficits noted Results & Data Results & Data Vital Signs (Past 12 Hours) Vital Signs Temp Pulse Pulse Resp BP BP Pulse Ox 06/14/24 08:09 75 18 93 06/14/24 08:00 06/14/24 07:54 36.3 C L 80 20 176/69 H 95 06/14/24 07:00 73 06/14/24 04:05 36.4 C L 80 18 121/55 L 93 06/13/24 23:30 36.4 C L 75 18 156/87 H 94 O2 Del Method 06/14/24 08:09 Room Air 06/14/24 08:00 Room Air 06/14/24 07:54 Room Air 06/14/24 07:00 06/14/24 04:05 Room Air 06/13/24 23:30 Room Air Laboratory Results Laboratory Results - last 24 hr 06/13/24 06/13/24 06/13/24 20:01 20:03 23:54 WBC RBC Hgb Hct MCV MCH MCHC RDW Std Deviation RDW Coeff of Daria Plt Count MPV Immature Gran % (Auto) Neut % (Auto) Lymph % (Auto) [place] % (Auto) Eos % (Auto) Baso % (Auto) Neut # (Auto) Lymph # (Auto) [place] # (Auto) Eos # (Auto) Baso # (Auto) Immature Gran # (Auto) Sodium Potassium Chloride Carbon Dioxide Anion Gap BUN Creatinine Est Cr Clr Drug Dosing Est GFR ( Amer) Est GFR (Non-Af Amer) BUN/Creatinine Ratio Glucose POC Glucose 332 H* 319 H* 179 H Estimat Average Glucose Hemoglobin A1c Calcium 06/14/24 06/14/24 06/14/24 03:50 05:42 08:10 WBC 13.89 H RBC 4.44 Hgb 12.9 Hct 38.4 MCV 86.5 MCH 29.1 MCHC 33.6 RDW Std Deviation 44.2 RDW Coeff of Daria 14.4 Plt Count 184 MPV 11.4 Immature Gran % (Auto) 0.3 Neut % (Auto) 87.5 Lymph % (Auto) 8.3 [place] % (Auto) 3.8 Eos % (Auto) 0.0 Baso % (Auto) 0.1 Neut # (Auto) 12.15 H Lymph # (Auto) 1.15 L [place] # (Auto) 0.53 Eos # (Auto) 0.00 Baso # (Auto) 0.02 Immature Gran # (Auto) 0.04 Sodium 141 Potassium 4.0 D Chloride 107 Carbon Dioxide 22 Anion Gap 12 H BUN 18 Creatinine 0.57 L Est Cr Clr Drug Dosing 68.5 Est GFR ( Amer) 105.8 Est GFR (Non-Af Amer) 91.3 BUN/Creatinine Ratio 31.6 H Glucose 134 H POC Glucose 139 H 132 H Estimat Average Glucose 197 Hemoglobin A1c 8.5 H Calcium 9.4 06/14/24 06/14/24 12:20 17:01 WBC RBC Hgb Hct MCV MCH MCHC RDW Std Deviation RDW Coeff of Daria Plt Count MPV Immature Gran % (Auto) Neut % (Auto) Lymph % (Auto) [place] % (Auto) Eos % (Auto) Baso % (Auto) Neut # (Auto) Lymph # (Auto) [place] # (Auto) Eos # (Auto) Baso # (Auto) Immature Gran # (Auto) Sodium Potassium Chloride Carbon Dioxide Anion Gap BUN Creatinine Est Cr Clr Drug Dosing Est GFR ( Amer) Est GFR (Non-Af Amer) BUN/Creatinine Ratio Glucose POC Glucose 190 H 169 H Estimat Average Glucose Hemoglobin A1c Calcium Diagnostic Findings Chest X-Ray 06/13/24 09:59 XR chest 1V portable HISTORY: 73 years-old Female dyspnea acute shortness of breath COMPARISON: 04/01/2024 TECHNIQUE: AP view of the chest FINDINGS: Cardiac silhouette is normal. Atherosclerosis of the aorta. No pneumothorax, pleural effusion or airspace consolidation. Spondylitic spurring of the spine. IMPRESSION: No acute process. ACT 112: Negative or not required by law. The above report was generated using voice recognition software. It may contain grammatical, syntax or spelling errors. Electronically signed by: Asher Weaver M.D. 06/13/2024 10:40 AM PG Care Time/CCT Total # of Minutes Spent Total Time Spent with Patient: Total time spent is greater than 50% in coordination of care (as documented) at patient's floor/unit and/or counseling patient: Coding Level of Care Code 23718 SUB INP/OBS CARE 3/50MIN Diagnoses Acute exacerbation of chronic obstructive pulmonary disease (COPD) J44.1 Near syncope R55 Essential (primary) hypertension I10 Diabetes mellitus, type 2 E11.9
--- NOTE | 2024-06-14 11:28 | Pharmacy Report ---
Pharmacy Glycemic Short Note 2 - Date of Service June 14, 2024 - Glycemic Short BSG Results (Last 24 hours): 06/13/24 06/13/24 06/13/24 16:51 16:52 20:01 Glucose POC Glucose 373 H* 381 H* 332 H* 06/13/24 06/13/24 06/14/24 20:03 23:54 03:50 Glucose POC Glucose 319 H* 179 H 139 H 06/14/24 06/14/24 05:42 08:10 Glucose 134 H POC Glucose 132 H OUTPATIENT ANTIDIABETIC REGIMEN: * Jardiance 25 mg PO daily * HbA1c: 8.5% (06/14/24) ASSESSMENT: * 73 yo F admitted on 06/13/24 secondary to COPD exacerbation. Pharmacy has been consulted to assist with inpatient glycemic management. Patient is a Type 2 diabetic as an outpatient. Please refer to outpatient regimen and most recent HbA1c above. * BSGs upon presentation yesterday were: 373-332-179 mg/dL. Patient is ordered a nd tolerating a T2DM diet. Also on Azithromycin PO and Solumedrol 40 mg IV BID. Did receive 125 mg of IV Solumedrol yesterday in ED which likely explains BSGs > 300 mg/dL. * Fasting BSG improved to 132 mg/dL this AM. Patient was refusing all insulin into this morning, but after discussion with provider, patient is agreeable to insulin while on steroids. * Will continue with Jardiance from home as well as bolus insulin regimen only for now. Should BSGs get out of control, will add on basal insulin. Bolus regimen is based on weight/stress of 3 currently. PLAN FOR INPATIENT GLYCEMIC CONTROL: * Jardiance 25 mg PO AM * Basal insulin * None * Bolus insulin * NovoLog per scale ACHS or Q6hrs while NPO * Goal Range: Low 110 mg/dL - High 140 mg/dL * Correction Factor: 30 mg/dL/unit * Nutritional / Prandial insulin per carb ratio of 1 unit per 10 grams CHO consumed
[2024-06-14] MEDS: ACETAMINOPHEN 325 MG TAB PO PRN (15:43)
--- NOTE | 2024-06-14 17:29 | XCELERA ---
[id number]
[2024-06-14] MEDS: BUDESONIDE 0.5 MG/2 ML VIAL (PULMICORT) NEB SCH (19:37)
[2024-06-14] MEDS: MELATONIN 3 MG TAB PO PRN (20:52)
[2024-06-14] MEDS: MONTELUKAST SODIUM 10 MG TABLET PO SCH (20:53)
[2024-06-15 06:34] LABS: Hematocrit (blood only) 37.5 % (37.0-47.0); Hemoglobin 12.6 g/dl (12.0-16.0); Mean Corpuscular Hemoglobin 29.2 pg (25.0-34.0); Mean Corpuscular Hgb Conc 33.6 g/dL (32.0-36.0); Mean Corpuscular Volume 86.8 fL (80.0-100.0); Mean Platelet Volume 11.4 fL (9.4-12.4); Platelet Count 198 K/uL (130-400); RDW Coefficient of Variation 14.6 % (11.5-14.5); RDW Standard Deviation 44.7 fL (36.4-46.3); Red Blood Count 4.32 M/uL (4.20-5.40); White Blood Count 12.87 K/ul (4.8-10.8)
[2024-06-15 06:49] LABS: BUN Creatinine Ratio 35.7 (10-20); Calcium 8.8 mg/dl (8.6-10.3); Creatinine Clr Calc Pharmacy 55.8 ml/min; Est GFR (African American) 98.9 ml/min; Est GFR (Non-African American) 85.4 ml/min; Magnesium 2.2 mg/dl (1.7-2.4); Potassium 3.9 mmol/L (3.5-5.1)
[2024-06-15 06:54] LABS: Basophils # (auto) 0.02 K/uL (0.00-0.20); Basophils % (auto) 0.2 %; Immature Granulocytes # (auto) 0.06 K/uL (0.01-0.20); Immature Granulocytes % (auto) 0.5 %; Lymphocytes # (auto) 0.93 K/uL (1.20-3.40); Lymphocytes % (auto) 7.2 %; Monocytes % (auto) 1.6 %; Neutrophils # (auto) 11.66 K/uL (1.40-6.50); Neutrophils % (auto) 90.5 %; Polychromasia 1+
[2024-06-15] MEDS: ENOXAPARIN INJ 40 MG/0.4 ML SYR SQ SCH (09:02)
--- NOTE | 2024-06-15 12:20 | Hospitalist Progress Note ---
Date of Service June 15, 2024 Assessment & Plan (1) Acute exacerbation of chronic obstructive pulmonary disease (COPD): (2) Near syncope: (3) Essential (primary) hypertension: (4) Diabetes mellitus, type 2: Plan 73-year-old female with past medical history of COPD, essential hypertension, hyperlipidemia who presented to the ED with 2-day history of worsening upper respiratory symptoms including shortness of breath, productive cough with green sputum and wheezing. She was found to be positive for rhino/enterovirus and was admitted for COPD exacerbation #Acute exacerbation of COPD #Leukocytosis #Rhino/enterovirus positive Patient was recently treated with steroids for skin rash and I suspect leukocytosis may be related to recent steroid use Reduce Solu-Medrol to 30 mg IV twice daily Continue formoterol plus budesonide Patient uses Symbicort at home Continue nebulizers as needed Continue Singulair Chest x-ray did not show any evidence of infiltrates Continue azithromycin 250 mg p.o. daily (day 3/5) #Near syncope #Essential hypertension #Hyperlipidemia Echo reviewed with patient, shows EF of 55% with grade 1 diastolic dysfunction no valvular abnormalities. PT saw patient and recommended home PT on discharge: Patient declined home PT and home services Symptoms have improved, likely related to congestion from viral illness Continue amlodipine and enalapril with hold parameters for orthostatic vital signs Continue rosuvastatin Monitor orthostatic vital signs #Type 2 diabetes mellitus Patient has a history of gastroparesis A1c is 8.5 Continue Empagliflozin Start Lantus 8 units subcutaneous nightly Accu-Cheks before every meal and nightly with sliding scale insulin coverage Monitor glycemic control Awaiting garnett mechanic consult for diabetes teaching and insulin teaching Nursing staff also to do insulin teaching with patient #Mood disorder Continue venlafaxine CODE STATUS: DNR/DNI DVT prophylaxis: Continue Lovenox 40 mg subcutaneous daily Discharge planning likely tomorrow if medically stable and patient has received insulin teaching/diabetes education Care plan discussed with patient, nursing staff Patient's Daughter in Law Genie Tucker ([phone]) updated on the phone Admission and Anticipated Discharge Date Admission Date: June 13, 2024 Subjective Patient seen and examined Reports improvement in her shortness of breath but still feels really unwell and does not feel ready to go home She is still requiring IV steroids Denies any nausea, vomiting, diarrhea or abdominal pain Dizziness has improved She felt her ears pop She is agreeable to using insulin Review of Systems Review of Systems: As per HPI Physical Exam Physical Exam: General: No acute distress, speaking in full sentences Psych: Awake and alert HEENT: Anicteric sclera, moist oral mucosa CVS: Regular rate and rhythm Lungs: Bilateral air entry, no wheezing noted Abdomen: Soft, nontender, no rebound, no guarding Ext: No lower extremity edema, no calf tenderness Neuro: No focal motor deficits noted Results & Data Results & Data Vital Signs (Past 12 Hours) Vital Signs Temp Pulse Pulse Resp BP BP Pulse Ox 06/15/24 11:32 36.5 C 64 16 121/56 L 93 06/15/24 07:59 36.4 C L 57 L 16 101/58 L 93 06/15/24 07:03 56 L 16 96 06/15/24 07:00 54 L 06/15/24 03:04 36.3 C L 60 18 121/60 92 O2 Del Method 06/15/24 11:32 Room Air 06/15/24 07:59 Room Air 06/15/24 07:03 Room Air 06/15/24 07:00 06/15/24 03:04 Room Air PG Care Time/CCT Total # of Minutes Spent Total Time Spent with Patient: Total time spent is greater than 50% in coordination of care (as documented) at patient's floor/unit and/or counseling patient: Coding Level of Care Code 40356 SUB INP/OBS CARE 3/50MIN Diagnoses Acute exacerbation of chronic obstructive pulmonary disease (COPD) J44.1 Near syncope R55 Essential (primary) hypertension I10 Diabetes mellitus, type 2 E11.9
[2024-06-15] MEDS: IPRATROPIUM BROMIDE NASAL SPRAY 0.06% 15ML NAE PRN (21:36)
[2024-06-15] MEDS: LANTUS PER UNIT CHARGE SQ SCH (21:37)
[2024-06-15] MEDS: methylPREDNISolone 30 MG in SYRINGE 0 ML IV SCH (21:38)
[2024-06-16] MEDS: MoRPHine SULFATE 2 MG/ML CARP IV STA (02:09)
[2024-06-16 04:41] LABS: Basophils # (auto) 0.02 K/uL (0.00-0.20); Basophils % (auto) 0.1 %; Hematocrit (blood only) 38.6 % (37.0-47.0); Hemoglobin 12.9 g/dl (12.0-16.0); Immature Granulocytes # (auto) 0.09 K/uL (0.01-0.20); Immature Granulocytes % (auto) 0.6 %; Lymphocytes # (auto) 0.94 K/uL (1.20-3.40); Lymphocytes % (auto) 5.8 %; Mean Corpuscular Hemoglobin 28.7 pg (25.0-34.0); Mean Corpuscular Hgb Conc 33.4 g/dL (32.0-36.0); Mean Platelet Volume 11.2 fL (9.4-12.4); Monocytes # (auto) 0.75 K/uL (0.11-0.59); Monocytes % (auto) 4.7 %; Neutrophils # (auto) 14.27 K/uL (1.40-6.50); Neutrophils % (auto) 88.8 %; Platelet Count 203 K/uL (130-400); RDW Coefficient of Variation 14.7 % (11.5-14.5); RDW Standard Deviation 44.9 fL (36.4-46.3); Red Blood Count 4.49 M/uL (4.20-5.40); White Blood Count 16.07 K/ul (4.8-10.8)
[2024-06-16 04:56] LABS: BUN Creatinine Ratio 36.5 (10-20); Calcium 8.9 mg/dl (8.6-10.3); Creatinine Clr Calc Pharmacy 52.8 ml/min; Est GFR (African American) 92.5 ml/min; Est GFR (Non-African American) 79.8 ml/min; Magnesium 2.2 mg/dl (1.7-2.4); Potassium 3.8 mmol/L (3.5-5.1)
[2024-06-16] MEDS: oxyCODONE HCL IR 5 MG TAB (IMMEDIATE RELEASE) PO STA (08:07)
--- NOTE | 2024-06-16 09:32 | Hospitalist Progress Note ---
Date of Service June 16, 2024 Assessment & Plan (1) Acute exacerbation of chronic obstructive pulmonary disease (COPD): (2) Near syncope: (3) Essential (primary) hypertension: (4) Diabetes mellitus, type 2: Plan 73-year-old female with past medical history of COPD, essential hypertension, hyperlipidemia who presented to the ED with 2-day history of worsening upper respiratory symptoms including shortness of breath, productive cough with green sputum and wheezing. She was found to be positive for rhino/enterovirus and was admitted for COPD exacerbation #Acute exacerbation of COPD #Leukocytosis #Rhino/enterovirus positive Patient was recently treated with steroids for skin rash and I suspect leukocytosis may be related to recent steroid use Stop IV Solu-Medrol and switch to oral prednisone 40 mg daily Continue formoterol plus budesonide Patient uses Symbicort at home Continue nebulizers as needed Continue Singulair Chest x-ray did not show any evidence of infiltrates Continue azithromycin 250 mg p.o. daily (day 4/5) #Oral candidiasis Start nystatin swish and swallow 3 times daily Start fluconazole 200 mg p.o. daily #Near syncope #Essential hypertension #Hyperlipidemia Echo reviewed with patient, shows EF of 55% with grade 1 diastolic dysfunction no valvular abnormalities. PT saw patient and recommended home PT on discharge: Patient declined home PT and home services Symptoms have improved, likely related to congestion from viral illness Continue enalapril with hold parameters for orthostatic vital signs Amlodipine has been held for now secondary to low blood pressure yesterday Continue rosuvastatin Monitor orthostatic vital signs Telemetry monitoring did not reveal any arrhythmias: Stop telemetry monitoring #Type 2 diabetes mellitus Patient has a history of gastroparesis A1c is 8.5 Continue Empagliflozin Continue Lantus 8 units subcutaneous nightly Accu-Cheks before every meal and nightly with sliding scale insulin coverage Monitor glycemic control Patient met with engine testing supervisor for diabetes teaching and insulin teaching Patient comfortable with doing insulin and okay with being discharged on insulin and will follow-up with her PCP #Mood disorder Continue venlafaxine CODE STATUS: DNR/DNI DVT prophylaxis: Continue Lovenox 40 mg subcutaneous daily Discharge planning likely tomorrow if medically stable Care plan discussed with patient, nursing staff message left for Patient's daughter in law Genie Tucker ([phone]) to update on the phone with patient's permission Admission and Anticipated Discharge Date Admission Date: June 15, 2024 Subjective Patient seen and examined Patient states she could not sleep well last night because of her throat hurting with sore throat, difficulty swallowing from all the irritation and also bilateral ear pain. Denies any discharge from the ears and denies any fever or chills. She is able to tolerate oral diet but has difficult time with eating because of soreness in her throat. She tells me that someone looked at her thro at overnight and felt it was irritated and was prescribed IV morphine which did not help much with the pain. Review of Systems Review of Systems: As per HPI Physical Exam Physical Exam: General: No acute distress, speaking in full sentences Psych: Awake and alert HEENT: Anicteric sclera, moist oral mucosa, examination of the throat reveals extensive erythema with white plaque consistent with oral candidiasis. Otoscopic exam of bilateral ears reveals no erythema, intact your drum, no wax noted. CVS: Regular rate and rhythm Lungs: Bilateral air entry, no wheezing noted Abdomen: Soft, nontender, no rebound, no guarding Ext: No lower extremity edema, no calf tenderness Neuro: No focal motor deficits noted Results & Data Results & Data Vital Signs (Past 12 Hours) Vital Signs Temp Pulse Pulse Resp BP BP Pulse Ox 06/16/24 08:24 36.7 C 74 20 139/77 94 06/16/24 07:42 36.7 C 19 92 06/16/24 05:23 36.4 C L 60 18 146/74 H 90 06/16/24 02:32 06/16/24 00:22 36.5 C 75 21 154/101 H 94 06/15/24 23:30 68 O2 Del Method 06/16/24 08:24 Room Air 06/16/24 07:42 Room Air 06/16/24 05:23 Room Air 06/16/24 02:32 Room Air 06/16/24 00:22 Room Air 06/15/24 23:30 PG Care Time/CCT Total # of Minutes Spent Total Time Spent with Patient: Total time spent is greater than 50% in coordination of care (as documented) at patient's floor/unit and/or counseling patient: Coding Level of Care Code 06164 SUB INP/OBS CARE 2/35MIN Diagnoses Acute exacerbation of chronic obstructive pulmonary disease (COPD) J44.1 Near syncope R55 Essential (primary) hypertension I10 Diabetes mellitus, type 2 E11.9
--- NOTE | 2024-06-16 09:39 | Pharmacy Report ---
Pharmacy Glycemic Short Note 2 - Date of Service June 16, 2024 - Glycemic Short BSG Results (Last 24 hours): 06/15/24 06/15/24 06/16/24 12:10 17:01 04:07 Glucose 172 H POC Glucose 150 H 165 H 06/16/24 08:10 Glucose POC Glucose 156 H OUTPATIENT ANTIDIABETIC REGIMEN: * Jardiance 25 mg PO daily * HbA1c: 8.5% (06/14/24) ASSESSMENT: 06/16 * Jasmyn received 26 units of insulin yesterday (8 were basal) and continues on Jardiance 25mg daily * Fasting BSGs within goal range, per hospitalist plan to send home on once daily basal due to HbA1c elevation, will continue to monitor and adjust as i ndicated * Slight steroid induced hyperglycemia noted (decreased yesterday to methylprednisolone 30mg IV BID),slightly tightened carbohydrate ratio 06/14 * 73 yo F admitted on 06/13/24 secondary to COPD exacerbation. Pharmacy has been consulted to assist with inpatient glycemic management. Patient is a Type 2 diabetic as an outpatient. Please refer to outpatient regimen and most recent HbA1c above. * BSGs upon presentation yesterday were: 373-332-179 mg/dL. Patient is ordered and tolerating a T2DM diet. Also on Azithromycin PO and Solumedrol 40 mg IV BID. Did receive 125 mg of IV Solumedrol yesterday in ED which likely explains BSGs > 300 mg/dL. * Fasting BSG improved to 132 mg/dL this AM. Patient was refusing all insulin into this morning, but after discussion with provider, patient is agreeable to insulin while on steroids. * Will continue with Jardiance from home as well as bolus insulin regimen only for now. Should BSGs get out of control, will add on basal insulin. Bolus regimen is based on weight/stress of 3 currently. PLAN FOR INPATIENT GLYCEMIC CONTROL: * Jardiance 25 mg PO AM * Basal insulin * Lantus 8 units SQ Daily * Bolus insulin * NovoLog per scale ACHS or Q6hrs while NPO * Goal Range: Low 110 mg/dL - High 140 mg/dL * Correction Factor: 30 mg/dL/unit * Nutritional / Prandial insulin per carb ratio of 1 unit per 9 grams CHO co nsumed
[2024-06-16] MEDS: NYSTATIN SUSP 500,000 U/5 ML UDC PO STA (10:25)
[2024-06-16] MEDS: predniSONE 20 MG TAB PO SCH (11:11)
[2024-06-16] MEDS: BUDESONIDE/FORMOTEROL FUMARATE 160/4.5 60 PUFFS/INHALER INH SCH (11:12)
[2024-06-16] MEDS: ACETAMINOPHEN 500 MG TAB PO SCH (11:12)
[2024-06-16] MEDS: FLUCONAZOLE SUSP 200 MG/5 ML UDP PO SCH (13:17)
[2024-06-16] MEDS: NYSTATIN SUSP 500,000 U/5 ML UDC PO SCH (15:35)
[2024-06-16] MEDS: oxyCODONE HCL IR 5 MG TAB (IMMEDIATE RELEASE) PO ONE (22:20)
[2024-06-16] MEDS: FIRST - Mouthwash BLM 119 ML PO PRN (23:33)
[2024-06-17] MEDS: oxyCODONE HCL IR 5 MG TAB (IMMEDIATE RELEASE) PO STA (05:23)
--- NOTE | 2024-06-17 09:47 | Hospitalist Progress Note ---
Date of Service June 17, 2024 Assessment & Plan (1) Acute exacerbation of chronic obstructive pulmonary disease (COPD): (2) Near syncope: (3) Essential (primary) hypertension: (4) Diabetes mellitus, type 2: Plan 73-year-old female with past medical history of COPD, essential hypertension, hyperlipidemia who presented to the ED with 2-day history of worsening upper respiratory symptoms including shortness of breath, productive cough with green sputum and wheezing. She was found to be positive for rhino/enterovirus and was admitted for COPD exacerbation #Acute exacerbation of COPD #Leukocytosis #Rhino/enterovirus positive Patient was recently treated with steroids for skin rash and I suspect leukocytosis may be related to recent steroid use Continue oral prednisone 40 mg daily Continue Symbicort twice daily Continue nebulizers as needed and add scheduled nebulizers DuoNebs 3 times daily Continue Singulair Chest x-ray did not show any evidence of infiltrates Check repeat chest x-ray Check sputum culture Check throat swab Continue azithromycin 250 mg p.o. daily (day 5/5) #Oral candidiasis Continue nystatin swish and swallow 3 times daily Continue fluconazole 200 mg p.o. daily (day 1) #Near syncope #Essential hypertension #Hyperlipidemia Echo showed EF of 55% with grade 1 diastolic dysfunction no valvular abnormalities. PT saw patient and recommended home PT on discharge: Patient declined home PT and home services Symptoms have improved, likely related to congestion from viral illness Continue enalapril and amlodipine with hold parameters for orthostatic vital signs Continue rosuvastatin Monitor orthostatic vital signs #Type 2 diabetes mellitus Patient has a history of gastroparesis A1c is 8.5 Continue Empagliflozin Pharmacy managing glycemic control Patient met with critical care educator for diabetes teaching and insulin teaching Patient comfortable with doing insulin and okay with being discharged on insulin and will follow-up with her PCP #Mood disorder Continue venlafaxine CODE STATUS: DNR/DNI DVT prophylaxis: Continue Lovenox 40 mg subcutaneous daily Discharge planning likely tomorrow if medically stable and clinically improved Care plan discussed with patient, nursing staff Patient's son Chuy Tucker ([phone]) updated on the phone with patient's permission Admission and Anticipated Discharge Date Admission Date: June 15, 2024 Subjective Patient seen and examined Had a rough night with sore throat She is having difficulty eating as it hurts to eat She is able to drink water although it also hurts She was started on antifungal agents yesterday for oral candidiasis Voice has improved but throat symptoms are the same She has a productive cough with green sputum since admission and sputum has not changed color She denies any fever or chills Denies any shortness of breath Does not feel well enough to go home because she is having difficulty eating Review of Systems Review of Systems: As per HPI Physical Exam Physical Exam: General: No acute distress, ill-appearing Psych: Awake and alert HEENT: Anicteric sclera CVS: Regular rate and rhythm Lungs: Bilateral air entry, no wheezing noted Abdomen: Soft, nontender, no rebound, no guarding Ext: No lower extremity edema, no calf tenderness Neuro: No focal motor deficits noted Results & Data Results & Data Vital Signs (Past 12 Hours) Vital Signs Temp Pulse Pulse Resp BP Pulse Ox O2 Del Method 06/17/24 07:58 36.4 C L 63 16 146/73 H 90 Room Air 06/17/24 07:32 59 L 06/17/24 07:16 75 16 90 Room Air 06/17/24 02:13 36.3 C L 58 L 20 118/68 90 Room Air 06/17/24 01:52 57 L PG Care Time/CCT Total # of Minutes Spent Total Time Spent with Patient: Total time spent is greater than 50% in coordination of care (as documented) at patient's floor/unit and/or counseling patient: Coding Level of Care Code 17462 SUB INP/OBS CARE 2/35MIN Diagnoses Acute exacerbation of chronic obstructive pulmonary disease (COPD) J44.1 Near syncope R55 Essential (primary) hypertension I10 Diabetes mellitus, type 2 E11.9
--- NOTE | 2024-06-17 10:45 | XRay Report ---
XR chest PA, lat, obliques HISTORY: 73 years-old Female worsening cough acute cough COMPARISON: 06/13/2024 TECHNIQUE: PA view of the chest with oblique views FINDINGS: Cardiomediastinal and hilar silhouettes are within normal limits. Atherosclerosis of the aorta. No pn eumothorax, pleural effusion or pulmonary edema. Mild linear subsegmental bibasilar atelectasis. Righ t upper quadrant surgical clips. IMPRESSION: No acute process. ACT 112: Negative or not required by law. The above report was generated using voice recognition software. It may contain grammatical, syntax o r spelling errors. Electronically signed by: Asher Weaver M.D. 06/17/2024 10:43 AM
--- NOTE | 2024-06-17 14:12 | Pharmacy Report ---
Pharmacy Glycemic Short Note 2 - Date of Service June 17, 2024 - Glycemic Short BSG Results (Last 24 hours): 06/15/24 06/16/24 06/16/24 20:43 17:08 20:57 POC Glucose 160 H 168 H 204 H 06/17/24 06/17/24 08:22 12:28 POC Glucose 83 95 OUTPATIENT ANTIDIABETIC REGIMEN: * Jardiance 25 mg PO daily * HbA1c: 8.5% (06/14/24) ASSESSMENT: 06/17 * Jasmyn received 21 units of insulin yesterday (8 were basal) as well as home Jardiance * Fasting BSG this AM below goal range, will remove carbohydrate ratio to get a better idea of discharge needs and titrate basal as indicated, cno change to basal dosage for now. * Continue current correction factor at this time. 06/16 * Jasmyn received 26 units of insulin yesterday (8 were basal) and continues on Jardiance 25mg daily * Fasting BSGs within goal range, per hospitalist plan to send home on once daily basal due to HbA1c elevation, will continue to monitor and adjust as indicated * Slight steroid induced hyperglycemia noted (decreased yesterday to methylpr ednisolone 30mg IV BID),slightly tightened carbohydrate ratio 06/14 * 73 yo F admitted on 06/13/24 secondary to COPD exacerbation. Pharmacy has been consulted to assist with inpatient glycemic management. Patient is a Type 2 diabetic as an outpatient. Please refer to outpatient regimen and most recent HbA1c above. * BSGs upon presentation yesterday were: 373-332-179 mg/dL. Patient is ordered and tolerating a T2DM diet. Also on Azithromycin PO and Solumedrol 40 mg IV BID. Did receive 125 mg of IV Solumedrol yesterday in ED which likely explains BSGs > 300 mg/dL. * Fasting BSG improved to 132 mg/dL this AM. Patient was refusing all insulin into this morning, but after discussion with provider, patient is agreeable to insulin while on steroids. * Will continue with Jardiance from home as well as bolus insulin regimen only for now. Should BSGs get out of control, will add on basal insulin. Bolus regimen is based on weight/stress of 3 currently. PLAN FOR INPATIENT GLYCEMIC CONTROL: * Jardiance 25 mg PO AM * Basal insulin * Lantus 8 units SQ Daily * Bolus insulin * NovoLog per scale ACHS or Q6hrs while NPO * Goal Range: Low 110 mg/dL - High 140 mg/dL * Correction Factor: 30 mg/dL/unit * Nutritional / Prandial insulin per carb ratio of 1 unit per NONE grams CHO consumed
[2024-06-17] MEDS: ALBUT/IPRATROP 3MG/0.5MG NEB 3 ML VIAL NEB STA (14:29)
[2024-06-17] MEDS: LORazepam 0.5 MG TAB PO PRN (14:51)
[2024-06-17] MEDS: FIRST - Mouthwash BLM 119 ML PO PRN (19:52)
[2024-06-17] MEDS: ALBUT/IPRATROP 3MG/0.5MG NEB 3 ML VIAL NEB SCH (20:12)
[2024-06-17] MEDS ORDERED: LANTUS PER UNIT CHARGE SQ SCH (21:00)
[2024-06-17] MEDS: LANTUS PER UNIT CHARGE SQ SCH (21:09)
[2024-06-18] MEDS: oxyCODONE HCL IR 5 MG TAB (IMMEDIATE RELEASE) PO STA (04:08)
[2024-06-18] MEDS: CHLORASEPTIC (PHENOL) 1.4% SOLN 180 ML BTL MT PRN (07:44)
[2024-06-18 08:06] LABS: Basophils # (auto) 0.02 K/uL (0.00-0.20); Basophils % (auto) 0.2 %; Hematocrit (blood only) 36.8 % (37.0-47.0); Hemoglobin 12.6 g/dl (12.0-16.0); Immature Granulocytes % (auto) 0.8 %; Lymphocytes # (auto) 2.23 K/uL (1.20-3.40); Lymphocytes % (auto) 18.5 %; Mean Corpuscular Hemoglobin 29.2 pg (25.0-34.0); Mean Corpuscular Hgb Conc 34.2 g/dL (32.0-36.0); Mean Corpuscular Volume 85.4 fL (80.0-100.0); Monocytes # (auto) 0.77 K/uL (0.11-0.59); Monocytes % (auto) 6.4 %; Neutrophils # (auto) 8.91 K/uL (1.40-6.50); Neutrophils % (auto) 74.1 %; Platelet Count 194 K/uL (130-400); RDW Coefficient of Variation 14.8 % (11.5-14.5); RDW Standard Deviation 45.5 fL (36.4-46.3); Red Blood Count 4.31 M/uL (4.20-5.40); White Blood Count 12.03 K/ul (4.8-10.8)
[2024-06-18 08:28] LABS: Albumin Globulin Ratio 1.1 (0.9-2); Albumin Level 3.3 gm/dl (3.4-5.0); BUN Creatinine Ratio 33.9 (10-20); Bilirubin,Total 0.4 mg/dl (0.2-1.0); Calcium 8.6 mg/dl (8.6-10.3); Est GFR (Non-African American) 88.8 ml/min; Globulin 3.1 gm/dl (2.5-4.0); Magnesium 2.3 mg/dl (1.7-2.4); Potassium 3.5 mmol/L (3.5-5.1); Total Protein 6.4 gm/dl (6.0-8.3)
[2024-06-18] MEDS: traMADol HCL 50 MG TABLET PO STA (09:12)
[2024-06-18] MEDS: NovoLIN-N (NPH) PER UNIT CHARGE SQ ONE (10:08)
--- NOTE | 2024-06-18 11:16 | Hospitalist Progress Note ---
Date of Service June 18, 2024 Assessment & Plan (1) Acute exacerbation of chronic obstructive pulmonary disease (COPD): (2) Near syncope: (3) Essential (primary) hypertension: (4) Diabetes mellitus, type 2: Plan 73-year-old female with past medical history of COPD, essential hypertension, hyperlipidemia who presented to the ED with 2-day history of worsening upper respiratory symptoms including shortness of breath, productive cough with green sputum and wheezing. She was found to be positive for rhino/enterovirus and was admitted for COPD exacerbation #Acute exacerbation of COPD #Leukocytosis #Rhino/enterovirus positive Patient was recently treated with steroids for skin rash and I suspect leukocytosis may be related to recent steroid use White count is improving Patient was treated with 3 days of IV steroids and 3 days of oral steroids She is no longer wheezing and her respiratory symptoms have improved At this point I feel the steroids are causing her more issues with oral candidiasis and will stop steroids Patient has finished 5 days of oral azithromycin on 06/17/2024 Continue Symbicort twice daily Continue nebulizers as needed and scheduled nebulizers DuoNebs 3 times daily Continue Singulair Chest x-ray from admission did not show any evidence of infiltrates Repeat chest x-ray from 06/17/2024 showed no acute cardiopulmonary issues Sputum and throat culture results are pending: Follow-up results #Oral candidiasis Continue nystatin swish and swallow 3 times daily Continue fluconazole 200 mg p.o. daily (day 2) #Near syncope #Essential hypertension #Hyperlipidemia Echo showed EF of 55% with grade 1 diastolic dysfunction no valvular abnormalities. PT saw patient and recommended home PT on discharge: Patient declined home PT and home services Symptoms have improved, likely related to congestion from viral illness Continue enalapril and amlodipine with hold parameters for orthostatic vital signs Continue rosuvastatin Monitor orthostatic vital signs #Type 2 diabetes mellitus Patient has a history of gastroparesis A1c is 8.5 Continue Empagliflozin Pharmacy managing glycemic control Patient met with clinical nurse educator for diabetes teaching and insulin teaching Patient comfortable with doing insulin and okay with being discharged on insulin and will follow-up with her PCP #Mood disorder Continue venlafaxine CODE STATUS: DNR/DNI DVT prophylaxis: Continue Lovenox 40 mg subcutaneous daily Discharge planning likely tomorrow if medically stable and clinically improved Care plan discussed with patient, nursing staff Patient's son Chuy Tucker ([phone]) updated on the phone with patient's permission Admission and Anticipated Discharge Date Admission Date: June 15, 2024 Subjective Patient seen and examined Patient states she had a rough night again with throat really hurting. Tramadol this morning help with sore throat She feels she is having difficulty swallowing especially pills Denies any chest pain or shortness of breath Does not feel well enough to go home today Patient states hot tea help with her throat symptoms She did not eat much breakfast today Patient also states nystatin and Magic mouthwash are helping with her sore throat She denies any dizziness or lightheadedness Review of Systems Review of Systems: As per HPI Physical Exam Physical Exam: General: No acute distress, ill-appearing Psych: Awake and alert HEENT: Anicteric sclera, otoscope exam of bilateral ears: Intact eardrum, no erythema noted, no cerumen noted. Throat examined and significant erythema, no edema, uvula midline CVS: Regular rate and rhythm Lungs: Bilateral air entry, no wheezing noted Abdomen: Soft, nontender, no rebound, no guarding Ext: No lower extremity edema, no calf tenderness Neuro: No focal motor deficits noted Results & Data Results & Data Vital Signs (Past 12 Hours) Vital Signs Temp Pulse Resp BP Pulse Ox O2 Del Method 06/18/24 08:31 37 C 61 18 126/70 92 Room Air 06/18/24 01:08 36.3 C L 54 L 20 113/72 90 Room Air Laboratory Results Laboratory Results - last 24 hr 06/17/24 06/17/24 06/17/24 12:28 17:27 20:56 WBC RBC Hgb Hct MCV MCH MCHC RDW Std Deviation RDW Coeff of Daria Plt Count MPV Immature Gran % (Auto) Neut % (Auto) Lymph % (Auto) [place] % (Auto) Eos % (Auto) Baso % (Auto) Neut # (Auto) Lymph # (Auto) [place] # (Auto) Eos # (Auto) Baso # (Auto) Immature Gran # (Auto) Sodium Potassium Chloride Carbon Dioxide Anion Gap BUN Creatinine Est Cr Clr Drug Dosing Est GFR ( Amer) Est GFR (Non-Af Amer) BUN/Creatinine Ratio Glucose POC Glucose 95 218 H 311 H* Calcium Magnesium Total Bilirubin AST ALT Alkaline Phosphatase Total Protein Albumin Globulin Albumin/Globulin Ratio 06/18/24 06/18/24 07:10 08:26 WBC 12.03 H RBC 4.31 Hgb 12.6 Hct 36.8 L MCV 85.4 MCH 29.2 MCHC 34.2 RDW Std Deviation 45.5 RDW Coeff of Daria 14.8 H Plt Count 194 MPV 11.0 Immature Gran % (Auto) 0.8 Neut % (Auto) 74.1 Lymph % (Auto) 18.5 [place] % (Auto) 6.4 Eos % (Auto) 0.0 Baso % (Auto) 0.2 Neut # (Auto) 8.91 H Lymph # (Auto) 2.23 [place] # (Auto) 0.77 H Eos # (Auto) 0.00 Baso # (Auto) 0.02 Immature Gran # (Auto) 0.10 Sodium 141 Potassium 3.5 Chloride 105 Carbon Dioxide 30 Anion Gap 6 BUN 21 Creatinine 0.62 Est Cr Clr Drug Dosing 63.0 Est GFR ( Amer) 103.0 Est GFR (Non-Af Amer) 88.8 BUN/Creatinine Ratio 33.9 H Glucose 87 POC Glucose 90 Calcium 8.6 Magnesium 2.3 Total Bilirubin 0.4 AST 13 ALT 12 Alkaline Phosphatase 76 Total Protein 6.4 Albumin 3.3 L Globulin 3.1 Albumin/Globulin Ratio 1.1 Diagnostic Findings Chest X-Ray 06/13/24 09:59 XR chest 1V portable HISTORY: 73 years-old Female dyspnea acute shortness of breath COMPARISON: 04/01/2024 TECHNIQUE: AP view of the chest FINDINGS: Cardiac silhouette is normal. Atherosclerosis of the aorta. No pneumothorax, pleural effusion or airspace consolidation. Spondylitic spurring of the spine. IMPRESSION: No acute process. ACT 112: Negative or not required by law. The above report was generated using voice recognition software. It may contain grammatical, syntax or spelling errors. Electronically signed by: Asher Weaver M.D. 06/13/2024 10:40 AM Chest X-Ray 06/17/24 09:47 XR chest PA, lat, obliques HISTORY: 73 years-old Female worsening cough acute cough COMPARISON: 06/13/2024 TECHNIQUE: PA view of the chest with oblique views FINDINGS: Cardiomediastinal and hilar silhouettes are within normal limits. Atherosclerosis of the aorta. No pneumothorax, pleural effusion or pulmonary edema. Mild linear subsegmental bibasilar atelectasis. Right upper quadrant surgical clips. IMPRESSION: No acute process. ACT 112: Negative or not required by law. The above report was generated using voice recognition software. It may contain grammatical, syntax or spelling errors. Electronically signed by: Asher Weaver M.D. 06/17/2024 10:43 AM PG Care Time/CCT Total # of Minutes Spent Total Time Spent with Patient: Total time spent is greater than 50% in coordination of care (as documented) at patient's floor/unit and/or counseling patient: Coding Level of Care Code 94939 SUB INP/OBS CARE 2/35MIN Diagnoses Acute exacerbation of chronic obstructive pulmonary disease (COPD) J44.1 Near syncope R55 Essential (primary) hypertension I10 Diabetes mellitus, type 2 E11.9
--- NOTE | 2024-06-18 14:35 | Pharmacy Report ---
Pharmacy Glycemic Short Note 2 - Date of Service June 18, 2024 - Glycemic Short BSG Results (Last 24 hours): 06/17/24 06/17/24 06/18/24 17:27 20:56 07:10 Glucose 87 POC Glucose 218 H 311 H* 06/18/24 06/18/24 08:26 12:27 Glucose POC Glucose 90 151 H OUTPATIENT ANTIDIABETIC REGIMEN: * Jardiance 25 mg PO daily * HbA1c: 8.5% (06/14/24) ASSESSMENT: 06/18 * Jasmyn received 21 units of insulin yesterday (8 were basal) as well as home Jardiance * BSG still below goal range this AM. NPH given this AM to help cover steroid induced hyperglycemia with prednisone. Will aim to switch to just Lantus to AM to have greatest effect when her BSGs trend the highest (evening) holding evening Lantus. Will add overnight checks instead of Lantus this evening. * Continue current Novolog parameters 06/17 * Jasmyn received 21 units of insulin yesterday (8 were basal) as well as home Jardiance * Fasting BSG this AM below goal range, will remove carbohydrate ratio to get a better idea of discharge needs and titrate basal as indicated, cno change to basal dosage for now. * Continue current correction factor at this time. 06/16 * Jasmyn received 26 units of insulin yesterday (8 were basal) and continues on Jardiance 25mg daily * Fasting BSGs within goal range, per hospitalist plan to send home on once daily basal due to HbA1c elevation, will continue to monitor and adjust as indicated * Slight steroid induced hyperglycemia noted (decreased yesterday to methylprednisolone 30mg IV BID),slightly tightened carbohydrate ratio 06/14 * 73 yo F admitted on 06/13/24 secondary to COPD exacerbation. Pharmacy has been consulted to assist with inpatient glycemic management. Patient is a Type 2 diabetic as an outpatient. Please refer to outpatient regimen and most recent HbA1c above. * BSGs upon presentation yesterday were: 373-332-179 mg/dL. Patient is ordered and tolerating a T2DM diet. Also on Azithromycin PO and Solumedrol 40 mg IV BID. Did receive 125 mg of IV Solumedrol yesterday in ED which likely explains BSGs > 300 mg/dL. * Fasting BSG improved to 132 mg/dL this AM. Patient was refusing all insulin into this morning, but after discussion with provider, patient is agreeable to insulin while on steroids. * Will continue with Jardiance from home as well as bolus insulin regimen only for now. Should BSGs get out of control, will add on basal insulin. Bolus regimen is based on weight/stress of 3 currently. PLAN FOR INPATIENT GLYCEMIC CONTROL: * Jardiance 25 mg PO AM * Basal insulin * Lantus 15-20 units SQ daily (see eMAR for additional details) * Bolus insulin * NovoLog per scale ACHS or Q6hrs while NPO * Goal Range: Low 110 mg/dL - High 140 mg/dL * Correction Factor: 30 mg/dL/unit * Nutritional / Prandial insulin per carb ratio of 1 unit per NONE grams CHO consumed
[2024-06-18] MEDS: POTASSIUM CHLORIDE 20 MEQ/15 ML UDC PO STA (17:50)
[2024-06-18] MEDS: INSULIN ASPART PER UNIT CHARGE SC SCH (23:47)
[2024-06-19] MEDS: ALBUT/IPRATROP 3MG/0.5MG NEB 3 ML VIAL NEB PRN (07:33)
[2024-06-19 08:27] LABS: Basophils # (auto) 0.01 K/uL (0.00-0.20); Basophils % (auto) 0.1 %; Eosinophils # (auto) 0.02 K/uL (0.00-0.50); Eosinophils % (auto) 0.2 %; Hematocrit (blood only) 37.1 % (37.0-47.0); Hemoglobin 12.7 g/dl (12.0-16.0); Immature Granulocytes # (auto) 0.11 K/uL (0.01-0.20); Immature Granulocytes % (auto) 1.1 %; Lymphocytes # (auto) 2.56 K/uL (1.20-3.40); Lymphocytes % (auto) 25.9 %; Mean Corpuscular Hemoglobin 28.9 pg (25.0-34.0); Mean Corpuscular Hgb Conc 34.2 g/dL (32.0-36.0); Mean Corpuscular Volume 84.5 fL (80.0-100.0); Monocytes # (auto) 0.69 K/uL (0.11-0.59); Neutrophils # (auto) 6.48 K/uL (1.40-6.50); Neutrophils % (auto) 65.7 %; Platelet Count 219 K/uL (130-400); RDW Coefficient of Variation 14.6 % (11.5-14.5); RDW Standard Deviation 45.3 fL (36.4-46.3); Red Blood Count 4.39 M/uL (4.20-5.40); White Blood Count 9.87 K/ul (4.8-10.8)
[2024-06-19] MEDS: LANTUS PER UNIT CHARGE SQ SCH (10:41)
[2024-06-19] MEDS: AMOXICILLIN 875 MG TAB PO SCH (10:42)
[2024-06-19] MEDS ORDERED: methylPREDNISolone 10 mg/mL (For Ped Dose < 7mg) IV SCH (11:45)
[2024-06-19] MEDS ORDERED: FLUCONAZOLE 100 MG TAB PO SCH (11:50)
[2024-06-19] MEDS: methylPREDNISolone 40 MG in SYRINGE 0 ML IV SCH (12:29)
--- NOTE | 2024-06-19 12:37 | Pharmacy Report ---
Pharmacy Glycemic Short Note 2 - Date of Service June 19, 2024 - Glycemic Short BSG Results (Last 24 hours): 06/18/24 06/18/24 06/18/24 17:37 20:35 23:28 POC Glucose 295 H 180 H 175 H 06/19/24 06/19/24 06/19/24 04:12 08:21 10:47 POC Glucose 100 H 91 176 H OUTPATIENT ANTIDIABETIC REGIMEN: * Jardiance 25 mg PO daily * HbA1c: 8.5% (06/14/24) ASSESSMENT: 06/19 * Solu-Medrol 40mg IV Q 8 hrs initiated this afternoon * Prior admission data reviewed, pt did require prandial Novolog to maintain glycemic control when IV Solu-Medrol used earlier this admission - will add CR * Will continue to use AM Lantus moving forward 06/18 * Jasmyn received 21 units of insulin yesterday (8 were basal) as well as home Jardiance * BSG still below goal range this AM. NPH given this AM to help cover steroid induced hyperglycemia with prednisone. Will aim to switch to just Lantus to AM to have greatest effect when her BSGs trend the highest (evening) holding evening Lantus. Will add overnight checks instead of Lantus this evening. * Continue current Novolog parameters 06/17 * Jasmyn received 21 units of insulin yesterday (8 were basal) as well as home Jardiance * Fasting BSG this AM below goal range, will remove carbohydrate ratio to get a better idea of discharge needs and titrate basal as indicated, cno change to basal dosage for now. * Continue current correction factor at this time. PLAN FOR INPATIENT GLYCEMIC CONTROL: * Jardiance 25 mg PO AM * Basal insulin * Lantus 5-8 units SQ daily in the AM (see eMAR for additional details) * Bolus insulin * NovoLog per scale ACHS or Q6hrs while NPO * Goal Range: Low 110 mg/dL - High 140 mg/dL * Correction Factor: 30 mg/dL/unit * Nutritional / Prandial insulin per carb ratio of 1 unit per 10 grams CHO consumed
[2024-06-19] MEDS: dilTIAZem HCL 180 MG CAPCR PO SCH (13:11)
--- NOTE | 2024-06-19 13:34 | Hospitalist Progress Note ---
Date of Service June 19, 2024 Assessment & Plan (1) Acute exacerbation of chronic obstructive pulmonary disease (COPD): Plan: Now on parenteral steroid therapy. Treat underlying suspected acute bronchitis. Scheduled nebulizer treatments. (2) Acute bronchitis: Plan: Strep isolated. Now on oral amoxicillin (3) Thrush: Plan: Possible cause of sore throat. Continue Diflucan therapy for now (4) Near syncope: Plan: Occurred in ER on admission. Now resolved (5) Essential (primary) hypertension: Plan: Amlodipine switched to diltiazem for better heart rate control. (6) Diabetes mellitus, type 2: Plan: ADA diet. Sliding scale coverage as needed. Plan Hopeful discharge to home within the next day or 2 Admission and Anticipated Discharge Date Admission Date: June 15, 2024 Subjective Alert and oriented. Sputum culture is growing strep and she is coughing although she denies sputum production. Cardiac echo reveals borderline left ventricular hypertrophy with normal ejection fraction. She has mild left atrial enlargement and mild mitral regurgitation. Switching amlodipine to diltiazem CD will help with heart rate control and prevent atrial dysrhythmias often associated with COPD. She remains on room air. Oral amoxicillin started for the strep isolated in the sputum. She is now on parenteral steroid therapy. Admission chest x-ray is unremarkable. Review of Systems 2 Review of Systems: Constitutionalno fever or chills ENTno blurred vision, no double vision, no epistaxis. She does have a sore throat but no obvious thrush Respiratorynonproductive cough with wheezing. No hemoptysis Cardiacno palpitations, no chest pain, no syncope Dao nausea, vomiting, diarrhea, melena, hematochezia GUno urinary retention, no urinary incontinence, no dysuria, no hematuria Musculoskeletalno joint pain, no muscle tenderness Skinno bruising, no rashes, no pruritus Neurono isolated weakness, no paresthesia Psychno depression, no anxiety Physical Exam 2 Physical Exam: General-alert and oriented x3, no fever, no chills HEENT-head atraumatic and normocephalic, pupils equal and reactive to light, extraocular muscles intact Neck-no lymphadenopathy or thyromegaly, trachea midline Chest-diminished breath sounds bilaterally. Midline rhonchi. No wheezing. No dullness to percussion Cardiac-tachycardic regular rhythm. Normal S1 and S2 Abdomen-normal bowel sounds, no hepatosplenomegaly Extremities-no cyanosis, clubbing, or edema Neuro-cranial nerves II through XII intact, motor and sensory function within normal limits, strength symmetrical, no focal deficits Psych-normal affect, normal mood Results & Data Results & Data Vital Signs (Past 12 Hours) Vital Signs Temp Pulse Resp BP BP Pulse Ox O2 Del Method 06/19/24 13:22 64 18 98 Oxymask 06/19/24 13:00 67 16 112/68 94 Room Air 06/19/24 08:29 36 C L 110 H 20 178/78 H 96 Room Air 06/19/24 07:35 60 16 92 Room Air 06/19/24 04:00 36.5 C 61 18 136/78 96 Room Air O2 Flow Rate 06/19/24 13:22 5 06/19/24 13:00 06/19/24 08:29 06/19/24 07:35 06/19/24 04:00 Laboratory Results 06/19/24 07:54 06/18/24 07:10 PG Care Time/CCT Total # of Minutes Spent Total Time Spent with Patient: Total time spent is greater than 50% in coordination of care (as documented) at patient's floor/unit and/or counseling patient: Coding Level of Care Code 62698 SUB INP/OBS CARE 3/50MIN Diagnoses Acute exacerbation of chronic obstructive pulmonary disease (COPD) J44.1 Acute bronchitis J20.9 Thrush B37.0 Near syncope R55 Essential (primary) hypertension I10 Diabetes mellitus, type 2 E11.9
[2024-06-20 08:20] LABS: Hematocrit (blood only) 40.3 % (37.0-47.0); Hemoglobin 13.6 g/dl (12.0-16.0); Mean Corpuscular Hemoglobin 28.9 pg (25.0-34.0); Mean Corpuscular Hgb Conc 33.7 g/dL (32.0-36.0); Mean Corpuscular Volume 85.6 fL (80.0-100.0); Mean Platelet Volume 10.8 fL (9.4-12.4); Platelet Count 252 K/uL (130-400); RDW Coefficient of Variation 14.6 % (11.5-14.5); RDW Standard Deviation 45.4 fL (36.4-46.3); Red Blood Count 4.71 M/uL (4.20-5.40)
--- NOTE | 2024-06-20 09:33 | Hospitalist Progress Note ---
Date of Service June 20, 2024 Assessment & Plan (1) Acute exacerbation of chronic obstructive pulmonary disease (COPD): Plan: - improving, transition from green to clear sputum production 06/20, dyspnea improving - CXR negative for acute processes on admission - transitioned from IV to PO steroid therapy 06/20 - Scheduled nebulizer treatments, can continue at home prn - patient with hypoxia and dyspnea over night; can consider sleep study outpt upon discharge, will not complete nocturnal pulse ox monitoring at this time as patient is acutely hypoxic (2) Strep throat: Plan: - throat and sputum cultures showed Group A beta strep - patient with sore throat and rhinorrhea, afebrile, no rash noted - Amoxicillin BID started 06/19; to be continued for 10 days (06/29) (3) Thrush: Plan: - Possibly contributing to strep throat - Continue Diflucan therapy, began 06/16 to continue for 7-14 days (4) Near syncope: Plan: - Occurred in ER on admission - EKG NSR - Echo essentially normal, EF 55-60%, borderline LVH - continuous monitoring on telemetry (5) Essential (primary) hypertension: Plan: - stable - Amlodipine switched to diltiazem for better heart rate control (6) Diabetes mellitus, type 2: Plan: - Most recent A1C 8.5, with recent 3 week steroid use - SSI with target BSG range 110-140mg/dL, correction factor 30mg/dL/unit, carb ratio 9 g/unit - T2DM diet - BSG ACHS - Adjust regimen as needed - continue home Jardiance - discussed with comparison shopper, recommending discharge on home Jardiance with close monitoring of BG due to steroid use - if persistently above target can work with PCP for next steps Plan VTE ppx: Lovenox Diet: Heart healthy, DM2 Code status: DNR/DNI Plan for discharge 06/21/24 if tolerating PO steroids well. Admission and Anticipated Discharge Date Admission Date: June 15, 2024 Supervising Physician Co-Signing Physician Notes Patient was seen and examined independently I discussed the case with Nikki FAULKNER I reviewed pertinent past medical social family history and also the plan of care and agree with the plan of care. Patient still has some coarse breath sounds she feels slightly breathless she is no longer hypoxic. Escalating DuoNeb therapy is scheduled continuing steroids and oral dose and tapering. Lung exam as mentioned shows no wheezes no focal loss Continue pulmonary toilet and supportive care anticipate discharge in next few days Any exceptions will be noted below Subjective Patient stated that she is doing well today. She used an oxygen mask overnight because it helped her breath. She stated that she has orthopnea. She has possibly had a sleep study a while ago, but could not recall a certain date. She stated that her shortness of breath has greatly improved and subsided during the daytime. She still has a cough with clear sputum production. Her cough has improved since admission while sputum production changing from green to clear overnight. She does have a cough at baseline but stated that it is still worse than her normal. When discussing continue insulin upon discharge, the patient was adamant that she does not want to. She would like to continue her home Jardiance. She shared that she was on a 3 week course of prednisone prior to admission due to a rash, which could be contributing to her elevated A1C. She has rhinorrhea and a sore throat. She denies headache, dizziness, lightheadedness, chest pain, abdominal pain, nausea, vomiting, diarrhea, con stipation, and edema. Review of Systems Review of Systems: See HPI Physical Exam Physical Exam: The patient is awake, alert and oriented 3, well developed and well nourished, normocephalic and atraumatic, in no acute distress. Non-toxic appearing. HEENT- EOMI, mucous membranes moist. Hearing grossly intact. Throat erythematous. Tonsils WNL. Heart-normal S1 and S2. No murmurs, rubs or gallops. Lungs-clear bilaterally, no respiratory distress, no accessory muscle use. Coughing ocassionally on exam. Abdomen-normal bowel sounds and soft. No ascites noted. Non-tender. Extremities- no clubbing, cyanosis, or edema. Derm- no rash. Rheumatologic-normal range of motion. Psychiatric-normal affect. Results & Data Results & Data Vital Signs (Past 12 Hours) Vital Signs Temp Pulse Resp BP Pulse Ox O2 Del Method FiO2 06/20/24 07:55 36.4 C L 62 18 122/67 95 Room Air 06/20/24 07:25 56 L 14 94 Room Air 21 06/19/24 23:05 36.6 C 53 L 18 93/55 L 95 Room Air PG Care Time/CCT Total # of Minutes Spent Total Time Spent with Patient: Total time spent is greater than 50% in coordination of care (as documented) at patient's floor/unit and/or counseling patient: Coding Level of Care Code None Diagnoses Acute exacerbation of chronic obstructive pulmonary disease (COPD) J44.1 Strep throat J02.0 Thrush B37.0 Near syncope R55 Essential (primary) hypertension I10 Diabetes mellitus, type 2 E11.9
[2024-06-20] MEDS ORDERED: ALBUT/IPRATROP 3MG/0.5MG NEB 3 ML VIAL NEB PRN (13:05)
--- NOTE | 2024-06-20 14:27 | Pharmacy Report ---
Pharmacy Glycemic Short Note 2 - Date of Service June 20, 2024 - Glycemic Short BSG Results (Last 24 hours): 06/19/24 06/19/24 06/19/24 15:58 20:01 20:42 POC Glucose 167 H 255 H 204 H 06/20/24 06/20/24 08:05 11:59 POC Glucose 172 H 172 H OUTPATIENT ANTIDIABETIC REGIMEN: * Jardiance 25 mg PO daily * HbA1c: 8.5% (06/14/24) ASSESSMENT: 06/20 * Fasting hyperglycemia (172 mg/dL) since resuming methylprednisolone IV. Patient was converted to Lantus on 06/19. Will continue long acting basal insulin. Lantus 10 units given today. Will back off dose for 06/21 AM per methylprednisolone IV q8h has been transitioned to once daily prednisone. * Loosen carb coverage after AM dose of methylprednisolone IV wears off. 06/19 * Solu-Medrol 40mg IV Q 8 hrs initiated this afternoon * Prior admission data reviewed, pt did require prandial Novolog to maintain glycemic control when IV Solu-Medrol used earlier this admission - will add CR * Will continue to use AM Lantus moving forward 06/18 * Jasmyn received 21 units of insulin yesterday (8 were basal) as well as home Jardiance * BSG still below goal range this AM. NPH given this AM to help cover steroid induced hyperglycemia with prednisone. Will aim to switch to just Lantus to AM to have greatest effect when her BSGs trend the highest (evening) holding evening Lantus. Will add overnight checks instead of Lantus this evening. * Continue current Novolog parameters 06/17 * Jasmyn received 21 units of insulin yesterday (8 were basal) as well as home Jardiance * Fasting BSG this AM below goal range, will remove carbohydrate ratio to get a better idea of discharge needs and titrate basal as indicated, cno change to basal dosage for now. * Continue current correction factor at this time. PLAN FOR INPATIENT GLYCEMIC CONTROL: * Jardiance 25 mg PO AM * Basal insulin * Lantus 5-8 units SQ daily in the AM (see eMAR for additional details) * Bolus insulin * NovoLog per scale ACHS or Q6hrs while NPO * Goal Range: Low 110 mg/dL - High 140 mg/dL * Correction Factor: 30 mg/dL/unit * Nutritional / Prandial insulin per carb ratio of 1 unit per 9 grams CHO consumed (06/20 @ 2100 - change to 1 unit per 11 grams CHO)
--- NOTE | 2024-06-20 17:19 | Billing Data ---
Date of Service June 20, 2024 Coding Level of Care Code 11817 SUB INP/OBS CARE
[2024-06-20] MEDS: INSULIN ASPART PER UNIT CHARGE SC SCH (20:50)
[2024-06-21 06:26] LABS: Hematocrit (blood only) 37.6 % (37.0-47.0); Hemoglobin 12.6 g/dl (12.0-16.0); Mean Corpuscular Hgb Conc 33.5 g/dL (32.0-36.0); Mean Corpuscular Volume 86.6 fL (80.0-100.0); Mean Platelet Volume 10.8 fL (9.4-12.4); Platelet Count 305 K/uL (130-400); RDW Coefficient of Variation 14.5 % (11.5-14.5); RDW Standard Deviation 45.4 fL (36.4-46.3); Red Blood Count 4.34 M/uL (4.20-5.40); White Blood Count 13.82 K/ul (4.8-10.8)
[2024-06-21 07:39] VITALS: TEMP 98.2
--- NOTE | 2024-06-21 08:23 | Hospitalist Progress Note ---
Date of Service June 21, 2024 Assessment & Plan (1) Acute exacerbation of chronic obstructive pulmonary disease (COPD): Plan: - improving, transition from green to clear sputum production 06/20, dyspnea improving - CXR negative for acute processes on admission - transitioned from IV to PO steroid therapy 06/20 - Scheduled nebulizer treatments, can continue at home prn - patient with hypoxia and dyspnea over night; can consider sleep study outpt upon discharge, will not complete nocturnal pulse ox monitoring at this time as patient is acutely hypoxic (2) Strep throat: Plan: - throat and sputum cultures showed Group A beta strep - patient with sore throat and rhinorrhea, afebrile, no rash noted - Amoxicillin BID started 06/19; to be continued for 10 days (06/29) (3) Thrush: Plan: - Possibly contributing to strep throat - Continue Diflucan therapy, began 06/16 to continue for 7-14 days (4) Near syncope: Plan: - Occurred in ER on admission - EKG NSR - Echo essentially normal, EF 55-60%, borderline LVH - continuous monitoring on telemetry (5) Essential (primary) hypertension: Plan: - stable - Amlodipine switched to diltiazem for better heart rate control (6) Diabetes mellitus, type 2: Plan: - Most recent A1C 8.5, with recent 3 week steroid use - SSI with target BSG range 110-140mg/dL, correction factor 30mg/dL/unit, carb ratio 9 g/unit - T2DM diet - BSG ACHS - Adjust regimen as needed - continue home Jardiance - discussed with pipeline maintenance supervisor, recommending discharge on home Jardiance with close monitoring of BG due to steroid use - if persistently above target can work with PCP for next steps Plan VTE ppx: Lovenox Diet: Heart healthy, DM2 Code status: DNR/DNI Plan for discharge 06/21/24 if tolerating PO steroids well. Admission and Anticipated Discharge Date Admission Date: June 15, 2024 Review of Systems Review of Systems: See HPI Physical Exam Physical Exam: The patient is awake, alert and oriented 3, well developed and well nourished, normocephalic and atraumatic, in no acute distress. Non-toxic appearing. HEENT- EOMI, mucous membranes moist. Hearing grossly intact. Throat erythematous. Tonsils WNL. Heart-normal S1 and S2. No murmurs, rubs or gallops. Lungs-clear bilaterally, no respiratory distress, no accessory muscle use. Coughing ocassionally on exam. Abdomen-normal bowel sounds and soft. No ascites noted. Non-tender. Extremities- no clubbing, cyanosis, or edema. Derm- no rash. Rheumatologic-normal range of motion. Psychiatric-normal affect. Results & Data Results & Data Vital Signs (Past 12 Hours) Vital Signs Temp Pulse Resp BP BP Pulse Ox O2 Del Method 06/21/24 07:38 36.8 C 63 16 111/60 94 Room Air 06/21/24 07:30 50 L 18 92 Oxymask 06/20/24 22:57 Room Air 06/20/24 22:20 36.7 C 50 L 18 103/55 L 94 Room Air 06/20/24 21:18 63 18 95 Room Air O2 Flow Rate 06/21/24 07:38 06/21/24 07:30 2 06/20/24 22:57 06/20/24 22:20 06/20/24 21:18 PG Care Time/CCT Total # of Minutes Spent Total Time Spent with Patient: Total time spent is greater than 50% in coordination of care (as documented) at patient's floor/unit and/or counseling patient: Coding Diagnoses Acute exacerbation of chronic obstructive pulmonary disease (COPD) J44.1 Strep throat J02.0 Thrush B37.0 Near syncope R55 Essential (primary) hypertension I10 Diabetes mellitus, type 2 E11.9
[2024-06-21] MEDS: predniSONE 20 MG TAB PO SCH (08:55)
--- NOTE | 2024-06-21 09:48 | Discharge Summary ---
Discharge Summary Date of Service June 21, 2024 Principal Dx & Hospital Course #1 = Principal Diagnosis (1) Acute exacerbation of chronic obstructive pulmonary disease (COPD): - improving, transition from green to clear sputum production, cough improved - CXR negative for acute processes on admission - transitioned from IV to PO steroid therapy 06/20 - Scheduled nebulizer treatments, can continue at home prn - orthopnea chronic for 6-8 months, patient on 2L oxygen mask HS during admission, 2 step oxygen test did not qualify patient for home oxygen - discussed with patient the potential to stay another night and have a nocturnal pulse ox vs paying out of pocket sleep study at home - decided that she is to be discharged today, 06/21, and will not have test at home - close follow up with PCP after discharge; appointment 06/29 at 11 am (2) Strep throat: - throat and sputum cultures showed Group A beta strep - patient with sore throat and rhinorrhea, afebrile, no rash noted - Amoxicillin BID started 06/19; to be continued for 10 days (06/29) (3) Thrush: - Possibly contributing to strep throat - Continue Diflucan therapy, began 06/16 to continue for 10 days (06/26) (4) Near syncope: - Occurred in ER on admission - EKG NSR - Echo essentially normal, EF 55-60%, borderline LVH - continuous monitoring on telemetry showed no abnormalities - amlodipine transitioned to diltiazem (5) Essential (primary) hypertension: - stable - Amlodipine switched to diltiazem for better heart rate control (6) Diabetes mellitus, type 2: - Most recent A1C 8.5, with recent 3 week steroid use - SSI with target BSG range 110-140mg/dL, BSG ACHS during admission - continue home Jardiance - discussed with paraeducator, recommending discharge on home Jardiance with close monitoring of BG due to steroid use - if persistently above target can work with PCP for next steps Plan Diet: Heart healthy, DM2 Code status: DNR/DNI Discharge 06/21/24 with home steroids, amoxicillin, and Diflucan. Notes For Next Care Provider Patient with taper of prednisone. If glucose persistently elevated, can consider next steps in diabetes management. Medication Changes From Visit Amlodipine switched to Diltiazem 100 mg PO QAM. Admission HPI Per Admitting Provider 73-year-old female with a past medical history of COPD, carotid artery disease, CAD, COPD, colostomy who presents with 2 to 3 days of worsening upper respiratory symptoms including shortness of breath, productive cough and w heezing. No fevers or chills. She is recommended for admission for COPD exacerbation due to rhino/enterovirus. There is no signs of superimposed bacterial pneumonia on chest x-ray, she has mild leukocytosis without left shift. Jasmyn is seen at the bedside she reports she has had about 2 days of cold-like symptoms, wheezing, shortness of breath, and extreme shortness of breath on exertion. She has not had chest pain at any point. No nausea or vomiting. No diarrhea. No abdominal pain. She has been eating and drinking normally and is hungry at bedside. 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 She does not drink alcohol and does not use recreational drugs. She reports that she prefers to restart her on Symbicort inhaler as the powder substitutes burned her throat and can cause swelling. She will use her own inhaler while admitted, we will use our albuterol/DuoNebs as needed. No other questions or concerns at bedside. Co nfirms DNR/DNI. iewed extensively with patient, she reports in the event that she underwent a cardiopulmonary arrest she would not want resuscitation events as the quality of life even if successful he is not which she would want. CODE STATUS updated to DNR/DNI Admission Exam Per Admitting Provider General: A&Ox3. NAD. Cooperative. Appears fatigued but nontoxic HEENT: Atraumatic, normocephalic. Vision/hearing intact Pulm: Scattered end expiratory wheezing. Symmetrical chest rise. No increased work of breathing. No respiratory distress. Cardiac: slightly tachycardic, regular, -mrg. Radial pulses intact and symmetrical. Abdominal: Nontender, nondistended, soft. BS present. Discharge Exam The patient is awake, alert and oriented 3, well developed and well nourished, normocephalic and atraumatic, in no acute distress. Non-toxic appearing. HEENT- EOMI, mucous membranes moist. Hearing grossly intact. Throat erythematous. Tonsils WNL. Heart-normal S1 and S2. No murmurs, rubs or gallops. Lungs-clear bilaterally, no respiratory distress, no accessory muscle use. Abdomen-normal bowel sounds and soft. No ascites noted. Non-tender. Extremities- no clubbing, cyanosis, or edema. Derm- no rash. Rheumatologic-normal range of motion. Psychiatric-normal affect. Discharge Plan Discharge Items Patient Disposition: Home - Self-Care Reason For Visit: [facility] COPD 2/2 RHINO/ENTERO Discharge Diagnosis: 1. COPD 2. Strep Throat 3. Thrush 4. Hypertension 5. Diabetes mellitus, type 2 Condition on Discharge: Good Activity: Per Instructions section Lifting: Gradually increase as tolerated Exercise/Sports: As tolerated Non-emergency contact: Primary Care Provider Call non-emergency contact if: you have any medication questions, your symptoms worsen and you have a fever Follow-up/Referrals: Abbe Lee MD [Primary Care Provider] - 06/29/24 11:00 am Diet: Regular Addtl Attending Provider Instructions: You were seen for a COPD exacerbation. As your symptoms improved we transitioned you from IV steroids to oral steroids. You are to continue the prednisone taper sent to your pharmacy for the next 16 days. If you glucose level stays persistency high due to steroid use, call your PCP to discuss next steps. During your stay we found that you have strep throat and oral thrush. You are to continue amoxicillin for the strep throat until 06/29 and the Diflucan and nystatin for the thrush until 06/26. You have had shortness of breath at night time chronically for 6-8 months. You have relief with oxygen during your hospitalization. The 2-step test with respiratory therapy does not qualify you for home oxygen at this time. You amlodipine blood pressure medication was switched to Diltazem due to the episode you had in the ER in which you almost passed out. A new prescription was sent to your pharmacy. You are to have close follow up with your PCP. You have an appointment made for 06/29/[address] at [address] Lee. Pending Studies at Discharge: No Stand-Alone Forms: My [employer], Smoking Cessation Medications and DC Order Prescriptions: New nystatin 100,000 unit/mL Suspension 10 ml PO TID 5 Days Qty: 150 0RF ipratropium-albuterol 0.5 mg-3 mg(2.5 mg base)/3 mL Solution For Nebulization 3 ml NEB TIDR PRN (Reason: shortness of breath or wheezing) 30 Days Qty: 180 0RF diltiazem HCl 180 mg Capsule,Extended Release 24hr 180 mg PO QAM Qty: 30 0RF amoxicillin 875 mg Tablet 875 mg PO BID Qty: 15 0RF fluconazole 40 mg/mL Suspension For Reconstitution 200 mg PO QAM Qty: 5 0RF prednisone 10 mg tablet 40 mg PO DAILY 16 Days Qty: 40 0RF Rx Instructions: You are to taper the prednisone over the next 16 days in the morning. Take 40 mg (4 tabs) daily for the first 4 days. Then 30 mg (3 tabs) daily for the next 4 days. Then 20 mg (2 tabs) daily for the next 4 days. Then finish with 10 mg (1 tab) daily for the last 4 days. Continued (DME) lancets [LeinentauschTouch Delica Plus Lancet] [facility] See Dose Instructions .ROUTE .MEDSUPPLY Qty: 100 2RF Dose Instruction: As directed Rx Instructions: TEST TWICE DAILY (DME) blood-glucose meter [Can'tWaituch Verio Meter] [facility] See Rx Instructions .Route Qty: 1 0RF Rx Instructions: As directed to test blood sugar once daily ipratropium-albuterol 0.5 mg-3 mg(2.5 mg base)/3 mL solution for nebulization 3 ml INH Q6H PRN (Reason: wheezing) Qty: 180 3RF montelukast 10 mg tablet 10 mg PO QPM Qty: 90 1RF rosuvastatin 5 mg tablet 5 mg PO QAM Qty: 90 3RF Rx Instructions: or as directed (start by taking once weekly, then increase slowly as tolerated) (DME) LeinentauschTouch Verio test strips Strip See Rx Instructions .ROUTE .MEDSUPPLY Qty: 200 5RF Rx Instructions: As directed to test blood sugar twice daily enalapril maleate 10 mg tablet 10 mg PO QAM Qty: 90 3RF Patient Comments: pt takes at hs furosemide 20 mg tablet 20 mg PO QAM Qty: 90 1RF Rx Instructions: TAKE ONE TABLET BY MOUTH EVERY DAY Jardiance 25 mg tablet 25 mg PO QAM Qty: 90 3RF sennosides-docusate sodium 8.6-50 mg tablet 1 tab PO BID PRN (Reason: constipation) Qty: 30 albuterol sulfate [ProAir HFA] 90 mcg/actuation HFA aerosol inhaler 2 puff inhalation Q4H PRN (Reason: shortness of breath or wheezing) Qty: 18 3RF budesonide-formoterol [Symbicort] 160-4.5 mcg/actuation HFA aerosol inhaler 2 puff INH BID Qty: 6 2RF macushield 1 cap PO QAM venlafaxine 37.5 mg capsule,extended release 24hr 37.5 mg PO DAILY Qty: 90 2RF Rx Instructions: in addition to 75mg dose. sucralfate [Carafate] 1 gram tablet 1 g PO BID Qty: 30 1RF cetirizine 10 mg Tablet 10 mg PO QAM ascorbic acid (vitamin C) [Vitamin C] 1,000 mg Tablet 1 g PO QPM cyanocobalamin (vitamin B-12) [Vitamin B-12] 1,000 mcg Tablet 1,000 mcg PO QPM cholecalciferol (vitamin D3) [Vitamin D3] 50 mcg (2,000 unit) Capsule 50 mcg PO QPM pantoprazole 40 mg tablet,delayed release (DR/EC) 40 mg PO BID Rx Instructions: TAKE ONE TABLET BY MOUTH TWICE DAILY venlafaxine 75 mg capsule,extended release 24hr 75 mg PO QAM meclizine 12.5 mg tablet 12.5 mg PO TID PRN (Reason: dizziness) Qty: 20 0RF Discontinued amlodipine 5 mg tablet 5 mg PO QPM Qty: 30 5RF Discharge Orders: Discharge Order (Routine); Ordered 06/21/24 Ordered By: Nkiki Tim/Other Patient Handouts: Managing Type 2 Diabetes, Discharge Instructions: COPD, Carolyn Infection: Thrush, ED Pharyngitis, Strep (Confirmed) Admission Data Admit Date/Time: 06/15/24 16:17 Attending Provider: Miah Cline Admit Provider: Ivan Forrest Primary Care Provider: Abbe Lee Other Providers: Ivan Forrest Other Interventions: Discharge Summary Assessment (RN) Last Done: 06/21/24 13:47 Hospital Stay Data Consultations 06/13/24 14:34 ED Decision to Admit Stat Diagnostic Imagining Performed Chest X-Ray 06/13/24 09:59 XR chest 1V portable HISTORY: 73 years-old Female dyspnea acute shortness of breath COMPARISON: 04/01/2024 TECHNIQUE: AP view of the chest FINDINGS: Cardiac silhouette is normal. Atherosclerosis of the aorta. No pneumothorax, pleural effusion or airspace consolidation. Spondylitic spurring of the spine. IMPRESSION: No acute process. ACT 112: Negative or not required by law. The above report was generated using voice recognition software. It may contain grammatical, syntax or spelling errors. Electronically signed by: Asher Weaver M.D. 06/13/2024 10:40 AM Chest X-Ray 06/17/24 09:47 XR chest PA, lat, obliques HISTORY: 73 years-old Female worsening cough acute cough COMPARISON: 06/13/2024 TECHNIQUE: PA view of the chest with oblique views FINDINGS: Cardiomediastinal and hilar silhouettes are within normal limits. Atherosclerosis of the aorta. No pneumothorax, pleural effusion or pulmonary edema. Mild linear subsegmental bibasilar atelectasis. Right upper quadrant surgical clips. IMPRESSION: No acute process. ACT 112: Negative or not required by law. The above report was generated using voice recognition software. It may contain grammatical, syntax or spelling errors. Electronically signed by: Asher Weaver M.D. 06/17/2024 10:43 AM Discharge Instructions Given to Patient (Per Discharging Provider) You were seen for a COPD exacerbation. As your symptoms improved we transitioned you from IV steroids to oral steroids. You are to continue the prednisone taper sent to your pharmacy for the next 16 days. If you glucose level stays persistency high due to steroid use, call your PCP to discuss next steps. During your stay we found that you have strep throat and oral thrush. You are to continue amoxicillin for the strep throat until 06/29 and the Diflucan and nystatin for the thrush until 06/26. You have had shortness of breath at night time chronically for 6-8 months. You have relief with oxygen during your hospitalization. The 2-step test with respiratory therapy does not qualify you for home oxygen at this time. You amlodipine blood pressure medication was switched to Diltazem due to the episode you had in the ER in which you almost passed out. A new prescription was sent to your pharmacy. You are to have close follow up with your PCP. You have an appointment made for 06/29/24 at [address] Lee. Supervising Physician Co-Signing Physician Notes Patient was seen and examined independently I discussed the case with Nikki FAULKNER I reviewed pertinent past medical social family history and also the plan of care and agree with the plan of care. Patient feels greatly improved, 2 step oxygen test prior to discharge does not suppornt need for home oxygen, continuing steroids by oral dose and tapering. Lung exam as mentioned shows no wheezes no focal loss Continue pulmonary toilet and supportive care after dishcarge with close follow up It required greater than 30 minutes to prepare this patient for discharge. Any exceptions will be noted below Total Time Total Time Spent Total Time Spent (In Minutes): 45 minutes Coding Level of Care Code None Diagnoses Acute exacerbation of chronic obstructive pulmonary disease (COPD) J44.1 Strep throat J02.0 Thrush B37.0 Near syncope R55 Essential (primary) hypertension I10 Diabetes mellitus, type 2 E11.9
[2024-06-21 13:48] VITALS: BP 103/55; PULSE 63; RESP 16; O2SAT 94
--- NOTE | 2024-06-21 16:53 | Billing Data ---
Date of Service June 21, 2024 Coding Level of Care Code 80930 INP/OBS DISCH >30 MIN
== END 2024-06-21 14:24 | disposition home or self-care (01) | DRG 191 ==
LOC: 2W 09:41 → ED 09:41 → SUATTDRO 14:41 → 2W 15:17 → SUATTDRO 06-15 16:17

== ENCOUNTER 2024-08-05 11:25 | Inpatient (IN) ==
[2024-08-05 12:13] LABS: Basophils # (auto) 0.01 K/uL (0.00-0.20); Basophils % (auto) 0.2 %; Eosinophils # (auto) 0.01 K/uL (0.00-0.50); Eosinophils % (auto) 0.2 %; Hematocrit (blood only) 48.7 % (37.0-47.0); Hemoglobin 16.5 g/dl (12.0-16.0); Immature Granulocytes # (auto) 0.01 K/uL (0.01-0.20); Immature Granulocytes % (auto) 0.2 %; Lymphocytes # (auto) 1.94 K/uL (1.20-3.40); Lymphocytes % (auto) 44.1 %; Mean Corpuscular Hemoglobin 29.7 pg (25.0-34.0); Mean Corpuscular Hgb Conc 33.9 g/dL (32.0-36.0); Mean Corpuscular Volume 87.7 fL (80.0-100.0); Mean Platelet Volume 10.5 fL (9.4-12.4); Monocytes # (auto) 0.25 K/uL (0.11-0.59); Monocytes % (auto) 5.7 %; Neutrophils # (auto) 2.18 K/uL (1.40-6.50); Neutrophils % (auto) 49.6 %; Platelet Count 239 K/uL (130-400); RDW Coefficient of Variation 14.6 % (11.5-14.5); RDW Standard Deviation 46.9 fL (36.4-46.3); Red Blood Count 5.55 M/uL (4.20-5.40)
--- NOTE | 2024-08-05 12:16 | XRay Report ---
XR chest 1V not portable CLINICAL HISTORY: Cough. COMPARISON STUDY: Chest radiograph June 17, 2024. FINDINGS: Lung volumes are normal. Lungs are clear. There is no pneumothorax or pleural effusion. Car diac size is normal. Mediastinal contours are normal. There is no evidence for pulmonary edema. Statu s post cholecystectomy. IMPRESSION: No acute cardiopulmonary findings. ACT 112: Negative or not required by law. Electronically signed by: Jose Jain M.D. 08/05/2024 12:15 PM
[2024-08-05 12:30] LABS: Albumin Globulin Ratio 1.4 (0.9-2); Albumin Level 4.8 gm/dl (3.4-5.0); BUN Creatinine Ratio 15.8 (10-20); Bilirubin,Total 0.8 mg/dl (0.2-1.0); Calcium 9.7 mg/dl (8.6-10.3); Creatinine Clr Calc Pharmacy 48.3 ml/min; Globulin 3.5 gm/dl (2.5-4.0); Potassium 3.1 mmol/L (3.5-5.1); Total Protein 8.3 gm/dl (6.0-8.3)
[2024-08-05 12:58] LABS: Adenovirus PCR Not Detected (NotDetected); Bordetella parapertussis PCR Not Detected (NotDetected); Bordetella pertussis PCR Not Detected (NotDetected); Chlamydia pneumoniae PCR Not Detected (NotDetected); Coronavirus 229E PCR Not Detected (NotDetected); Coronavirus CoV-2 (COVID19)PCR DETECTED (NotDetected); Coronavirus HKU1 PCR Not Detected (NotDetected); Coronavirus NL63 PCR Not Detected (NotDetected); Coronavirus OC43PCR Not Detected (NotDetected); Human Metapneumovirus PCR Not Detected (NotDetected); Influenza A PCR Not Detected (NotDetected); Influenza B PCR Not Detected (NotDetected); Mycoplasma pneumoniae PCR Not Detected (NotDetected); Parainfluenza Virus 1 PCR Not Detected (NotDetected); Parainfluenza Virus 2 PCR Not Detected (NotDetected); Parainfluenza Virus 3 PCR Not Detected (NotDetected); Parainfluenza Virus 4 PCR Not Detected (NotDetected); Respiratory Syncytial VirusPCR Not Detected (NotDetected); Rhinovirus/Enterovirus PCR Not Detected (NotDetected)
[2024-08-05] MEDS: SODIUM CHLORIDE 0.9% 1,000 ML IV SCH (13:03)
--- NOTE | 2024-08-05 13:11 | Emergency Department Note ---
Impression & Plan Nausea & vomiting, Acute exacerbation of chronic obstructive pulmonary disease (COPD), Diarrhea, Dehydration, Hypokalemia, COVID ED Provider Note ED Provider Note NAME: SHELDON RICHTER AGE:74 SEX: Female : 1950 ARRIVES VIA: Private vehicle INFORMANT: Patient ED PROVIDER(s): Joya Vee DO CHIEF COMPLAINT: Worsening cough, fatigue, vomiting and diarrhea HPI: This is a 74-year-old female who presents emergency room due to concern for worsening cough, fatigue, vomiting and diarrhea. Patient states she has been feeling worse over the last several weeks, particularly worse in the last 3 days now with vomiting and diarrhea. She states she was hospitalized 6 weeks ago for a bad viral infection that they think exacerbated her underlying COPD. She states after returning home she felt well for a week to week and a half and then slowly began to feel worse again. She has been using her previously prescribed medications and respiratory treatments. She states she feels more fatigued, "foggy", has had a decreased appetite, has had a worsening cough that is only occasionally productive of sputum, and now in the last 3 to 4 days has had vomiting and diarrhea. No other known sick contact. During her prior admission she was told she had enterovirus/rhinovirus. PAST MEDICAL HISTORY:See Below PAST SURGICAL HISTORY:See Below FAMILY HISTORY:See Below SOCIAL HISTORY:See Below HOME MEDICATIONS:See Below ALLERGIES:See Below VITALS:See Below PHYSICAL EXAMINATION: GENERAL: alert, well appearing, well nourished, no distress, non-toxic EYE EXAM: normal conjunctiva, PERRL and EOM's grossly intact OROPHARYNX: no exudate, no erythema, lips, buccal mucosa, and tongue normal and mucous membranes are moist NECK: supple, no nuchal rigidity, no adenopathy, non-tender LUNGS: Decreased bilaterally to auscultation. Normal chest wall mechanics, no w/r/r, frequent coarse cough to the point of gagging during exam HEART: no murmurs, S1 normal and S2 normal ABDOMEN: abdomen soft, non-tender, normo-active bowel sounds, no masses, no rebound or guarding. BACK: Back is symmetrical on inspection and there is no deformity SKIN: no rashes, petechiae, orbruising UPPER EXTREMITIES: upper extremities are grossly normal. FROM, nml pulses b/l. LOWER EXTREMITIES: No pitting edema. FROM, nml pulses b/l. NEURO EXAM: Normal sensorium, cranial nerves II-XII grossly intact, normal speech, no facial droop,nogross weakness of arms, no gross weakness of legs. Gross sensation intact. No ataxia. Vital Signs: reviewed and remarkable Differential Diagnosis: viral syndrome, copd exacerbation, dehydration, duane, electrolyte abnormality, pna, pleural effusion, pericarditis/myocarditis, colitis, as well as others were considered MEDICAL DECISION MAKING: This is a 74 yo female who presents with n/v and diarrhea and worsening cough. VS stable on arrival and patient afebrile. Labs drawn and sent, IV established, EKG and CXR performed and interpreted at bedside, and patient placed on telemetry. Patient with frequent cough noted during exam to the point of emesis. She was started on IVF due to reported vomiting and diarrhea and decreased oral intake. Viral swab obtained and sent and positive for COVID. We discussed all results. Patient given duoneb and decadron. No overt hypoxia noted at rest. Case discussed with hospitalist team for additional evaluation and mgmt. Consultation(s): 1515: Discussed with Dr. Forrest, [place] hospitalist, for additional inpatient evaluation and mgmt. ER Treatment Provided: See below Diagnostics Interpreted By Me: -ECG: nsr at 77, nml axis, nml intervals, no acute St/T wave changes -Cardiac Monitoring: An order was placed for continuous cardiac monitoring. The monitor shows a rate of 80 with normal sinus rhythm. -Laboratory studies: As stated above and show below. -Imaging studies: X-ray Chest: A single view study of the chest was reviewed and was negative for cardiomegaly, focal infiltrate, effusion, pulmonary edema, or wide mediastinum. Triage Nursing Note Reviewed Prior/Outside Records Reviewed Past Med/Surg History Problem List (Updated 08/06/24 @ 00:56 by Joya Vee DO) Acute otitis media History of thrush COVID (Acute) Hypokalemia (Acute) Dehydration (Acute) Diarrhea (Acute) Acute exacerbation of chronic obstructive pulmonary disease (COPD) (Acute) Nausea & vomiting (Acute) Poorly controlled type 2 diabetes mellitus Strep throat Thrush Acute exacerbation of chronic obstructive pulmonary disease (COPD) Pulsatile tinnitus Other cervical disc degeneration, mid-cervical region, unspecified level Balance problem Carpal tunnel syndrome, bilateral Status post left knee replacement (~07/2023) Encounter for pre-operative examination Osteoarthritis of left knee H/O hernia repair Weakness Hospital discharge follow-up Fatigue Shortness of breath Spigelian hernia (12/19/22) Open Repair of spigelian hernia Repair with mesh, 2.5 cm defect (Not Applicable) - Sukhwinder Chao DO, FACS SBO (small bowel obstruction) (Acute) Incarcerated hernia (Acute) Status post right knee replacement (~09/2022) Osteoarthritis of right knee Cervical radiculopathy Carotid artery plaque Current use of proton pump inhibitor Non-allergic rhinitis Osteoarthritis of knees, bilateral Arthralgia Osteoarthritis Prediabetes Anxiety Gastroparesis Getting gastric emptying study next month Spondylosis Trigger finger Essential (primary) hypertension Carpal tunnel syndrome Barretts esophagus ASCVD (arteriosclerotic cardiovascular disease) Per records Allergic rhinitis Antibody deficiency syndrome Immune deficiency disorder Diabetes NIDDM Glucose stable Dermatochalasis of eyelids of both eyes Colostomy in place COPD (chronic obstructive pulmonary disease) (Acute) Medical History Acute bronchitis Near syncope Near syncope Neck pain ASCVD (arteriosclerotic cardiovascular disease) Osteoarthritis Anxiety Allergic rhinitis Weakness Trigger finger of right hand Dyspnea on exertion History of small bowel obstruction Neck pain Gastroparesis Fatigue Diabetes mellitus, type 2 Carotid artery plaque Immune deficiency disorder History of anesthesia reaction Chronic back pain History of gastric ulcer Barretts esophagus Hypertension Emphysema lung Chronic obstructive pulmonary disease Asthma Diverticulitis of colon with perforation Surgical History History of total left knee replacement (TKR) History of hernia repair History of right knee joint replacement History of carpal tunnel surgery of right wrist History of arthroscopy of right knee History of colonoscopy with polypectomy History of esophagogastroduodenoscopy (EGD) History of total hysterectomy with bilateral salpingo-oophorectomy (BSO) History of appendectomy History of tooth extraction History of cardiac cath S/P tubal ligation S/P colostomy takedown History of colon surgery S/P cholecystectomy Family History Mother Diabetes Bone cancer Hepatic cirrhosis Uncle Prostate cancer Diabetes Colorectal cancer Grandmother (Maternal) Esophageal cancer Diabetes Father Diabetes Aunt Diabetes Grandfather (Paternal) Diabetes Brother Myocardial infarction COPD (chronic obstructive pulmonary disease) Other No family history of adverse response to anesthesia Denies family history of Ovarian cancer Breast cancer Social History Smoking Status: Never smoker Tobacco Type: Cigarettes Age Started Using Tobacco: 17; Age Quit Using Tobacco: 35; packs per day: 1; Second Hand Exposure: No; Do You Dip or Chew Tobacco: No; Hx Alcohol Use: No Hx Substance Use: No Preferred Language: Bulgarian Communication Ability: Effective Visual Impairment: No Limitations Hearing Ability: Normal Display Carver Required: No Beliefs That Will Affect Care: None marital status: Current Living Situation: Alone and Family Current Living Situation Comment: LIVES ADJACENT TO SON IN A TINY HOUSE current occupational status: retired Other Information That Helps Us Care for You: No Feels Safe at Home: Yes Safety Concerns: Feels Safe At This Time Childhood Exposure to Second-Hand Smoke: No Seatbelt Use: always Sunscreen Use: Yes Assistive Devices: Denture - Upper and Glasses Allergies Allergies Allergy/AdvReac Type Severity Reaction Status Date / Time sumatriptan Allergy Severe Anaphylaxis, Verified 07/20/24 15:21 "heart troubles" fluticasone Allergy Mild "Gonzales Verified 07/20/24 15:21 nose" hydrochlorothiazide Allergy Mild Rash Verified 07/20/24 15:21 levofloxacin Allergy Mild Gastrointestinal Verified 07/20/24 15:21 Upset lisinopril Allergy Mild Rash Verified 07/20/24 15:21 NSAIDS (Non-Steroidal Allergy Mild Rash Verified 07/20/24 15:21 Anti-Inflamma oxycodone AdvReac Severe constipatio Verified 07/20/24 15:21 n famotidine [From Pepcid] AdvReac Intermediate Nausea Verified 07/20/24 15:21 metformin AdvReac Mild Nausea Verified 07/20/24 15:21 Home Meds Home Medications Medication Instructions Recorded Confirmed sennosides 8.6 mg-docusate sodium 1 tab PO BID PRN constipation #30 08/01/19 08/05/24 50 mg tablet tabs macushield 1 cap PO QAM 01/19/23 08/05/24 cetirizine 10 mg tablet 10 mg PO QAM 05/10/23 08/05/24 ascorbic acid (vitamin C) 1,000 mg 1 g PO QPM 07/19/23 08/05/24 tablet (Vitamin C) cholecalciferol (vitamin D3) 50 50 mcg PO QPM 07/19/23 08/05/24 mcg (2,000 unit) capsule (Vitamin D3) cyanocobalamin (vitamin B-12) 1,000 mcg PO QPM 07/19/23 08/05/24 1,000 mcg tablet (Vitamin B-12) venlafaxine 75 mg capsule,extended 75 mg PO QAM 04/04/24 08/05/24 release 24 hr empagliflozin 25 mg tablet 25 mg PO UD 08/05/24 08/05/24 (Jardiance) pantoprazole 40 mg tablet,delayed 40 mg PO BID 08/05/24 08/05/24 release Previous Rx's Medication Instructions Recorded lancets 33 gauge ([facility] Delruben #100 ea 01/16/21 Plus Lancet) blood-glucose meter ([facility] #1 ea 07/30/21 Verio Meter) ipratropium 0.5 mg-albuterol 3 mg 3 ml inhalation Q6H PRN wheezing 08/27/22 (2.5 mg base)/3 mL nebulization #180 mL soln montelukast 10 mg tablet 10 mg PO QPM #90 tabs 09/08/22 albuterol sulfate 90 mcg/actuation 2 puff inhalation Q4H PRN 02/26/23 aerosol inhaler (ProAir HFA) shortness of breath or wheezing #18 grams budesonide-formoterol HFA 160 2 puff inhalation BID #6 grams 02/26/23 mcg-4.5 mcg/actuation aerosol inhaler (Symbicort) rosuvastatin 5 mg tablet 5 mg PO QAM #90 tabs 06/04/23 blood sugar diagnostic (orat.ioTouch #200 ea 12/06/23 Verio test strips) enalapril maleate 10 mg tablet 10 mg PO QAM #90 tabs 12/14/23 furosemide 20 mg tablet 20 mg PO QAM #90 tabs 03/20/24 venlafaxine 37.5 mg 37.5 mg PO DAILY #90 caps 06/06/24 capsule,extended release 24 hr fluocinonide 0.05 % topical cream 1 applic topical BID #60 grams 07/20/24 glimepiride 1 mg tablet 1 mg PO QAM #30 tabs 07/20/24 sucralfate 1 gram tablet (Carafate) 1 g PO BID #30 tabs 07/20/24 diltiazem HCl 180 mg 180 mg PO QAM #30 caps 07/31/24 capsule,extended release 24 hr Results & Data (ED) Vital Signs Vital Signs - 24 hr 08/05/24 11:41 08/05/24 12:09 08/05/24 12:14 Temperature 36.3 C L Temperature Source Oral Pulse Rate 85 81 Pulse Rate [Apical] 77 Pulse Rate from SpO2 Sensor Respiratory Rate 18 19 Respiratory Effort / Characteristics Non-Labored Spontaneous Respiratory Depth Normal Respiratory Pattern Regular Blood Pressure 145/80 H Blood Pressure [Left Arm] 138/93 Blood Pressure Mean 101 Blood Pressure Mean [Left Arm] 108 Blood Pressure Position Sitting Pulse Oximetry 97 97 Oxygen Delivery Method Room Air Room Air Sepsis Recent Fever Within 48 Hours No Sepsis New/Unexplained Change in Mental Status No Sepsis Action Taken by Nursing No Action Required 08/05/24 12:15 08/05/24 12:45 08/05/24 13:00 Temperature Temperature Source Pulse Rate 76 76 78 Pulse Rate [Apical] Pulse Rate from SpO2 Sensor 76 77 75 Respiratory Rate 17 15 18 Respiratory Effort / Characteristics Respiratory Depth Respiratory Pattern Blood Pressure Blood Pressure [Left Arm] Blood Pressure Mean Blood Pressure Mean [Left Arm] Blood Pressure Position Pulse Oximetry 98 99 94 Oxygen Delivery Method Sepsis Recent Fever Within 48 Hours Sepsis New/Unexplained Change in Mental Status Sepsis Action Taken by Nursing 08/05/24 13:02 08/05/24 13:15 08/05/24 13:33 Temperature Temperature Source Pulse Rate 80 82 Pulse Rate [Apical] 80 Pulse Rate from SpO2 Sensor 79 83 Respiratory Rate 14 13 22 Respiratory Effort / Characteristics Respiratory Depth Respiratory Pattern Blood Pressure Blood Pressure [Left Arm] 154/105 H Blood Pressure Mean Blood Pressure Mean [Left Arm] 121 Blood Pressure Position Pulse Oximetry 95 93 95 Oxygen Delivery Method Room Air Sepsis Recent Fever Within 48 Hours Sepsis New/Unexplained Change in Mental Status Sepsis Action Taken by Nursing 08/05/24 13:45 08/05/24 14:18 08/05/24 15:00 Temperature 36.8 C Temperature Source Oral Pulse Rate 80 79 Pulse Rate [Apical] 83 Pulse Rate from SpO2 Sensor 80 77 Respiratory Rate 22 24 18 Respiratory Effort / Characteristics Non-Labored Spontaneous Respiratory Depth Normal Respiratory Pattern Regular Blood Pressure 157/77 H Blood Pressure [Left Arm] 153/66 H Blood Pressure Mean 103 Blood Pressure Mean [Left Arm] 95 Blood Pressure Position Pulse Oximetry 97 100 98 Oxygen Delivery Method Room Air Sepsis Recent Fever Within 48 Hours Sepsis New/Unexplained Change in Mental Status Sepsis Action Taken by Nursing Laboratory Data 08/05/24 Unknown 08/05/24 Unknown Lab Results 08/05/24 Range/Units Unknown WBC 4.40 L (4.8-10.8) K/ul RBC 5.55 H (4.20-5.40) M/uL Hgb 16.5 H (12.0-16.0) g/dl Hct 48.7 H (37.0-47.0) % MCV 87.7 (80.0-100.0) fL MCH 29.7 (25.0-34.0) pg MCHC 33.9 (32.0-36.0) g/dL RDW Std Deviation 46.9 H (36.4-46.3) fL RDW Coeff of Daria 14.6 H (11.5-14.5) % Plt Count 239 (130-400) K/uL MPV 10.5 (9.4-12.4) fL Immature Gran % (Auto) 0.2 % Neut % (Auto) 49.6 % Lymph % (Auto) 44.1 % [place] % (Auto) 5.7 % Eos % (Auto) 0.2 % Baso % (Auto) 0.2 % Neut # (Auto) 2.18 (1.40-6.50) K/uL Lymph # (Auto) 1.94 (1.20-3.40) K/uL [place] # (Auto) 0.25 (0.11-0.59) K/uL Eos # (Auto) 0.01 (0.00-0.50) K/uL Baso # (Auto) 0.01 (0.00-0.20) K/uL Immature Gran # (Auto) 0.01 (0.01-0.20) K/uL Sodium 140 (136-145) mmol/L Potassium 3.1 L (3.5-5.1) mmol/L Chloride 101 (98-107) mmol/L Carbon Dioxide 29 (21-32) mmol/L Anion Gap 10 (3-11) BUN 12 (6-23) mg/dl Creatinine 0.76 (0.6-1.2) mg/dl Est Cr Clr Drug Dosing 48.3 ml/min eGFR 81.67 BUN/Creatinine Ratio 15.8 (10-20) Glucose 202 H (70-99(Fasting)) mg/dl Calcium 9.7 (8.6-10.3) mg/dl Total Bilirubin 0.8 (0.2-1.0) mg/dl AST 45 H (13-39) U/L ALT 38 (7-52) U/L Alkaline Phosphatase 110 H (34-104) U/L Total Protein 8.3 (6.0-8.3) gm/dl Albumin 4.8 (3.4-5.0) gm/dl Globulin 3.5 (2.5-4.0) gm/dl Albumin/Globulin Ratio 1.4 (0.9-2) Administered Medications Enoxaparin Sodium (Enoxaparin Inj 40 Mg/0.4 Ml Syr) 40 mg SQ Q24H BONNIE Stop: 09/04/24 20:59 Last Admin: 08/05/24 20:48 Dose: 40 mg Documented By: MARLYN Guaifenesin (Guaifenesin 600 Mg Tabcr) 1,200 mg PO BID BONNIE Stop: 09/04/24 20:59 Last Admin: 08/05/24 20:45 Dose: 1,200 mg Documented By: MARLYN Insulin Aspart (Insulin Aspart Per Unit Charge) 0 units SC ACHS BONNIE Stop: 09/04/24 17:10 Last Admin: 08/05/24 20:45 Dose: 4 units Documented By: MARLYN Co-signed By: KHUSHI Admin: 08/05/24 18:36 Dose: Not Given Documented By: LIAT Insulin Glargine (Lantus Per Unit Charge) 8 units SQ BID BONNIE Stop: 09/04/24 20:59 Last Admin: 08/05/24 20:47 Dose: 8 units Documented By: MARLYN Co-signed By: KHUSHI Melatonin (Melatonin 3 Mg Tab) 3 mg PO HS PRN PRN Reason: Sleep Stop: 09/04/24 23:13 Last Admin: 08/06/24 00:20 Dose: 3 mg Documented By: MARLYN Montelukast Sodium (Montelukast Sodium 10 Mg Tablet) 10 mg PO QPM BONNIE Stop: 09/04/24 20:59 Last Admin: 08/05/24 20:44 Dose: 10 mg Documented By: MARLYN Pantoprazole Sodium (Pantoprazole 40 Mg Tab) 40 mg PO BID BONNIE Stop: 09/04/24 20:59 Last Admin: 08/05/24 20:45 Dose: 40 mg Documented By: MARLYN Sucralfate (Sucralfate 1 Gm Tab) 1 gm PO BID BONNIE Stop: 09/04/24 20:59 Last Admin: 08/05/24 20:45 Dose: 1 gm Documented By: MARLYN Discontinued Medications Albuterol (Albut/Ipratrop 3mg/0.5mg Neb 3 Ml Vial) 3 ml NEB NOW STA; Protocol Stop: 08/05/24 14:45 Last Admin: 08/05/24 15:07 Dose: Not Given Documented By: SARAH Azithromycin (Azithromycin 250 Mg Tab) 500 mg PO NOW ONE Stop: 08/05/24 15:26 Last Admin: 08/05/24 16:01 Dose: Not Given Documented By: SARAH Azithromycin (Azithromycin 250 Mg Tab) 500 mg PO NOW ONE Stop: 08/05/24 15:34 Last Admin: 08/05/24 16:05 Dose: 500 mg Documented By: SARAH Dexamethasone Sodium Phosphate (DexamethasonePf 10 Mg/Ml Vial) 6 mg IV NOW ONE Stop: 08/05/24 14:45 Last Admin: 08/05/24 15:06 Dose: 6 mg Documented By: SARAH Sodium Chloride (Nss) 1,000 mls @ 125 mls/hr IV .Q8H BONNIE Stop: 08/05/24 20:44 Last Infusion: 08/05/24 18:06 Dose: Infused Documented By: Admin: 08/05/24 13:03 Dose: 125 mls/hr Documented By: DENIA Potassium Chloride (K Stanton / Wtr) 10 meq in 100 mls @ 100 mls/hr IV Q1H BONNIE; Protocol Stop: 08/05/24 18:44 Last Infusion: 08/05/24 22:22 Dose: Infused Documented By: Admin: 08/05/24 20:33 Dose: 100 mls/hr Documented By: Infusion: 08/05/24 19:32 Dose: Infused Documented By: Admin: 08/05/24 18:32 Dose: 100 mls/hr Documented By: HEL Potassium Chloride (Potassium Chloride Crtab 20 Meq Tabcr) 20 meq PO ONE ONE Stop: 08/05/24 21:01 Last Admin: 08/05/24 20:43 Dose: 20 meq Documented By: BMS Imaging Data Radiologist's Impression: Chest X-Ray 08/05/24 11:43 XR chest 1V not portable CLINICAL HISTORY: Cough. COMPARISON STUDY: Chest radiograph June 17, 2024. FINDINGS: Lung volumes are normal. Lungs are clear. There is no pneumothorax or pleural effusion. Cardiac size is normal. Mediastinal contours are normal. There is no evidence for pulmonary edema. Status post cholecystectomy. IMPRESSION: No acute cardiopulmonary findings. ACT 112: Negative or not required by law. Electronically signed by: Jose Jain M.D. 08/05/2024 12:15 PM Discharge Plan Visit Data Chief Complaint: Cough Stated Complaint: COUGH, FEVER, DIARRHEA, VIRUS ED Provider: Joya Vee Discharge Problem: Nausea & vomiting, Acute exacerbation of chronic obstructive pulmonary disease (COPD), Diarrhea, Dehydration, Hypokalemia, COVID Patient Disposition: Admitted As Inpatient Discharge Instructions Interventions: ED Discharge Assessment Last Done: 08/05/24 16:43
[2024-08-05] MEDS: dexAMETHasone**PF** 10 MG/ML VIAL IV ONE (15:06)
[2024-08-05] MEDS: ALBUT/IPRATROP 3MG/0.5MG NEB 3 ML VIAL NEB STA (15:07)
--- NOTE | 2024-08-05 15:19 | History & Physical Report ---
Date of Service August 05, 2024 Assessment & Plan (1) Acute exacerbation of chronic obstructive pulmonary disease (COPD): Plan: Worsening generalized fatigue and productive cough x 2 weeks, with acute exacerbation over the past 4 days leading to N/V/D and fever Prednisone 40 mg p.o. QAM Azithromycin 500 mg p.o. x 1, then 250 mg x 4 days Incentive spirometry, flutter valve Continuous pulse oximetry Supplemental oxygen as needed (2) COVID: Plan: COVID (+) likely contributing to #1 Nonhypoxic on arrival Isolation precautions Supportive care Guaifenesin 1200 mg p.o. BID Acetaminophen as needed for fever/pain (3) History of thrush: Plan: Patient declining DuoNeb on admission due to concern for recurrence of thrush Sore throat/hoarseness since her last hospitalization Throat culture ordered, pending (4) Acute otitis media: Plan: Erythematous left ear/bulging TM on clinical exam In the setting of GI symptoms, will defer Augmentin/doxycycline Azithromycin (as above) (5) Hypokalemia: Plan: Unclear if patient will be able to tolerate p.o. K supplementation due to significant dry heaves/vomiting K riders 10mEQ x 2 for now Trial of potassium chloride 20mEq p.o. on the evening of 08/05 Trend BMP (6) Poorly controlled type 2 diabetes mellitus: Plan: Last A1c at 8.5% on 06/14/2024 Hold glimepiride, Jardiance Lantus 8 u BID while inpatient SSI; with target BSG range 110-140mg/dL, CF 40, carb ratio 14 T2DM diet BSG ACHS Adjust regimen as needed (7) Dehydration: Plan: NSS 1000 mL IV at 125mL/hr x 1 L in the ED In the setting of national IVF shortage, encourage p.o. fluid intake once vomiting subsides Hold Lasix (8) Nausea & vomiting: (9) Diarrhea: Plan Disposition: Admit to [facility] telemetry Full code T2DM diet VTE PPx: Lovenox 40 mg SQ q24h History of Present Illness Chief Complaint: Productive cough, N/V/D Primary Care Provider: Abbe Lee MD Jasmyn is a pleasant 74-year-old female with PMH of COPD, colostomy, ASCVD, immune deficiency disorder, gastroparesis, and anxiety. She presented on 08/05 for cough, N/V/D, and weakness. Recent [place] admission from 06/13 - 06/21 for COPD exacerbation in the setting of entero-/rhinovirus. She reports that she felt well after she left the hospital for 2 weeks, then started to gradually develop cold-like symptoms (congestion, productive cough, sore throat, hoarse voice). Her voice never returned to normal, which she attributes to her recent episode of thrush. She feels like she has not no energy, and has been having difficulty eating the past 4 days. The past 4 days have been the worst with nausea, vomiting, and diarrhea with the consistency of "green slime". Her productive cough was clear until 3 days ago when he became "white". Patient vomited up her morning medication today. She has been using an inhaler for her symptoms, but has been keeping off her breathing treatments because they gave her thrush in the past. She also took Tylenol 2 days ago for headache, but has been trying to avoid Tylenol. She had a fever last night with chills and night sweats; she woke up twice and had "soaked" the bed. She did not take her temperature at that time. She does have concern that, given her voice is never turns to normal, there might be some damage to the vocal cords. Patient denies prior episodes of COVID. She reports she is up-to-date on her COVID shots and boosters. No prior falls or injuries to the head/neck. Additionally, she reports that she feels like her ears are full. No prior history of DVT/PE. No supplemental oxygen at baseline or CPAP at night. She has been checking her home pulse oximeter, and has been around 93 to 94% on room air. While she lives alone, her house is attached to her son's deck. No one else in her family is currently sick. She denies smoking, tobacco use, or recent alcohol use. Patient is hypertensive at 157/77 at time of admission; SpO2 100% on RA. ED course: NSS 1000 mL at 125 mL/hr Albuterol 3 mL neb (declined treatment due to concern for recurrence of thrush) Dexamethasone 6 mg IV ROS: Patient endorses fever, chills, night-sweats, generalized weakness, unsteady on feet, dizziness, lightheadedness, intermittent CASTORENA (which she attributes to coughing fits), ear pressure, congestion, hoarseness, changes in taste/smell, sore throat, intermittent chest palpitations, nausea, vomiting, and diarrhea (green). Patient denies tinnitus, chest pain, pleuritic CP, hemoptysis, abdominal pain. Allergies Allergy/AdvReac Type Severity Reaction Status Date / Time sumatriptan Allergy Severe Anaphylaxis, Verified 07/20/24 15:21 "heart troubles" fluticasone Allergy Mild "Gonzales Verified 07/20/24 15:21 nose" hydrochlorothiazide Allergy Mild Rash Verified 07/20/24 15:21 levofloxacin Allergy Mild Gastrointestinal Verified 07/20/24 15:21 Upset lisinopril Allergy Mild Rash Verified 07/20/24 15:21 NSAIDS (Non-Steroidal Allergy Mild Rash Verified 07/20/24 15:21 Anti-Inflamma oxycodone AdvReac Severe constipatio Verified 07/20/24 15:21 n famotidine [From Pepcid] AdvReac Intermediate Nausea Verified 07/20/24 15:21 metformin AdvReac Mild Nausea Verified 07/20/24 15:21 Home Medications Medication Instructions Recorded Confirmed Type sennosides 8.6 mg-docusate sodium 1 tab PO BID PRN constipation #30 08/01/19 08/05/24 History 50 mg tablet tabs lancets 33 gauge (OneTouch Delica #100 ea 01/16/21 07/20/24 Rx Plus Lancet) blood-glucose meter (Message BusTouch #1 ea 07/30/21 07/20/24 Rx Verio Meter) ipratropium 0.5 mg-albuterol 3 mg 3 ml inhalation Q6H PRN wheezing 08/27/22 08/05/24 Rx (2.5 mg base)/3 mL nebulization #180 mL soln montelukast 10 mg tablet 10 mg PO QPM #90 tabs 09/08/22 08/05/24 Rx macushield 1 cap PO QAM 01/19/23 08/05/24 History albuterol sulfate 90 mcg/actuation 2 puff inhalation Q4H PRN 02/26/23 08/05/24 Rx aerosol inhaler (ProAir HFA) shortness of breath or wheezing #18 grams budesonide-formoterol HFA 160 2 puff inhalation BID #6 grams 02/26/23 08/05/24 Rx mcg-4.5 mcg/actuation aerosol inhaler (Symbicort) cetirizine 10 mg tablet 10 mg PO QAM 05/10/23 08/05/24 History rosuvastatin 5 mg tablet 5 mg PO QAM #90 tabs 06/04/23 08/05/24 Rx ascorbic acid (vitamin C) 1,000 mg 1 g PO QPM 07/19/23 08/05/24 History tablet (Vitamin C) cholecalciferol (vitamin D3) 50 50 mcg PO QPM 07/19/23 08/05/24 History mcg (2,000 unit) capsule (Vitamin D3) cyanocobalamin (vitamin B-12) 1,000 mcg PO QPM 07/19/23 08/05/24 History 1,000 mcg tablet (Vitamin B-12) blood sugar diagnostic (OneTouch #200 ea 12/06/23 07/20/24 Rx Verio test strips) enalapril maleate 10 mg tablet 10 mg PO QAM #90 tabs 12/14/23 08/05/24 Rx furosemide 20 mg tablet 20 mg PO QAM #90 tabs 03/20/24 08/05/24 Rx venlafaxine 75 mg capsule,extended 75 mg PO QAM 04/04/24 08/05/24 History release 24 hr venlafaxine 37.5 mg 37.5 mg PO DAILY #90 caps 06/06/24 08/05/24 Rx capsule,extended release 24 hr fluocinonide 0.05 % topical cream 1 applic topical BID #60 grams 07/20/24 08/05/24 Rx glimepiride 1 mg tablet 1 mg PO QAM #30 tabs 07/20/24 08/05/24 Rx sucralfate 1 gram tablet (Carafate) 1 g PO BID #30 tabs 07/20/24 08/05/24 Rx diltiazem HCl 180 mg 180 mg PO QAM #30 caps 07/31/24 08/05/24 Rx capsule,extended release 24 hr empagliflozin 25 mg tablet 25 mg PO UD 08/05/24 08/05/24 History (Jardiance) pantoprazole 40 mg tablet,delayed 40 mg PO BID 08/05/24 08/05/24 History release Past Med/Surg History Problem List (Updated 08/05/24 @ 16:54 by Barry Harley PA-C) Acute otitis media History of thrush COVID Hypokalemia Dehydration Diarrhea (Acute) Acute exacerbation of chronic obstructive pulmonary disease (COPD) (Acute) Nausea & vomiting (Acute) Poorly controlled type 2 diabetes mellitus Strep throat Thrush Acute exacerbation of chronic obstructive pulmonary disease (COPD) Pulsatile tinnitus Other cervical disc degeneration, mid-cervical region, unspecified level Balance problem Carpal tunnel syndrome, bilateral Status post left knee replacement (~07/2023) Encounter for pre-operative examination Osteoarthritis of left knee H/O hernia repair Weakness Hospital discharge follow-up Fatigue Shortness of breath Spigelian hernia (12/19/22) Open Repair of spigelian hernia Repair with mesh, 2.5 cm defect (Not Applicable) - Sukhwinder Chao DO, FACS SBO (small bowel obstruction) (Acute) Incarcerated hernia (Acute) Status post right knee replacement (~09/2022) Osteoarthritis of right knee Cervical radiculopathy Carotid artery plaque Current use of proton pump inhibitor Non-allergic rhinitis Osteoarthritis of knees, bilateral Arthralgia Osteoarthritis Prediabetes Anxiety Gastroparesis Getting gastric emptying study next month Spondylosis Trigger finger Essential (primary) hypertension Carpal tunnel syndrome Barretts esophagus ASCVD (arteriosclerotic cardiovascular disease) Per records Allergic rhinitis Antibody deficiency syndrome Immune deficiency disorder Diabetes NIDDM Glucose stable Dermatochalasis of eyelids of both eyes Colostomy in place COPD (chronic obstructive pulmonary disease) (Acute) Medical History Acute bronchitis Near syncope Near syncope Neck pain ASCVD (arteriosclerotic cardiovascular disease) Osteoarthritis Anxiety Allergic rhinitis Weakness Trigger finger of right hand Dyspnea on exertion History of small bowel obstruction Neck pain Gastroparesis Fatigue Diabetes mellitus, type 2 Carotid artery plaque Immune deficiency disorder History of anesthesia reaction Chronic back pain History of gastric ulcer Barretts esophagus Hypertension Emphysema lung Chronic obstructive pulmonary disease Asthma Diverticulitis of colon with perforation Surgical History History of total left knee replacement (TKR) History of hernia repair History of right knee joint replacement History of carpal tunnel surgery of right wrist History of arthroscopy of right knee History of colonoscopy with polypectomy History of esophagogastroduodenoscopy (EGD) History of total hysterectomy with bilateral salpingo-oophorectomy (BSO) History of appendectomy History of tooth extraction History of cardiac cath S/P tubal ligation S/P colostomy takedown History of colon surgery S/P cholecystectomy Family History Mother Diabetes Bone cancer Hepatic cirrhosis Uncle Prostate cancer Diabetes Colorectal cancer Grandmother (Maternal) Esophageal cancer Diabetes Father Diabetes Aunt Diabetes Grandfather (Paternal) Diabetes Brother Myocardial infarction COPD (chronic obstructive pulmonary disease) Other No family history of adverse response to anesthesia Denies family history of Ovarian cancer Breast cancer Social History Smoking Status: Never smoker Tobacco Type: Cigarettes Age Started Using Tobacco: 17; Age Quit Using Tobacco: 35; packs per day: 1; Second Hand Exposure: No; Do You Dip or Chew Tobacco: No; Hx Alcohol Use: No Hx Substance Use: No Preferred Language: Azeri Communication Ability: Effective Visual Impairment: No Limitations Hearing Ability: Normal 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 Required: No Beliefs That Will Affect Care: None and Spiritual Spiritual Healthcare Practices: Taoism marital status: Current Living Situation: Alone Current Living Situation Comment: lives in "tiny house" right next to son's house current occupational status: retired Feels Safe at Home: Yes Childhood Exposure to Second-Hand Smoke: No Seatbelt Use: always Sunscreen Use: Yes Assistive Devices: Cane and Walker Review of Systems Review of Systems: See HPI above Physical Exam Physical Exam: General: no acute distress; pleasant affect; lethargic; episode of dry heaving in the room; non-toxic appearing; cooperative; SpO2 98% on RA HEENT: normocephalic, atraumatic; no scleral icterus; PERRLA; vision and hearing grossly intact; oral mucosa is mildly erythematous especially in the pharynx; some exudate on her right tongue which might indicate residual thrush; patient's left ear canal is erythematous with bulging TM Neck: supple; trachea midline Skin: warm, dry without signs of tenting; no cyanosis; no rashes, bruising, lesions, or erythema noted CV: chest wall NTP; RRR; S1/S2 normal; no murmurs/rubs/gallops; pulses intact and symmetric at radial, DP, and PT Lungs: no acute respiratory distress; symmetrical chest wall expansion; clear breath sounds across all lung [place] w/o adventitious sounds; no wheezing ABD: Soft, NTP; BS present; no rebound/guarding; no distention MSK: no tics or fasciculations; no edema noted in the LEs b/l, nonerythematous Neuro: A&Ox3; normal mood and affect; fluent speech; no focal deficits; sensation grossly intact in the LEs b/l Results & Data Results & Data Vital Signs (Past 12 Hours) Vital Signs Temp Pulse Pulse Resp BP BP Pulse Ox 08/05/24 15:00 36.8 C 83 18 153/66 H 98 08/05/24 14:18 79 24 157/77 H 100 08/05/24 13:45 80 22 97 08/05/24 13:33 82 22 95 08/05/24 13:15 80 13 93 08/05/24 13:02 80 14 154/105 H 95 08/05/24 13:00 78 18 94 08/05/24 12:45 76 15 99 08/05/24 12:15 76 17 98 08/05/24 12:14 81 08/05/24 12:09 77 19 138/93 97 08/05/24 11:41 36.3 C L 85 18 145/80 H 97 O2 Del Method 08/05/24 15:00 Room Air 08/05/24 14:18 08/05/24 13:45 08/05/24 13:33 08/05/24 13:15 08/05/24 13:02 Room Air 08/05/24 13:00 08/05/24 12:45 08/05/24 12:15 08/05/24 12:14 08/05/24 12:09 Room Air 08/05/24 11:41 Room Air Laboratory Results Abnormal lab results 08/05/24 Range/Units Unknown WBC 4.40 L (4.8-10.8) K/ul RBC 5.55 H (4.20-5.40) M/uL Hgb 16.5 H (12.0-16.0) g/dl Hct 48.7 H (37.0-47.0) % RDW Std Deviation 46.9 H (36.4-46.3) fL RDW Coeff of Daria 14.6 H (11.5-14.5) % Potassium 3.1 L (3.5-5.1) mmol/L Glucose 202 H (70-99(Fasting)) mg/dl AST 45 H (13-39) U/L Alkaline Phosphatase 110 H (34-104) U/L SARS-CoV-2 (PCR) DETECTED A (NotDetected) Diagnostic Findings Chest X-Ray 08/05/24 11:43 XR chest 1V not portable CLINICAL HISTORY: Cough. COMPARISON STUDY: Chest radiograph June 17, 2024. FINDINGS: Lung volumes are normal. Lungs are clear. There is no pneumothorax or pleural effusion. Cardiac size is normal. Mediastinal contours are normal. There is no evidence for pulmonary edema. Status post cholecystectomy. IMPRESSION: No acute cardiopulmonary findings. ACT 112: Negative or not required by law. Electronically signed by: Jose Jain M.D. 08/05/2024 12:15 PM ECG Additional Comments: ECG revealed NSR at 77 bpm; QTc 452 Code Status & VTE Plan Code Status Full code (discussed with patient at bedside; patient was listed as a DNR/DNI last visit, but does report that she would want CPR/defibrillation/temporary intubation if required) VTE Prophylaxis Plan VTE Prophylaxis will be ordered: Yes Supervising Physician Co-Signing Physician Notes Patient seen and examined, chart reviewed, case discussed with Barry Harley PA-C and I agree with the assessment and plan as above except as otherwise noted Labs and images reviewed Jasmyn is a 74-year-old female history of COPD and recent rhino/enterovirus requiring hospitalization who presents with recurrent worsening in her breathing, nausea/vomiting/diarrhea, and weakness to the point where she is unable to stand safely. She is found to be newly COVID-positive. She is also with diminished breath sounds and wheezing suspicious for viral induced COPD exacerbation. She is not hypoxic however due to weakness to the point with difficulty standing and difficulty tolerating p.o. is recommended for inpatient care and PT/OT assessments. Patient will be continued on dexamethasone, albuterol treatments, and will place on azithromycin for concurrent COPD exacerbation coverage with anti-inflammatory effect. Agree with above. PG Care Time/CCT Total # of Minutes Spent Total Time Spent with Patient: Total time spent is greater than 50% in coordination of care (as documented) at patient's floor/unit and/or counseling patient: C[place] [address] INT INP/OBS CARE MIN Patient Type Established History Comprehensive Exam Comprehensive Medical Decision Making High Complexity Diagnoses Acute exacerbation of chronic obstructive pulmonary disease (COPD) J44.1 COVID U07.1 History of thrush Z86.19 Acute otitis media H66.90 Hypokalemia E87.6 Poorly controlled type 2 diabetes mellitus E11.65 Dehydration E86.0 Nausea & vomiting R11.2 Diarrhea R19.7
[2024-08-05] MEDS: AZITHROMYCIN 250 MG TAB PO ONE ×2 (16:01→16:05)
[2024-08-05] MEDS ORDERED: GLUCAGON FOR INJ 1 MG VIAL SQ PRN (17:11)
[2024-08-05] MEDS ORDERED: ONDANSETRON INJ 2 MG/ML 2 ML VIAL IV PRN (17:11)
[2024-08-05] MEDS ORDERED: GLUCOSE 10 TAB/TUBE PO PRN (17:11)
[2024-08-05] MEDS ORDERED: ALBUT/IPRATROP 3MG/0.5MG NEB 3 ML VIAL INH PRN (17:11)
[2024-08-05] MEDS ORDERED: DEXTROSE 50% 50 ML SYRINGE IV PRN (17:11)
[2024-08-05] MEDS ORDERED: CARBOHYDRATES FOR HYPOGLYCEMIA PO PRN (17:11)
[2024-08-05] MEDS ORDERED: DOCUSATE SODIUM/SENNA 50/8.6MG TAB PO PRN (17:11)
[2024-08-05] MEDS ORDERED: GLUCOSE 40% GEL 15 GM TUBE PO PRN (17:11)
[2024-08-05] MEDS: POTASSIUM CHLORIDE / WTR 10 MEQ/100 ML PLCT IV SCH (18:32)
[2024-08-05] MEDS: INSULIN ASPART PER UNIT CHARGE SC SCH (18:36)
[2024-08-05 20:17] LABS: Appearance Urine Clear (Clear); Bilirubin Urine Negative (Negative); Blood Urine Negative (Negative); Color Urine Yellow; Glucose Urine UA Trace (Negative); Ketones Urine 1+ (Negative); Leukocyte Esterase Urine Negative (Negative); Nitrite Urine Negative (Negative); Protein Urine Negative (Negative); Specific Gravity Urine 1.012 (1.000-1.030); Urobilinogen Urine Negative (Negative); pH Urine 6.5 (4.5-7.5)
[2024-08-05] MEDS: POTASSIUM CHLORIDE CRTAB 20 MEQ TABCR PO ONE (20:43)
[2024-08-05] MEDS: MONTELUKAST SODIUM 10 MG TABLET PO SCH (20:44)
[2024-08-05] MEDS: PANTOprazole 40 MG TAB PO SCH (20:45)
[2024-08-05] MEDS: guaiFENesin 600 MG TABCR PO SCH (20:45)
[2024-08-05] MEDS: SUCRALFATE 1 GM TAB PO SCH (20:45)
[2024-08-05] MEDS: LANTUS PER UNIT CHARGE SQ SCH (20:47)
[2024-08-05] MEDS: ENOXAPARIN INJ 40 MG/0.4 ML SYR SQ SCH (20:48)
[2024-08-06] MEDS: MELATONIN 3 MG TAB PO PRN (00:20)
[2024-08-06] MEDS: BUDESONIDE INH PRN (02:40)
[2024-08-06] MEDS: FORMOTEROL FUMARATE INH PRN (02:40)
[2024-08-06 06:32] LABS: Hematocrit (blood only) 38.6 % (37.0-47.0); Hemoglobin 13.2 g/dl (12.0-16.0); Immature Granulocytes # (auto) 0.01 K/uL (0.01-0.20); Immature Granulocytes % (auto) 0.4 %; Lymphocytes # (auto) 0.88 K/uL (1.20-3.40); Lymphocytes % (auto) 38.3 %; Mean Corpuscular Hemoglobin 29.7 pg (25.0-34.0); Mean Corpuscular Hgb Conc 34.2 g/dL (32.0-36.0); Mean Corpuscular Volume 86.9 fL (80.0-100.0); Mean Platelet Volume 11.3 fL (9.4-12.4); Monocytes # (auto) 0.09 K/uL (0.11-0.59); Monocytes % (auto) 3.9 %; Neutrophils # (auto) 1.32 K/uL (1.40-6.50); Neutrophils % (auto) 57.4 %; Platelet Count 175 K/uL (130-400); RDW Coefficient of Variation 14.2 % (11.5-14.5); Red Blood Count 4.44 M/uL (4.20-5.40)
[2024-08-06 06:56] LABS: BUN Creatinine Ratio 18.9 (10-20); Calcium 8.8 mg/dl (8.6-10.3); Creatinine Clr Calc Pharmacy 76.2 ml/min; Magnesium 1.7 mg/dl (1.7-2.4); Potassium 3.8 mmol/L (3.5-5.1)
--- NOTE | 2024-08-06 06:59 | Hospitalist Progress Note ---
Date of Service August 06, 2024 Assessment & Plan (1) Acute exacerbation of chronic obstructive pulmonary disease (COPD): Plan: 74 F recently in hospital for copd exacerbation/strep throat, presents with metabolic encephalopathy / Worsening generalized fatigue and productive cough x 2 weeks, COVID positive no pneumonia over the past 4 days leading to N/V/D and fever Prednisone 40 mg p.o. QAM Azithromycin 500 mg p.o. x 1, then 250 mg x 4 days( also to treat otitis poa) Incentive spirometry, flutter valve holding lasix as poor po intake h/o thrush, pt declining duonebs, nystatin ordered for some dysphagia will have speech consult (2) COVID: Plan: COVID (+) likely contributing to #1 Nonhypoxic on arrival Isolation precautions Supportive care Guaifenesin 1200 mg p.o. BID nausea vomiting and diarrhea likely secondary to covid (3) Poorly controlled type 2 diabetes mellitus: Plan: Last A1c at 8.5% on 06/14/2024 Hold glimepiride, Jardiance Lantus 8 u BID while inpatient SSI; with target BSG range 110-140mg/dL, CF 40, carb ratio 14 T2DM diet BSG ACHS Adjust regimen as needed Plan hypoklameia is replete Full code T2DM diet VTE PPx: Lovenox 40 mg SQ q24h Admission and Anticipated Discharge Date Admission Date: August 05, 2024 Subjective pt states has not felt well, not able to swallow solids, was treated for thrush last admission no cough no sob Physical Exam Physical Exam: oral pharynx is reddened, no obvious thrush, pt is convinced she has it lungs are coarse at bases but clear Results & Data Results & Data Vital Signs (Past 12 Hours) Vital Signs Temp Pulse Pulse Resp BP Pulse Ox O2 Del Method 08/06/24 05:20 97.3 F L 62 18 158/78 H 95 Room Air 08/06/24 02:44 97.3 F L 67 18 119/66 94 Room Air 08/05/24 23:00 97.5 F L 62 18 137/72 95 Room Air 08/05/24 21:44 69 08/05/24 20:45 Room Air 08/05/24 19:15 97.7 F 80 18 135/60 94 Room Air Laboratory Results reviewed cbc reviewed chemistry PG Care Time/CCT Total # of Minutes Spent Total Time Spent with Patient: Total time spent is greater than 50% in coordination of care (as documented) at patient's floor/unit and/or counseling patient: Coding Level of Care Code 52384 SUB INP/OBS CARE MIN Diagnoses Acute exacerbation of chronic obstructive pulmonary disease (COPD) J44.1 COVID U07.1 Poorly controlled type 2 diabetes mellitus E11.65
[2024-08-06] MEDS: predniSONE 20 MG TAB PO SCH (08:04)
[2024-08-06] MEDS: ENALAPRIL MALEATE 10 MG TAB PO SCH (08:04)
[2024-08-06] MEDS: dilTIAZem HCL 180 MG CAPCR PO SCH (08:04)
[2024-08-06] MEDS: ROSUVASTATIN CALCIUM 5 MG TAB PO SCH (08:05)
[2024-08-06] MEDS: VENLAFAXINE HCL XR 37.5 MG CAPXR PO SCH (08:05)
[2024-08-06] MEDS: CETIRIZINE HCL 10 MG TABLET PO SCH (08:05)
[2024-08-06] MEDS: VENLAFAXINE HCL XR 75 MG CAPXR PO SCH (08:05)
[2024-08-06] MEDS ORDERED: EMPAGLIFLOZIN 25 MG TAB PO SCH (08:45)
[2024-08-06] MEDS ORDERED: FLUTICASONE/VILANTEROL 200/25MCG 14 PUFFS/INHALER INH SCH (09:00)
[2024-08-06] MEDS: GLIMEPIRIDE 2 MG TAB PO SCH (09:50)
[2024-08-06] MEDS: AZITHROMYCIN 250 MG TAB PO SCH (09:50)
[2024-08-06] MEDS: NYSTATIN 500,000 UNIT TAB PO SCH (17:25)
[2024-08-06] MEDS: ACETAMINOPHEN 325 MG TAB PO PRN (20:06)
[2024-08-07 06:54] LABS: Basophils # (auto) 0.01 K/uL (0.00-0.20); Basophils % (auto) 0.1 %; Hematocrit (blood only) 36.7 % (37.0-47.0); Hemoglobin 12.5 g/dl (12.0-16.0); Immature Granulocytes # (auto) 0.02 K/uL (0.01-0.20); Immature Granulocytes % (auto) 0.3 %; Lymphocytes # (auto) 1.53 K/uL (1.20-3.40); Lymphocytes % (auto) 22.1 %; Mean Corpuscular Hemoglobin 29.5 pg (25.0-34.0); Mean Corpuscular Hgb Conc 34.1 g/dL (32.0-36.0); Mean Corpuscular Volume 86.6 fL (80.0-100.0); Mean Platelet Volume 10.7 fL (9.4-12.4); Monocytes # (auto) 0.47 K/uL (0.11-0.59); Monocytes % (auto) 6.8 %; Neutrophils # (auto) 4.88 K/uL (1.40-6.50); Neutrophils % (auto) 70.7 %; Platelet Count 190 K/uL (130-400); RDW Coefficient of Variation 14.2 % (11.5-14.5); RDW Standard Deviation 44.9 fL (36.4-46.3); Red Blood Count 4.24 M/uL (4.20-5.40); White Blood Count 6.91 K/ul (4.8-10.8)
[2024-08-07 07:12] LABS: BUN Creatinine Ratio 21.4 (10-20); Calcium 8.7 mg/dl (8.6-10.3); Creatinine Clr Calc Pharmacy 72.3 ml/min; Potassium 3.5 mmol/L (3.5-5.1)
[2024-08-07] MEDS: INSULIN ASPART PER UNIT CHARGE SC SCH (12:23)
--- NOTE | 2024-08-07 15:30 | Electrocardiogram Report ---
Test Reason : Blood Pressure : */* mmHG Vent. Rate : 77 BPM Atrial Rate : 77 BPM P-R Int : 124 ms QRS Dur : 84 ms QT Int : 400 ms P-R-T Axes : 62 -7 67 degrees QTcB Int : 452 ms Normal sinus rhythm Normal ECG When compared with ECG of 13-Jun-2024 10:13, No significant change was found Confirmed by Jerome Linares ([id number]) on 08/07/2024 3:29:49 PM Referred By: REFERRED SELF Confirmed By: Jerome Linares
--- NOTE | 2024-08-07 22:40 | Hospitalist Progress Note ---
Date of Service August 07, 2024 Assessment & Plan (1) Acute exacerbation of chronic obstructive pulmonary disease (COPD): Plan: 74 F recently in hospital for copd exacerbation/strep throat, presents with metabolic encephalopathy / Worsening generalized fatigue and productive cough x 2 weeks, COVID positive no pneumonia over the past 4 days leading to N/V/D and fever Prednisone 40 mg p.o. QAM Azithromycin 500 mg p.o. x 1, then 250 mg x 4 days( also to treat otitis poa) Incentive spirometry, flutter valve holding lasix as poor po intake h/o thrush, pt declining duonebs, nystatin ordered for some dysphagia: completed speech eval. will need ENT consult, will see if she can be seen in house. (2) COVID: Plan: COVID (+) likely contributing to #1 Nonhypoxic on arrival Isolation precautions Supportive care Guaifenesin 1200 mg p.o. BID nausea vomiting and diarrhea likely secondary to covid (3) Poorly controlled type 2 diabetes mellitus: Plan: Last A1c at 8.5% on 06/14/2024 Hold glimepiride, Jardiance Lantus 8 u BID while inpatient SSI; with target BSG range 110-140mg/dL, CF 40, carb ratio 14 T2DM diet BSG ACHS Adjust regimen as needed Plan hypoklameia is replete Full code T2DM diet VTE PPx: Lovenox 40 mg SQ q24h Admission and Anticipated Discharge Date Admission Date: August 05, 2024 Subjective Patient is concerned about her ENT consult. Physical Exam Physical Exam: oral pharynx is reddened, no obvious thrush, lungs are coarse at bases but clear Results & Data Results & Data Vital Signs (Past 12 Hours) Vital Signs Temp Pulse Pulse Resp BP Pulse Ox O2 Del Method 08/07/24 20:15 Room Air 08/07/24 19:19 36.6 C 55 L 18 144/77 H 95 Room Air 08/07/24 17:38 36.4 C L 54 L 20 119/63 96 Room Air 08/07/24 13:40 58 L 08/07/24 12:30 37.0 C 58 L 20 144/77 H 96 Room Air PG Care Time/CCT Total # of Minutes Spent Total Time Spent with Patient: Total time spent is greater than 50% in coordination of care (as documented) at patient's floor/unit and/or counseling patient: Coding Level of Care Code 81350 SUB INP/OBS CARE MIN Diagnoses Acute exacerbation of chronic obstructive pulmonary disease (COPD) J44.1 COVID U07.1 Poorly controlled type 2 diabetes mellitus E11.65
[2024-08-08 06:38] LABS: Basophils # (auto) 0.01 K/uL (0.00-0.20); Basophils % (auto) 0.1 %; Hematocrit (blood only) 36.6 % (37.0-47.0); Hemoglobin 12.9 g/dl (12.0-16.0); Immature Granulocytes # (auto) 0.01 K/uL (0.01-0.20); Immature Granulocytes % (auto) 0.1 %; Lymphocytes # (auto) 2.11 K/uL (1.20-3.40); Mean Corpuscular Hemoglobin 30.3 pg (25.0-34.0); Mean Corpuscular Hgb Conc 35.2 g/dL (32.0-36.0); Mean Corpuscular Volume 85.9 fL (80.0-100.0); Mean Platelet Volume 10.8 fL (9.4-12.4); Monocytes # (auto) 0.39 K/uL (0.11-0.59); Monocytes % (auto) 5.7 %; Neutrophils # (auto) 4.29 K/uL (1.40-6.50); Neutrophils % (auto) 63.1 %; Platelet Count 149 K/uL (130-400); RDW Coefficient of Variation 14.3 % (11.5-14.5); RDW Standard Deviation 44.5 fL (36.4-46.3); Red Blood Count 4.26 M/uL (4.20-5.40); White Blood Count 6.81 K/ul (4.8-10.8)
[2024-08-08 06:59] LABS: BUN Creatinine Ratio 18.6 (10-20); C Reactive Protein 1.36 mg/dl (0-0.5); Creatinine Clr Calc Pharmacy 68.4 ml/min
[2024-08-08] MEDS: LANTUS PER UNIT CHARGE SC SCH (09:17)
[2024-08-08] MEDS: POTASSIUM CHLORIDE CRTAB 20 MEQ TABCR PO STA (10:22)
[2024-08-08] MEDS: POTASSIUM CHLORIDE CRTAB 20 MEQ TABCR PO SCH (13:18)
--- NOTE | 2024-08-08 19:02 | ENT Consultation ---
Date of Consultation August 08, 2024 Assessment & Plan (1) Dysphonia: Secondary to problem #2 and 3 below. (2) Vocal nodules in adults: Most likely due to vocal strain during her recovery process. (3) Laryngitis, acute: This is residual after her recent upper respiratory infection and thrush. There is no evidence of neoplastic lesion responsible for her dysphonia, and the change in the vocal cord surface and the resultant nodules is what is causing her voice being intermittent. She was reassured that we expect this to improve over time and that symptomatic treatment with lozenges is the best course of action at this point. We talked about voice rest and minimizing her use, and writing instead of speaking as a form of communication temporarily as the vocal cords heal. I instructed her to follow-up with our office as an outpatient several weeks after discharge for reevaluation and for endoscopic exam to assess the healing progress. There is a slight chance in the future that the vocal nodules may not completely resolve and could require surgical removal, but it is too soon to tell at this point. History of Present Illness Reason for Consultation: Dysphonia Requesting Physician: Jose D Monique Attending Physician: Jose D Monique History of Present Illness 74-year-old female with a past medical history significant for COPD who recently had a severe upper respiratory infection approximately 6 weeks ago complicated also by thrush both of which were treated. Since then, the patient has had significant dysphonia that was not present before the onset of her illness. She describes that the vocal quality "comes and goes, and is definitely improved after she does not use it for a while." She denies hemoptysis but she does have a mucous productive cough. She denies any throat pain at this point, although she had significant amount of pain at the onset. She does have a history of esophageal stricture that requires occasional dilation by gastroenterology. Currently she is tolerating liquids and solids, and she denies any dysphagia or odynophagia. Our service is being consulted for evaluation of her vocal cords. Allergies Allergy/AdvReac Type Severity Reaction Status Date / Time sumatriptan Allergy Severe Anaphylaxis, Verified 07/20/24 15:21 "heart troubles" fluticasone Allergy Mild "Gonzales Verified 07/20/24 15:21 nose" hydrochlorothiazide Allergy Mild Rash Verified 07/20/24 15:21 levofloxacin Allergy Mild Gastrointestinal Verified 07/20/24 15:21 Upset lisinopril Allergy Mild Rash Verified 07/20/24 15:21 NSAIDS (Non-Steroidal Allergy Mild Rash Verified 07/20/24 15:21 Anti-Inflamma oxycodone AdvReac Severe constipatio Verified 07/20/24 15:21 n famotidine [From Pepcid] AdvReac Intermediate Nausea Verified 07/20/24 15:21 metformin AdvReac Mild Nausea Verified 07/20/24 15:21 Home Medications Medication Instructions Recorded Confirmed Type sennosides 8.6 mg-docusate sodium 1 tab PO BID PRN constipation #30 08/01/19 08/05/24 History 50 mg tablet tabs lancets 33 gauge (GingerdTouch Delica #100 ea 01/16/21 07/20/24 Rx Plus Lancet) blood-glucose meter (Basis Scienceuch #1 ea 07/30/21 07/20/24 Rx Verio Meter) ipratropium 0.5 mg-albuterol 3 mg 3 ml inhalation Q6H PRN wheezing 08/27/22 08/05/24 Rx (2.5 mg base)/3 mL nebulization #180 mL soln montelukast 10 mg tablet 10 mg PO QPM #90 tabs 09/08/22 08/05/24 Rx macushield 1 cap PO QAM 01/19/23 08/05/24 History albuterol sulfate 90 mcg/actuation 2 puff inhalation Q4H PRN 02/26/23 08/05/24 Rx aerosol inhaler (ProAir HFA) shortness of breath or wheezing #18 grams budesonide-formoterol HFA 160 2 puff inhalation BID #6 grams 02/26/23 08/05/24 Rx mcg-4.5 mcg/actuation aerosol inhaler (Symbicort) cetirizine 10 mg tablet 10 mg PO QAM 05/10/23 08/05/24 History rosuvastatin 5 mg tablet 5 mg PO QAM #90 tabs 06/04/23 08/05/24 Rx ascorbic acid (vitamin C) 1,000 mg 1 g PO QPM 07/19/23 08/05/24 History tablet (Vitamin C) cholecalciferol (vitamin D3) 50 50 mcg PO QPM 07/19/23 08/05/24 History mcg (2,000 unit) capsule (Vitamin D3) cyanocobalamin (vitamin B-12) 1,000 mcg PO QPM 07/19/23 08/05/24 History 1,000 mcg tablet (Vitamin B-12) blood sugar diagnostic (OneTouch #200 ea 12/06/23 07/20/24 Rx Verio test strips) enalapril maleate 10 mg tablet 10 mg PO QAM #90 tabs 12/14/23 08/05/24 Rx furosemide 20 mg tablet 20 mg PO QAM #90 tabs 03/20/24 08/05/24 Rx venlafaxine 75 mg capsule,extended 75 mg PO QAM 04/04/24 08/05/24 History release 24 hr venlafaxine 37.5 mg 37.5 mg PO DAILY #90 caps 06/06/24 08/05/24 Rx capsule,extended release 24 hr fluocinonide 0.05 % topical cream 1 applic topical BID #60 grams 07/20/24 08/05/24 Rx glimepiride 1 mg tablet 1 mg PO QAM #30 tabs 07/20/24 08/05/24 Rx sucralfate 1 gram tablet (Carafate) 1 g PO BID #30 tabs 07/20/24 08/05/24 Rx diltiazem HCl 180 mg 180 mg PO QAM #30 caps 07/31/24 08/05/24 Rx capsule,extended release 24 hr empagliflozin 25 mg tablet 25 mg PO UD 08/05/24 08/05/24 History (Jardiance) pantoprazole 40 mg tablet,delayed 40 mg PO BID 08/05/24 08/05/24 History release Patient History Medical History Acute bronchitis Near syncope Near syncope Neck pain ASCVD (arteriosclerotic cardiovascular disease) Osteoarthritis Anxiety Allergic rhinitis Weakness Trigger finger of right hand Dyspnea on exertion History of small bowel obstruction Neck pain Gastroparesis Fatigue Diabetes mellitus, type 2 Carotid artery plaque Immune deficiency disorder History of anesthesia reaction Chronic back pain History of gastric ulcer Barretts esophagus Hypertension Emphysema lung Chronic obstructive pulmonary disease Asthma Diverticulitis of colon with perforation Surgical History History of total left knee replacement (TKR) History of hernia repair History of right knee joint replacement History of carpal tunnel surgery of right wrist History of arthroscopy of right knee History of colonoscopy with polypectomy History of esophagogastroduodenoscopy (EGD) History of total hysterectomy with bilateral salpingo-oophorectomy (BSO) History of appendectomy History of tooth extraction History of cardiac cath S/P tubal ligation S/P colostomy takedown History of colon surgery S/P cholecystectomy Family History Mother Diabetes Bone cancer Hepatic cirrhosis Uncle Prostate cancer Diabetes Colorectal cancer Grandmother (Maternal) Esophageal cancer Diabetes Father Diabetes Aunt Diabetes Grandfather (Paternal) Diabetes Brother Myocardial infarction COPD (chronic obstructive pulmonary disease) Other No family history of adverse response to anesthesia Denies family history of Ovarian cancer Breast cancer Social History Smoking Status: Never smoker Tobacco Type: Cigarettes Age Started Using Tobacco: 17; Age Quit Using Tobacco: 35; packs per day: 1; Second Hand Exposure: No; Do You Dip or Chew Tobacco: No; Hx Alcohol Use: No Hx Substance Use: No Preferred Language: Sami Communication Ability: Effective Visual Impairment: No Limitations Hearing Ability: Normal Senior Process Control Tech Required: No Beliefs That Will Affect Care: None marital status: Current Living Situation: Alone and Family Current Living Situation Comment: LIVES ADJACENT TO SON IN A TINY HOUSE current occupational status: retired Other Information That Helps Us Care for You: No Feels Safe at Home: Yes Safety Concerns: Feels Safe At This Time Childhood Exposure to Second-Hand Smoke: No Seatbelt Use: always Sunscreen Use: Yes Assistive Devices: Cane Review of Systems Review of Systems: As per HPI Physical Exam Physical Exam: Elderly appearing female laying reclined in the hospital bed. She is pleasant. Her speech is articulate and appropriate, however the quality of her voice is rough. She has a loose cough. She is in no distress and without stridor or stertor. Her neck is supple without lymphadenopathy or crepitus or tenderness. Her oral cavity and oropharynx reveal thick pasty secretions, but intact mucosa without ulcerations or masses. The parotid and submandibular glands are nontender. Because of her history, a flexible fiberoptic laryngoscopy is indicated. After obtaining consent, the laryngoscope was passed through the right nasal chamber into the nasopharynx. The posterior and lateral ross of the nasopharynx are unremarkable with intact mucosa and clear secretions. There is cobblestoning along the posterior wall that extends down into the oropharynx and hypopharynx. Within the oropharynx and hypopharynx, the mucosa is pink and intact without ulcerations or masses. The true vocal cords are mobile to midline on voluntary phonation. There is mild edema with effacement of the cords along their entire length on both sides with nodules located at the medial aspect of the anterior one third of the cords in a mirror like fashion. The subglottis is clear without lesions. The scope was withdrawn without difficulty and the patient tolerated the procedure well. Results & Data Vital Signs (Past 12 Hours) Vital Signs Temp Pulse Pulse Resp BP Pulse Ox O2 Del Method 08/08/24 17:15 36.5 C 57 L 18 110/69 95 Room Air 08/08/24 14:00 65 08/08/24 12:49 36.8 C 64 18 121/56 L 96 Room Air 08/08/24 09:15 Room Air 08/08/24 07:50 36.5 C 54 L 18 129/70 94 Room Air 08/08/24 07:00 51 L PG Care Time/CCT Total # of Minutes Spent Total Time Spent with Patient: Total time spent is greater than 50% in coordination of care (as documented) at patient's floor/unit and/or counseling patient: Coding Level of Care Code 36187 INT INP/OBS CARE 2/55MIN (25 - SIGNIFICANT, SEPARATELY IDENTIFIABLE ) Diagnoses Dysphonia R49.0 Vocal nodules in adults J38.2 Laryngitis, acute J04.0 CPT Codes LARYNGOSCOPY DIAGNOSTIC FLEXIBLE - 60343 ([id number])
--- NOTE | 2024-08-08 22:31 | Hospitalist Progress Note ---
Date of Service August 08, 2024 Assessment & Plan (1) Acute exacerbation of chronic obstructive pulmonary disease (COPD): Plan: 74 F recently in hospital for copd exacerbation/strep throat, presents with metabolic encephalopathy / Worsening generalized fatigue and productive cough x 2 weeks, COVID positive no pneumonia over the past 4 days leading to N/V/D and fever Prednisone 40 mg p.o. QAM Azithromycin 500 mg p.o. x 1, then 250 mg x 4 days( also to treat otitis poa) Incentive spirometry, flutter valve holding lasix as poor po intake h/o thrush, pt declining duonebs, nystatin ordered for some dysphagia: completed speech eval. will need ENT consult, will see if she can be seen in house. Awaiting input from ENT> (2) COVID: Plan: COVID (+) likely contributing to #1 Nonhypoxic on arrival Isolation precautions Supportive care Guaifenesin 1200 mg p.o. BID nausea vomiting and diarrhea likely secondary to covid (3) Poorly controlled type 2 diabetes mellitus: Plan: Last A1c at 8.5% on 06/14/2024 Hold glimepiride, Jardiance Lantus 8 u BID while inpatient SSI; with target BSG range 110-140mg/dL, CF 40, carb ratio 14 T2DM diet BSG ACHS Adjust regimen as needed Plan hypoklameia is replete Full code T2DM diet VTE PPx: Lovenox 40 mg SQ q24h Admission and Anticipated Discharge Date Admission Date: August 05, 2024 Subjective Patient is concerned about her ENT consult. Patient has no new complaints. Physical Exam Physical Exam: no obvious thrush, lungs are coarse at bases but clear Results & Data Results & Data Vital Signs (Past 12 Hours) Vital Signs Temp Pulse Pulse Resp BP Pulse Ox O2 Del Method 08/08/24 19:41 36.8 C 63 18 118/69 94 Room Air 08/08/24 17:15 36.5 C 57 L 18 110/69 95 Room Air 08/08/24 14:00 65 08/08/24 12:49 36.8 C 64 18 121/56 L 96 Room Air PG Care Time/CCT Total # of Minutes Spent Total Time Spent with Patient: Total time spent is greater than 50% in coordination of care (as documented) at patient's floor/unit and/or counseling patient: Coding Level of Care Code 24869 SUB INP/OBS CARE MIN Diagnoses Acute exacerbation of chronic obstructive pulmonary disease (COPD) J44.1 COVID U07.1 Poorly controlled type 2 diabetes mellitus E11.65
[2024-08-09 06:43] LABS: Hematocrit (blood only) 39.1 % (37.0-47.0); Hemoglobin 13.6 g/dl (12.0-16.0); Mean Corpuscular Hemoglobin 30.2 pg (25.0-34.0); Mean Corpuscular Hgb Conc 34.8 g/dL (32.0-36.0); Mean Corpuscular Volume 86.7 fL (80.0-100.0); Platelet Count 157 K/uL (130-400); RDW Coefficient of Variation 14.3 % (11.5-14.5); RDW Standard Deviation 45.5 fL (36.4-46.3); Red Blood Count 4.51 M/uL (4.20-5.40); White Blood Count 4.55 K/ul (4.8-10.8)
[2024-08-09 07:05] LABS: BUN Creatinine Ratio 11.5 (10-20); C Reactive Protein 3.97 mg/dl (0-0.5); Calcium 8.5 mg/dl (8.6-10.3); Creatinine Clr Calc Pharmacy 66.1 ml/min; Potassium 4.1 mmol/L (3.5-5.1)
[2024-08-09 08:01] VITALS: BP 122/69; RESP 18; TEMP 98.6; O2SAT 95
[2024-08-09 13:45] VITALS: PULSE 78
== END 2024-08-09 15:36 | disposition home or self-care (01) | DRG 177 ==
LOC: ED 11:25 → 2N 15:32 → SUATTDRO 15:32 → 2N 16:43